=== PATIENT | female | born 1950 | race Caucasian/White ===

== ENCOUNTER → 2016-08-29 | Outpatient (CLI) | payer BC | END | disposition home or self-care (01) | LOC: C.LABPVFM 10:03 | PROVIDERS: ATTEND Nurse Practitioner Family | DX: E03.9 Hypothyroidism, unspecified (principal) ==

== ENCOUNTER → 2017-07-30 | Outpatient (CLI) | payer BC | END | disposition home or self-care (01) | LOC: C.LABPVFM 15:18 | PROVIDERS: ATTEND Nurse Practitioner Family | DX: E03.9 Hypothyroidism, unspecified (principal) ==

== ENCOUNTER 2021-03-07 15:14 | Inpatient (IN) ==
[2021-03-07] MEDS ORDERED: dexAMETHasone**PF** 10 MG/ML VIAL IV ONE (17:40)
[2021-03-07] MEDS ORDERED: SODIUM CHLORIDE 0.9% 1000ML 1,000 ML IV ONE (17:40)
--- NOTE | 2021-03-07 17:44 | Emergency Department Note ---
Impression & Plan Pneumonia due to COVID-19 virus, Hypoxia ED Provider Note NAME: MICHAEL KING AGE: 70 SEX: F : 1950 ARRIVES VIA: Walk-In INFORMANT: Patient ED PROVIDER(S): Shaji Washington DO CHIEF COMPLAINT: cough shortness of breath HPI: Patient is a 70-year-old female who presents the ER for cough, congestion and shortness of breath associated with myalgias and weakness. Her symptoms all started exactly a week ago. She has associated nausea with this. No belly pain or chest pain. No diarrhea. No dysuria, urgency, or frequency. is sick with the same symptoms. She normally does not require any oxygen. She notes it is worse when she is up moving around she becomes very weak and short of breath. ROS: See above HPI for pertinent positives & negatives. A total of 10 systems reviewed and were otherwise negative. PAST MEDICAL HISTORY:See Below PAST SURGICAL HISTORY:See Below FAMILY HISTORY:See Below SOCIAL HISTORY:See Below HOME MEDICATIONS:See Below ALLERGIES:See Below VITALS:See Below PHYSICAL EXAMINATION: GENERAL: Sitting up in bed, alert, slightly ill-appearing on nasal cannula, talking in full sentences, intermittent cough EYE EXAM: normal conjunctiva. PERRL and EOM's grossly intact. OROPHARYNX: no exudate, no erythema, lips, buccal mucosa, and tongue normal and mucous membranes are moist NECK: supple, no nuchal rigidity, no adenopathy, non-tender LUNGS: Clear to auscultation. Normal chest wall mechanics HEART: no murmurs, S1 normal and S2 normal ABDOMEN: abdomen soft, non-tender, normo-active bowel sounds, no masses, no rebound or guarding. UPPER EXTREMITIES: upper extremities are grossly normal. LOWER EXTREMITIES: Calves are equal bilateral NEURO EXAM: Normal sensorium, cranial nerves II-XII grossly intact, normal speech, no gross weakness of arms, no gross weakness of legs. MEDICAL DECISION MAKING: Patient is a 70-year-old female who presents the ER for the above-stated complaint. IV was established. Blood work was obtained. Labs show mild leukopenia at 4.3 thousand. No significant anemia BMP with a mild hyponatremia at 131. LFTs he is in troponin. Pain is. UA was clean. Covid positive. Patient was hypoxic. Remained on nasal cannula throughout stay in ER. Given fluids and steroids. Chest x-ray with multifocal infiltrates. Patient updated at bedside. Triage Nursing notes reviewed. Limited review of prior medical records performed Vital Signs: reviewed and remarkable for HTN, tachy, hypoxic Differential diagnosis: Differential diagnoses includes but is not limited to pneumonia, bronchitis, COPD/Asthma exacerbation, pneumothorax, pulmonary embolism, congestive heart failure, acute coronary syndrome ER treatment provided: See below Diagnostics interpreted by me: ECG: Sinus rhythm rate of 98 Left axis No PVCs QTC 500 Septal Q waves Cardiac Monitoring: An order was placed for continuous cardiac monitoring. The monitor shows a rate of 92 with sinus rhythm. Laboratory studies: As stated above and show below. Imaging studies: See below Consultation(s): Discussed the hospitalist for admission Procedures: none Critical Care: I have personally spent 45 minutes of critical care time in the direct management of this patient. This includes bedside care, interpretation of alexander gnostic studies, and testing, discussion with consultants, patient, and family members, and other required patient management activities. This 45 minutes is in excess of all separately billable procedures. Past Med/Surg History Medical History (Updated 03/07/21 @ 23:24 by Shaji Washington DO) HLD (hyperlipidemia) Hypothyroidism Surgical History History of hysterectomy Social History (Updated 03/07/21 @ 19:41 by Alice Zepeda PA-C) Smoking Status: Never smoker Hx Alcohol Use: Yes Alcohol type: beer and hard liquor Alcohol Intake Frequency: Monthly or Less Hx Substance Use: No Preferred Language: Kyrgyz Communication Ability: Effective Open Hearth Helper Required: No Beliefs That Will Affect Care: None marital status: Current Living Situation: Spouse Feels Safe at Home: Yes Safety Concerns: Feels Safe At This Time Assistive Devices: Glasses Allergies Allergies Allergy/AdvReac Type Severity Reaction Status Date / Time No Known Allergies Allergy Verified 03/07/21 18:49 Home Meds Home Medications Medication Instructions Recorded Confirmed levothyroxine 100 mcg tablet 100 mcg PO DAILY 03/07/21 03/07/21 Results & Data (ED) Vital Signs Vital Signs - 24 hr 03/07/21 15:41 03/07/21 15:46 Temperature 37 C Temperature Source Temporal Artery Scan Pulse Rate 108 H Respiratory Rate 22 Respiratory Effort / Characteristics Short of Breath Blood Pressure 164/89 H Blood Pressure Mean 114 Blood Pressure Position Sitting Pulse Oximetry 87 L 87 L Oxygen Delivery Method Room Air Room Air Sepsis Recent Fever Within 48 Hours No Sepsis New/Unexplained Change in Mental Status N/A Sepsis Action Taken by Nursing No Action Required Oxygen Flow Rate - Titration 4 Laboratory Data Result diagrams: 03/07/21 17:55 03/07/21 17:55 Lab Results 03/07/21 03/07/21 03/07/21 Range/Units 17:55 17:55 17:55 WBC 4.30 L (4.8-10.8) K/uL RBC 4.23 (4.2-5.4) M/uL Hgb 13.1 (12.0-16.0) g/dL Hct 39.2 (37-47) % MCV 92.7 (80-100) fL MCH 31.0 (25-34) pg MCHC 33.4 (32-36) g/dL RDW Std Deviation 46.4 H (36.4-46.3) fL RDW Coeff of Wood 13.8 (11.5-14.5) % Plt Count 154 (130-400) K/uL MPV 9.4 (7.4-10.4) fL Immature Gran % (Auto) 0.5 % Neut % (Auto) 68.6 % Lymph % (Auto) 20.7 % Heard % (Auto) 9.8 % Eos % (Auto) 0.2 % Baso % (Auto) 0.2 % Neut # (Auto) 2.95 (1.4-6.5) K/uL Lymph # (Auto) 0.89 L (1.2-3.4) K/uL Heard # (Auto) 0.42 (0.11-0.59) K/uL Eos # (Auto) 0.01 (0-0.5) K/uL Baso # (Auto) 0.01 (0-0.2) K/uL Immature Gran # (Auto) 0.02 (0.00-0.02) K/uL ESR (0-30) mm/hr APTT 37.0 H (21.0-31.0) Seconds PTT Ratio 1.4 Sodium 131 L (136-145) mmol/L Potassium 3.8 (3.5-5.1) mmol/L Chloride 96 L (98-107) mmol/L Carbon Dioxide 28 (21-32) mmol/L Anion Gap 7.0 (3-11) BUN 16 (7-18) mg/dl Creatinine 1.06 (0.6-1.2) mg/dl Est Cr Clr Drug Dosing 51.8 ml/min Est GFR ( Amer) 61.6 ml/min Est GFR (Non-Af Amer) 53.2 ml/min BUN/Creatinine Ratio 15.2 (10-20) Glucose 158 H (70-99) mg/dl Osmolality (280-300) mOsm/kg Calcium 8.5 (8.5-10.1) mg/dl Total Bilirubin 0.6 (0.2-1) mg/dl AST 69 H (15-37) U/L ALT 23 (12-78) U/L Alkaline Phosphatase 146 H (45-117) U/L Troponin I < 0.015 (0-0.045) ng/ml C-Reactive Protein 11.30 H (0-0.29) mg/dl Total Protein 7.5 (6.4-8.2) gm/dl Albumin 3.2 L (3.4-5.0) gm/dl Globulin 4.3 H (2.5-4.0) gm/dl Albumin/Globulin Ratio 0.7 L (0.9-2) Lipase 171 (73-393) U/L Procalcitonin (0-0.5) ng/ml 03/07/21 03/07/21 03/07/21 Range/Units 17:55 17:55 17:55 WBC (4.8-10.8) K/uL RBC (4.2-5.4) M/uL Hgb (12.0-16.0) g/dL Hct (37-47) % MCV (80-100) fL MCH (25-34) pg MCHC (32-36) g/dL RDW Std Deviation (36.4-46.3) fL RDW Coeff of Wood (11.5-14.5) % Plt Count (130-400) K/uL MPV (7.4-10.4) fL Immature Gran % (Auto) % Neut % (Auto) % Lymph % (Auto) % Heard % (Auto) % Eos % (Auto) % Baso % (Auto) % Neut # (Auto) (1.4-6.5) K/uL Lymph # (Auto) (1.2-3.4) K/uL Heard # (Auto) (0.11-0.59) K/uL Eos # (Auto) (0-0.5) K/uL Baso # (Auto) (0-0.2) K/uL Immature Gran # (Auto) (0.00-0.02) K/uL ESR 63 H (0-30) mm/hr APTT (21.0-31.0) Seconds PTT Ratio Sodium (136-145) mmol/L Potassium (3.5-5.1) mmol/L Chloride (98-107) mmol/L Carbon Dioxide (21-32) mmol/L Anion Gap (3-11) BUN (7-18) mg/dl Creatinine (0.6-1.2) mg/dl Est Cr Clr Drug Dosing ml/min Est GFR ( Amer) ml/min Est GFR (Non-Af Amer) ml/min BUN/Creatinine Ratio (10-20) Glucose (70-99) mg/dl Osmolality (280-300) mOsm/kg Calcium (8.5-10.1) mg/dl Total Bilirubin (0.2-1) mg/dl AST (15-37) U/L ALT (12-78) U/L Alkaline Phosphatase (45-117) U/L Troponin I (0-0.045) ng/ml C-Reactive Protein Cancelled (0-0.29) mg/dl Total Protein (6.4-8.2) gm/dl Albumin (3.4-5.0) gm/dl Globulin (2.5-4.0) gm/dl Albumin/Globulin Ratio (0.9-2) Lipase (73-393) U/L Procalcitonin 0.10 (0-0.5) ng/ml 03/07/21 Range/Units 17:55 WBC (4.8-10.8) K/uL RBC (4.2-5.4) M/uL Hgb (12.0-16.0) g/dL Hct (37-47) % MCV (80-100) fL MCH (25-34) pg MCHC (32-36) g/dL RDW Std Deviation (36.4-46.3) fL RDW Coeff of Wood (11.5-14.5) % Plt Count (130-400) K/uL MPV (7.4-10.4) fL Immature Gran % (Auto) % Neut % (Auto) % Lymph % (Auto) % Heard % (Auto) % Eos % (Auto) % Baso % (Auto) % Neut # (Auto) (1.4-6.5) K/uL Lymph # (Auto) (1.2-3.4) K/uL Heard # (Auto) (0.11-0.59) K/uL Eos # (Auto) (0-0.5) K/uL Baso # (Auto) (0-0.2) K/uL Immature Gran # (Auto) (0.00-0.02) K/uL ESR (0-30) mm/hr APTT (21.0-31.0) Seconds PTT Ratio Sodium (136-145) mmol/L Potassium (3.5-5.1) mmol/L Chloride (98-107) mmol/L Carbon Dioxide (21-32) mmol/L Anion Gap (3-11) BUN (7-18) mg/dl Creatinine (0.6-1.2) mg/dl Est Cr Clr Drug Dosing ml/min Est GFR ( Amer) ml/min Est GFR (Non-Af Amer) ml/min BUN/Creatinine Ratio (10-20) Glucose (70-99) mg/dl Osmolality 278 L (280-300) mOsm/kg Calcium (8.5-10.1) mg/dl Total Bilirubin (0.2-1) mg/dl AST (15-37) U/L ALT (12-78) U/L Alkaline Phosphatase (45-117) U/L Troponin I (0-0.045) ng/ml C-Reactive Protein (0-0.29) mg/dl Total Protein (6.4-8.2) gm/dl Albumin (3.4-5.0) gm/dl Globulin (2.5-4.0) gm/dl Albumin/Globulin Ratio (0.9-2) Lipase (73-393) U/L Procalcitonin (0-0.5) ng/ml Administered Medications Albuterol (Albuterol Hfa 8 Gm Inhaler) 2 puffs INH QID BROWN Stop: 04/06/21 21:55 Last Admin: 03/07/21 22:57 Dose: 2 puffs Documented by: [id number] Discontinued Medications Dexamethasone Sodium Phosphate (DexamethasonePf 10 Mg/Ml Vial) 8 mg IV NOW ONE Stop: 03/07/21 17:41 Last Admin: 03/07/21 19:23 Dose: 8 mg Documented by: [id number] Sodium Chloride (Nss 1000ml) 1,000 mls @ 999 mls/hr IV .Q1H1M ONE Stop: 03/07/21 18:40 Last Infusion: 03/07/21 20:49 Dose: 0 mls/hr Documented by: [id number] Admin: 03/07/21 19:24 Dose: 999 mls/hr Documented by: [id number] Remdesivir 200 mg/ Sodium (Chloride) 250 mls @ 125 mls/hr IV ONE STA; Protocol Stop: 03/07/21 22:36 Last Admin: 03/07/21 21:16 Dose: 125 mls/hr Documented by: [id number] Imaging Data Radiologist's Impression: Chest X-Ray 03/07/21 17:40 SINGLE VIEW CHEST CLINICAL HISTORY: Atypical chest pain. FINDINGS: An AP, portable, upright chest radiograph is obtained. No prior studies are available for comparison at the time of dictation. The examination is degraded by portable technique and apical lordotic positioning. The cardiomediastinal silhouette is unremarkable. Multifocal airspace consolidation is seen throughout both lungs, most confluent in the right upper lobe. No large pleural effusion or pneumothorax is seen. The skeletal structures are osteopenic. The bony thorax is grossly intact. IMPRESSION: Multifocal airspace consolidation is typical for pneumonia. Clinical correlation will be required and radiographic follow-up to resolution is recommended. ACT 112: Negative or not required by law. Electronically signed by: Broderick Castro M.D. 03/07/2021 7:20 PM Discharge Plan Visit Data Chief Complaint: Illness Stated Complaint: CONGESTION,TIRED,COUGH,FEVER,NAUSEA,HEADACHE ED Provider: Shaji Washington Discharge Problem: Pneumonia due to COVID-19 virus, Hypoxia Patient Disposition: Admitted As Inpatient Discharge Instructions Interventions: ED Discharge Assessment Last Done: 03/07/21 21:34
[2021-03-07 18:14] LABS: Basophils # (auto) 0.01 K/uL (0-0.2); Basophils % (auto) 0.2 %; Eosinophils # (auto) 0.01 K/uL (0-0.5); Eosinophils % (auto) 0.2 %; Hematocrit (blood only) 39.2 % (37-47); Hemoglobin 13.1 g/dL (12.0-16.0); Immature Granulocytes # (auto) 0.02 K/uL (0.00-0.02); Immature Granulocytes % (auto) 0.5 %; Lymphocytes # (auto) 0.89 K/uL (1.2-3.4); Lymphocytes % (auto) 20.7 %; Mean Corpuscular Hgb Conc 33.4 g/dL (32-36); Mean Corpuscular Volume 92.7 fL (80-100); Mean Platelet Volume 9.4 fL (7.4-10.4); Monocytes # (auto) 0.42 K/uL (0.11-0.59); Monocytes % (auto) 9.8 %; Neutrophils # (auto) 2.95 K/uL (1.4-6.5); Neutrophils % (auto) 68.6 %; Platelet Count 154 K/uL (130-400); RDW Coefficient of Variation 13.8 % (11.5-14.5); RDW Standard Deviation 46.4 fL (36.4-46.3); Red Blood Count 4.23 M/uL (4.2-5.4)
[2021-03-07 18:29] LABS: Partial Thromboplastin Ratio 1.4
[2021-03-07 18:46] LABS: Alanine Aminotransferase 23 U/L (12-78); Albumin Globulin Ratio 0.7 (0.9-2); Albumin Level 3.2 gm/dl (3.4-5.0); Alkaline Phosphatase 146 U/L (45-117); BUN Creatinine Ratio 15.2 (10-20); Bilirubin,Total 0.6 mg/dl (0.2-1); Blood Urea Nitrogen 16 mg/dl (7-18); Calcium 8.5 mg/dl (8.5-10.1); Carbon Dioxide 28 mmol/L (21-32); Chloride 96 mmol/L (98-107); Creatinine Clr Calc Pharmacy 51.8 ml/min; Est GFR (African American) 61.6 ml/min; Est GFR (Non-African American) 53.2 ml/min; Globulin 4.3 gm/dl (2.5-4.0); Glucose 158 mg/dl (70-99); Lipase 171 U/L (73-393); Sodium 131 mmol/L (136-145); Total Protein 7.5 gm/dl (6.4-8.2); Troponin I < 0.015 ng/ml (0-0.045)
[2021-03-07 18:52] LABS: Potassium 3.8 mmol/L (3.5-5.1)
[2021-03-07 19:04] LABS: Aspartate Aminotransferase 69 U/L (15-37)
--- NOTE | 2021-03-07 19:21 | XRay Report ---
SINGLE VIEW CHEST CLINICAL HISTORY: Atypical chest pain. FINDINGS: An AP, portable, upright chest radiograph is obtained. No prior studies are available for c omparison at the time of dictation. The examination is degraded by portable technique and apical lord otic positioning. The cardiomediastinal silhouette is unremarkable. Multifocal airspace consolidation is seen throughout both lungs, most confluent in the right upper lobe. No large pleural effusion or pneumothorax is seen. The skeletal structures are osteopenic. The bony thorax is grossly intact. IMPRESSION: Multifocal airspace consolidation is typical for pneumonia. Clinical correlation will be required and radiographic follow-up to resolution is recommended. ACT 112: Negative or not required by law. Electronically signed by: Broderick Castro M.D. 03/07/2021 7:20 PM
--- NOTE | 2021-03-07 19:37 | History & Physical Report ---
Date of Service March 07, 2021 Assessment & Plan (1) Hypoxia: (2) Pneumonia due to COVID-19 virus: (3) Hyponatremia: (4) Hypothyroidism: (5) HLD (hyperlipidemia): Plan: This is a 70 year old F who has a significant PMH of hypothyroidism, HLD who is presenting with weakness and cough x 1 week. CXR: Multifocal PNA ESR: 63 CRP 11.30 Procalcitonin: 0.10 SARS-COV2: positive Hypoxia PNA due to Covid-19 admit to tele supplemental oxygen, titrate as needed IV dexamethasone 6mg daily IV Remdesivir Lovenox SQ BID for dvt ppx encourage incentive spirometry Albuterol HFA QID Muccinex 1200mg BID encourage self ambulation and position change q2hr, pt states she cannot prone, encouraged to if able Hyponatremia Hypochloremia serum osm, urine na and urine osm pending likely hypotonic hyponatremia, mildly dehydrated IVF x 1 L ordered in ED repeat in a.m. Elevated blood glucose, random 158 obtain a1c in a.m. denies hx of t2dm Hypothyroidism continue synthyroid DVT ppx: Lovenox sq BID Dispo: PCU PCP: Gamal FULL CODE Pt was seen and examined in collaboration with Dr. Hassan, please see addendum History of Present Illness Chief Complaint: Weakness and cough x 1 week. Primary Care Provider: Elizabeth Yeung, DO This is a 70 year old F who has a significant PMH of hypothyroidism, HLD who is presenting with weakness and cough x 1 week. Patient complains of generalized weakness, fatigue, myalgias, feeling feverish, wet productive cough and known COVID-19 exposure with . She denies any shortness of breath, chest pain, hemoptysis, lightheadedness, dizziness, nausea, vomiting, abdominal pain, change in bowel or urinary habits. She does have generalized decreased appetite. She denies any loss of taste or smell. She denies any change in weight. She does have chronic lower extremity swelling but feels this is a baseline. She is otherwise healthy only takes levothyroxine for medication. She is a non-smoker and socially drinks alcohol. In ED she was hypoxic requiring 3 L of O2 to maintain normal saturation. Her CBC revealed mild leukopenia at 4.3k,, ESR 63, CRP 11 point, sodium 131, right 96, BUN 16, creatinine 106, glucose 158. Chest x-ray revealed multifocal pneumonia. She received IV Decadron in ED. She is not vaccinated against covid-19. Allergies Allergy/AdvReac Type Severity Reaction Status Date / Time No Known Allergies Allergy Verified 03/07/21 18:49 Home Medications Medication Instructions Recorded Confirmed Type levothyroxine 100 mcg tablet 100 mcg PO DAILY 03/07/21 03/07/21 History Past Med/Surg History Medical History (Updated 03/07/21 @ 23:24 by Shaji Washington DO) HLD (hyperlipidemia) Hypothyroidism Surgical History History of hysterectomy Social History (Updated 03/07/21 @ 19:41 by Alice Zepeda PA-C) Smoking Status: Never smoker Hx Alcohol Use: Yes Alcohol type: beer and hard liquor Alcohol Intake Frequency: Monthly or Less Hx Substance Use: No Preferred Language: Azeri Communication Ability: Effective Senior Environmental Practice Leader Required: No Beliefs That Will Affect Care: None marital status: Current Living Situation: Spouse Feels Safe at Home: Yes Safety Concerns: Feels Safe At This Time Assistive Devices: Glasses Review of Systems Review of Systems: All systems reviewed & are unremarkable except as noted in HPI & below Physical Exam Physical Exam: Constitutional: WD/WN, obese, F, vitals as above, NAD, sitting up in bed, pleasant, conversing easily Head: Normocephalic, Atraumatic Eyes: PERRL, conjunctivae normal, anicteric sclerae ENMT: external ear and nose normal, oropharynx normal Neck: trachea midline, no thyromegaly normal visual inspection Respiratory: on O2 via 3L of NC, normal respiratory effort, lungs clear to auscultation, no wheeze, rales, rhonchi. Normal insp/exp effort, no accessory muscle use Cardiovascular: RRR, no murmur, b/l nonpitting edema Vessels: no JVD or carotid bruit Chest: normal inspection of chest Abdomen: normal bowel sounds, soft, nontender, no hepatosplenomegaly Musculoskeletal: no cyanosis or clubbing, extremities motor strength 5/5 Skin: no rashes, warm and dry normal turgor Neurologic: PERRL, EOMI, accommodation nl, no face palsy, no dysarthria CN's II-XI intact bilaterally and moves all extremities Psychiatric: A+Ox3, euthymic affect Lymphatic: no cervical or axillary lymphadenopathy : deferred Results & Data Results & Data ([facility]) Vital Signs (Past 12 Hours) Vital Signs Temp Pulse Resp BP Pulse Ox 03/07/21 15:46 87 L 03/07/21 15:41 37 C 108 H 22 164/89 H 87 L Diagnostic Findings Chest X-Ray 03/07/21 17:40 SINGLE VIEW CHEST CLINICAL HISTORY: Atypical chest pain. FINDINGS: An AP, portable, upright chest radiograph is obtained. No prior studies are available for comparison at the time of dictation. The examination is degraded by portable technique and apical lordotic positioning. The cardiomediastinal silhouette is unremarkable. Multifocal airspace consolidation is seen throughout both lungs, most confluent in the right upper lobe. No large pleural effusion or pneumothorax is seen. The skeletal structures are osteopenic. The bony thorax is grossly intact. IMPRESSION: Multifocal airspace consolidation is typical for pneumonia. Clinical correlation will be required and radiographic follow-up to resolution is recommended. ACT 112: Negative or not required by law. Electronically signed by: Broderick Castro M.D. 03/07/2021 7:20 PM Medications Administered Medication List Discontinued Medications Dexamethasone Sodium Phosphate (DexamethasonePf 10 Mg/Ml Vial) 8 mg IV NOW ONE Stop: 03/07/21 17:41 Last Admin: 03/07/21 19:23 Dose: 8 mg Documented by: [id number] Sodium Chloride (Nss 1000ml) 1,000 mls @ 999 mls/hr IV .Q1H1M ONE Stop: 03/07/21 18:40 Last Admin: 03/07/21 19:24 Dose: 999 mls/hr Documented by: [id number] ECG Rate (beats per minute): 98 Rhythm: normal sinus COVID-19 Results Results COVID-19 Adm Lab Results: RBC 4.23 M/uL (4.2-5.4) 03/07/21 WBC 4.30 K/uL (4.8-10.8) L 03/07/21 Hgb 13.1 g/dL (12.0-16.0) 03/07/21 Hct 39.2 % (37-47) 03/07/21 Plt Count 154 K/uL (130-400) 03/07/21 Neutrophils (%) (Auto) 68.6 % 03/07/21 Lymphocytes (%) (Auto) 20.7 % 03/07/21 Monocytes # (Auto) 0.42 K/uL (0.11-0.59) 03/07/21 Eosinophils # (Auto) 0.01 K/uL (0-0.5) 03/07/21 Immature Granulocyte % (Auto) 0.5 % 03/07/21 Neutrophils # (Auto) 2.95 K/uL (1.4-6.5) 03/07/21 Lymphocytes # (Auto) 0.89 K/uL (1.2-3.4) L 03/07/21 Monocytes # (Auto) 0.42 K/uL (0.11-0.59) 03/07/21 Eosinophils # (Auto) 0.01 K/uL (0-0.5) 03/07/21 Basophils # (Auto) 0.01 K/uL (0-0.2) 03/07/21 Immature Granulocyte # (Auto) 0.02 K/uL (0.00-0.02) 03/07/21 Na 131 mmol/L (136-145) L 03/07/21 K 3.8 mmol/L (3.5-5.1) 03/07/21 Cl 96 mmol/L (98-107) L 03/07/21 CO2 28 mmol/L (21-32) 03/07/21 Anion Gap 7.0 (3-11) 03/07/21 BUN 16 mg/dl (7-18) 03/07/21 Creatinine 1.06 mg/dl (0.6-1.2) 03/07/21 BUN/Creatinine Ratio 15.2 (10-20) 03/07/21 Glucose Level 158 mg/dl (70-99) H 03/07/21 Ca 8.5 mg/dl (8.5-10.1) 03/07/21 Total Bilirubin 0.6 mg/dl (0.2-1) 03/07/21 AST/SGOT 69 U/L (15-37) H 03/07/21 ALT/SGPT 23 U/L (12-78) 03/07/21 Alkaline Phosphatase 146 U/L (45-117) H 03/07/21 Total Protein 7.5 gm/dl (6.4-8.2) 03/07/21 Albumin 3.2 gm/dl (3.4-5.0) L 03/07/21 Globulin 4.3 gm/dl (2.5-4.0) H 03/07/21 Albumin/Globulin Ratio 0.7 (0.9-2) L 03/07/21 Troponin I < 0.015 ng/ml (0-0.045) 03/07/21 CRP 11.30 mg/dl (0-0.29) H 03/07/21 Procalcitonin 0.10 ng/ml (0-0.5) 03/07/21 PTT 37.0 Seconds (21.0-31.0) H 03/07/21 COVID-19 PCR POSITIVE (Negative) A* 03/07/21 Chest X-Ray 03/07/21 Code Status & VTE Plan Code Status FULL CODE VTE Prophylaxis Plan VTE Prophylaxis will be ordered: Yes Supervising Physician Co-Signing Physician Notes Care coordinated with Jana Zepeda PA-C. Agree with above note. Patient seen and examined. Please refer to her notes for full details. Vital signs reviewed. Physical exam: General exam: Alert and oriented. Not in acute distress. CVS: S1 and S2 heard, regular rate and rhythm, no murmurs. RS: Clear to auscultation, no wheezing or crackles. ABD: Soft, bowel sounds present, nontender, no distention. SCAFFOLDING HELPER: Nonfocal. EXT: No edema, no erythema. Labs: Reviewed. Assessment and plan: 70F prsenst with cough and weakness sob going for abut a week. requiring oxygen. Has covid pneumonia Covid pneumonia hypoxia iv decadron, remdesevir will follow labs close monitor. Hyperglycemia follow sugars while on steroids follw hba1c levels Other diagnosis and plan of care as per ILYA Groves MD.
[2021-03-07 19:46] LABS: Appearance Urine Clear (Clear); Bilirubin Urine Negative (Negative); Blood Urine Negative (Negative); Color Urine Yellow; Glucose Urine UA Negative (Negative); Ketones Urine Negative (Negative); Leukocyte Esterase Urine Negative (Negative); Nitrite Urine Negative (Negative); Protein Urine Negative (Negative); Specific Gravity Urine 1.008 (1.000-1.030); Urobilinogen Urine Negative (Negative)
[2021-03-07] MEDS ORDERED: REMDESIVIR 200 MG in SODIUM CHLORIDE 0.9% 210 ML IV STA (20:37)
[2021-03-07] MEDS ORDERED: MAGNESIUM HYDROXIDE SUSP 30 ML UDC PO PRN (21:56)
[2021-03-07] MEDS ORDERED: ONDANSETRON INJ 2 MG/ML 2 ML VIAL IV PRN (21:56)
[2021-03-07] MEDS ORDERED: POLYETHYLENE (MIRALAX) 17 GM PACK PO PRN (21:56)
[2021-03-07] MEDS ORDERED: ALUMINUM/MAGNESIUM SUSP 30 ML UDC PO PRN (21:56)
[2021-03-07] MEDS: ALBUTEROL HFA 8 GM INHALER INH SCH (22:57)
[2021-03-07] MEDS: guaiFENesin 600 MG TABCR PO SCH (23:19)
[2021-03-07] MEDS: ENOXAPARIN INJ 40 MG/0.4 ML SYR SQ SCH (23:20)
[2021-03-07] MEDS: SODIUM CHLORIDE 0.9% 10ML FLUSH IV SCH (23:24)
[2021-03-08] MEDS: ALBUTEROL HFA 8 GM INHALER INH SCH ×4 (07:51→19:54)
[2021-03-08] MEDS: guaiFENesin 600 MG TABCR PO SCH ×2 (08:41→21:40)
[2021-03-08] MEDS: dexAMETHasone 6 MG in SYRINGE 0 ML IV SCH (08:41)
[2021-03-08] MEDS: LEVOTHYROXINE SODIUM 100 MCG TABLET PO SCH (08:42)
[2021-03-08] MEDS: ENOXAPARIN INJ 40 MG/0.4 ML SYR SQ SCH ×2 (08:42→21:41)
[2021-03-08 09:36] LABS: Basophils # (auto) 0.01 K/uL (0-0.2); Basophils % (auto) 0.2 %; Hematocrit (blood only) 44.2 % (37-47); Hemoglobin 15.2 g/dL (12.0-16.0); Immature Granulocytes # (auto) 0.03 K/uL (0.00-0.02); Immature Granulocytes % (auto) 0.5 %; Lymphocytes # (auto) 0.88 K/uL (1.2-3.4); Lymphocytes % (auto) 15.3 %; Mean Corpuscular Hemoglobin 31.4 pg (25-34); Mean Corpuscular Hgb Conc 34.4 g/dL (32-36); Mean Corpuscular Volume 91.3 fL (80-100); Mean Platelet Volume 10.1 fL (7.4-10.4); Monocytes # (auto) 0.47 K/uL (0.11-0.59); Monocytes % (auto) 8.2 %; Neutrophils # (auto) 4.35 K/uL (1.4-6.5); Neutrophils % (auto) 75.8 %; Platelet Count 160 K/uL (130-400); RDW Coefficient of Variation 13.8 % (11.5-14.5); RDW Standard Deviation 45.7 fL (36.4-46.3); Red Blood Count 4.84 M/uL (4.2-5.4); White Blood Count 5.74 K/uL (4.8-10.8)
--- NOTE | 2021-03-08 09:57 | Electrocardiogram Report ---
Test Reason : Blood Pressure : / mmHG Vent. Rate : 098 BPM Atrial Rate : 098 BPM P-R Int : 178 ms QRS Dur : 074 ms QT Int : 392 ms P-R-T Axes : 030 -10 057 degrees QTc Int : 500 ms Poor data quality, interpretation may be adversely affected Normal sinus rhythm Left atrial enlargement Anteroseptal infarct , age undetermined Abnormal ECG No previous ECGs available Confirmed by Shemran Davila ([id number]) on 03/08/2021 9:56:51 AM Referred By: REFERRED SELF Confirmed By:Sherman Davila
[2021-03-08 10:08] LABS: Albumin Globulin Ratio 0.7 (0.9-2); Albumin Level 3.3 gm/dl (3.4-5.0); BUN Creatinine Ratio 15.6 (10-20); Bilirubin,Total 0.6 mg/dl (0.2-1); Calcium 8.5 mg/dl (8.5-10.1); Creatinine Clr Calc Pharmacy 65.4 ml/min; Est GFR (African American) 82.8 ml/min; Est GFR (Non-African American) 71.4 ml/min; Globulin 4.9 gm/dl (2.5-4.0); Magnesium 2.3 mg/dl (1.8-2.4); Potassium 3.8 mmol/L (3.5-5.1); Total Protein 8.2 gm/dl (6.4-8.2)
[2021-03-08 11:09] LABS: Estimated Average Glucose 140 mg/dl; Hemoglobin A1C 6.5 % (4.5-5.6)
[2021-03-08] MEDS ORDERED: FUROSEMIDE 40 MG in SYRINGE 0 ML IV ONE (13:30)
[2021-03-08] MEDS ORDERED: FUROSEMIDE 40 MG/4 ML VIAL IV ONE (13:30)
--- NOTE | 2021-03-08 14:53 | Hospitalist Progress Note ---
Date of Service March 08, 2021 Assessment & Plan (1) Hypoxia: Plan: Secondary to PNA due to Covid-19 (2) Pneumonia due to COVID-19 virus: Plan: CXR: Multifocal PNA ESR: 63,CRP 11.30 Procalcitonin: 0.10 SARS-COV2: positive Supplemental oxygen, titrate as needed IV dexamethasone 6mg daily and IV Remdesivir Encourage incentive spirometry and flutter valves Albuterol HFA QID Muccinex 1200mg BID Encourage prone position Hyperglycemia Hemoglobin A1c 6.5 Likely secondary to use of steroid We will put her on sliding scale insulin coverage Hypertension Blood pressure has been running high Was not any blood pressure medications before We will start amlodipine (3) Hyponatremia: Plan: Hyponatremia Hypochloremia serum osm, urine na and urine osm pending likely hypotonic hyponatremia, mildly dehydrated IVF x 1 L ordered in ED Sodium level has improved to 138 (4) Hypothyroidism: Plan: Continue supplement (5) HLD (hyperlipidemia): Plan: DVT ppx: Lovenox sq BID Dispo: PCU PCP: Gamal FULL CODE Admission and Anticipated Discharge Date Admission Date: March 07, 2021 Subjective 03/08/2021 The patient was seen and examined in telemetry unit and in the Covid room She has been feeling a little better but is still requiring about 12 L of oxygen to maintain saturation Still has cough Review of Systems Review of Systems: All systems reviewed and are unremarkable except as noted below Physical Exam Physical Exam: Sitting at the edge of the bed with minimal shortness of breath Constitutional: well developed, well nourished, + ill appearing and + obese Eyes: PERRL, conjunctivae normal, anicteric sclerae ENMT: external ear and nose normal, oropharynx normal Neck: trachea midline, no thyromegaly Respiratory: + respiratory distress (Mild to moderate shortness of breath at rest) and + cough Auscultation: + diminished lung sounds and + crackles (At the bases) Cardiovascular: Rate/Rhythm: regular rate and regular rhythm; not tachycardic Heart Sounds: normal S1 and normal S2; no murmur Extremities: + edema (Trace edema bilaterally) Gastrointestinal (Abdomen): Inspection/Auscultation: normal bowel sounds; abdomen not distended Percussion/Palpation: abdomen soft; abdomen nontender Musculoskeletal: No acute arthritis in any joint Neurologic: Alert, awake and oriented x3 Psychiatric: A+Ox3, euthymic affect Lymphatic: no cervical or axillary lymphadenopathy Results & Data Results & Data ([facility]) Vital Signs (Past 12 Hours) Vital Signs Temp Pulse Pulse Resp BP BP Pulse Ox 03/08/21 13:25 03/08/21 13:15 03/08/21 11:30 96 H 18 90 03/08/21 11:15 36.7 C 101 H 19 179/104 H 88 L 03/08/21 09:00 148/89 H 03/08/21 08:10 36.5 C 90 20 149/102 H 90 03/08/21 07:52 80 18 91 03/08/21 07:11 81 03/08/21 03:36 91 H 19 149/95 H 92 Pulse Ox 03/08/21 13:25 90 03/08/21 13:15 82 L 03/08/21 11:30 03/08/21 11:15 03/08/21 09:00 90 03/08/21 08:10 03/08/21 07:52 03/08/21 07:11 03/08/21 03:36 Laboratory Results Short CBC 03/07/21 03/08/21 Range/Units 17:55 08:49 WBC 4.30 L 5.74 (4.8-10.8) K/uL Hgb 13.1 15.2 (12.0-16.0) g/dL Hct 39.2 44.2 (37-47) % Plt Count 154 160 (130-400) K/uL BMP 03/07/21 03/08/21 17:55 08:49 Sodium 131 L 138 D Potassium 3.8 3.8 Chloride 96 L 105 Carbon Dioxide 28 29 BUN 16 13 Creatinine 1.06 0.83 Glucose 158 H 156 H Calcium 8.5 8.5 Cardiac Enzymes 03/07/21 Range/Units 17:55 Troponin I < 0.015 (0-0.045) ng/ml Liver Function 03/07/21 03/08/21 Range/Units 17:55 08:49 Total Bilirubin 0.6 0.6 (0.2-1) mg/dl AST 69 H 71 H (15-37) U/L ALT 23 22 (12-78) U/L Alkaline Phosphatase 146 H 164 H (45-117) U/L Albumin 3.2 L 3.3 L (3.4-5.0) gm/dl Urine 03/07/21 Range/Units 19:20 Urine Color Yellow Urine Appearance Clear (Clear) Urine pH 6.0 (4.5-7.5) Ur Specific [place] 1.008 (1.000-1.030) Urine Protein Negative (Negative) Urine Glucose (UA) Negative (Negative) Medications Administered Current Inpatient Medications Acetaminophen (Acetaminophen 325 Mg Tab) 650 mg PO Q4H PRN PRN Reason: Pain or Fever Stop: 04/06/21 21:55 Al Hydrox/Mg Hydrox/Simethicone (Aluminum/Magnesium Susp 30 Ml Udc) 15 ml PO Q4H PRN PRN Reason: Dyspepsia Stop: 04/06/21 21:55 Albuterol (Albuterol Hfa 8 Gm Inhaler) 2 puffs INH QID [facility] Stop: 04/06/21 21:55 Last Admin: 03/08/21 11:28 Dose: 2 puffs Documented by: Enoxaparin Sodium (Enoxaparin Inj 40 Mg/0.4 Ml Syr) 40 mg SQ Q12H [facility] Stop: 04/06/21 21:59 Last Admin: 03/08/21 08:42 Dose: 40 mg Documented by: Guaifenesin (Guaifenesin 600 Mg Tabcr) 1,200 mg PO Q12 [facility] Stop: 04/06/21 21:55 Last Admin: 03/08/21 08:41 Dose: 1,200 mg Documented by: Dexamethasone 6 mg/ Syringe 1.5 mls @ 1 mls/min IV DAILY [facility] Stop: 03/18/21 08:59 Last Admin: 03/08/21 08:41 Dose: 1 mls/min Documented by: Remdesivir 100 mg/ Sodium (Chloride) 250 mls @ 250 mls/hr IV Q24H [facility]; Protocol Stop: 03/11/21 20:59 Levothyroxine Sodium (Levothyroxine Sodium 100 Mcg Tablet) [facility] Stop: 04/07/21 08:59 Last Admin: 03/08/21 08:42 Dose: 100 mcg Documented by: Magnesium Hydroxide (Magnesium Hydroxide Susp 30 Ml Udc) 30 ml PO Q12H PRN PRN Reason: Constipation Stop: 04/06/21 21:55 Ondansetron HCl (Ondansetron Inj 2 Mg/Ml 2 Ml Vial) 4 mg IV Q6H PRN PRN Reason: Nausea Stop: 04/06/21 21:55 Polyethylene Glycol (Polyethylene (Miralax) 17 Gm Pack) 17 gm PO DAILY PRN PRN Reason: Constipation Stop: 04/06/21 21:55 Sodium Chloride (Sodium Chloride 0.9% 10ml Flush) 30 ml IV Q24H [facility] Stop: 03/11/21 21:01 Last Admin: 03/07/21 23:24 Dose: 30 ml Documented by:
[2021-03-08] MEDS: ACETAMINOPHEN 325 MG TAB PO PRN (17:16)
[2021-03-08] MEDS: amLODIPine BESYLATE 5 MG TAB PO SCH (17:17)
[2021-03-08] MEDS: REMDESIVIR 100 MG in SODIUM CHLORIDE 0.9% 230 ML IV SCH (20:15)
[2021-03-08] MEDS ORDERED: REMDESIVIR 100 MG in SODIUM CHLORIDE 0.9% 230 ML IV SCH (20:45)
[2021-03-08] MEDS: SODIUM CHLORIDE 0.9% 10ML FLUSH IV SCH (21:39)
[2021-03-09] MEDS: LEVOTHYROXINE SODIUM 100 MCG TABLET PO SCH (05:58)
[2021-03-09 07:00] LABS: Albumin Globulin Ratio 0.6 (0.9-2); Albumin Level 2.8 gm/dl (3.4-5.0); BUN Creatinine Ratio 22.7 (10-20); Bilirubin,Total 0.5 mg/dl (0.2-1); Calcium 8.4 mg/dl (8.5-10.1); Creatinine Clr Calc Pharmacy 63.5 ml/min; Est GFR (African American) 79.3 ml/min; Est GFR (Non-African American) 68.4 ml/min; Globulin 4.5 gm/dl (2.5-4.0); Magnesium 2.2 mg/dl (1.8-2.4); Total Protein 7.3 gm/dl (6.4-8.2)
[2021-03-09 07:01] LABS: C Reactive Protein 7.73 mg/dl (0-0.29); Phosphorus 2.9 mg/dl (2.5-4.9)
[2021-03-09] MEDS: ALBUTEROL HFA 8 GM INHALER INH SCH ×4 (07:26→19:42)
[2021-03-09] MEDS ORDERED: FUROSEMIDE 40 MG/4 ML VIAL IV ONE (08:02)
[2021-03-09] MEDS ORDERED: FUROSEMIDE 40 MG in SYRINGE 0 ML IV ONE (08:02)
[2021-03-09] MEDS: amLODIPine BESYLATE 5 MG TAB PO SCH (10:06)
[2021-03-09] MEDS: guaiFENesin 600 MG TABCR PO SCH ×2 (10:06→21:45)
[2021-03-09] MEDS: ENOXAPARIN INJ 40 MG/0.4 ML SYR SQ SCH ×2 (10:06→21:45)
[2021-03-09] MEDS: dexAMETHasone 6 MG in SYRINGE 0 ML IV SCH (10:06)
--- NOTE | 2021-03-09 14:11 | Hospitalist Progress Note ---
Date of Service March 09, 2021 Assessment & Plan (1) Hypoxia: Plan: Secondary to PNA due to Covid-19 (2) Pneumonia due to COVID-19 virus: Plan: CXR: Multifocal PNA secondary to COVID-19 virus infection She is not being vaccinated ESR: 63,CRP 11.30,Procalcitonin: 0.10 on admission SARS-COV2: positive Supplemental oxygen, titrate as needed IV dexamethasone 6mg daily and IV Remdesivir Encourage incentive spirometry and flutter valves Albuterol HFA QID Muccinex 1200mg BID Encourage prone position CRP has been improving and it is 7.73 on 03/09/2021 with normal procalcitonin Clinically not any better and has been requiring 4 L of oxygen with FiO2 90% to maintain saturation Received another dose of intravenous Lasix today We will ask pulmonary medicine to evaluate as she may require intubation Hyperglycemia Hemoglobin A1c 6.5 Likely secondary to use of steroid We will put her on sliding scale insulin coverage Hypertension Blood pressure has been running high Was not any blood pressure medications before We will start amlodipine Blood pressure is responding with the medication (3) Hyponatremia: Plan: Hyponatremia Hypochloremia serum osm, urine na and urine osm pending likely hypotonic hyponatremia, mildly dehydrated IVF x 1 L ordered in ED Sodium level has improved to 138 (4) Hypothyroidism: Plan: Continue supplement (5) HLD (hyperlipidemia): Plan: DVT ppx: Lovenox sq BID Dispo: PCU PCP: Gamal FULL CODE Admission and Anticipated Discharge Date Admission Date: March 07, 2021 Subjective 03/08/2021 The patient was seen and examined in telemetry unit and in the Covid room She has been feeling a little better but is still requiring about 12 L of oxygen to maintain saturation Still has cough 03/09/2021 The patient was seen and examined in telemetry unit and in the Covid room She has been complaining of more shortness of breath Has been requiring 40 L of oxygen with 90% FiO2 to maintain saturation Complaints of weakness, fatigue and cough Review of Systems Review of Systems: All systems reviewed and are unremarkable except as noted below Respiratory: Moderate shortness of breath at rest with cough Neurologic: Extremely weak and lethargic Physical Exam Physical Exam: Sitting at the edge of the bed with minimal shortness of breath Constitutional: well developed, well nourished, + ill appearing and + obese Eyes: PERRL, conjunctivae normal, anicteric sclerae ENMT: external ear and nose normal, oropharynx normal Neck: trachea midline, no thyromegaly Respiratory: + respiratory distress (Mild to moderate shortness of breath at rest) and + cough Auscultation: + diminished lung sounds and + crackles (At the bases) Cardiovascular: Rate/Rhythm: regular rate and regular rhythm; not tachycardic Heart Sounds: normal S1 and normal S2; no murmur Extremities: + edema (Trace edema bilaterally) Gastrointestinal (Abdomen): Inspection/Auscultation: normal bowel sounds; abdomen not distended Percussion/Palpation: abdomen soft; abdomen nontender Musculoskeletal: No acute arthritis in any joint Neurologic: Alert and awake and oriented x3. Very lethargic but has been moving all limbs equally Psychiatric: A+Ox3, euthymic affect Lymphatic: no cervical or axillary lymphadenopathy Results & Data Results & Data ([facility]) Vital Signs (Past 12 Hours) Vital Signs Temp Pulse Pulse Pulse Resp BP Pulse Ox 03/09/21 13:20 80 26 H 91 03/09/21 12:13 91 H 24 90 03/09/21 11:42 36.6 C 88 20 147/80 H 89 L 03/09/21 11:05 94 H 24 90 03/09/21 11:03 94 H 24 91 03/09/21 10:00 89 22 95 03/09/21 09:00 91 03/09/21 08:15 88 24 91 03/09/21 07:51 81 03/09/21 07:31 36.9 C 87 26 H 168/72 H 88 L 03/09/21 07:28 88 22 89 L 03/09/21 03:39 36.7 C 67 22 141/75 H 91 Pulse Ox 03/09/21 13:20 03/09/21 12:13 03/09/21 11:42 03/09/21 11:05 03/09/21 11:03 03/09/21 10:00 03/09/21 09:00 91 03/09/21 08:15 03/09/21 07:51 03/09/21 07:31 03/09/21 07:28 03/09/21 03:39 Laboratory Results [facility] 03/09/21 05:52 Sodium 139 Potassium 4.0 Chloride 105 Carbon Dioxide 28 BUN 19 H Creatinine 0.86 Glucose 157 H Calcium 8.4 L Liver Function 03/09/21 Range/Units 05:52 Total Bilirubin 0.5 (0.2-1) mg/dl AST 71 H (15-37) U/L ALT 26 (12-78) U/L Alkaline Phosphatase 152 H (45-117) U/L Albumin 2.8 L (3.4-5.0) gm/dl Medications Administered Current Inpatient Medications Acetaminophen (Acetaminophen 325 Mg Tab) 650 mg PO Q4H PRN PRN Reason: Pain or Fever Stop: 04/06/21 21:55 Last Admin: 03/08/21 17:16 Dose: 650 mg Documented by: Al Hydrox/Mg Hydrox/Simethicone (Aluminum/Magnesium Susp 30 Ml Udc) 15 ml PO Q4H PRN PRN Reason: Dyspepsia Stop: 04/06/21 21:55 Albuterol (Albuterol Hfa 8 Gm Inhaler) 2 puffs INH QID [facility] Stop: 04/06/21 21:55 Last Admin: 03/09/21 11:03 Dose: 2 puffs Documented by: Amlodipine Besylate (Amlodipine Besylate 5 Mg Tab) 5 mg PO QAM [facility] Stop: 04/07/21 14:59 Last Admin: 03/09/21 10:06 Dose: Not Given Documented by: Enoxaparin Sodium (Enoxaparin Inj 40 Mg/0.4 Ml Syr) 40 mg SQ Q12H [facility] Stop: 04/06/21 21:59 Last Admin: 03/09/21 10:06 Dose: 40 mg Documented by: Guaifenesin (Guaifenesin 600 Mg Tabcr) 1,200 mg PO Q12 [facility] Stop: 04/06/21 21:55 Last Admin: 03/09/21 10:06 Dose: 1,200 mg Documented by: Dexamethasone 6 mg/ Syringe 1.5 mls @ 1 mls/min IV DAILY [facility] Stop: 03/18/21 08:59 Last Admin: 03/09/21 10:06 Dose: 1 mls/min Documented by: Remdesivir 100 mg/ Sodium (Chloride) 250 mls @ 250 mls/hr IV Q24H [facility]; Protocol Stop: 03/11/21 20:59 Last Infusion: 03/08/21 21:39 Dose: Infused Documented by: Tocilizumab 800 mg/ Sodium (Chloride) 100 mls @ 100 mls/hr IV NOW ONE Stop: 03/09/21 15:14 Levothyroxine Sodium (Levothyroxine Sodium 100 Mcg Tablet) 100 mcg PO DAILYBB [facility] Stop: 04/07/21 08:59 Last Admin: 03/09/21 05:58 Dose: 100 mcg Documented by: Magnesium Hydroxide (Magnesium Hydroxide Susp 30 Ml Udc) 30 ml PO Q12H PRN PRN Reason: Constipation Stop: 04/06/21 21:55 Ondansetron HCl (Ondansetron Inj 2 Mg/Ml 2 Ml Vial) 4 mg IV Q6H PRN PRN Reason: Nausea Stop: 04/06/21 21:55 Polyethylene Glycol (Polyethylene (Miralax) 17 Gm Pack) 17 gm PO DAILY PRN PRN Reason: Constipation Stop: 04/06/21 21:55 Sodium Chloride (Sodium Chloride 0.9% 10ml Flush) 30 ml IV Q24H [facility] Stop: 03/11/21 21:01 Last Admin: 03/08/21 21:39 Dose: 30 ml Documented by:
[2021-03-09] MEDS ORDERED: TOCILIZUMAB 800 MG in 0.9 % SODIUM CHLORIDE 60 ML IV ONE (14:15)
--- NOTE | 2021-03-09 18:14 | Pulmonary Consultation ---
Date of Consultation March 09, 2021 Assessment & Plan (1) Pneumonia due to COVID-19 virus: (2) Acute respiratory failure with hypoxia: (3) Morbid obesity: Chest x-ray 03/07/2021 personally reviewed: Portable film, patchy opacities appreciated bilaterally, bilateral costophrenic and cardiophrenic angles are clean --Acute hypoxic respiratory failure Secondary to multilobar COVID-19 pneumonia COVID-19 PCR positive 03/07/2021 CRP 11.3 --> 7.73 Procalcitonin 0.07 Continue with O2 supplementation to keep oxygen saturation between 90-92%. Awake proning will be helpful Continue with incentive spirometry Continue with flutter valve. Recommend patient to be kept negative balance --Morbid obesity with probable LAKIA CPAP nightly and as needed shortness of breath Plan: Awake proning Incentive spirometry We will give the patient Tocilizumab as she fits the criteria Please note the above document was generated using voice recognition software. It may contain grammatical, syntax or spelling errors.Any formal questions or concerns about the content, text or information contained within the body of this dictation should be directly addressed to the provider for clarification. History of Present Illness Attending Physician: Aminah Shah MD History of Present Illness 70-year-old female with past medical history of hypothyroidism, dyslipidemia presented to hospital with complaints of weakness and cough She was found to be Covid positive Patient has been requiring increasing need for oxygen. Pulmonary consulted for the same At the time of examination patient was on 60 L, 80% saturating 91% Patient states she is feeling little bit better compared to before Denies any chest pain. She does have cough but is not able to bring much of phlegm up. Denies any headache, no nausea or vomiting. Fair appetite. No dysuria. Has been urinating well. Social history: Non-smoker, social alcohol No personal or family history of asthma Allergies Allergy/AdvReac Type Severity Reaction Status Date / Time No Known Allergies Allergy Verified 03/07/21 18:49 Home Medications Medication Instructions Recorded Confirmed Type levothyroxine 100 mcg tablet 100 mcg PO DAILY 03/07/21 03/07/21 History Patient History Medical History (Updated 03/09/21 @ 18:09 by Michele Danielson MD) HLD (hyperlipidemia) Hypothyroidism Surgical History History of hysterectomy Social History (Updated 03/07/21 @ 19:41 by Alice Zepeda PA-C) Smoking Status: Never smoker Hx Alcohol Use: Yes Alcohol type: beer and hard liquor Alcohol Intake Frequency: Monthly or Less Hx Substance Use: No Preferred Language: [place] Communication Ability: Effective Wood Hacker Required: No Beliefs That Will Affect Care: None marital status: Current Living Situation: Spouse Feels Safe at Home: Yes Safety Concerns: Feels Safe At This Time Assistive Devices: Glasses and Oxygen - Continuous Review of Systems Review of Systems: All systems reviewed & are unremarkable except as noted in HPI & below Physical Exam Physical Exam: Constitutional: No acute distress HEENT: EOMI, PERRLA, strabismus left eye Respiratory system: Decreased antibiotic, no wheeze, no rhonchi, positive crackles bilaterally CVS: S1-S2 positive, no murmurs or gallops Abdomen: Soft, nontender, nondistended, positive bowel sounds x4, obese Extremities: +2 pulses bilaterally radialis/ dorsalis pedis, no cyanosis, +1 pitting edema Neuro: Awake alert oriented x3 Psych: Normal mood and affect G/U: No Coker Results & Data Results & Data ([facility]) Vital Signs (Past 12 Hours) Vital Signs Temp Pulse Pulse Pulse Resp BP Pulse Ox 03/09/21 16:26 36.8 C 95 H 22 169/103 H 87 L 03/09/21 15:36 79 03/09/21 15:12 87 22 94 03/09/21 13:20 80 26 H 91 03/09/21 12:13 91 H 24 90 03/09/21 11:42 36.6 C 88 20 147/80 H 89 L 03/09/21 11:05 94 H 24 90 03/09/21 11:03 94 H 24 91 03/09/21 10:00 89 22 95 03/09/21 09:00 91 03/09/21 08:15 88 24 91 03/09/21 07:51 81 03/09/21 07:31 36.9 C 87 26 H 168/72 H 88 L 03/09/21 07:28 88 22 89 L Pulse Ox 03/09/21 16:26 03/09/21 15:36 03/09/21 15:12 03/09/21 13:20 03/09/21 12:13 03/09/21 11:42 03/09/21 11:05 03/09/21 11:03 03/09/21 10:00 03/09/21 09:00 91 03/09/21 08:15 03/09/21 07:51 03/09/21 07:31 03/09/21 07:28 03/08/21 08:49 03/09/21 05:52 PG Care Time/CCT Total # of Minutes Spent Total Time Spent with Patient: Total time spent is greater than 50% in coordination of care (as documented) at patient's floor/unit and/or counseling patient: Coding Level of Care Code 57311 Initial Inpt Care Lvl 3 Diagnoses Pneumonia due to COVID-19 virus U07.1; J12.82 Acute respiratory failure with hypoxia J96.01 Morbid obesity E66.01
[2021-03-09] MEDS: REMDESIVIR 100 MG in SODIUM CHLORIDE 0.9% 230 ML IV SCH (20:00)
[2021-03-09] MEDS: SODIUM CHLORIDE 0.9% 10ML FLUSH IV SCH (21:45)
[2021-03-10] MEDS: LEVOTHYROXINE SODIUM 100 MCG TABLET PO SCH (05:51)
[2021-03-10 06:28] LABS: Basophils # (auto) 0.03 K/uL (0-0.2); Basophils % (auto) 0.3 %; Hematocrit (blood only) 40.8 % (37-47); Hemoglobin 13.4 g/dL (12.0-16.0); Immature Granulocytes # (auto) 0.05 K/uL (0.00-0.02); Immature Granulocytes % (auto) 0.6 %; Lymphocytes # (auto) 1.29 K/uL (1.2-3.4); Lymphocytes % (auto) 14.6 %; Mean Corpuscular Hemoglobin 30.9 pg (25-34); Mean Corpuscular Hgb Conc 32.8 g/dL (32-36); Mean Corpuscular Volume 94.2 fL (80-100); Mean Platelet Volume 9.8 fL (7.4-10.4); Monocytes # (auto) 0.76 K/uL (0.11-0.59); Monocytes % (auto) 8.6 %; Neutrophils # (auto) 6.73 K/uL (1.4-6.5); Neutrophils % (auto) 75.9 %; Platelet Count 220 K/uL (130-400); RDW Coefficient of Variation 13.9 % (11.5-14.5); RDW Standard Deviation 48.2 fL (36.4-46.3); Red Blood Count 4.33 M/uL (4.2-5.4); White Blood Count 8.86 K/uL (4.8-10.8)
[2021-03-10 06:54] LABS: Albumin Level 2.7 gm/dl (3.4-5.0); BUN Creatinine Ratio 25.9 (10-20); Calcium 8.2 mg/dl (8.5-10.1); Creatinine Clr Calc Pharmacy 67.8 ml/min; Est GFR (African American) 86.6 ml/min; Est GFR (Non-African American) 74.7 ml/min; Potassium 3.9 mmol/L (3.5-5.1)
[2021-03-10 06:57] LABS: Albumin Globulin Ratio 0.6 (0.9-2); Bilirubin,Total 0.5 mg/dl (0.2-1); C Reactive Protein 4.46 mg/dl (0-0.29); Globulin 4.2 gm/dl (2.5-4.0); Phosphorus 3.2 mg/dl (2.5-4.9); Total Protein 6.9 gm/dl (6.4-8.2)
[2021-03-10] MEDS: ALBUTEROL HFA 8 GM INHALER INH SCH ×4 (07:35→19:28)
[2021-03-10] MEDS: amLODIPine BESYLATE 5 MG TAB PO SCH (08:27)
[2021-03-10] MEDS: guaiFENesin 600 MG TABCR PO SCH ×2 (08:27→20:39)
[2021-03-10] MEDS: dexAMETHasone 6 MG in SYRINGE 0 ML IV SCH (08:27)
[2021-03-10] MEDS: ENOXAPARIN INJ 40 MG/0.4 ML SYR SQ SCH ×2 (08:27→21:07)
[2021-03-10] MEDS ORDERED: FUROSEMIDE 40 MG in SYRINGE 0 ML IV ONE (12:26)
[2021-03-10] MEDS ORDERED: FUROSEMIDE 40 MG/4 ML VIAL IV SCH (12:45)
--- NOTE | 2021-03-10 13:08 | Pulmonology Progress Note ---
Date of Service March 10, 2021 Assessment & Plan (1) Pneumonia due to COVID-19 virus: (2) Acute respiratory failure with hypoxia: (3) Morbid obesity: Plan: Chest x-ray 03/07/2021 personally reviewed: Portable film, patchy opacities appreciated bilaterally, bilateral costophrenic and cardiophrenic angles are clean --Acute hypoxic respiratory failure Secondary to multilobar COVID-19 pneumonia COVID-19 PCR positive 03/07/2021 CRP 11.3 --> 7.73 Procalcitonin 0.07 S/p Tocilizumab 03/09/2021 Continue with O2 supplementation to keep oxygen saturation between 90-92%. Awake proning will be helpful Continue with incentive spirometry Continue with flutter valve. Recommend patient to be kept negative balance --Morbid obesity with probable LAKIA CPAP nightly and as needed shortness of breath Plan: In/out: -1.4 L, urine output 2325 Patient unable to prone unfortunately. Try to sleep on the side Aggressive incentive spirometry And flutter valve Continue titrating down O2 to keep saturation 88 as above We will try CPAP overnight if the patient is able to tolerate it. Please note the above document was generated using voice recognition software. It may contain grammatical, syntax or spelling errors.Any formal questions or concerns about the content, text or information contained within the body of this dictation should be directly addressed to the provider for clarification. Admission and Anticipated Discharge Date Admission Date: March 07, 2021 Subjective Patient seen and examined at bedside. No acute distress, no adverse events overnight. Patient stated she is feeling better compared to yesterday. She was on 50 L, 80% at time of examination saturating 92% I went down to 75%. Patient was not in any respiratory stress Fair appetite. Urinating well. Denies any nausea or vomiting. Still complains of cough which is mostly dry. Review of Systems Review of Systems: All systems reviewed & are unremarkable except as noted in Subjective Physical Exam Physical Exam: Constitutional: No acute distress HEENT: EOMI, PERRLA, strabismus left eye Respiratory system: Decreased antibiotic, no wheeze, no rhonchi, positive crackles bilaterally CVS: S1-S2 positive, no murmurs or gallops Abdomen: Soft, nontender, nondistended, positive bowel sounds x4, obese Extremities: +2 pulses bilaterally radialis/ dorsalis pedis, no cyanosis, +1 pitting edema Neuro: Awake alert oriented x3 Psych: Normal mood and affect G/U: No Coker Skin: no rashes, warm and dry Lymphatic: no cervical or axillary lymphadenopathy Results & Data Results & Data ([facility]) Vital Signs (Past 12 Hours) Vital Signs Temp Pulse Pulse Pulse Resp BP Pulse Ox 03/10/21 11:28 36.5 C 86 20 175/119 H 91 03/10/21 11:00 92 03/10/21 10:00 79 24 90 03/10/21 09:00 03/10/21 08:00 20 92 03/10/21 07:35 80 20 93 03/10/21 07:31 80 03/10/21 07:18 36.4 C L 81 20 196/101 H 95 03/10/21 04:10 36.6 C 76 18 149/86 H 89 L 03/10/21 03:25 76 14 93 Pulse Ox 03/10/21 11:28 03/10/21 11:00 03/10/21 10:00 03/10/21 09:00 92 03/10/21 08:00 03/10/21 07:35 03/10/21 07:31 03/10/21 07:18 03/10/21 04:10 03/10/21 03:25 03/10/21 05:40 03/10/21 05:40 PG Care Time/CCT Total # of Minutes Spent Total Time Spent with Patient: Total time spent is greater than 50% in c oordination of care (as documented) at patient's floor/unit and/or counseling patient: Coding Level of Care Code 26949 Subseq Hosp Care Lvl 3 Diagnoses Pneumonia due to COVID-19 virus U07.1; J12.82 Acute respiratory failure with hypoxia J96.01 Morbid obesity E66.01
--- NOTE | 2021-03-10 13:29 | Hospitalist Progress Note ---
Date of Service March 10, 2021 Assessment & Plan (1) Hypoxia: Plan: Secondary to PNA due to Covid-19 (2) Pneumonia due to COVID-19 virus: Plan: CXR: Multifocal PNA secondary to COVID-19 virus infection She is not being vaccinated ESR: 63,CRP 11.30,Procalcitonin: 0.10 on admission SARS-COV2: positive Supplemental oxygen, titrate as needed IV dexamethasone 6mg daily and IV Remdesivir Encourage incentive spirometry and flutter valves Albuterol HFA QID Muccinex 1200mg BID Encourage prone position CRP has been improving and it is 7.73 on 03/09/2021 with normal procalcitonin Clinically not any better and has been requiring 4 L of oxygen with FiO2 90% to maintain saturation Received another dose of intravenous Lasix today Appreciate pulmonary input and recommendation-the patient received Tocilizumab yesterday 03/09/2021 She has been feeling much better today and requiring a little less oxygen of 35 L/min to maintain saturation We will give another dose of Lasix intravenously today 03/10/2021 Hyperglycemia Hemoglobin A1c 6.5 Likely secondary to use of steroid We will put her on sliding scale insulin coverage Hypertension Blood pressure has been running high Was not any blood pressure medications before We will start amlodipine Blood pressure remains high as of today (3) Hyponatremia: Plan: Hyponatremia Hypochloremia serum osm, urine na and urine osm pending likely hypotonic hyponatremia, mildly dehydrated IVF x 1 L ordered in ED Sodium level has improved to 138 (4) Hypothyroidism: Plan: Continue supplement (5) HLD (hyperlipidemia): Plan: DVT ppx: Lovenox sq BID Dispo: PCU PCP: Gamal FULL CODE Admission and Anticipated Discharge Date Admission Date: March 07, 2021 Subjective 03/08/2021 The patient was seen and examined in telemetry unit and in the Covid room She has been feeling a little better but is still requiring about 12 L of oxygen to maintain saturation Still has cough 03/09/2021 The patient was seen and examined in telemetry unit and in the Covid room She has been complaining of more shortness of breath Has been requiring 40 L of oxygen with 90% FiO2 to maintain saturation Complaints of weakness, fatigue and cough 03/10/2021 The patient was seen and examined in telemetry unit and in the Covid room She has been feeling much better today Has been requiring a little less flow rate at 35 L/min to maintain saturation Denies any chest pain or palpitation, no abdominal pain, nausea and/or vomiting or weakness Review of Systems Review of Systems: All systems reviewed and are unremarkable except as noted below Respiratory: Moderate shortness of breath at rest with cough Neurologic: Extremely weak and lethargic Physical Exam Physical Exam: Sitting at the edge of the bed with minimal shortness of breath Constitutional: well developed, well nourished, + ill appearing and + obese Eyes: PERRL, conjunctivae normal, anicteric sclerae ENMT: external ear and nose normal, oropharynx normal Neck: trachea midline, no thyromegaly Respiratory: + respiratory distress (Mild to moderate shortness of breath at rest) and + cough Auscultation: + diminished lung sounds and + crackles (At the bases) Cardiovascular: Rate/Rhythm: regular rate and regular rhythm; not tachycardic Heart Sounds: normal S1 and normal S2; no murmur Extremities: + edema (Trace edema bilaterally) Gastrointestinal (Abdomen): Inspection/Auscultation: normal bowel sounds; abdomen not distended Percussion/Palpation: abdomen soft; abdomen nontender Musculoskeletal: No acute arthritis involving any joint Neurologic: Alert, awake and oriented x3. Generally weak but no focal neuro deficit Psychiatric: A+Ox3, euthymic affect Lymphatic: no cervical or axillary lymphadenopathy Results & Data Results & Data ([facility]) Vital Signs (Past 12 Hours) Vital Signs Temp Pulse Pulse Pulse Resp BP Pulse Ox 03/10/21 11:28 36.5 C 86 20 175/119 H 91 03/10/21 11:00 92 03/10/21 10:00 79 24 90 03/10/21 09:00 03/10/21 08:00 20 92 03/10/21 07:35 80 20 93 03/10/21 07:31 80 03/10/21 07:18 36.4 C L 81 20 196/101 H 95 03/10/21 04:10 36.6 C 76 18 149/86 H 89 L 03/10/21 03:25 76 14 93 Pulse Ox 03/10/21 11:28 03/10/21 11:00 03/10/21 10:00 03/10/21 09:00 92 03/10/21 08:00 03/10/21 07:35 03/10/21 07:31 03/10/21 07:18 03/10/21 04:10 03/10/21 03:25 Laboratory Results Short CBC 03/10/21 Range/Units 05:40 WBC 8.86 (4.8-10.8) K/uL Hgb 13.4 (12.0-16.0) g/dL Hct 40.8 (37-47) % Plt Count 220 (130-400) K/uL BMP 03/10/21 05:40 Sodium 140 Potassium 3.9 Chloride 105 Carbon Dioxide 30 BUN 21 H Creatinine 0.80 Glucose 132 H Calcium 8.2 L Liver Function 03/10/21 Range/Units 05:40 Total Bilirubin 0.5 (0.2-1) mg/dl AST 65 H (15-37) U/L ALT 24 (12-78) U/L Alkaline Phosphatase 139 H (45-117) U/L Albumin 2.7 L (3.4-5.0) gm/dl Medications Administered Current Inpatient Medications Acetaminophen (Acetaminophen 325 Mg Tab) 650 mg PO Q4H PRN PRN Reason: Pain or Fever Stop: 04/06/21 21:55 Last Admin: 03/08/21 17:16 Dose: 650 mg Documented by: Al Hydrox/Mg Hydrox/Simethicone (Aluminum/Magnesium Susp 30 Ml Udc) 15 ml PO Q4H PRN PRN Reason: Dyspepsia Stop: 04/06/21 21:55 Albuterol (Albuterol Hfa 8 Gm Inhaler) 2 puffs INH QID [facility] Stop: 04/06/21 21:55 Last Admin: 03/10/21 07:35 Dose: 2 puffs Documented by: Amlodipine Besylate (Amlodipine Besylate 5 Mg Tab) 5 mg PO QAM [facility] Stop: 04/07/21 14:59 Last Admin: 03/10/21 08:27 Dose: 5 mg Documented by: Enoxaparin Sodium (Enoxaparin Inj 40 Mg/0.4 Ml Syr) 40 mg SQ Q12H [facility] Stop: 04/06/21 21:59 Last Admin: 03/10/21 08:27 Dose: 40 mg Documented by: Furosemide (Furosemide 40 Mg/4 Ml Vial) 40 mg IV 1245 [facility] Stop: 03/10/21 15:00 Guaifenesin (Guaifenesin 600 Mg Tabcr) 1,200 mg PO Q12 [facility] Stop: 04/06/21 21:55 Last Admin: 03/10/21 08:27 Dose: 1,200 mg Documented by: Dexamethasone 6 mg/ Syringe 1.5 mls @ 1 mls/min IV DAILY [facility] Stop: 03/18/21 08:59 Last Admin: 03/10/21 08:27 Dose: 1 mls/min Documented by: Remdesivir 100 mg/ Sodium (Chloride) 250 mls @ 250 mls/hr IV Q24H [facility]; Protocol Stop: 03/11/21 20:59 Last Infusion: 03/09/21 21:46 Dose: Infused Documented by: Levothyroxine Sodium (Levothyroxine Sodium 100 Mcg Tablet) 100 mcg PO DAILYBB [facility] Stop: 04/07/21 08:59 Last Admin: 03/10/21 05:51 Dose: 100 mcg Documented by: Magnesium Hydroxide (Magnesium Hydroxide Susp 30 Ml Udc) 30 ml PO Q12H PRN PRN Reason: Constipation Stop: 04/06/21 21:55 Ondansetron HCl (Ondansetron Inj 2 Mg/Ml 2 Ml Vial) 4 mg IV Q6H PRN PRN Reason: Nausea Stop: 04/06/21 21:55 Polyethylene Glycol (Polyethylene (Miralax) 17 Gm Pack) 17 gm PO DAILY PRN PRN Reason: Constipation Stop: 04/06/21 21:55 Sodium Chloride (Sodium Chloride 0.9% 10ml Flush) 30 ml IV Q24H [facility] Stop: 03/11/21 21:01 Last Admin: 03/09/21 21:45 Dose: 30 ml Documented by:
[2021-03-10] MEDS: SODIUM CHLORIDE 0.9% 10ML FLUSH IV SCH (20:38)
[2021-03-10] MEDS: REMDESIVIR 100 MG in SODIUM CHLORIDE 0.9% 230 ML IV SCH (20:38)
[2021-03-11] MEDS: LEVOTHYROXINE SODIUM 100 MCG TABLET PO SCH (05:39)
[2021-03-11 07:37] LABS: Albumin Level 2.8 gm/dl (3.4-5.0); BUN Creatinine Ratio 28.9 (10-20); Calcium 8.5 mg/dl (8.5-10.1); Creatinine Clr Calc Pharmacy 66.3 ml/min; Est GFR (Non-African American) 72.5 ml/min; Magnesium 2.6 mg/dl (1.8-2.4); Potassium 3.8 mmol/L (3.5-5.1)
[2021-03-11] MEDS: ALBUTEROL HFA 8 GM INHALER INH SCH ×4 (07:39→18:45)
[2021-03-11 07:44] LABS: Albumin Globulin Ratio 0.6 (0.9-2); Bilirubin,Total 0.5 mg/dl (0.2-1); C Reactive Protein 2.69 mg/dl (0-0.29); Globulin 4.5 gm/dl (2.5-4.0); Phosphorus 3.5 mg/dl (2.5-4.9); Total Protein 7.3 gm/dl (6.4-8.2)
[2021-03-11] MEDS: guaiFENesin 600 MG TABCR PO SCH ×2 (08:16→20:53)
[2021-03-11] MEDS: amLODIPine BESYLATE 5 MG TAB PO SCH (08:16)
[2021-03-11] MEDS: dexAMETHasone 6 MG in SYRINGE 0 ML IV SCH (08:16)
[2021-03-11] MEDS: ENOXAPARIN INJ 40 MG/0.4 ML SYR SQ SCH ×2 (09:56→20:53)
[2021-03-11] MEDS: OXYMETAZOLINE 0.05% 30 ML BTL PRN (10:53)
[2021-03-11] MEDS ORDERED: FUROSEMIDE 40 MG in SYRINGE 0 ML IV ONE (12:06)
[2021-03-11] MEDS ORDERED: FUROSEMIDE 40 MG/4 ML VIAL IV ONE (12:30)
--- NOTE | 2021-03-11 13:24 | Pulmonology Progress Note ---
Date of Service March 11, 2021 Assessment & Plan (1) Pneumonia due to COVID-19 virus: (2) Acute respiratory failure with hypoxia: (3) Morbid obesity: Plan: Attending: Dr. Danielson --Acute hypoxic respiratory failure Secondary to multilobar COVID-19 pneumonia Patient is unvaccinated COVID-19 PCR positive 03/07/2021 CRP 11.3 --> 7.73 and now 2.69 as of 03/11/2021 Procalcitonin 0.07 S/p Tocilizumab 03/09/2021 Continue with O2 supplementation to keep oxygen saturation between 90-92%. Awake proning would be helpful but patient states that she has too much back pain to lay on her side or her belly Continue with incentive spirometry Continue with flutter valve. Out of bed to chair as tolerated. Ambulate in room as tolerated Recommend patient to be kept negative balance --Morbid obesity with probable L[place] CPAP nightly and as needed shortness of breath Plan: Cumulative in/out: -3.591 liters Patient unable to prone unfortunately. Encouraged to continue to try to at least sleep on her side and rotate from right to left side Aggressive incentive spirometry Continue flutter valve Continue titrating down O2 to keep saturation 88 as above Continue CPAP overnight as tolerated Admission and Anticipated Discharge Date Admission Date: March 07, 2021 Subjective Attending: Dr. Danielson 03/08/2021 The patient was seen and examined in telemetry unit and in the Covid room She has been feeling a little better but is still requiring about 12 L of oxygen to maintain saturation Still has cough 03/09/2021 The patient was seen and examined in telemetry unit and in the Covid room She has been complaining of more shortness of breath Has been requiring 40 L of oxygen with 90% FiO2 to maintain saturation Complaints of weakness, fatigue and cough 03/10/2021 The patient was seen and examined in telemetry unit and in the Covid room She has been feeling much better today Has been requiring a little less flow rate at 35 L/min to maintain saturation Denies any chest pain or palpitation, no abdominal pain, nausea and/or vomiting or weakness 03/11/2021 The patient was seen and examined in the telemetry unit and in recovery room #208 Patient states that she feels like her breathing is better and that she feels like she might of turned the corner She still feels very weak and appears ill She is currently on FiO2 of 60% at 35 L/min flow with high flow oxygen She is tolerating the high flow well Patient states that she is unable to sleep in a prone position secondary to back pain No fever, chills, sweats, rigors. No nausea or vomiting. No new acute complaints Review of Systems Review of Systems: All systems reviewed & are unremarkable except as noted in Subjective Physical Exam Physical Exam: GENERAL : No acute distress EYES: No icterus, gaze conjugate NOSE: No evidence of epistaxis MOUTH: No lesions or candidiasis NECK: Supple LUNGS: Bibasilar rales. No appreciation of bronchospasm or rhonchi. Deep inspiration induces cough. No paradoxical chest wall movement HEART: Regular, rate controlled at 92 ABDOMEN: Soft, NT, ND, BS Present EXTREMITIES: Bilateral +1 LE edema, pedal pulses intact and equal bilaterally NEURO: A&OX3 Results & Data Results & Data ([facility]) Vital Signs (Past 12 Hours) Vital Signs Temp Pulse Pulse Resp BP BP Pulse Ox 03/11/21 11:27 88 14 94 03/11/21 10:57 36.8 C 94 H 14 167/104 H 92 03/11/21 09:00 03/11/21 08:07 36.5 C 85 25 H 158/83 H 91 03/11/21 07:39 81 18 93 03/11/21 04:18 36.7 C 77 14 167/97 H 94 03/11/21 03:06 79 17 95 Pulse Ox 03/11/21 11:27 03/11/21 10:57 03/11/21 09:00 90 03/11/21 08:07 03/11/21 07:39 03/11/21 04:18 03/11/21 03:06 Laboratory Results 03/10/21 05:40 03/11/21 06:10 Diagnostic Findings No further diagnostic imaging since 03/07/2021 as patient is improving PG Care Time/CCT Total # of Minutes Spent Total Time Spent with Patient: Total time spent is greater than 50% in coordination of care (as documented) at patient's floor/unit and/or counseling patient: 20 minutes Coding Level of Care Code 11485 Subseq Hosp Care Lvl 2 Diagnoses Pneumonia due to COVID-19 virus U07.1; J12.82 Acute respiratory failure with hypoxia J96.01 Morbid obesity E66.01 Time Spent (min) 20
[2021-03-11] MEDS: REMDESIVIR 100 MG in SODIUM CHLORIDE 0.9% 230 ML IV SCH (19:28)
[2021-03-11] MEDS: SODIUM CHLORIDE 0.9% 10ML FLUSH IV SCH (20:54)
[2021-03-11] MEDS: ACETAMINOPHEN 325 MG TAB PO PRN (23:40)
[2021-03-12] MEDS: LEVOTHYROXINE SODIUM 100 MCG TABLET PO SCH (06:16)
[2021-03-12] MEDS: ALBUTEROL HFA 8 GM INHALER INH SCH (07:05)
[2021-03-12 07:43] LABS: Creatinine Clr Calc Pharmacy 63.5 ml/min; Est GFR (African American) 81.6 ml/min; Est GFR (Non-African American) 70.4 ml/min
[2021-03-12] MEDS: amLODIPine BESYLATE 5 MG TAB PO SCH (09:46)
[2021-03-12] MEDS: dexAMETHasone 6 MG in SYRINGE 0 ML IV SCH (09:46)
[2021-03-12] MEDS: guaiFENesin 600 MG TABCR PO SCH ×2 (09:46→20:09)
[2021-03-12] MEDS ORDERED: ALBUTEROL HFA 8 GM INHALER INH PRN (10:43)
[2021-03-12] MEDS: ENOXAPARIN INJ 40 MG/0.4 ML SYR SQ SCH ×2 (10:51→20:09)
--- NOTE | 2021-03-12 14:02 | Hospitalist Progress Note ---
Date of Service March 12, 2021 Assessment & Plan (1) Hypoxia: Plan: Secondary to PNA due to Covid-19 (2) Pneumonia due to COVID-19 virus: Plan: CXR: Multifocal PNA secondary to COVID-19 virus infection She is not being vaccinated ESR: 63,CRP 11.30,Procalcitonin: 0.10 on admission SARS-COV2: positive Supplemental oxygen, titrate as needed IV dexamethasone 6mg daily and IV Remdesivir Encourage incentive spirometry and flutter valves Albuterol HFA QID Muccinex 1200mg BID Encourage prone position-she cannot tolerate prone position but has been trying to lie on her sides CRP has been improving and it is 7.73 on 03/09/2021 with normal procalcitonin Clinically not any better and has been requiring 4 L of oxygen with FiO2 90% to maintain saturation Received another dose of intravenous Lasix today Appreciate pulmonary input and recommendation-the patient received Tocilizumab yesterday 03/09/2021 She has been feeling much better today and requiring a little less oxygen of 35 L/min to maintain saturation We will give another dose of Lasix intravenously today 03/10/2021 Remained negative balance of 4346 mL so far No significant improvement noted-we will continue current management Hyperglycemia Hemoglobin A1c 6.5 Likely secondary to use of steroid We will put her on sliding scale insulin coverage Hypertension Blood pressure has been running high Was not any blood pressure medications before We will start amlodipine Blood pressure remains high but stable (3) Hyponatremia: Plan: Hyponatremia Hypochloremia serum osm, urine na and urine osm pending likely hypotonic hyponatremia, mildly dehydrated IVF x 1 L ordered in ED Sodium level has improved to 139 (4) Hypothyroidism: Plan: Continue supplement (5) HLD (hyperlipidemia): Plan: DVT ppx: Lovenox sq BID Dispo: PCU PCP: Gamal FULL CODE Admission and Anticipated Discharge Date Admission Date: March 07, 2021 Subjective Attending: Dr. Danielson 03/08/2021 The patient was seen and examined in telemetry unit and in the Covid room She has been feeling a little better but is still requiring about 12 L of oxygen to maintain saturation Still has cough 03/09/2021 The patient was seen and examined in telemetry unit and in the Covid room She has been complaining of more shortness of breath Has been requiring 40 L of oxygen with 90% FiO2 to maintain saturation Complaints of weakness, fatigue and cough 03/10/2021 The patient was seen and examined in telemetry unit and in the Covid room She has been feeling much better today Has been requiring a little less flow rate at 35 L/min to maintain saturation Denies any chest pain or palpitation, no abdominal pain, nausea and/or vomiting or weakness 03/11/2021 The patient was seen and examined in the telemetry unit and in recovery room #208 Patient states that she feels like her breathing is better and that she feels like she might of turned the corner She still feels very weak and appears ill She is currently on FiO2 of 60% at 35 L/min flow with high flow oxygen She is tolerating the high flow well Patient states that she is unable to sleep in a prone position secondary to back pain No fever, chills, sweats, rigors. No nausea or vomiting. No new acute complaints 03/12/2021 The patient was seen and examined in telemetry unit and in the Covid room recovery Her condition remains stable and may be a little worse today Still requiring high flow oxygen to maintain saturation She cannot lie prone but trying to lie on sides to improve her saturation Denies any chest pain or palpitation, no fever and no chills, no abdominal pain nausea and or vomiting Review of Systems Review of Systems: All systems reviewed and are unremarkable except as noted below Respiratory: Moderate shortness of breath at rest Physical Exam Physical Exam: Sitting on a chair with moderate shortness of breath Constitutional: well developed, well nourished, + ill appearing and + obese Eyes: PERRL, conjunctivae normal, anicteric sclerae ENMT: external ear and nose normal, oropharynx normal Neck: trachea midline, no thyromegaly Respiratory: + respiratory distress (Mild to moderate shortness of breath at rest) and + cough Auscultation: + diminished lung sounds and + crackles (At the bases) Cardiovascular: Rate/Rhythm: regular rate and regular rhythm; not tachycardic Heart Sounds: normal S1 and normal S2; no murmur Extremities: + edema (Trace edema bilaterally) Gastrointestinal (Abdomen): Inspection/Auscultation: normal bowel sounds; abdomen not distended Percussion/Palpation: abdomen soft; abdomen nontender Skin: no rashes, warm and dry Neurologic: Alert, awake and oriented x3. No focal sensory and motor deficit appreciated Psychiatric: A+Ox3, euthymic affect Lymphatic: no cervical or axillary lymphadenopathy Results & Data Results & Data ([facility] [place]) Vital Signs (Past 12 Hours) Vital Signs Temp Pulse Pulse Resp BP BP Pulse Ox 03/12/21 11:56 36.6 C 88 16 142/96 H 91 03/12/21 11:00 90 03/12/21 08:00 86 03/12/21 07:35 36.3 C L 83 14 156/85 H 93 03/12/21 07:05 81 16 96 03/12/21 04:10 36.6 C 82 18 151/88 H 95 03/12/21 03:17 73 18 95 Laboratory Results [facility] 03/12/21 06:14 Creatinine 0.84 Liver Function 03/12/21 Range/Units 06:14 AST 74 H (15-37) U/L ALT 32 (12-78) U/L Medications Administered Current Inpatient Medications Acetaminophen (Acetaminophen 325 Mg Tab) 650 mg PO Q4H PRN PRN Reason: Pain or Fever Stop: 04/06/21 21:55 Last Admin: 03/11/21 23:40 Dose: 650 mg Documented by: Al Hydrox/Mg Hydrox/Simethicone (Aluminum/Magnesium Susp 30 Ml Udc) 15 ml PO Q4H PRN PRN Reason: Dyspepsia Stop: 04/06/21 21:55 Albuterol (Albuterol Hfa 8 Gm Inhaler) 2 puffs INH QID PRN PRN Reason: Wheezing Stop: 04/06/21 21:55 Amlodipine Besylate (Amlodipine Besylate 5 Mg Tab) 5 mg PO QAM [facility] Stop: 04/07/21 14:59 Last Admin: 03/12/21 09:46 Dose: 5 mg Documented by: Enoxaparin Sodium (Enoxaparin Inj 40 Mg/0.4 Ml Syr) 40 mg SQ Q12H [facility] Stop: 04/06/21 21:59 Last Admin: 03/12/21 10:51 Dose: 40 mg Documented by: Guaifenesin (Guaifenesin 600 Mg Tabcr) 1,200 mg PO Q12 [facility] Stop: 04/06/21 21:55 Last Admin: 03/12/21 09:46 Dose: 1,200 mg Documented by: Dexamethasone 6 mg/ Syringe 1.5 mls @ 1 mls/min IV DAILY [facility] Stop: 03/18/21 08:59 Last Admin: 03/12/21 09:46 Dose: 1 mls/min Documented by: Levothyroxine Sodium (Levothyroxine Sodium 100 Mcg Tablet) 100 mcg PO DAILYBB [facility] Stop: 04/07/21 08:59 Last Admin: 03/12/21 06:16 Dose: 100 mcg Documented by: Magnesium Hydroxide (Magnesium Hydroxide Susp 30 Ml Udc) 30 ml PO Q12H PRN PRN Reason: Constipation Stop: 04/06/21 21:55 Ondansetron HCl (Ondansetron Inj 2 Mg/Ml 2 Ml Vial) 4 mg IV Q6H PRN PRN Reason: Nausea Stop: 04/06/21 21:55 Oxymetazoline HCl (Oxymetazoline 0.05% 30 Ml Btl) 1 sprays NA Q12H PRN PRN Reason: Congestion Stop: 04/10/21 09:57 Last Admin: 03/11/21 10:53 Dose: 1 sprays Documented by: Polyethylene Glycol (Polyethylene (Miralax) 17 Gm Pack) 17 gm PO DAILY PRN PRN Reason: Constipation Stop: 04/06/21 21:55
[2021-03-12] MEDS: ACETAMINOPHEN 325 MG TAB PO PRN (20:09)
[2021-03-13] MEDS: LEVOTHYROXINE SODIUM 100 MCG TABLET PO SCH (04:56)
[2021-03-13] MEDS: ACETAMINOPHEN 325 MG TAB PO PRN ×2 (04:56→22:08)
[2021-03-13 06:45] LABS: Basophils # (auto) 0.04 K/uL (0-0.2); Basophils % (auto) 0.4 %; Eosinophils # (auto) 0.01 K/uL (0-0.5); Eosinophils % (auto) 0.1 %; Hematocrit (blood only) 42.7 % (37-47); Hemoglobin 14.8 g/dL (12.0-16.0); Immature Granulocytes # (auto) 0.14 K/uL (0.00-0.02); Immature Granulocytes % (auto) 1.3 %; Lymphocytes # (auto) 1.57 K/uL (1.2-3.4); Lymphocytes % (auto) 14.4 %; Mean Corpuscular Hemoglobin 31.2 pg (25-34); Mean Corpuscular Hgb Conc 34.7 g/dL (32-36); Mean Corpuscular Volume 90.1 fL (80-100); Mean Platelet Volume 9.2 fL (7.4-10.4); Monocytes # (auto) 0.84 K/uL (0.11-0.59); Monocytes % (auto) 7.7 %; Neutrophils # (auto) 8.34 K/uL (1.4-6.5); Neutrophils % (auto) 76.1 %; Platelet Count 263 K/uL (130-400); RDW Coefficient of Variation 13.2 % (11.5-14.5); RDW Standard Deviation 43.8 fL (36.4-46.3); Red Blood Count 4.74 M/uL (4.2-5.4); White Blood Count 10.94 K/uL (4.8-10.8)
[2021-03-13 07:12] LABS: BUN Creatinine Ratio 28.8 (10-20); Calcium 8.3 mg/dl (8.5-10.1); Est GFR (African American) 86.6 ml/min; Est GFR (Non-African American) 74.7 ml/min; Potassium 3.6 mmol/L (3.5-5.1)
[2021-03-13] MEDS: guaiFENesin 600 MG TABCR PO SCH ×2 (08:05→20:28)
[2021-03-13] MEDS: amLODIPine BESYLATE 5 MG TAB PO SCH (08:06)
[2021-03-13] MEDS: dexAMETHasone 6 MG in SYRINGE 0 ML IV SCH (08:06)
[2021-03-13] MEDS: ENOXAPARIN INJ 40 MG/0.4 ML SYR SQ SCH ×2 (11:00→20:28)
--- NOTE | 2021-03-13 15:55 | Hospitalist Progress Note ---
Date of Service March 13, 2021 Assessment & Plan (1) Acute respiratory failure with hypoxia: (2) Pneumonia due to COVID-19 virus: Plan: 70-year-old female with PMH of hypothyroidism, HLD, morbid obesity presented to our ED 03/07 with weakness and cough x1 week [employer]. 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 She is non-smoker and socially drinks alcohol. In the ED she was hypoxic requiring 3 L of oxygen to maintain normal saturation. Chest x-ray revealed multifocal pneumonia. She was started on IV Decadron in the ED. She is not vaccinated against COVID-19. She is being managed for the following: #. Acute hypoxic respiratory failure #. Pneumonia due to COVID-19 virus Not vaccinated against Covid. Known Covid exposure with her , at presentation in the ED required 3 L of oxygen Admitting ESR 63; admitting Covid test 03/07 positive. Admitted CXR: Multifocal pneumonia secondary to COVID-19 virus infection. WBC mildly elevated at 10.9 4K, likely secondary to steroid. Pro-Sanjeev -2 times this admission. CRP: 03/07 11.3 downtrending to 2.69 on 03/11. Encourage incentive spirometry and flutter valve C/W albuterol, Mucinex, prone position as able [she cannot tolerate prone position but has been trying to lie on her sides ] Supplemental oxygen, titrate as needed, requiring very high oxygen. Clinically not any better. C/W dexamethasone 03/07; status post remdesivir Lasix as needed to keep her on sawdust drier side. I's and O's -5.4 L Pulmonology on board: Status post Toci 03/09 #. Hyperglycemia 03/08 A1c 6.5 Daily blood glucose level WNL Patient on steroid, continue to monitor. On SSI when needed. #. Hyper tension Blood pressure slightly elevated but stable. Renal blood pressure medications at home. Continue with amlodipine. #. Hyponatremia Improved. #. Hypothyroidism Continue home levothyroxine. #. DVT prophylaxis: Lovenox SC twice daily Disposition: Continue PCU care. PT/OT. CM to assist with DC planning. Full code Admission and Anticipated Discharge Date Admission Date: March 07, 2021 Subjective Patient was sitting up in chair, eating lunch. She states that her eating and bowel movements are okay. She is requiring high flow nasal cannula oxygen. Denies headache/dizziness/chest pain/palpitation/other review of symptoms. Patient feels about the same as yesterday. Physical Exam Physical Exam: GENERAL: Alert and oriented x3. NAD, on 50 L HFNC at 90%. HEENT: No pallor, no icterus. Pupils equal, round and reactive to light. Oral mucosa moist. NECK: No JVD, no neck masses. HEART: S1 and S2 heard. Regular rate and rhythm. No murmur, no gallop. RESPIRATORY SYSTEM: Normal AP diameter. No accessory muscle use. Decreased breath sounds bilaterally mid to lower lobes. Could not appreciate crackles. ABDOMEN: Soft, bowel sounds present, nontender, no distention. CENTRAL NERVOUS SYSTEM: Alert and oriented x3. No facial droop. Speech is clear. Obeys simple commands. Moves extremities. EXTREMITIES: No edema, no erythema seen. Results & Data Results & Data ([facility]) Vital Signs (Past 12 Hours) Vital Signs Temp Pulse Pulse Resp BP BP Pulse Ox 03/13/21 15:28 106 H 03/13/21 11:34 103 H 18 93 03/13/21 11:24 36.7 C 86 18 141/90 H 94 03/13/21 10:55 80 03/13/21 08:19 106 H 18 85 L 03/13/21 07:17 36.7 C 92 H 22 141/99 H 90
--- NOTE | 2021-03-13 21:26 | Pulmonology Progress Note ---
Date of Service March 13, 2021 Assessment & Plan (1) Pneumonia due to COVID-19 virus: (2) Acute respiratory failure with hypoxia: (3) Morbid obesity: Plan: Attending: Dr. Danielson --Acute hypoxic respiratory failure Secondary to multilobar COVID-19 pneumonia Patient is unvaccinated COVID-19 PCR positive 03/07/2021 CRP 11.3 --> 7.73 and now 2.69 as of 03/11/2021 Procalcitonin 0.07 S/p Tocilizumab 03/09/2021 Continue with O2 supplementation to keep oxygen saturation between 90-92%. Awake proning would be helpful but patient states that she has too much back pain to lay on her side or her belly Continue with incentive spirometry Continue with flutter valve. Out of bed to chair as tolerated. Ambulate in room as tolerated Recommend patient to be kept negative balance --Morbid obesity with probable LAKIA CPAP nightly and as needed shortness of breath Plan: Day 6 of dexamethasone Completed 5-day course of remdesivir Received tocilizumab on 03/09/2021 No convalescent plasma Cumulative in/out: -5.598 liters Continue furosemide Follow creatinine Patient unable to prone unfortunately. Encouraged to continue to try to at least sleep on her side and rotate from right to left side Aggressive incentive spirometry Continue flutter valve Continue titrating down O2 to keep saturation 88 as above Continue to attempt CPAP overnight -patient currently refusing due to claustrophobia Patient will benefit from higher volumes and less FiO2 but is complaining of high flow nasal cannula being too loud. Discussed need for higher volume and patient says that she will not tolerated Continue to monitor on Covid unit with telemetry Admission and Anticipated Discharge Date Admission Date: March 07, 2021 Supervising Physician Co-Signing Physician Notes I saw and evaluated the patient with Broderick Tanner, and agree with findings and plan as documented in the note. Patient oxygen needs has been going up gradually. She is negative balance Continue with diuresis Patient is unable to prone. Importance of chronic extent of the patient in depth Continue with dexamethasone. Recommend CPAP at night Subjective Attending: Dr. Danielson Patient seen and examined in bedside chair. Patient states that she continues to have shortness of breath. She is not tolerating the high flow oxygen only due to noise from high flow. In order to oxygenate, respiratory therapy has increased FiO2 and decreased volume. Patient denies any chest pain. She has no headache today. She has no significant c ough. She denies hemoptysis. Patient has no new complaints. Review of Systems Review of Systems: All systems reviewed & are unremarkable except as noted in Subjective Physical Exam Physical Exam: GENERAL : No acute distress EYES: No icterus, gaze conjugate NOSE: No evidence of epistaxis. High flow cannula in place MOUTH: No lesions or candidiasis. Mucosa moist NECK: Supple LUNGS: Decreased breath sounds with bibasilar crackles. No bronchospasm or rhonchi appreciated. Limited inspiratory effort HEART: Regular, rate controlled ABDOMEN: Soft, NT, ND, BS Present EXTREMITIES: No LE edema, pedal pulses intact NEURO: A&OX3 Results & Data Results & Data ([facility]) Vital Signs (Past 12 Hours) Vital Signs Temp Pulse Pulse Resp BP Pulse Ox 03/13/21 20:28 95 H 24 91 03/13/21 19:22 36.5 C 90 17 161/97 H 94 03/13/21 16:15 92 H 20 92 03/13/21 15:47 36.8 C 91 H 16 158/103 H 92 03/13/21 15:28 106 H 03/13/21 11:34 103 H 18 93 03/13/21 11:24 36.7 C 86 18 141/90 H 94 03/13/21 10:55 80 Laboratory Results 03/13/21 06:17 03/13/21 06:17 Diagnostic Findings No further diagnostic imaging PG Care Time/CCT Total # of Minutes Spent Total Time Spent with Patient: Total time spent is greater than 50% in coordination of care (as documented) at patient's floor/unit and/or counseling patient: 30 minutes Coding Level of Care Code 09943 Subseq Hosp Care Lvl 3 Diagnoses Pneumonia due to COVID-19 virus U07.1; J12.82 Acute respiratory failure with hypoxia J96.01 Morbid obesity E66.01 Time Spent (min) 30
[2021-03-14 06:36] LABS: Hematocrit (blood only) 43.2 % (37-47); Hemoglobin 14.9 g/dL (12.0-16.0); Mean Corpuscular Hemoglobin 31.1 pg (25-34); Mean Corpuscular Hgb Conc 34.5 g/dL (32-36); Mean Corpuscular Volume 90.2 fL (80-100); Mean Platelet Volume 9.5 fL (7.4-10.4); Platelet Count 270 K/uL (130-400); RDW Coefficient of Variation 13.2 % (11.5-14.5); RDW Standard Deviation 43.4 fL (36.4-46.3); Red Blood Count 4.79 M/uL (4.2-5.4); White Blood Count 14.01 K/uL (4.8-10.8)
[2021-03-14] MEDS: LEVOTHYROXINE SODIUM 100 MCG TABLET PO SCH (06:37)
[2021-03-14 07:06] LABS: BUN Creatinine Ratio 27.8 (10-20); Calcium 8.5 mg/dl (8.5-10.1); Creatinine Clr Calc Pharmacy 75.4 ml/min; Est GFR (African American) 87.9 ml/min; Est GFR (Non-African American) 75.8 ml/min; Potassium 3.8 mmol/L (3.5-5.1)
[2021-03-14] MEDS: guaiFENesin 600 MG TABCR PO SCH ×2 (08:05→21:02)
[2021-03-14] MEDS: dexAMETHasone 6 MG in SYRINGE 0 ML IV SCH (08:06)
[2021-03-14] MEDS: amLODIPine BESYLATE 5 MG TAB PO SCH ×2 (08:06→18:34)
[2021-03-14] MEDS: hydroCHLOROthiazide 25 MG TAB PO SCH (10:51)
[2021-03-14] MEDS: ENOXAPARIN INJ 40 MG/0.4 ML SYR SQ SCH ×2 (10:54→21:02)
--- NOTE | 2021-03-14 13:11 | Hospitalist Progress Note ---
Date of Service March 14, 2021 Assessment & Plan (1) Acute respiratory failure with hypoxia: (2) Pneumonia due to COVID-19 virus: Plan: 70-year-old female with PMH of hypothyroidism, HLD, morbid obesity presented to our ED 03/07 with weakness and cough x1 week [employer]. 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 She is non-smoker and socially drinks alcohol. In the ED she was hypoxic requiring 3 L of oxygen to maintain normal saturation. Chest x-ray revealed multifocal pneumonia. She was started on IV Decadron in the ED. She is not vaccinated against COVID-19. She is being managed for the following: #. Acute hypoxic respiratory failure #. Pneumonia due to COVID-19 virus Not vaccinated against Covid. Known Covid exposure with her , at presentation in the ED required 3 L of oxygen Admitting ESR 63; admitting Covid test 03/07 positive. Admitted CXR: Multifocal pneumonia secondary to COVID-19 virus infection. WBC mildly elevated, likely secondary to steroid. Pro-Sanjeev -2 times this admission. CRP: 03/07 11.3 downtrending to 2.69 on 03/11. Encourage incentive spirometry and flutter valve C/W albuterol, Mucinex, prone position as able [she cannot tolerate prone position but has been trying to lie on her sides ] Supplemental oxygen, titrate as needed, requiring very high oxygen. C/W dexamethasone 03/07; status post remdesivir Lasix as needed to keep her on steam drier tender side. I's and O's - 6.1 L Pulmonology on board: Status post Toci 03/09 #. Hyperglycemia 03/08 A1c 6.5 Daily blood glucose level WNL Patient on steroid, continue to monitor. On SSI when needed. #. Hyper tension Blood pressure slightly elevated but stable. Likely secondary to steroid and acute distress. No blood pressure medications at home. Continue with amlodipine and HCTZ. Taper down BP meds when able. #. Hyponatremia Improved. #. Hypothyroidism Continue home levothyroxine. #. DVT prophylaxis: Lovenox SC twice daily Disposition: Continue PCU care. PT/OT. CM to assist with DC planning. Full code Admission and Anticipated Discharge Date Admission Date: March 07, 2021 Subjective Patient was seen up in chair, on high flow nasal cannula oxygen [50 L at 93%] saturating well, NAD, no new issues overnight. Patient reports feeling same/minimally better. Patient denies any headache/dizziness/chest pain/belly pain/increased shortness of breath/other review of symptoms. Patient is eating and moving bowels okay. Patient is sleeping okay. Physical Exam Physical Exam: GENERAL: Alert and oriented x3. NAD, on 50 L HFNC at 93%. HEENT: No pallor, no icterus. Pupils equal, round and reactive to light. Oral mucosa moist. NECK: No JVD, no neck masses. HEART: S1 and S2 heard. Regular rate and rhythm. No murmur, no gallop. RESPIRATORY SYSTEM: Normal AP diameter. No accessory muscle use. Decreased breath sounds bilaterally mid to lower lobesminimal improvement. Some bibasilar crackles appreciated. ABDOMEN: Soft, bowel sounds present, nontender, no distention. CENTRAL NERVOUS SYSTEM: Alert and oriented x3. No facial droop. Speech is clear. Obeys simple commands. Moves extremities. EXTREMITIES: No edema, no erythema seen. Results & Data Results & Data ([facility]) Vital Signs (Past 12 Hours) Vital Signs Temp Pulse Pulse Resp BP BP Pulse Ox 03/14/21 12:14 36.8 C 89 22 144/83 H 92 03/14/21 11:18 91 H 18 96 03/14/21 08:00 77 03/14/21 07:25 87 22 90 03/14/21 07:20 36.7 C 84 18 168/102 H 90 03/14/21 03:58 71 16 93 03/14/21 03:31 36.6 C 65 18 162/80 H 92
--- NOTE | 2021-03-14 14:34 | Pulmonology Progress Note ---
Date of Service March 14, 2021 Assessment & Plan (1) Pneumonia due to COVID-19 virus: (2) Acute respiratory failure with hypoxia: (3) Morbid obesity: Plan: Attending: Dr. Danielson --Acute hypoxic respiratory failure Secondary to multilobar COVID-19 pneumonia Patient is unvaccinated COVID-19 PCR positive 03/07/2021 CRP 11.3 --> 7.73 and now 2.69 as of 03/11/2021 Procalcitonin 0.07 S/p Tocilizumab 03/09/2021 Continue with O2 supplementation to keep oxygen saturation between 90-92%. Awake proning would be helpful but patient states that she has too much back pain to lay on her side or her belly Continue with incentive spirometry Continue with flutter valve. Out of bed to chair as tolerated. Ambulate in room as tolerated Recommend patient to be kept negative balance --Morbid obesity with probable LAKIA CPAP nightly and as needed shortness of breath Plan: In/out -550 mL I went down on the FiO2 to 70% patient was still saturating around 90%. I discussed the case with RN to go down on FiO2 to keep the saturation greater than 88 I did speak with the patient to give another trial of CPAP at low pressure to see if she is able to tolerate all overnight Patient is getting alpha agonist nasal spray to help with the nasal congestion. First patient antihistamine along with nasal spray could also be added to help with it Advised the patient not to do any picking of the nose and if she starts breathing we will have an issue Please note the above document was generated using voice recognition software. It may contain grammatical, syntax or spelling errors.Any formal questions or concerns about the content, text or information contained within the body of this dictation should be directly addressed to the provider for clarification. Admission and Anticipated Discharge Date Admission Date: March 07, 2021 Subjective Patient seen and examined at bedside. No acute distress Patient was on 90% FiO2, 50 L-saturating 93-94% She states she is feeling the same. Denies any worsening in breathing Has been using incentive spirometry Denies any nausea vomiting Urinating well Fair appetite Patient again says that she is not able to sleep on the belly because of the low back pain. She was not able to tolerate CPAP as well Review of Systems Review of Systems: All systems reviewed & are unremarkable except as noted in Subjective Physical Exam Physical Exam: Constitutional: No acute distress HEENT: EOMI, PERRLA, strabismus left eye Respiratory system: Decreased antibiotic, no wheeze, no rhonchi, positive crackles bilaterally CVS: S1-S2 positive, no murmurs or gallops Abdomen: Soft, nontender, nondistended, positive bowel sounds x4, obese Extremities: +2 pulses bilaterally radialis/ dorsalis pedis, no cyanosis, +1 pitting edema Neuro: Awake alert oriented x3 Psych: Normal mood and affect G/U: Positive Coker Skin: no rashes, warm and dry Lymphatic: no cervical or axillary lymphadenopathy Results & Data Results & Data ([facility]) Vital Signs (Past 12 Hours) Vital Signs Temp Pulse Pulse Resp BP BP Pulse Ox 03/14/21 14:02 91 03/14/21 12:14 36.8 C 89 22 144/83 H 92 03/14/21 11:18 91 H 18 96 03/14/21 08:00 77 03/14/21 07:25 87 22 90 03/14/21 07:20 36.7 C 84 18 168/102 H 90 03/14/21 03:58 71 16 93 03/14/21 03:31 36.6 C 65 18 162/80 H 92 03/14/21 06:13 03/14/21 06:13 PG Care Time/CCT Total # of Minutes Spent Total Time Spent with Patient: Total time spent is greater than 50% in coordination of care (as documented) at patient's floor/unit and/or counseling patient: Coding Level of Care Code 10063 Subseq Hosp Care Lvl 2 Diagnoses Pneumonia due to COVID-19 virus U07.1; J12.82 Acute respiratory failure with hypoxia J96.01 Morbid obesity E66.01
[2021-03-14] MEDS: ACETAMINOPHEN 325 MG TAB PO PRN (22:10)
[2021-03-15] MEDS: LEVOTHYROXINE SODIUM 100 MCG TABLET PO SCH (06:37)
[2021-03-15 07:27] LABS: Hematocrit (blood only) 45.9 % (37-47); Mean Corpuscular Hemoglobin 31.3 pg (25-34); Mean Corpuscular Hgb Conc 34.9 g/dL (32-36); Mean Corpuscular Volume 89.8 fL (80-100); Mean Platelet Volume 9.8 fL (7.4-10.4); Platelet Count 326 K/uL (130-400); RDW Coefficient of Variation 13.1 % (11.5-14.5); RDW Standard Deviation 43.2 fL (36.4-46.3); Red Blood Count 5.11 M/uL (4.2-5.4); White Blood Count 17.89 K/uL (4.8-10.8)
[2021-03-15 07:54] LABS: BUN Creatinine Ratio 30.4 (10-20); Calcium 8.7 mg/dl (8.5-10.1); Creatinine Clr Calc Pharmacy 68.7 ml/min; Est GFR (African American) 90.7 ml/min; Est GFR (Non-African American) 78.2 ml/min; Magnesium 2.3 mg/dl (1.8-2.4); Potassium 3.8 mmol/L (3.5-5.1)
[2021-03-15] MEDS: dexAMETHasone 6 MG in SYRINGE 0 ML IV SCH (08:12)
[2021-03-15] MEDS: hydroCHLOROthiazide 25 MG TAB PO SCH (08:12)
[2021-03-15] MEDS: guaiFENesin 600 MG TABCR PO SCH ×2 (08:15→21:42)
[2021-03-15] MEDS ORDERED: LEVOTHYROXINE SODIUM 100 MCG TABLET PO STA (09:35)
--- NOTE | 2021-03-15 09:52 | Pulmonology Progress Note ---
Date of Service March 15, 2021 Assessment & Plan (1) Pneumonia due to COVID-19 virus: (2) Acute respiratory failure with hypoxia: (3) Morbid obesity: Plan: --Acute hypoxic respiratory failure Secondary to multilobar COVID-19 pneumonia Patient is unvaccinated COVID-19 PCR positive 03/07/2021 CRP 11.3 --> 7.73 and now 2.69 as of 03/11/2021 Procalcitonin 0.07 S/p Tocilizumab 03/09/2021 Continue with O2 supplementation to keep oxygen saturation between 90-92%. Awake proning would be helpful but patient states that she has too much back pain to lay on her side or her belly Continue with incentive spirometry Continue with flutter valve. Out of bed to chair as tolerated. Ambulate in room as tolerated Recommend patient to be kept negative balance --Morbid obesity with probable LAKIA CPAP nightly and as needed shortness of breath Plan: In/out -1351, patient is -7.5 L since coming to the hospital Chest x-ray from today does show worsening of the infiltrates bilaterally. Patient has been diuresing well Would continue with same Patient is still needing high oxygen requirement but she is not in any respiratory distress Please note the above document was generated using voice recognition software. It may contain grammatical, syntax or spelling errors.Any formal questions or concerns about the content, text or information contained within the body of this dictation should be directly addressed to the provider for clarification. Admission and Anticipated Discharge Date Admission Date: March 07, 2021 Subjective Patient seen and examined at bedside. No acute distress. Patient was on high flow 60 L, 80% saturating 91-92% Patient personally says that she feels better She has been using incentive spirometry going up to 1500 mL. Denies any chest pain Has been bringing up some clear phlegm. Denies any hemoptysis. Does still complain of nasal congestion. She easily desaturates on minimal exertion Review of Systems Review of Systems: All systems reviewed & are unremarkable except as noted in Subjective Physical Exam Physical Exam: Constitutional: No acute distress HEENT: EOMI, PERRLA, strabismus left eye Respiratory system: Decreased antibiotic, no wheeze, no rhonchi, positive crackles bilaterally CVS: S1-S2 positive, no murmurs or gallops Abdomen: Soft, nontender, nondistended, positive bowel sounds x4, obese Extremities: +2 pulses bilaterally radialis/ dorsalis pedis, no cyanosis, +1 pitting edema Neuro: Awake alert oriented x3 Psych: Normal mood and affect G/U: Positive Coker Skin: no rashes, warm and dry Lymphatic: no cervical or axillary lymphadenopathy Results & Data Results & Data ([facility]) Vital Signs (Past 12 Hours) Vital Signs Temp Pulse Pulse Pulse Resp BP Pulse Ox 03/15/21 09:39 105 H 18 89 L 03/15/21 07:54 108 H 19 89 L 03/15/21 07:21 36.8 C 107 H 20 135/92 93 03/15/21 04:51 36.5 C 90 18 150/79 H 95 03/15/21 04:32 92 H 22 95 03/15/21 00:18 36.3 C L 87 16 149/88 H 96 03/14/21 23:34 92 H 23 93 03/15/21 07:04 03/15/21 07:04 PG Care Time/CCT Total # of Minutes Spent Total Time Spent with Patient: Total time spent is greater than 50% in coordination of care (as documented) at patient's floor/unit and/or counseling patient: Coding Level of Care Code 38817 Subseq Hosp Care Lvl 2 Diagnoses Pneumonia due to COVID-19 virus U07.1; J12.82 Acute respiratory failure with hypoxia J96.01 Morbid obesity E66.01
[2021-03-15] MEDS: ENOXAPARIN INJ 40 MG/0.4 ML SYR SQ SCH ×2 (10:45→21:40)
--- NOTE | 2021-03-15 13:14 | XRay Report ---
XR chest 1V portable CLINICAL HISTORY: f/u COMPARISON STUDY: Chest radiograph March 07, 2021. FINDINGS: Lung volumes are normal. There is no pneumothorax or pleural effusion. Cardiac size is norm al. Mediastinal contours are unremarkable. Moderate diffuse opacities within the lungs are noted. Den sity of the airspace opacities shown on prior exam of March 07, 2021 has decreased however extent of airspace opacity has increased. IMPRESSION: Moderate bilateral airspace opacities consistent with an infectious process. Interval c hange in appearance of the lungs, as described above. ACT 112: Negative or not required by law. Electronically signed by: Jc Medel M.D. 03/15/2021 1:13 PM
--- NOTE | 2021-03-15 14:46 | Hospitalist Progress Note ---
Date of Service March 15, 2021 Assessment & Plan (1) Acute respiratory failure with hypoxia: (2) Pneumonia due to COVID-19 virus: Plan: 70-year-old female with PMH of hypothyroidism, HLD, morbid obesity presented to our ED 03/07 with weakness and cough x1 week [employer]. 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 She is non-smoker and socially drinks alcohol. In the ED she was hypoxic requiring 3 L of oxygen to maintain normal saturation. Chest x-ray revealed multifocal pneumonia. She was started on IV Decadron in the ED. She is not vaccinated against COVID-19. She is being managed for the following: #. Acute hypoxic respiratory failure #. Pneumonia due to COVID-19 virus Not vaccinated against Covid. Known Covid exposure with her , at presentation in the ED required 3 L of oxygen Admitting ESR 63; admitting Covid test 03/07 positive. Admitted CXR: Multifocal pneumonia secondary to COVID-19 virus infection. WBC mildly elevated, likely secondary to steroid. Pro-Sanjeev -2 times this admission. CRP: 03/07 11.3 downtrending to 2.69 on 03/11. Encourage incentive spirometry and flutter valve C/W albuterol, Mucinex, prone position as able [she cannot tolerate prone position but has been trying to lie on her sides ] Supplemental oxygen, titrate as needed, requiring very high oxygen. C/W dexamethasone 03/07; status post remdesivir Lasix as needed to keep her on raw stock drier tender side. I's and O's - 7.4 L Pulmonology on board: Status post Toci 03/09 #. Hyperglycemia 03/08 A1c 6.5 Daily blood glucose level WNL Patient on steroid, continue to monitor. On SSI when needed. #. Hyper tension Blood pressure slightly elevated but stable. Likely secondary to steroid and acute distress. No blood pressure medications at home. Continue with amlodipine and HCTZ. Taper down BP meds when able. #. Hyponatremia Improved. #. Hypothyroidism Continue home levothyroxine. #. DVT prophylaxis: Lovenox SC twice daily Disposition: Continue PCU care. PT/OT. CM to assist with DC planning. Full code Admission and Anticipated Discharge Date Admission Date: March 07, 2021 Subjective Patient sitting up in chair, on high flow nasal cannula oxygen 60 L, NAD, denies any acute events overnight. Patient reports feeling somewhat better. Denies headache/dizziness/increased shortness of breath/other review of symptoms. Patient eating and moving bowels okay. Per RN, patient tolerated CPAP well overnight. No issues overnight. They have to go up on oxygen and weaned down FiO2. Physical Exam Physical Exam: GENERAL: Alert and oriented x3. NAD, on 60 L HFNC. HEENT: No pallor, no icterus. Pupils equal, round and reactive to light. Oral mucosa moist. NECK: No JVD, no neck masses. HEART: S1 and S2 heard. Regular rate and rhythm. No murmur, no gallop. RESPIRATORY SYSTEM: Normal AP diameter. No accessory muscle use. Decreased breath sounds bilaterally mid to lower lobesminimal improvement. Diffuse and bibasilar crackles appreciated. ABDOMEN: Soft, bowel sounds present, nontender, no distention. CENTRAL NERVOUS SYSTEM: No facial droop. Speech is clear. Obeys simple commands. Moves extremities. EXTREMITIES: No edema, no erythema seen. Results & Data Results & Data ([facility]) Vital Signs (Past 12 Hours) Vital Signs Temp Pulse Pulse Pulse Resp BP Pulse Ox 03/15/21 12:21 36.5 C 98 H 16 138/90 92 03/15/21 11:27 96 H 18 91 03/15/21 10:10 98 H 03/15/21 09:39 105 H 18 89 L 03/15/21 07:54 108 H 19 89 L 03/15/21 07:21 36.8 C 107 H 20 135/92 93 03/15/21 04:51 36.5 C 90 18 150/79 H 95 03/15/21 04:32 92 H 22 95
[2021-03-15] MEDS: amLODIPine BESYLATE 5 MG TAB PO SCH (17:57)
[2021-03-15] MEDS: ACETAMINOPHEN 325 MG TAB PO PRN (21:41)
[2021-03-16] MEDS: LEVOTHYROXINE SODIUM 100 MCG TABLET PO SCH (05:55)
[2021-03-16 08:02] LABS: Hematocrit (blood only) 45.9 % (37-47); Hemoglobin 15.4 g/dL (12.0-16.0); Mean Corpuscular Hemoglobin 30.9 pg (25-34); Mean Corpuscular Hgb Conc 33.6 g/dL (32-36); Mean Corpuscular Volume 92.2 fL (80-100); Mean Platelet Volume 10.3 fL (7.4-10.4); Platelet Count 338 K/uL (130-400); RDW Coefficient of Variation 13.3 % (11.5-14.5); RDW Standard Deviation 44.8 fL (36.4-46.3); Red Blood Count 4.98 M/uL (4.2-5.4); White Blood Count 17.33 K/uL (4.8-10.8)
[2021-03-16 08:41] LABS: BUN Creatinine Ratio 36.6 (10-20); Calcium 8.6 mg/dl (8.5-10.1); Creatinine Clr Calc Pharmacy 65.5 ml/min; Est GFR (African American) 86.6 ml/min; Est GFR (Non-African American) 74.7 ml/min; Potassium 3.9 mmol/L (3.5-5.1)
[2021-03-16] MEDS: ENOXAPARIN INJ 40 MG/0.4 ML SYR SQ SCH ×2 (08:48→21:04)
[2021-03-16] MEDS: hydroCHLOROthiazide 25 MG TAB PO SCH (08:48)
[2021-03-16] MEDS: guaiFENesin 600 MG TABCR PO SCH ×2 (08:48→21:05)
[2021-03-16] MEDS: dexAMETHasone 6 MG in SYRINGE 0 ML IV SCH (08:49)
[2021-03-16] MEDS ORDERED: FUROSEMIDE 20 MG in SYRINGE 0 ML IV ONE (11:30)
--- NOTE | 2021-03-16 11:48 | Pulmonology Progress Note ---
Date of Service March 16, 2021 Assessment & Plan (1) Pneumonia due to COVID-19 virus: (2) Acute respiratory failure with hypoxia: (3) Morbid obesity: Plan: --Acute hypoxic respiratory failure Secondary to multilobar COVID-19 pneumonia Patient is unvaccinated COVID-19 PCR positive 03/07/2021 CRP 11.3 --> 7.73 and now 2.69 as of 03/11/2021 Procalcitonin 0.07 S/p Tocilizumab 03/09/2021 Continue with O2 supplementation to keep oxygen saturation between 90-92%. Awake proning would be helpful but patient states that she has too much back pain to lay on her side or her belly Continue with incentive spirometry Continue with flutter valve. Out of bed to chair as tolerated. Ambulate in room as tolerated Recommend patient to be kept negative balance --Morbid obesity with probable LAKIA CPAP nightly and as needed shortness of breath Plan: In/out -1351, patient is -8.8 L since coming to the hospital Lasix 20mg has been ordered for today. c/w current management. Please note the above document was generated using voice recognition software. It may contain grammatical, syntax or spelling errors.Any formal questions or concerns about the content, text or information contained within the body of this dictation should be directly addressed to the provider for clarification. Admission and Anticipated Discharge Date Admission Date: March 07, 2021 Subjective Patient seen and examined at bedside. No acute distress Patient was on 60 L, 90% FiO2 saturating 94% talking on the phone I went down to 70% FiO2 and patient was still maintaining saturation 89-90% before I left the room She says she is doing okay when it comes to her breathing There is no improvement or worsening On the incentive spirometry she is able to go to up to 2 L. Bringing up clear phlegm. Denies any chest pain Appetite is fair. Review of Systems Review of Systems: All systems reviewed & are unremarkable except as noted in Subjective Physical Exam Physical Exam: Constitutional: No acute distress HEENT: EOMI, PERRLA, strabismus left eye Respiratory system: Decreased antibiotic, no wheeze, no rhonchi, positive crackles bilaterally CVS: S1-S2 positive, no murmurs or gallops Abdomen: Soft, nontender, nondistended, positive bowel sounds x4, obese Extremities: +2 pulses bilaterally radialis/ dorsalis pedis, no cyanosis, +1 pitting edema Neuro: Awake alert oriented x3 Psych: Normal mood and affect G/U: Positive Coker Skin: no rashes, warm and dry Lymphatic: no cervical or axillary lymphadenopathy Results & Data Results & Data ([facility]) Vital Signs (Past 12 Hours) Vital Signs Temp Pulse Pulse Pulse Resp BP BP 03/16/21 11:37 101 H 20 03/16/21 09:39 104 H 03/16/21 09:13 03/16/21 07:58 100 H 22 03/16/21 07:35 36.6 C 93 H 19 134/93 03/16/21 02:46 36.6 C 84 15 141/99 H 03/16/21 02:17 80 18 Pulse Ox 03/16/21 11:37 85 L 03/16/21 09:39 03/16/21 09:13 92 03/16/21 07:58 92 03/16/21 07:35 94 03/16/21 02:46 93 03/16/21 02:17 91 03/16/21 07:08 03/16/21 07:08 PG Care Time/CCT Total # of Minutes Spent Total Time Spent with Patient: Total time spent is greater than 50% in coordination of care (as documented) at patient's floor/unit and/or counseling patient: [place] [address] Subseq Hosp Care Lvl 2 Patient Type Established Diagnoses Pneumonia due to COVID-19 virus U07.1; J12.82 Acute respiratory failure with hypoxia J96.01 Morbid obesity E66.01
--- NOTE | 2021-03-16 12:02 | Hospitalist Progress Note ---
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 She is non-smoker and socially drinks alcohol. In the ED she was hypoxic requiring 3 L of oxygen to maintain normal saturation. Chest x-ray revealed multifocal pneumonia. She was started on IV Decadron in the ED. She is not vaccinated against COVID-19. She is being managed for the following: #. Acute hypoxic respiratory failure #. Pneumonia due to COVID-19 virus Not vaccinated against Covid. Known Covid exposure with her , at presentation in the ED required 3 L of oxygen Admitting ESR 63; admitting Covid test 03/07 positive. Admitted CXR: Multifocal pneumonia secondary to COVID-19 virus infection. WBC mildly elevated, likely secondary to steroid. Pro-Sanjeev -2 times this admission. CRP: 03/07 11.3 downtrending to 2.69 on 03/11. Encourage incentive spirometry and flutter valve C/W albuterol, Mucinex, prone position as able [she cannot tolerate prone position but has been trying to lie on her sides ] Supplemental oxygen, titrate as needed, requiring very high oxygen. C/W dexamethasone 03/07; status post remdesivir Lasix as needed to keep her on cloth drier side. I's and O's -8.8 L Pulmonology on board: Status post Toci 03/09 #. Mild hyponatremia Sodium level at presentation 131, had been normal after that. Sodium level again started to drop, 131 today. Likely secondary to acute stress and use of Lasix on and off plus HCTZ. We will continue to monitor Use sodium chloride tablets sparingly because of difficult to control blood pr essure. #. Hyperglycemia 03/08 A1c 6.5 Daily blood glucose level WNL Patient on steroid, continue to monitor. On SSI when needed. #. Hyper tension Blood pressure slightly elevated but stable. Likely secondary to steroid and acute distress. No blood pressure medications at home. Continue with amlodipine and HCTZ. Taper down BP meds when able. #. Hyponatremia Improved. #. Hypothyroidism Continue home levothyroxine. #. DVT prophylaxis: Lovenox SC twice daily Disposition: Continue PCU care. PT/OT. CM to assist with DC planning. Full code Admission and Anticipated Discharge Date Admission Date: March 07, 2021 Subjective Patient sitting up in chair, NAD, on 60 L at 93% saturating above 90%. Denies any acute events overnight. Per RN she tolerated CPAP well. She is eating okay and moving bowels okay. She seems frustrated because of no improvement in her status since last few days. I talked with her and her over the phone, explained the nature of the disease and plan of care. They seemed understanding and agreeable. Patient will consult again over the course of the disease, what to expect and its care. Patient denies other review of symptoms. Per RN see drops in SaO2 with minimal exertion. Physical Exam Physical Exam: GENERAL: Alert and oriented x3. NAD, on 60 L HFNC with FiO2 of 93%. HEENT: No pallor, no icterus. Pupils equal, round and reactive to light. Oral mucosa moist. NECK: No JVD, no neck masses. HEART: S1 and S2 heard. Regular rate and rhythm. No murmur, no gallop. RESPIRATORY SYSTEM: Normal AP diameter. No accessory muscle use. Diffuse and bibasilar crackles appreciated. ABDOMEN: Soft, bowel sounds present, nontender, no distention. CENTRAL NERVOUS SYSTEM: No facial droop. Speech is clear. Obeys simple commands. Moves extremities. EXTREMITIES: No edema, no erythema seen. Results & Data Results & Data ([facility]) Vital Signs (Past 12 Hours) Vital Signs Temp Pulse Pulse Pulse Resp BP BP 03/16/21 11:37 101 H 20 03/16/21 09:39 104 H 03/16/21 09:13 03/16/21 07:58 100 H 22 03/16/21 07:35 36.6 C 93 H 19 134/93 03/16/21 02:46 36.6 C 84 15 141/99 H 03/16/21 02:17 80 18 Pulse Ox 03/16/21 11:37 85 L 03/16/21 09:39 03/16/21 09:13 92 03/16/21 07:58 92 03/16/21 07:35 94 03/16/21 02:46 93 03/16/21 02:17 91
[2021-03-16] MEDS: SODIUM CHLORIDE 1 GM TABLET PO SCH (12:54)
[2021-03-16] MEDS: amLODIPine BESYLATE 5 MG TAB PO SCH (18:12)
[2021-03-16] MEDS: ACETAMINOPHEN 325 MG TAB PO PRN (21:03)
[2021-03-17] MEDS: LEVOTHYROXINE SODIUM 100 MCG TABLET PO SCH (06:26)
[2021-03-17 07:05] LABS: Hematocrit (blood only) 43.3 % (37-47); Mean Corpuscular Hemoglobin 31.2 pg (25-34); Mean Corpuscular Hgb Conc 34.6 g/dL (32-36); Mean Platelet Volume 10.3 fL (7.4-10.4); Platelet Count 262 K/uL (130-400); RDW Coefficient of Variation 13.3 % (11.5-14.5); RDW Standard Deviation 43.8 fL (36.4-46.3); Red Blood Count 4.81 M/uL (4.2-5.4); White Blood Count 17.02 K/uL (4.8-10.8)
[2021-03-17 07:34] LABS: BUN Creatinine Ratio 38.2 (10-20); Calcium 8.6 mg/dl (8.5-10.1); Creatinine Clr Calc Pharmacy 59.4 ml/min; Est GFR (African American) 76.1 ml/min; Est GFR (Non-African American) 65.7 ml/min; Potassium 3.7 mmol/L (3.5-5.1)
[2021-03-17] MEDS: dexAMETHasone 6 MG in SYRINGE 0 ML IV SCH (09:05)
[2021-03-17] MEDS: SODIUM CHLORIDE 1 GM TABLET PO SCH (09:05)
[2021-03-17] MEDS: guaiFENesin 600 MG TABCR PO SCH ×2 (09:06→21:13)
[2021-03-17] MEDS: ENOXAPARIN INJ 40 MG/0.4 ML SYR SQ SCH ×2 (09:06→21:13)
[2021-03-17] MEDS: hydroCHLOROthiazide 25 MG TAB PO SCH (09:06)
[2021-03-17] MEDS ORDERED: FUROSEMIDE 20 MG in SYRINGE 0 ML IV ONE (09:33)
[2021-03-17] MEDS ORDERED: POTASSIUM CHLORIDE CRTAB 20 MEQ TABCR PO STA (09:34)
--- NOTE | 2021-03-17 09:36 | Pulmonology Progress Note ---
Date of Service March 17, 2021 Assessment & Plan (1) Pneumonia due to COVID-19 virus: (2) Acute respiratory failure with hypoxia: (3) Morbid obesity: Plan: --Acute hypoxic respiratory failure Secondary to multilobar COVID-19 pneumonia Patient is unvaccinated COVID-19 PCR positive 03/07/2021 CRP 11.3 --> 7.73 and now 2.69 as of 03/11/2021 Procalcitonin 0.07 S/p Tocilizumab 03/09/2021 Continue with O2 supplementation to keep oxygen saturation between 90-92%. Awake proning would be helpful but patient states that she has too much back pain to lay on her side or her belly Continue with incentive spirometry Continue with flutter valve. Out of bed to chair as tolerated. Ambulate in room as tolerated Recommend patient to be kept negative balance --Morbid obesity with probable [place] CPAP nightly and as needed shortness of breath Plan: In/out -1275 patient is -10 L since coming to the hospital We will give another 20 mg of Lasix today. 20 mEq of p.o. potassium to be given Continue with current care. Patient's oxygen requirement has been stable since last couple of days. Pulmonary will sign off. Please call directly with any questions Please note the above document was generated using voice recognition software. It may contain grammatical, syntax or spelling errors.Any formal questions or concerns about the content, text or information contained within the body of this dictation should be directly addressed to the provider for clarification. Admission and Anticipated Discharge Date Admission Date: March 07, 2021 Subjective Patient seen and examined at bedside. No acute distress, no adverse events overnight. Patient was saturating 89-90% on 70% FiO2, 60 L high flow Not in any acute distress Talking in full sentences She states that she is feeling the same. Denies any chest pain Brings up phlegm when she uses the flutter valve. Is clear No hemoptysis Fair appetite Denies any chest pain Review of Systems Review of Systems: All systems reviewed & are unremarkable except as noted in Subjective Physical Exam Physical Exam: Constitutional: No acute distress HEENT: EOMI, PERRLA, strabismus left eye Respiratory system: Decreased antibiotic, no wheeze, no rhonchi, positive crackles bilaterally CVS: S1-S2 positive, no murmurs or gallops Abdomen: Soft, nontender, nondistended, positive bowel sounds x4, obese Extremities: +2 pulses bilaterally radialis/ dorsalis pedis, no cyanosis, +1 pitting edema Neuro: Awake alert oriented x3 Psych: Normal mood and affect G/U: Positive Coker Skin: no rashes, warm and dry Lymphatic: no cervical or axillary lymphadenopathy Results & Data Results & Data ([facility]) Vital Signs (Past 12 Hours) Vital Signs Temp Pulse Pulse Resp BP BP Pulse Ox 03/17/21 09:25 104 H 03/17/21 07:51 36.7 C 104 H 22 136/80 90 03/17/21 07:44 107 H 22 88 L 03/17/21 02:45 37.0 C 79 16 111/68 90 03/17/21 02:16 78 20 90 03/16/21 23:55 104 H 03/16/21 23:50 36.6 C 87 21 123/74 95 03/16/21 23:40 89 17 123/74 96 03/16/21 23:03 95 H 19 95 03/17/21 06:17 03/17/21 06:17 PG Care Time/CCT Total # of Minutes Spent Total Time Spent with Patient: Total time spent is greater than 50% in coordination of care (as documented) at patient's floor/unit and/or counseling patient: Coding Level of Care Code 40243 Subseq Hosp Care Lvl 3 Diagnoses Pneumonia due to COVID-19 virus U07.1; J12.82 Acute respiratory failure with hypoxia J96.01 Morbid obesity E66.01
[2021-03-17] MEDS ORDERED: FUROSEMIDE 40 MG/4 ML VIAL IV SCH (10:00)
--- NOTE | 2021-03-17 11:46 | Hospitalist Progress Note ---
Date of Service March 17, 2021 Assessment & Plan (1) Acute respiratory failure with hypoxia: (2) Pneumonia due to COVID-19 virus: Plan: 70-year-old female with PMH of hypothyroidism, HLD, morbid obesity presented to our ED 03/07 with weakness and cough x1 week [employer]. 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 She is non-smoker and socially drinks alcohol. In the ED she was hypoxic requiring 3 L of oxygen to maintain normal saturation. Chest x-ray revealed multifocal pneumonia. She was started on IV Decadron in the ED. She is not vaccinated against COVID-19. She is being managed for the following: #. Acute hypoxic respiratory failure #. Pneumonia due to COVID-19 virus Not vaccinated against Covid. Known Covid exposure with her , at presentation in the ED required 3 L of oxygen Admitting ESR 63; admitting Covid test 03/07 positive. Admitted CXR: Multifocal pneumonia secondary to COVID-19 virus infection. WBC mildly elevated, likely secondary to steroid. Pro-Sanjeev -2 times this admission. CRP: 03/07 11.3 downtrending to 2.69 on 03/11. Encourage incentive spirometry and flutter valve C/W albuterol, Mucinex, prone position as able [she cannot tolerate prone position but has been trying to lie on her sides ] Supplemental oxygen, titrate as needed, requiring very high oxygen. C/W dexamethasone 03/07; status post remdesivir Lasix as needed to keep her on matrix drier tender side. I's and O's -10 L Pulmonology on board: Status post Toci 03/09 Patient getting another dose of Lasix today with KCl supplement. #. Mild hyponatremia Sodium level at presentation 131, had been normal after that. Sodium level again started to drop, improving today. Likely secondary to acute stress and use of Lasix on and off plus HCTZ. We will continue to monitor Use sodium chloride tablets sparingly because of difficult to control blood pressure. #. Hyperglycemia 03/08 A1c 6.5 Daily blood glucose level WNL Patient on steroid, continue to monitor. On SSI when needed. #. Hyper tension Blood pressure slightly elevated but stable. Likely secondary to steroid and acute distress. No blood pressure medications at home. Continue with amlodipine and HCTZ. Taper down BP meds when able. #. Hyponatremia Improved. #. Hypothyroidism Continue home levothyroxine. #. DVT prophylaxis: Lovenox SC twice daily Disposition: Continue PCU care. PT/OT. CM to assist with DC planning. Full code Admission and Anticipated Discharge Date Admission Date: March 07, 2021 Subjective Patient sitting up in chair, on 50 L oxygen FiO2 72%, no acute events overnight, NAD. Per RN, patient is eating and moving bowels okay and is doing stable/fine but desaturates with minimal exertion. Patient denies any fever/chills/chest pain/increased shortness of breath/other ROS. Physical Exam Physical Exam: GENERAL: Alert and oriented x3. NAD, on 50 L HFNC with FiO2 of 72%. HEENT: No pallor, no icterus. Pupils equal, round and reactive to light. Oral mucosa moist. NECK: No JVD, no neck masses. HEART: S1 and S2 heard. Regular rate and rhythm. No murmur, no gallop. RESPIRATORY SYSTEM: Normal AP diameter. No accessory muscle use. Diffuse and bibasilar crackles appreciated. ABDOMEN: Soft, bowel sounds present, nontender, no distention. CENTRAL NERVOUS SYSTEM: No facial droop. Speech is clear. Obeys simple commands. Moves extremities. EXTREMITIES: No edema, no erythema seen. Results & Data Results & Data ([facility]) Vital Signs (Past 12 Hours) Vital Signs Temp Pulse Pulse Resp BP BP Pulse Ox 03/17/21 11:03 99 H 16 90 03/17/21 09:25 104 H 03/17/21 07:51 36.7 C 104 H 22 136/80 90 03/17/21 07:44 107 H 22 88 L 03/17/21 02:45 37.0 C 79 16 111/68 90 03/17/21 02:16 78 20 90 03/16/21 23:55 104 H 03/16/21 23:50 36.6 C 87 21 123/74 95
[2021-03-17] MEDS: amLODIPine BESYLATE 5 MG TAB PO SCH (17:35)
[2021-03-17] MEDS: ACETAMINOPHEN 325 MG TAB PO PRN (21:12)
[2021-03-18] MEDS: LEVOTHYROXINE SODIUM 100 MCG TABLET PO SCH (06:19)
[2021-03-18 07:46] LABS: Hematocrit (blood only) 42.6 % (37-47); Hemoglobin 14.2 g/dL (12.0-16.0); Mean Corpuscular Hemoglobin 30.7 pg (25-34); Mean Corpuscular Hgb Conc 33.3 g/dL (32-36); Mean Platelet Volume 10.3 fL (7.4-10.4); Platelet Count 259 K/uL (130-400); RDW Coefficient of Variation 13.3 % (11.5-14.5); RDW Standard Deviation 44.8 fL (36.4-46.3); Red Blood Count 4.63 M/uL (4.2-5.4); White Blood Count 15.77 K/uL (4.8-10.8)
[2021-03-18 08:13] LABS: BUN Creatinine Ratio 39.8 (10-20); Calcium 8.8 mg/dl (8.5-10.1); Creatinine Clr Calc Pharmacy 60.4 ml/min; Est GFR (African American) 78.2 ml/min; Est GFR (Non-African American) 67.5 ml/min; Magnesium 2.7 mg/dl (1.8-2.4); Potassium 3.5 mmol/L (3.5-5.1)
[2021-03-18] MEDS: hydroCHLOROthiazide 25 MG TAB PO SCH (08:44)
[2021-03-18] MEDS: guaiFENesin 600 MG TABCR PO SCH ×2 (08:44→20:56)
[2021-03-18] MEDS: ENOXAPARIN INJ 40 MG/0.4 ML SYR SQ SCH ×2 (08:49→20:57)
--- NOTE | 2021-03-18 13:23 | Hospitalist Progress Note ---
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 She is non-smoker and socially drinks alcohol. In the ED she was hypoxic requiring 3 L of oxygen to maintain normal saturation. Chest x-ray revealed multifocal pneumonia. She was started on IV Decadron in the ED. She is not vaccinated against COVID-19. She is being managed for the following: #. Acute hypoxic respiratory failure #. Pneumonia due to COVID-19 virus Not vaccinated against Covid. Known Covid exposure with her , at presentation in the ED required 3 L of oxygen Admitting ESR 63; admitting Covid test 03/07 positive. Admitted CXR: Multifocal pneumonia secondary to COVID-19 virus infection. WBC mildly elevated, likely secondary to steroid. Pro-Sanjeev -2 times this admission. CRP: 03/07 11.3 downtrending to 2.69 on 03/11. Encourage incentive spirometry and flutter valve C/W albuterol, Mucinex, prone position as able [she cannot tolerate prone position but has been trying to lie on her sides ] Supplemental oxygen, titrate as needed, requiring very high oxygen. C/W dexamethasone 03/07; status post remdesivir Lasix as needed to keep her on germ drier side. I's and O's -11.3 L Pulmonology on board: Status post Toci 03/09 Will continue with dexamethasone for now. #. Mild hyponatremia Sodium level at presentation 131, had been normal after that. Sodium level again started to drop, currently low 130s Likely secondary to acute stress and use of Lasix on and off plus HCTZ. We will continue to monitor Use sodium chloride tablets sparingly because of difficult to control blood pressure. #. Hyperglycemia 03/08 A1c 6.5 Daily blood glucose level WNL Patient on steroid, continue to monitor. On SSI when needed. #. Hyper tension Blood pressure slightly elevated but stable. Likely secondary to steroid and acute distress. No blood pressure medications at home. Continue with amlodipine and HCTZ. Taper down BP meds when able. #. Hyponatremia Improved. #. Hypothyroidism Continue home levothyroxine. #. DVT prophylaxis: Lovenox SC twice daily Disposition: Continue PCU care. PT/OT. CM to assist with DC planning. Full code Admission and Anticipated Discharge Date Admission Date: March 07, 2021 Subjective Patient sitting up in chair, on 60 L oxygen FiO2 90%, no acute events overnight, NAD. Per RN, patient is eating and moving bowels okay and is doing stable/fine but desaturates with minimal exertion but patient does not feel any discomfort or SOB. Patient denies any fever/chills/chest pain/increased shortness of breath/other ROS. Patient is needing more oxygen today. Physical Exam Physical Exam: GENERAL: Alert and oriented x3. NAD, on 60 L HFNC with FiO2 of 90%. HEENT: No pallor, no icterus. Pupils equal, round and reactive to light. Oral mucosa moist. NECK: No JVD, no neck masses. HEART: S1 and S2 heard. Regular rate and rhythm. No murmur, no gallop. RESPIRATORY SYSTEM: Normal AP diameter. No accessory muscle use. Diffuse and bibasilar crackles appreciated. ABDOMEN: Soft, bowel sounds present, nontender, no distention. CENTRAL NERVOUS SYSTEM: No facial droop. Speech is clear. Obeys simple commands. Moves extremities. EXTREMITIES: No edema, no erythema seen. Results & Data Results & Data ([facility]) Vital Signs (Past 12 Hours) Vital Signs Temp Pulse Pulse Pulse Resp BP Pulse Ox 03/18/21 11:44 36.4 C L 99 H 14 128/83 93 03/18/21 11:19 103 H 19 93 03/18/21 08:20 92 H 18 87 L 03/18/21 07:46 36.5 C 83 11 L 145/89 H 92 03/18/21 04:31 36.4 C L 83 13 132/70 94 03/18/21 03:15 84 22 94
[2021-03-18] MEDS: SODIUM CHLORIDE 1 GM TABLET PO SCH ×2 (15:48→15:52)
[2021-03-18] MEDS: amLODIPine BESYLATE 5 MG TAB PO SCH (19:10)
[2021-03-18] MEDS: ACETAMINOPHEN 325 MG TAB PO PRN (20:55)
[2021-03-19] MEDS: LEVOTHYROXINE SODIUM 100 MCG TABLET PO SCH (06:24)
[2021-03-19 08:18] LABS: BUN Creatinine Ratio 33.7 (10-20); Calcium 8.5 mg/dl (8.5-10.1); Creatinine Clr Calc Pharmacy 67.3 ml/min; Est GFR (African American) 87.9 ml/min; Est GFR (Non-African American) 75.8 ml/min; Potassium 3.3 mmol/L (3.5-5.1)
[2021-03-19] MEDS: dexAMETHasone 1 MG TAB PO SCH (08:55)
[2021-03-19] MEDS: SODIUM CHLORIDE 1 GM TABLET PO SCH ×2 (08:55→21:01)
[2021-03-19] MEDS: hydroCHLOROthiazide 25 MG TAB PO SCH (08:55)
[2021-03-19] MEDS: guaiFENesin 600 MG TABCR PO SCH ×2 (08:56→21:02)
[2021-03-19] MEDS: ENOXAPARIN INJ 40 MG/0.4 ML SYR SQ SCH ×2 (08:56→21:01)
[2021-03-19] MEDS ORDERED: FUROSEMIDE 20 MG in SYRINGE 0 ML IV ONE ×2 (12:07→13:08)
[2021-03-19] MEDS ORDERED: POTASSIUM CHLORIDE CRTAB 20 MEQ TABCR PO STA (12:08)
[2021-03-19] MEDS ORDERED: FUROSEMIDE 40 MG/4 ML VIAL IV SCH (12:15)
--- NOTE | 2021-03-19 13:13 | Hospitalist Progress Note ---
Date of Service March 19, 2021 Assessment & Plan (1) Acute respiratory failure with hypoxia: (2) Pneumonia due to COVID-19 virus: Plan: 70-year-old female with PMH of hypothyroidism, HLD, morbid obesity presented to our ED 03/07 with weakness and cough x1 week [employer]. 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 She is non-smoker and socially drinks alcohol. In the ED she was hypoxic requiring 3 L of oxygen to maintain normal saturation. Chest x-ray revealed multifocal pneumonia. She was started on IV Decadron in the ED. She is not vaccinated against COVID-19. She is being managed for the following: #. Acute hypoxic respiratory failure #. Pneumonia due to COVID-19 virus Not vaccinated against Covid. Known Covid exposure with her , at presentation in the ED required 3 L of oxygen Admitting ESR 63; admitting Covid test 03/07 positive. Admitted CXR: Multifocal pneumonia secondary to COVID-19 virus infection. WBC mildly elevated, likely secondary to steroid. Pro-Sanjeev -2 times this admission. CRP: 03/07 11.3 downtrending to 2.69 on 03/11. Encourage incentive spirometry and flutter valve C/W albuterol, Mucinex, prone position as able [she cannot tolerate prone position but has been trying to lie on her sides ] Supplemental oxygen, titrate as needed, requiring very high oxygen. 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 I's and O's -11.5 L Pulmonology on board: Status post Toci 03/09 Will continue with dexamethasone for now. #. Mild hyponatremia Sodium level at presentation 131, had been normal after that. Sodium level again started to drop, currently low 130s Likely secondary to acute stress and use of Lasix on and off plus HCTZ. We will continue to monitor Use sodium chloride tablets sparingly because of difficult to control blood pressure. #. Hyperglycemia 03/08 A1c 6.5 Daily blood glucose level WNL Patient on steroid, continue to monitor. On SSI when needed. #. Hyper tension Blood pressure slightly elevated but stable. Likely secondary to steroid and acute distress. No blood pressure medications at home. Continue with amlodipine and HCTZ. Taper down BP meds when able. #. Hyponatremia Improved. #. Hypothyroidism Continue home levothyroxine. #. DVT prophylaxis: Lovenox SC twice daily Disposition: Continue PCU care. PT/OT. CM to assist with DC planning. Full code Admission and Anticipated Discharge Date Admission Date: March 07, 2021 Subjective Patient sitting up in chair, on 60 L oxygen FiO2 83%, wasn't able to sleep overnight (she occasionally couldn't fall asleep prior to COVID as well and didn't take anything for it), will give her melatonin, NAD. Per RN, patient is eating and moving bowels okay and is doing stable/fine but desaturates with minimal exertion but patient does not feel any discomfort or SOB. Patient denies any fever/chills/chest pain/increased shortness of breath/other ROS. Pt has been static on very high oxygen requirement. Physical Exam Physical Exam: GENERAL: Alert and oriented x3. NAD, on 60 L HFNC with FiO2 of 83%. HEENT: No pallor, no icterus. Pupils equal, round and reactive to light. Oral mucosa moist. NECK: No JVD, no neck masses. HEART: S1 and S2 heard. Regular rate and rhythm. No murmur, no gallop. RESPIRATORY SYSTEM: Normal AP diameter. No accessory muscle use. Diffuse and bibasilar crackles appreciated.Diminished lung sound. ABDOMEN: Soft, bowel sounds present, nontender, no distention. CENTRAL NERVOUS SYSTEM: No facial droop. Speech is clear. Obeys simple commands. Moves extremities. EXTREMITIES: No edema, no erythema seen. Results & Data Results & Data ([facility]) Vital Signs (Past 12 Hours) Vital Signs Temp Pulse Pulse Resp BP Pulse Ox 03/19/21 11:07 36.4 C L 102 H 21 142/77 H 95 03/19/21 08:00 98 H 03/19/21 07:36 100 H 22 90 03/19/21 07:26 36.7 C 03/19/21 07:25 100 H 18 135/78 95 03/19/21 04:07 36.3 C L 96 H 18 123/89 96 03/19/21 03:31 83 18 92
[2021-03-19] MEDS: amLODIPine BESYLATE 5 MG TAB PO SCH (17:54)
[2021-03-19] MEDS: MELATONIN 3 MG TAB PO SCH (19:50)
[2021-03-19] MEDS: ACETAMINOPHEN 325 MG TAB PO PRN (21:00)
[2021-03-20] MEDS: LEVOTHYROXINE SODIUM 100 MCG TABLET PO SCH (06:41)
[2021-03-20 07:59] LABS: Hematocrit (blood only) 38.8 % (37-47); Hemoglobin 13.3 g/dL (12.0-16.0); Mean Corpuscular Hemoglobin 30.9 pg (25-34); Mean Corpuscular Hgb Conc 34.3 g/dL (32-36); Mean Platelet Volume 10.5 fL (7.4-10.4); Platelet Count 218 K/uL (130-400); RDW Coefficient of Variation 13.3 % (11.5-14.5); RDW Standard Deviation 43.8 fL (36.4-46.3); Red Blood Count 4.31 M/uL (4.2-5.4); White Blood Count 14.97 K/uL (4.8-10.8)
[2021-03-20 08:32] LABS: BUN Creatinine Ratio 35.4 (10-20); Calcium 8.5 mg/dl (8.5-10.1); Creatinine Clr Calc Pharmacy 72.1 ml/min; Est GFR (African American) 95.1 ml/min; Est GFR (Non-African American) 82.1 ml/min; Potassium 3.8 mmol/L (3.5-5.1)
[2021-03-20] MEDS: hydroCHLOROthiazide 25 MG TAB PO SCH (09:08)
[2021-03-20] MEDS: SODIUM CHLORIDE 1 GM TABLET PO SCH (09:08)
[2021-03-20] MEDS: ENOXAPARIN INJ 40 MG/0.4 ML SYR SQ SCH ×2 (09:08→21:50)
[2021-03-20] MEDS: guaiFENesin 600 MG TABCR PO SCH ×2 (09:08→21:51)
[2021-03-20] MEDS: dexAMETHasone 1 MG TAB PO SCH (09:08)
[2021-03-20] MEDS: OXYMETAZOLINE 0.05% 30 ML BTL PRN (13:40)
--- NOTE | 2021-03-20 14:24 | Hospitalist Progress Note ---
Date of Service March 20, 2021 Assessment & Plan (1) Acute respiratory failure with hypoxia: (2) Pneumonia due to COVID-19 virus: Plan: 70-year-old female with PMH of hypothyroidism, HLD, morbid obesity presented to our ED 03/07 with weakness and cough x1 week [employer]. 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 She is non-smoker and socially drinks alcohol. In the ED she was hypoxic requiring 3 L of oxygen to maintain normal saturation. Chest x-ray revealed multifocal pneumonia. She was started on IV Decadron in the ED. She is not vaccinated against COVID-19. She is being managed for the following: #. Acute hypoxic respiratory failure #. Pneumonia due to COVID-19 virus Not vaccinated against Covid. Known Covid exposure with her , at presentation in the ED required 3 L of oxygen Admitting ESR 63; admitting Covid test 03/07 positive. Admitted CXR: Multifocal pneumonia secondary to COVID-19 virus infection. WBC mildly elevated, likely secondary to steroid. Pro-Sanjeev -2 times this admission. CRP: 03/07 11.3 downtrending to 2.69 on 03/11. Encourage incentive spirometry and flutter valve C/W albuterol, Mucinex, prone position as able [she cannot tolerate prone position but has been trying to lie on her sides ] Supplemental oxygen, titrate as needed, requiring very high oxygen. C/W dexamethasone 03/07; status post remdesivir Lasix as needed to keep her on germ drier side. I's and O's -11.5 L Pulmonology on board: Status post Tocilizumab 03/09 Will continue with dexamethasone for now. Clinically a little better today and is still requiring 10 L of oxygen to maintain saturation #. Mild hyponatremia Sodium level at presentation 131, had been normal after that. Sodium level again started to drop, currently low 130s Likely secondary to acute stress and use of Lasix on and off plus HCTZ. We will continue to monitor Use sodium chloride tablets sparingly because of difficult to control blood pressure. Sodium level has been around 134 #. Hyperglycemia 03/08 A1c 6.5 Daily blood glucose level WNL Patient on steroid, continue to monitor. On SSI when needed. #. Hypertension Blood pressure slightly elevated but stable. Likely secondary to steroid and acute distress. No blood pressure medications at home. Continue with amlodipine and HCTZ. Taper down BP meds when able. #. Hypothyroidism Continue home levothyroxine. #. DVT prophylaxis: Lovenox SC twice daily Disposition: Continue PCU care. PT/OT. CM to assist with DC planning. Full code Admission and Anticipated Discharge Date Admission Date: March 07, 2021 Subjective Attending: Dr. Danielson 03/08/2021 The patient was seen and examined in telemetry unit and in the Covid room She has been feeling a little better but is still requiring about 12 L of oxygen to maintain saturation Still has cough 03/09/2021 The patient was seen and examined in telemetry unit and in the Covid room She has been complaining of more shortness of breath Has been requiring 40 L of oxygen with 90% FiO2 to maintain saturation Complaints of weakness, fatigue and cough 03/10/2021 The patient was seen and examined in telemetry unit and in the Covid room She has been feeling much better today Has been requiring a little less flow rate at 35 L/min to maintain saturation Denies any chest pain or palpitation, no abdominal pain, nausea and/or vomiting or weakness 03/11/2021 The patient was seen and examined in the telemetry unit and in recovery room #208 Patient states that she feels like her breathing is better and that she feels like she might of turned the corner She still feels very weak and appears ill She is currently on FiO2 of 60% at 35 L/min flow with high flow oxygen She is tolerating the high flow well Patient states that she is unable to sleep in a prone position secondary to back pain No fever, chills, sweats, rigors. No nausea or vomiting. No new acute complaints 03/12/2021 The patient was seen and examined in telemetry unit and in the Covid room recovery Her condition remains stable and may be a little worse today Still requiring high flow oxygen to maintain saturation She cannot lie prone but trying to lie on sides to improve her saturation Denies any chest pain or palpitation, no fever and no chills, no abdominal pain nausea and or vomiting 03/20/2021 The patient was seen and examined in telemetry unit She has been feeling better compared with yesterday Still has shortness of breath with exertion but no respiratory distress at rest though requiring 10 L of oxygen to maintain saturation Review of Systems Review of Systems: All systems reviewed and are unremarkable except as noted below Respiratory: Moderate shortness of breath at rest Physical Exam Physical Exam: Sitting on a chair with moderate shortness of breath Constitutional: well developed, well nourished, + ill appearing and + obese Eyes: PERRL, conjunctivae normal, anicteric sclerae ENMT: external ear and nose normal, oropharynx normal Neck: trachea midline, no thyromegaly Respiratory: + respiratory distress (Mild to moderate shortness of breath at rest) and + cough Auscultation: + diminished lung sounds and + crackles (At the bases) Cardiovascular: Rate/Rhythm: regular rate and regular rhythm; not tachycardic Heart Sounds: normal S1 and normal S2; no murmur Extremities: + edema (Trace edema bilaterally) Gastrointestinal (Abdomen): Inspection/Auscultation: normal bowel sounds; abdomen not distended Percussion/Palpation: abdomen soft; abdomen nontender Skin: no rashes, warm and dry Psychiatric: A+Ox3, euthymic affect Lymphatic: no cervical or axillary lymphadenopathy Results & Data Results & Data ([facility]) Vital Signs (Past 12 Hours) Vital Signs Temp Pulse Pulse Resp BP Pulse Ox 03/20/21 11:38 36.6 C 94 H 19 121/77 95 03/20/21 08:13 18 03/20/21 07:19 36.4 C L 80 19 121/76 95 03/20/21 05:54 36.4 C L 85 16 122/69 91 03/20/21 03:25 74 16 93 Laboratory Results Short CBC 03/20/21 Range/Units 07:37 WBC 14.97 H (4.8-10.8) K/uL Hgb 13.3 (12.0-16.0) g/dL Hct 38.8 (37-47) % Plt Count 218 (130-400) K/uL BMP 03/20/21 07:37 Sodium 134 L Potassium 3.8 D Chloride 97 L Carbon Dioxide 30 BUN 26 H Creatinine 0.74 Glucose 114 H Calcium 8.5 Medications Administered Current Inpatient Medications Acetaminophen (Acetaminophen 325 Mg Tab) 650 mg PO Q4H PRN PRN Reason: Pain or Fever Stop: 04/06/21 21:55 Last Admin: 03/19/21 21:00 Dose: 650 mg Documented by: Al Hydrox/Mg Hydrox/Simethicone (Aluminum/Magnesium Susp 30 Ml Udc) 15 ml PO Q4H PRN PRN Reason: Dyspepsia Stop: 04/06/21 21:55 Albuterol (Albuterol Hfa 8 Gm Inhaler) 2 puffs INH QID PRN PRN Reason: Wheezing Stop: 04/06/21 21:55 Amlodipine Besylate (Amlodipine Besylate 5 Mg Tab) 5 mg PO 1800 [facility] Stop: 04/13/21 17:59 Last Admin: 03/19/21 17:54 Dose: 5 mg Documented by: Dexamethasone (Dexamethasone 1 Mg Tab) 6 mg PO QAM [facility] Stop: 04/18/21 08:59 Last Admin: 03/20/21 09:08 Dose: 6 mg Documented by: Enoxaparin Sodium (Enoxaparin Inj 40 Mg/0.4 Ml Syr) 40 mg SQ Q12H [facility] Stop: 04/06/21 21:59 Last Admin: 03/20/21 09:08 Dose: 40 mg Documented by: Guaifenesin (Guaifenesin 600 Mg Tabcr) 1,200 mg PO Q12 [facility] Stop: 04/06/21 21:55 Last Admin: 03/20/21 09:08 Dose: 1,200 mg Documented by: Hydrochlorothiazide (Hydrochlorothiazide 25 Mg Tab) 12.5 mg PO QAM [facility] Stop: 04/13/21 08:59 Last Admin: 03/20/21 09:08 Dose: 12.5 mg Documented by: Levothyroxine Sodium (Levothyroxine Sodium 100 Mcg Tablet) 100 mcg PO DAILYBB [facility] Stop: 04/07/21 08:59 Last Admin: 03/20/21 06:41 Dose: 100 mcg Documented by: Magnesium Hydroxide (Magnesium Hydroxide Susp 30 Ml Udc) 30 ml PO Q12H PRN PRN Reason: Constipation Stop: 04/06/21 21:55 Melatonin (Melatonin 3 Mg Tab) 3 mg PO DAILY@1900 [facility] Stop: 04/18/21 18:59 Last Admin: 03/19/21 19:50 Dose: 3 mg Documented by: Ondansetron HCl (Ondansetron Inj 2 Mg/Ml 2 Ml Vial) 4 mg IV Q6H PRN PRN Reason: Nausea Stop: 04/06/21 21:55 Oxymetazoline HCl (Oxymetazoline 0.05% 30 Ml Btl) 1 sprays NA Q12H PRN PRN Reason: Congestion Stop: 04/10/21 09:57 Last Admin: 03/11/21 10:53 Dose: 1 sprays Documented by: Polyethylene Glycol (Polyethylene (Miralax) 17 Gm Pack) 17 gm PO DAILY PRN PRN Reason: Constipation Stop: 04/06/21 21:55
[2021-03-20] MEDS: amLODIPine BESYLATE 5 MG TAB PO SCH (17:50)
[2021-03-20] MEDS: MELATONIN 3 MG TAB PO SCH (19:43)
[2021-03-20] MEDS: ACETAMINOPHEN 325 MG TAB PO PRN (21:50)
[2021-03-21] MEDS: LEVOTHYROXINE SODIUM 100 MCG TABLET PO SCH (06:21)
[2021-03-21] MEDS: dexAMETHasone 1 MG TAB PO SCH (09:05)
[2021-03-21] MEDS: hydroCHLOROthiazide 25 MG TAB PO SCH (09:06)
[2021-03-21] MEDS: guaiFENesin 600 MG TABCR PO SCH ×2 (09:06→20:41)
[2021-03-21] MEDS: ENOXAPARIN INJ 40 MG/0.4 ML SYR SQ SCH ×2 (09:06→22:06)
[2021-03-21] MEDS ORDERED: FUROSEMIDE 40 MG/4 ML VIAL IV ONE (14:15)
--- NOTE | 2021-03-21 15:29 | Hospitalist Progress Note ---
Date of Service March 21, 2021 Assessment & Plan (1) Acute respiratory failure with hypoxia: (2) Pneumonia due to COVID-19 virus: Plan: 70-year-old female with PMH of hypothyroidism, HLD, morbid obesity presented to our ED 03/07 with weakness and cough x1 week [employer]. 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 She is non-smoker and socially drinks alcohol. In the ED she was hypoxic requiring 3 L of oxygen to maintain normal saturation. Chest x-ray revealed multifocal pneumonia. She was started on IV Decadron in the ED. She is not vaccinated against COVID-19. She is being managed for the following: #. Acute hypoxic respiratory failure #. Pneumonia due to COVID-19 virus Not vaccinated against Covid. Known Covid exposure with her , at presentation in the ED required 3 L of oxygen Admitting ESR 63; admitting Covid test 03/07 positive. Admitted CXR: Multifocal pneumonia secondary to COVID-19 virus infection. WBC mildly elevated, likely secondary to steroid. Pro-Sanjeev -2 times this admission. CRP: 03/07 11.3 downtrending to 2.69 on 03/11. Encourage incentive spirometry and flutter valve C/W albuterol, Mucinex, prone position as able [she cannot tolerate prone position but has been trying to lie on her sides ] Supplemental oxygen, titrate as needed, requiring very high oxygen. C/W dexamethasone 03/07; status post remdesivir Lasix as needed to keep her on drier and grinder tender side. I's and O's -11.5 L Pulmonology on board: Status post Tocilizumab 03/09 Will continue with dexamethasone for now. Clinically a little better today and is still requiring 10 L of oxygen to maintain saturation Very gradual improvement-we will discontinue dexamethasone and give more Lasix Increase ambulation #. Mild hyponatremia Sodium level at presentation 131, had been normal after that. Sodium level again started to drop, currently low 130s Likely secondary to acute stress and use of Lasix on and off plus HCTZ. We will continue to monitor Use sodium chloride tablets sparingly because of difficult to control blood pressure. Sodium level has been around 134 #. Hyperglycemia 03/08 A1c 6.5 Daily blood glucose level WNL Patient on steroid, continue to monitor. On SSI when needed. #. Hypertension Blood pressure slightly elevated but stable. Likely secondary to steroid and acute distress. No blood pressure medications at home. Continue with amlodipine and HCTZ. Taper down BP meds when able. #. Hypothyroidism Continue home levothyroxine. #. DVT prophylaxis: Lovenox SC twice daily Disposition: Continue PCU care. PT/OT. CM to assist with DC planning. Full code Admission and Anticipated Discharge Date Admission Date: March 07, 2021 Subjective 03/08/2021 The patient was seen and examined in telemetry unit and in the Covid room She has been feeling a little better but is still requiring about 12 L of oxygen to maintain saturation Still has cough 03/09/2021 The patient was seen and examined in telemetry unit and in the Covid room She has been complaining of more shortness of breath Has been requiring 40 L of oxygen with 90% FiO2 to maintain saturation Complaints of weakness, fatigue and cough 03/10/2021 The patient was seen and examined in telemetry unit and in the Covid room She has been feeling much better today Has been requiring a little less flow rate at 35 L/min to maintain saturation Denies any chest pain or palpitation, no abdominal pain, nausea and/or vomiting or weakness 03/11/2021 The patient was seen and examined in the telemetry unit and in recovery room #208 Patient states that she feels like her breathing is better and that she feels like she might of turned the corner She still feels very weak and appears ill She is currently on FiO2 of 60% at 35 L/min flow with high flow oxygen She is tolerating the high flow well Patient states that she is unable to sleep in a prone position secondary to back pain No fever, chills, sweats, rigors. No nausea or vomiting. No new acute complaints 03/12/2021 The patient was seen and examined in telemetry unit and in the Covid room recovery Her condition remains stable and may be a little worse today Still requiring high flow oxygen to maintain saturation She cannot lie prone but trying to lie on sides to improve her saturation Denies any chest pain or palpitation, no fever and no chills, no abdominal pain nausea and or vomiting 03/20/2021 The patient was seen and examined in telemetry unit She has been feeling better compared with yesterday Still has shortness of breath with exertion but no respiratory distress at rest though requiring 10 L of oxygen to maintain saturation 03/21/2021 The patient was seen and examined in telemetry unit She has been feeling a little bit better Still getting short of breath with tachycardia and desaturation with minimal exertion Review of Systems Review of Systems: All systems reviewed and are unremarkable except as noted below Respiratory: Moderate shortness of breath at rest Physical Exam Physical Exam: Sitting on a chair with minimal shortness of breath Constitutional: well developed, well nourished, + ill appearing and + obese Eyes: PERRL, conjunctivae normal, anicteric sclerae ENMT: external ear and nose normal, oropharynx normal Neck: trachea midline, no thyromegaly Respiratory: + respiratory distress (Mild to moderate shortness of breath at rest) and + cough Auscultation: + diminished lung sounds and + crackles (At the bases) Cardiovascular: Rate/Rhythm: regular rate and regular rhythm; not tachycardic Heart Sounds: normal S1 and normal S2; no murmur Extremities: + edema (Trace edema bilaterally) Gastrointestinal (Abdomen): Inspection/Auscultation: normal bowel sounds; abdomen not distended Percussion/Palpation: abdomen soft; abdomen nontender Skin: no rashes, warm and dry Neurologic: Alert, awake and oriented x3. No focal sensory and motor deficit appreciated Psychiatric: A+Ox3, euthymic affect Lymphatic: no cervical or axillary lymphadenopathy Results & Data Results & Data ([facility]) Vital Signs (Past 12 Hours) Vital Signs Temp Pulse Pulse Pulse Resp BP BP 03/21/21 11:41 36.7 C 100 H 18 133/78 03/21/21 08:30 112 H 03/21/21 07:53 36.7 C 77 15 132/80 03/21/21 04:15 36.4 C L 81 18 123/63 Pulse Ox 03/21/21 11:41 94 03/21/21 08:30 03/21/21 07:53 96 03/21/21 04:15 94 Diagnostic Findings Current Inpatient Medications Acetaminophen (Acetaminophen 325 Mg Tab) 650 mg PO Q4H PRN PRN Reason: Pain or Fever Stop: 04/06/21 21:55 Last Admin: 03/20/21 21:50 Dose: 650 mg Documented by: Al Hydrox/Mg Hydrox/Simethicone (Aluminum/Magnesium Susp 30 Ml Udc) 15 ml PO Q4H PRN PRN Reason: Dyspepsia Stop: 10/16/21 21:55 Albuterol (Albuterol Hfa 8 Gm Inhaler) 2 puffs INH QID PRN PRN Reason: Wheezing Stop: 04/06/21 21:55 Amlodipine Besylate (Amlodipine Besylate 5 Mg Tab) 5 mg PO 1800 [facility] Stop: 04/13/21 17:59 Last Admin: 03/20/21 17:50 Dose: 5 mg Documented by: Enoxaparin Sodium (Enoxaparin Inj 40 Mg/0.4 Ml Syr) 40 mg SQ Q12H [facility] Stop: 04/06/21 21:59 Last Admin: 03/21/21 09:06 Dose: 40 mg Documented by: Guaifenesin (Guaifenesin 600 Mg Tabcr) 1,200 mg PO Q12 [facility] Stop: 04/06/21 21:55 Last Admin: 03/21/21 09:06 Dose: 1,200 mg Documented by: Hydrochlorothiazide (Hydrochlorothiazide 25 Mg Tab) 12.5 mg PO QAM [facility] Stop: 04/13/21 08:59 Last Admin: 03/21/21 09:06 Dose: 12.5 mg Documented by: Furosemide 40 mg/ Syringe 4 mls @ 4 mls/min IV 1530 [facility] Stop: 03/21/21 16:00 Levothyroxine Sodium (Levothyroxine Sodium 100 Mcg Tablet) 100 mcg PO DAILYBB [facility] Stop: 04/07/21 08:59 Last Admin: 03/21/21 06:21 Dose: 100 mcg Documented by: Magnesium Hydroxide (Magnesium Hydroxide Susp 30 Ml Udc) 30 ml PO Q12H PRN PRN Reason: Constipation Stop: 04/06/21 21:55 Melatonin (Melatonin 3 Mg Tab) 3 mg PO DAILY@1900 [facility] Stop: 04/18/21 18:59 Last Admin: 03/20/21 19:43 Dose: 3 mg Documented by: Ondansetron HCl (Ondansetron Inj 2 Mg/Ml 2 Ml Vial) 4 mg IV Q6H PRN PRN Reason: Nausea Stop: 04/06/21 21:55 Oxymetazoline HCl (Oxymetazoline 0.05% 30 Ml Btl) 1 sprays NA Q12H PRN PRN Reason: Congestion Stop: 04/10/21 09:57 Last Admin: 03/20/21 13:40 Dose: 1 sprays Documented by: Polyethylene Glycol (Polyethylene (Miralax) 17 Gm Pack) 17 gm PO DAILY PRN PRN Reason: Constipation Stop: 04/06/21 21:55
[2021-03-21] MEDS ORDERED: FUROSEMIDE 40 MG in SYRINGE 0 ML IV SCH (15:30)
[2021-03-21] MEDS: amLODIPine BESYLATE 5 MG TAB PO SCH (17:06)
[2021-03-21] MEDS: MELATONIN 3 MG TAB PO SCH (20:41)
[2021-03-21] MEDS: ACETAMINOPHEN 325 MG TAB PO PRN (22:05)
[2021-03-22] MEDS: LEVOTHYROXINE SODIUM 100 MCG TABLET PO SCH (06:45)
[2021-03-22 07:19] LABS: BUN Creatinine Ratio 36.4 (10-20); Calcium 8.9 mg/dl (8.5-10.1); Creatinine Clr Calc Pharmacy 60.4 ml/min; Est GFR (African American) 79.3 ml/min; Est GFR (Non-African American) 68.4 ml/min; Magnesium 2.2 mg/dl (1.8-2.4); Phosphorus 3.7 mg/dl (2.5-4.9); Potassium 3.6 mmol/L (3.5-5.1)
[2021-03-22] MEDS: guaiFENesin 600 MG TABCR PO SCH ×2 (08:09→21:43)
[2021-03-22] MEDS: hydroCHLOROthiazide 25 MG TAB PO SCH (08:10)
[2021-03-22] MEDS: ENOXAPARIN INJ 40 MG/0.4 ML SYR SQ SCH ×2 (08:10→21:43)
--- NOTE | 2021-03-22 12:53 | XRay Report ---
XR chest 1V portable HISTORY: Shortness of breath. covid pneumonia COMPARISON: Chest 03/15/2021. FINDINGS: No pneumothorax. No pleural effusions. The heart is normal in size. Moderate multifocal pat veronica airspace opacities have slightly progressed. Consider the patient's known history of a viral pneu monia. IMPRESSION: Slight progression of the moderate multifocal patchy airspace opacities consistent with a viral pneum onia. ACT 112: Negative or not required by law. Electronically signed by: Paul Kirkland M.D. 03/22/2021 12:51 PM
[2021-03-22] MEDS ORDERED: FUROSEMIDE 40 MG in SYRINGE 0 ML IV ONE (16:20)
--- NOTE | 2021-03-22 16:20 | Hospitalist Progress Note ---
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 She is non-smoker and socially drinks alcohol. In the ED she was hypoxic requiring 3 L of oxygen to maintain normal saturation. Chest x-ray revealed multifocal pneumonia. She was started on IV Decadron in the ED. She is not vaccinated against COVID-19. She is being managed for the following: #. Acute hypoxic respiratory failure #. Pneumonia due to COVID-19 virus Not vaccinated against Covid. Known Covid exposure with her , at presentation in the ED required 3 L of oxygen Admitting ESR 63; admitting Covid test 03/07 positive. Admitted CXR: Multifocal pneumonia secondary to COVID-19 virus infection. WBC mildly elevated, likely secondary to steroid. Pro-Sanjeev -2 times this adm ission. CRP: 03/07 11.3 downtrending to 2.69 on 03/11. Encourage incentive spirometry and flutter valve C/W albuterol, Mucinex, prone position as able [she cannot tolerate prone position but has been trying to lie on her sides ] Supplemental oxygen, titrate as needed, requiring very high oxygen. C/W dexamethasone 03/07; status post remdesivir Lasix as needed to keep her on atmospheric drier tender side. I's and O's -11.5 L Pulmonology on board: Status post Tocilizumab 03/09 Will continue with dexamethasone for now. Clinically a little better today and is still requiring 10 L of oxygen to maintain saturation Very gradual improvement-we will discontinue dexamethasone and give more Lasix Clinically a little bit better but the repeat x-ray did not show any change compared with prior Continue current management #. Mild hyponatremia Sodium level at presentation 131, had been normal after that. Sodium level again started to drop, currently low 130s Likely secondary to acute stress and use of Lasix on and off plus HCTZ. We will continue to monitor Use sodium chloride tablets sparingly because of difficult to control blood pressure. Sodium level has been around 134 #. Hyperglycemia 03/08 A1c 6.5 Daily blood glucose level WNL Patient on steroid, continue to monitor. On SSI when needed. #. Hypertension Blood pressure slightly elevated but stable. Likely secondary to steroid and acute distress. No blood pressure medications at home. Continue with amlodipine and HCTZ. Taper down BP meds when able. #. Hypothyroidism Continue home levothyroxine. #. DVT prophylaxis: Lovenox SC twice daily Disposition: Continue PCU care. PT/OT. CM to assist with DC planning. Full code Admission and Anticipated Discharge Date Admission Date: March 07, 2021 Subjective 03/08/2021 The patient was seen and examined in telemetry unit and in the Covid room She has been feeling a little better but is still requiring about 12 L of oxygen to maintain saturation Still has cough 03/09/2021 The patient was seen and examined in telemetry unit and in the Covid room She has been complaining of more shortness of breath Has been requiring 40 L of oxygen with 90% FiO2 to maintain saturation Complaints of weakness, fatigue and cough 03/10/2021 The patient was seen and examined in telemetry unit and in the Covid room She has been feeling much better today Has been requiring a little less flow rate at 35 L/min to maintain saturation Denies any chest pain or palpitation, no abdominal pain, nausea and/or vomiting or weakness 03/11/2021 The patient was seen and examined in the telemetry unit and in recovery room #208 Patient states that she feels like her breathing is better and that she feels like she might of turned the corner She still feels very weak and appears ill She is currently on FiO2 of 60% at 35 L/min flow with high flow oxygen She is tolerating the high flow well Patient states that she is unable to sleep in a prone position secondary to back pain No fever, chills, sweats, rigors. No nausea or vomiting. No new acute complaints 03/12/2021 The patient was seen and examined in telemetry unit and in the Covid room recovery Her condition remains stable and may be a little worse today Still requiring high flow oxygen to maintain saturation She cannot lie prone but trying to lie on sides to improve her saturation Denies any chest pain or palpitation, no fever and no chills, no abdominal pain nausea and or vomiting 03/20/2021 The patient was seen and examined in telemetry unit She has been feeling better compared with yesterday Still has shortness of breath with exertion but no respiratory distress at rest though requiring 10 L of oxygen to maintain saturation 03/21/2021 The patient was seen and examined in telemetry unit She has been feeling a little bit better Still getting short of breath with tachycardia and desaturation with minimal exertion 03/22/2021 The patient was seen and examined in telemetry unit She feels better and requiring about 10 L of oxygen to maintain saturation Still getting very short of breath with desaturation with ambulation Review of Systems Review of Systems: All systems reviewed and are unremarkable except as noted below Respiratory: Moderate shortness of breath at rest Physical Exam Physical Exam: Sitting on a chair with minimal shortness of breath Constitutional: well developed, well nourished, + ill appearing and + obese Eyes: PERRL, conjunctivae normal, anicteric sclerae ENMT: external ear and nose normal, oropharynx normal Neck: trachea midline, no thyromegaly Respiratory: + respiratory distress (Mild to moderate shortness of breath at rest) and + cough Auscultation: + diminished lung sounds and + crackles (At the bases) Cardiovascular: Rate/Rhythm: regular rate and regular rhythm; not tachycardic Heart Sounds: normal S1 and normal S2; no murmur Extremities: + edema (Trace edema bilaterally) Gastrointestinal (Abdomen): Inspection/Auscultation: normal bowel sounds; abdomen not distended Percussion/Palpation: abdomen soft; abdomen nontender Skin: no rashes, warm and dry Psychiatric: A+Ox3, euthymic affect Lymphatic: no cervical or axillary lymphadenopathy Results & Data Results & Data ([facility]) Vital Signs (Past 12 Hours) Vital Signs Temp Pulse Pulse Resp BP BP Pulse Ox 03/22/21 15:49 36.4 C L 99 H 18 136/78 90 03/22/21 11:41 36.4 C L 91 H 20 133/85 88 L 03/22/21 08:00 86 03/22/21 07:53 36.6 C 90 18 141/82 H 89 L Laboratory Results [facility] 03/22/21 06:25 Sodium 133 L Potassium 3.6 Chloride 96 L Carbon Dioxide 32 BUN 31 H Creatinine 0.86 Glucose 112 H Calcium 8.9 Medications Administered Current Inpatient Medications Acetaminophen (Acetaminophen 325 Mg Tab) 650 mg PO Q4H PRN PRN Reason: Pain or Fever Stop: 04/06/21 21:55 Last Admin: 03/21/21 22:05 Dose: 650 mg Documented by: Al Hydrox/Mg Hydrox/Simethicone (Aluminum/Magnesium Susp 30 Ml Udc) 15 ml PO Q4H PRN PRN Reason: Dyspepsia Stop: 04/06/21 21:55 Albuterol (Albuterol Hfa 8 Gm Inhaler) 2 puffs INH QID PRN PRN Reason: Wheezing Stop: 04/06/21 21:55 Amlodipine Besylate (Amlodipine Besylate 5 Mg Tab) 5 mg PO 1800 [facility] Stop: 04/13/21 17:59 Last Admin: 03/21/21 17:06 Dose: 5 mg Documented by: Enoxaparin Sodium (Enoxaparin Inj 40 Mg/0.4 Ml Syr) 40 mg SQ Q12H [facility] Stop: 04/06/21 21:59 Last Admin: 03/22/21 08:10 Dose: 40 mg Documented by: Guaifenesin (Guaifenesin 600 Mg Tabcr) 1,200 mg PO Q12 [facility] Stop: 04/06/21 21:55 Last Admin: 03/22/21 08:09 Dose: 1,200 mg Documented by: Hydrochlorothiazide (Hydrochlorothiazide 25 Mg Tab) 12.5 mg PO QAM [facility] Stop: 04/13/21 08:59 Last Admin: 03/22/21 08:10 Dose: 12.5 mg Documented by: Levothyroxine Sodium (Levothyroxine Sodium 100 Mcg Tablet) 100 mcg PO DAILYBB [facility] Stop: 04/07/21 08:59 Last Admin: 03/22/21 06:45 Dose: 100 mcg Documented by: Magnesium Hydroxide (Magnesium Hydroxide Susp 30 Ml Udc) 30 ml PO Q12H PRN PRN Reason: Constipation Stop: 04/06/21 21:55 Melatonin (Melatonin 3 Mg Tab) 3 mg PO DAILY@1900 [facility] Stop: 04/18/21 18:59 Last Admin: 03/21/21 20:41 Dose: 3 mg Documented by: Ondansetron HCl (Ondansetron Inj 2 Mg/Ml 2 Ml Vial) 4 mg IV Q6H PRN PRN Reason: Nausea Stop: 04/06/21 21:55 Oxymetazoline HCl (Oxymetazoline 0.05% 30 Ml Btl) 1 sprays NA Q12H PRN PRN Reason: Congestion Stop: 04/10/21 09:57 Last Admin: 03/20/21 13:40 Dose: 1 sprays Documented by: Polyethylene Glycol (Polyethylene (Miralax) 17 Gm Pack) 17 gm PO DAILY PRN PRN Reason: Constipation Stop: 04/06/21 21:55
[2021-03-22] MEDS ORDERED: FUROSEMIDE 40 MG/4 ML VIAL IV ONE (16:30)
[2021-03-22] MEDS: amLODIPine BESYLATE 5 MG TAB PO SCH (17:39)
[2021-03-22] MEDS: MELATONIN 3 MG TAB PO SCH (21:43)
[2021-03-23] MEDS: LEVOTHYROXINE SODIUM 100 MCG TABLET PO SCH (06:27)
[2021-03-23 07:18] LABS: BUN Creatinine Ratio 34.7 (10-20); Calcium 9.1 mg/dl (8.5-10.1); Creatinine Clr Calc Pharmacy 64.3 ml/min; Est GFR (Non-African American) 72.5 ml/min; Potassium 3.4 mmol/L (3.5-5.1)
[2021-03-23] MEDS: guaiFENesin 600 MG TABCR PO SCH ×2 (08:00→20:47)
[2021-03-23] MEDS: hydroCHLOROthiazide 25 MG TAB PO SCH (08:00)
[2021-03-23] MEDS: ENOXAPARIN INJ 40 MG/0.4 ML SYR SQ SCH ×2 (08:00→20:48)
[2021-03-23] MEDS ORDERED: POTASSIUM CHLORIDE CRTAB 20 MEQ TABCR PO STA (08:40)
--- NOTE | 2021-03-23 14:52 | Hospitalist Progress Note ---
Date of Service March 23, 2021 Assessment & Plan (1) Acute respiratory failure with hypoxia: Plan: Current Inpatient Medications Acetaminophen (Acetaminophen 325 Mg Tab) 650 mg PO Q4H PRN PRN Reason: Pain or Fever Stop: 04/06/21 21:55 Last Admin: 03/21/21 22:05 Dose: 650 mg Documented by: Al Hydrox/Mg Hydrox/Simethicone (Aluminum/Magnesium Susp 30 Ml Udc) 15 ml PO Q4H PRN PRN Reason: Dyspepsia Stop: 04/06/21 21:55 Albuterol (Albuterol Hfa 8 Gm Inhaler) 2 puffs INH QID PRN PRN Reason: Wheezing Stop: 04/06/21 21:55 Amlodipine Besylate (Amlodipine Besylate 5 Mg Tab) 5 mg PO 1800 [facility] Stop: 04/13/21 17:59 Last Admin: 03/22/21 17:39 Dose: 5 mg Documented by: Enoxaparin Sodium (Enoxaparin Inj 40 Mg/0.4 Ml Syr) 40 mg SQ Q12H [facility] Stop: 04/06/21 21:59 Last Admin: 03/23/21 08:00 Dose: 40 mg Documented by: Guaifenesin (Guaifenesin 600 Mg Tabcr) 1,200 mg PO Q12 [facility] Stop: 04/06/21 21:55 Last Admin: 03/23/21 08:00 Dose: 1,200 mg Documented by: Hydrochlorothiazide (Hydrochlorothiazide 25 Mg Tab) 12.5 mg PO QAM [facility] Stop: 04/13/21 08:59 Last Admin: 03/23/21 08:00 Dose: 12.5 mg Documented by: Levothyroxine Sodium (Levothyroxine Sodium 100 Mcg Tablet) 100 mcg PO DAILYBB [facility] Stop: 04/07/21 08:59 Last Admin: 03/23/21 06:27 Dose: 100 mcg Documented by: Magnesium Hydroxide (Magnesium Hydroxide Susp 30 Ml Udc) 30 ml PO Q12H PRN PRN Reason: Constipation Stop: 04/06/21 21:55 Melatonin (Melatonin 3 Mg Tab) 3 mg PO DAILY@1900 [facility] Stop: 04/18/21 18:59 Last Admin: 03/22/21 21:43 Dose: 3 mg Documented by: Ondansetron HCl (Ondansetron Inj 2 Mg/Ml 2 Ml Vial) 4 mg IV Q6H PRN PRN Reason: Nausea Stop: 04/06/21 21:55 Oxymetazoline HCl (Oxymetazoline 0.05% 30 Ml Btl) 1 sprays NA Q12H PRN PRN Reason: Congestion Stop: 04/10/21 09:57 Last Admin: 03/20/21 13:40 Dose: 1 sprays Documented by: Polyethylene Glycol (Polyethylene (Miralax) 17 Gm Pack) 17 gm PO DAILY PRN PRN Reason: Constipation Stop: 04/06/21 21:55 (2) Pneumonia due to COVID-19 virus: Plan: 70-year-old female with PMH of hypothyroidism, HLD, morbid obesity presented to our ED 03/07 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 She is non-smoker and socially drinks alcohol. In the ED she was hypoxic requiring 3 L of oxygen to maintain normal saturation. Chest x-ray revealed multifocal pneumonia. She was started on IV Decadron in the ED. She is not vaccinated against COVID-19. She is being managed for the following: #. Acute hypoxic respiratory failure #. Pneumonia due to COVID-19 virus Not vaccinated against Covid. Known Covid exposure with her , at presentation in the ED required 3 L of oxygen Admitting ESR 63; admitting Covid test 03/07 positive. Admitted CXR: Multifocal pneumonia secondary to COVID-19 virus infection. WBC mildly elevated, likely secondary to steroid. Pro-Sanjeev -2 times this admission. CRP: 03/07 11.3 downtrending to 2.69 on 03/11. Encourage incentive spirometry and flutter valve C/W albuterol, Mucinex, prone position as able [she cannot tolerate prone position but has been trying to lie on her sides ] Supplemental oxygen, titrate as needed, requiring very high oxygen. 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 I's and O's -11.5 L Pulmonology on board: Status post Tocilizumab 03/09 Will continue with dexamethasone for now. Clinically a little better today and is still requiring 10 L of oxygen to maintain saturation Very gradual improvement-we will discontinue dexamethasone and give more Lasix Clinically a little bit better but the repeat x-ray did not show any change compared with prior Remains stable without any further improvement-continue current management #. Mild hyponatremia Sodium level at presentation 131, had been normal after that. Sodium level again started to drop, currently low 130s Likely secondary to acute stress and use of Lasix on and off plus HCTZ. We will continue to monitor Use sodium chloride tablets sparingly because of difficult to control blood pressure. Sodium level has been around 134-133 #. Hyperglycemia 03/08 A1c 6.5 Daily blood glucose level WNL Patient on steroid, continue to monitor. On SSI when needed. #. Hypertension Blood pressure slightly elevated but stable. Likely secondary to steroid and acute distress. No blood pressure medications at home. Continue with amlodipine and HCTZ. Taper down BP meds when able. #. Hypothyroidism Continue home levothyroxine. #. DVT prophylaxis: Lovenox SC twice daily Disposition: Continue PCU care. PT/OT. CM to assist with DC planning. Full code Admission and Anticipated Discharge Date Admission Date: March 07, 2021 Subjective 03/08/2021 The patient was seen and examined in telemetry unit and in the Covid room She has been feeling a little better but is still requiring about 12 L of oxygen to maintain saturation Still has cough 03/09/2021 The patient was seen and examined in telemetry unit and in the Covid room She has been complaining of more shortness of breath Has been requiring 40 L of oxygen with 90% FiO2 to maintain saturation Complaints of weakness, fatigue and cough 03/10/2021 The patient was seen and examined in telemetry unit and in the Covid room She has been feeling much better today Has been requiring a little less flow rate at 35 L/min to maintain saturation Denies any chest pain or palpitation, no abdominal pain, nausea and/or vomiting or weakness 03/11/2021 The patient was seen and examined in the telemetry unit and in recovery room #208 Patient states that she feels like her breathing is better and that she feels like she might of turned the corner She still feels very weak and appears ill She is currently on FiO2 of 60% at 35 L/min flow with high flow oxygen She is tolerating the high flow well Patient states that she is unable to sleep in a prone position secondary to back pain No fever, chills, sweats, rigors. No nausea or vomiting. No new acute complaints 03/12/2021 The patient was seen and examined in telemetry unit and in the Covid room recovery Her condition remains stable and may be a little worse today Still requiring high flow oxygen to maintain saturation She cannot lie prone but trying to lie on sides to improve her saturation Denies any chest pain or palpitation, no fever and no chills, no abdominal pain nausea and or vomiting 03/20/2021 The patient was seen and examined in telemetry unit She has been feeling better compared with yesterday Still has shortness of breath with exertion but no respiratory distress at rest though requiring 10 L of oxygen to maintain saturation 03/21/2021 The patient was seen and examined in telemetry unit She has been feeling a little bit better Still getting short of breath with tachycardia and desaturation with minimal exertion 03/22/2021 The patient was seen and examined in telemetry unit She feels better and requiring about 10 L of oxygen to maintain saturation Still getting very short of breath with desaturation with ambulation 03/23/2021 The patient was seen and examined in telemetry unit and in Covid room She has had a rough night yesterday and required up to 15 L of oxygen to maintain saturation Feeling much better this morning and is still requiring 10 L of oxygen to maintain saturation Generalized weakness but denies any other symptoms Review of Systems Review of Systems: All systems reviewed and are unremarkable except as noted below Respiratory: Moderate shortness of breath at rest Physical Exam Physical Exam: Sitting on a chair with minimal shortness of breath Constitutional: well developed, well nourished, + ill appearing and + obese Eyes: PERRL, conjunctivae normal, anicteric sclerae ENMT: external ear and nose normal, oropharynx normal Neck: trachea midline, no thyromegaly Respiratory: + respiratory distress (Mild to moderate shortness of breath at rest) and + cough Auscultation: + diminished lung sounds and + crackles (At the bases) Cardiovascular: Rate/Rhythm: regular rate and regular rhythm; not tachycardic Heart Sounds: normal S1 and normal S2; no murmur Extremities: + edema (Trace edema bilaterally) Gastrointestinal (Abdomen): Inspection/Auscultation: normal bowel sounds; abdomen not distended Percussion/Palpation: abdomen soft; abdomen nontender Skin: no rashes, warm and dry Psychiatric: A+Ox3, euthymic affect Lymphatic: no cervical or axillary lymphadenopathy Results & Data Results & Data ([facility]) Vital Signs (Past 12 Hours) Vital Signs Temp Pulse Pulse Resp BP Pulse Ox 03/23/21 11:30 36.6 C 105 H 20 141/82 H 97 03/23/21 11:00 98 03/23/21 07:52 36.4 C L 106 H 23 145/75 H 93 03/23/21 03:50 102 H 20 93 03/23/21 03:47 36.8 C 102 H 16 133/100 93 Laboratory Results [facility] 03/23/21 06:28 Sodium 133 L Potassium 3.4 L Chloride 94 L Carbon Dioxide 30 BUN 29 H Creatinine 0.82 Glucose 115 H Calcium 9.1
[2021-03-23] MEDS: amLODIPine BESYLATE 5 MG TAB PO SCH (18:02)
[2021-03-23] MEDS: MELATONIN 3 MG TAB PO SCH (20:48)
[2021-03-23] MEDS: ACETAMINOPHEN 325 MG TAB PO PRN (20:48)
[2021-03-24] MEDS: LEVOTHYROXINE SODIUM 100 MCG TABLET PO SCH (06:50)
[2021-03-24] MEDS: ENOXAPARIN INJ 40 MG/0.4 ML SYR SQ SCH ×2 (08:19→21:06)
[2021-03-24] MEDS: hydroCHLOROthiazide 25 MG TAB PO SCH (08:20)
[2021-03-24] MEDS: guaiFENesin 600 MG TABCR PO SCH ×2 (08:21→21:06)
[2021-03-24 12:53] LABS: BUN Creatinine Ratio 24.2 (10-20); Calcium 8.7 mg/dl (8.5-10.1); Creatinine Clr Calc Pharmacy 58.9 ml/min; Est GFR (African American) 76.1 ml/min; Est GFR (Non-African American) 65.7 ml/min; Magnesium 2.1 mg/dl (1.8-2.4); Potassium 3.6 mmol/L (3.5-5.1)
[2021-03-24] MEDS ORDERED: PROMETHAZINE HCL 12.5 MG in SODIUM CHLORIDE 0.9% 50 ML IV PRN (13:39)
[2021-03-24] MEDS ORDERED: POTASSIUM CHLORIDE CRTAB 20 MEQ TABCR PO STA (13:40)
--- NOTE | 2021-03-24 14:22 | Cardiology Consultation ---
Date of Consultation March 24, 2021 Assessment & Plan (1) Torsades de pointes: (2) Hypokalemia: (3) Prolonged QT interval: (4) Hypothyroidism: (5) Pneumonia due to COVID-19 virus: Torsade de pointes recorded in the setting of hypokalemia, diuretic use, hypoxia, COVID-19 pneumonia, and prolonged QT on admission. Repeat ECG performed at bedside demonstrated normal QTC at a heart rate of 108 bpm. Recommend replace potassium to maintain level greater than 4.0. Maintain serum magnesium greater than 2.0. Continue telemetry monitoring throughout hospitalization. Discontinue hydrochlorothiazide in favor of low-dose losartan, 25 mg daily. Repeat basic metabolic panel and serum magnesium level daily. Follow standard protocols if patient were to become unstable, including urgent defibrillation with administration of IV magnesium. Repeat TSH as thyroid dysfunction is a rare cause of prolonged QT. ECG in a.m. 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 History of Present Illness Reason for Consultation: Torsades Requesting Physician: Dr. Shha Attending Physician: Aminah Shah MD History of Present Illness 70-year-old female admitted 03/07/2021 secondary to COVID-19 pneumonia. She is unvaccinated. Currently treated with high flow nasal cannula oxygen, 7 L/min. Last evening at approximately 3:15 AM, a brief episode of torsade de pointes was recorded during sleep. Dysrhythmia triggered by R-on-T phenomenon. Patient spontaneously converted to sinus rhythm. No recurrence today. ECG on admission demonstrates sinus rhythm at a heart rate of 98 bpm with a QTc of 500 ms. Patient seen and examined at the bedside. Comfortable at rest, however, notes significant dyspnea with minimal exertion. Reports cough and orthopnea. Minimal sputum production. Denies chest discomfort or heaviness. No palpita tions, lightheadedness, or dizziness. Telemetry reveals sinus rhythm and sinus tachycardia with heart rate ranging from 85-110 bpm. Denies personal history of coronary disease, congestive heart failure, or rheumatic fever as a child. Denies family history of sudden cardiac in first-degree relatives. No history of premature coronary disease. Allergies Allergy/AdvReac Type Severity Reaction Status Date / Time No Known Allergies Allergy Verified 03/07/21 18:49 Home Medications Medication Instructions Recorded Confirmed Type levothyroxine 100 mcg tablet 100 mcg PO DAILY 03/07/21 03/07/21 History Patient History Medical History HLD (hyperlipidemia) Hypothyroidism Surgical History History of hysterectomy Social History Smoking Status: Never smoker Hx Alcohol Use: Yes Alcohol type: beer and hard liquor Alcohol Intake Frequency: Monthly or Less Hx Substance Use: No Preferred Language: French Communication Ability: Effective Planning Intern Required: No Beliefs That Will Affect Care: None marital status: Current Living Situation: Spouse Feels Safe at Home: Yes Safety Concerns: Feels Safe At This Time Assistive Devices: Oxygen - Continuous Review of Systems Review of Systems: All systems reviewed & are unremarkable except as noted in Subjective Physical Exam Constitutional: well developed, well nourished and + ill appearing Respiratory: no respiratory distress and no retractions Auscultation: no crackles, no rales, no rhonchi and no wheezes Cardiovascular: Rate/Rhythm: regular rate, regular rhythm and + tachycardic Heart Sounds: normal S1 and normal S2; no murmur Vessels: radial pulses present; no JVD and no carotid bruit Gastrointestinal (Abdomen): Inspection/Auscultation: abdomen normal to inspection and normal bowel sounds; abdomen not distended Percussion/Palpation: abdomen soft; abdomen nontender, no guarding and abdomen not rigid Neurologic: CN's II-XI intact bilaterally and moves all extremities; no focal motor deficits Motor/Sensory: + tremor Psychiatric: A+Ox3, euthymic affect Results & Data ([facility]) Vital Signs (Past 12 Hours) Vital Signs Temp Pulse Pulse Resp BP Pulse Ox 03/24/21 11:07 36.8 C 111 H 18 139/80 91 03/24/21 08:00 86 03/24/21 07:40 36.6 C 92 H 18 133/82 97 03/24/21 03:34 36.0 C L 91 H 18 144/65 H 92 03/24/21 02:38 80 17 99
--- NOTE | 2021-03-24 15:10 | Hospitalist Progress Note ---
Date of Service March 24, 2021 Assessment & Plan (1) Acute respiratory failure with hypoxia: (2) Pneumonia due to COVID-19 virus: Plan: 70-year-old female with PMH of hypothyroidism, HLD, morbid obesity presented to our ED 03/07 with weakness and cough x1 week [employer]. 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 She is non-smoker and socially drinks alcohol. In the ED she was hypoxic requiring 3 L of oxygen to maintain normal saturation. Chest x-ray revealed multifocal pneumonia. She was started on IV Decadron in the ED. She is not vaccinated against COVID-19. She is being managed for the following: #. Acute hypoxic respiratory failure #. Pneumonia due to COVID-19 virus Not vaccinated against Covid. Known Covid exposure with her , at presentation in the ED required 3 L of oxygen Admitting ESR 63; admitting Covid test 03/07 positive. Admitted CXR: Multifocal pneumonia secondary to COVID-19 virus infection. WBC mildly elevated, likely secondary to steroid. Pro-Sanjeev -2 times this adm ission. CRP: 03/07 11.3 downtrending to 2.69 on 03/11. Encourage incentive spirometry and flutter valve C/W albuterol, Mucinex, prone position as able [she cannot tolerate prone position but has been trying to lie on her sides ] Supplemental oxygen, titrate as needed, requiring very high oxygen. C/W dexamethasone 03/07; status post remdesivir Lasix as needed to keep her on drier feeder side. I's and O's -11.5 L Pulmonology on board: Status post Tocilizumab 03/09 Will continue with dexamethasone for now. Clinically a little better today and is still requiring 10 L of oxygen to maintain saturation Very gradual improvement-we will discontinue dexamethasone and give more Lasix Has been feeling a little better since this morning though she had a rough night Requiring about 7 L of oxygen to maintain saturation Noted to have torsade last night Has had QT prolongation in prior EKG Repeat EKG did not show any prolonged QT interval Appreciate cardiology input and recommendation Will keep magnesium and potassium level up-to-date #. Mild hyponatremia Sodium level at presentation 131, had been normal after that. Sodium level again started to drop, currently low 130s Likely secondary to acute stress and use of Lasix on and off plus HCTZ. We will continue to monitor Use sodium chloride tablets sparingly because of difficult to control blood pressure. Sodium level has been normalized to 135 on 03/24/2021 #. Hyperglycemia 03/08 A1c 6.5 Daily blood glucose level WNL Patient on steroid, continue to monitor. On SSI when needed. #. Hypertension Blood pressure slightly elevated but stable. Likely secondary to steroid and acute distress. No blood pressure medications at home. Continue with amlodipine and losartan. #. Hypothyroidism Continue home levothyroxine. #. DVT prophylaxis: Lovenox SC twice daily Disposition: Continue PCU care. PT/OT. CM to assist with DC planning. Full code Admission and Anticipated Discharge Date Admission Date: March 07, 2021 Subjective 03/08/2021 The patient was seen and examined in telemetry unit and in the Covid room She has been feeling a little better but is still requiring about 12 L of oxygen to maintain saturation Still has cough 03/09/2021 The patient was seen and examined in telemetry unit and in the Covid room She has been complaining of more shortness of breath Has been requiring 40 L of oxygen with 90% FiO2 to maintain saturation Complaints of weakness, fatigue and cough 03/10/2021 The patient was seen and examined in telemetry unit and in the Covid room She has been feeling much better today Has been requiring a little less flow rate at 35 L/min to maintain saturation Denies any chest pain or palpitation, no abdominal pain, nausea and/or vomiting or weakness 03/11/2021 The patient was seen and examined in the telemetry unit and in recovery room #208 Patient states that she feels like her breathing is better and that she feels like she might of turned the corner She still feels very weak and appears ill She is currently on FiO2 of 60% at 35 L/min flow with high flow oxygen She is tolerating the high flow well Patient states that she is unable to sleep in a prone position secondary to back pain No fever, chills, sweats, rigors. No nausea or vomiting. No new acute complaints 03/12/2021 The patient was seen and examined in telemetry unit and in the Covid room recovery Her condition remains stable and may be a little worse today Still requiring high flow oxygen to maintain saturation She cannot lie prone but trying to lie on sides to improve her saturation Denies any chest pain or palpitation, no fever and no chills, no abdominal pain nausea and or vomiting 03/20/2021 The patient was seen and examined in telemetry unit She has been feeling better compared with yesterday Still has shortness of breath with exertion but no respiratory distress at rest though requiring 10 L of oxygen to maintain saturation 03/21/2021 The patient was seen and examined in telemetry unit She has been feeling a little bit better Still getting short of breath with tachycardia and desaturation with minimal exertion 03/22/2021 The patient was seen and examined in telemetry unit She feels better and requiring about 10 L of oxygen to maintain saturation Still getting very short of breath with desaturation with ambulation 03/23/2021 The patient was seen and examined in telemetry unit and in Covid room She has had a rough night yesterday and required up to 15 L of oxygen to maintain saturation Feeling much better this morning and is still requiring 10 L of oxygen to maintain saturation Generalized weakness but denies any other symptoms 03/24/2021 The patient was seen and examined in telemetry unit She has had short runs of torsade last night She also required high flow oxygen last night Has been feeling a lot better since this morning Review of Systems Review of Systems: All systems reviewed and are unremarkable except as noted below Respiratory: Moderate shortness of breath at rest Physical Exam Physical Exam: Sitting on a chair with minimal shortness of breath Constitutional: well developed, well nourished, + ill appearing and + obese Eyes: PERRL, conjunctivae normal, anicteric sclerae ENMT: external ear and nose normal, oropharynx normal Neck: trachea midline, no thyromegaly Respiratory: + respiratory distress (Mild to moderate shortness of breath at rest) and + cough Auscultation: + diminished lung sounds and + crackles (At the bases) Cardiovascular: Rate/Rhythm: regular rate and regular rhythm; not tachycardic Heart Sounds: normal S1 and normal S2; no murmur Extremities: + edema (Trace edema bilaterally) Gastrointestinal (Abdomen): Inspection/Auscultation: normal bowel sounds; abdomen not distended Percussion/Palpation: abdomen soft; abdomen nontender Skin: no rashes, warm and dry Psychiatric: A+Ox3, euthymic affect Lymphatic: no cervical or axillary lymphadenopathy Results & Data Results & Data ([facility]) Vital Signs (Past 12 Hours) Vital Signs Temp Pulse Pulse Resp BP Pulse Ox 03/24/21 11:07 36.8 C 111 H 18 139/80 91 03/24/21 08:00 86 03/24/21 07:40 36.6 C 92 H 18 133/82 97 03/24/21 03:34 36.0 C L 91 H 18 144/65 H 92 Laboratory Results BMP 03/24/21 12:09 Sodium 135 L Potassium 3.6 Chloride 96 L Carbon Dioxide 32 BUN 21 H Creatinine 0.89 Glucose 165 H Calcium 8.7 Medications Administered Current Inpatient Medications Acetaminophen (Acetaminophen 325 Mg Tab) 650 mg PO Q4H PRN PRN Reason: Pain or Fever Stop: 04/06/21 21:55 Last Admin: 03/23/21 20:48 Dose: 650 mg Documented by: Al Hydrox/Mg Hydrox/Simethicone (Aluminum/Magnesium Susp 30 Ml Udc) 15 ml PO Q4H PRN PRN Reason: Dyspepsia Stop: 04/06/21 21:55 Albuterol (Albuterol Hfa 8 Gm Inhaler) 2 puffs INH QID PRN PRN Reason: Wheezing Stop: 04/06/21 21:55 Amlodipine Besylate (Amlodipine Besylate 5 Mg Tab) 5 mg PO 1800 [facility] Stop: 04/13/21 17:59 Last Admin: 03/23/21 18:02 Dose: 5 mg Documented by: Enoxaparin Sodium (Enoxaparin Inj 40 Mg/0.4 Ml Syr) 40 mg SQ Q12H BROWN Stop: 04/06/21 21:59 Last Admin: 03/24/21 08:19 Dose: 40 mg Documented by: Guaifenesin (Guaifenesin 600 Mg Tabcr) 1,200 mg PO Q12 BROWN Stop: 04/06/21 21:55 Last Admin: 03/24/21 08:21 Dose: 1,200 mg Documented by: Promethazine HCl 12.5 mg/ (Sodium Chloride) 50.5 mls @ 202 mls/hr IV Q6H PRN PRN Reason: Nausea And Vomiting Stop: 04/23/21 13:38 Levothyroxine Sodium (Levothyroxine Sodium 100 Mcg Tablet) 100 mcg PO DAILYBB [facility] Stop: 04/07/21 08:59 Last Admin: 03/24/21 06:50 Dose: 100 mcg Documented by: Losartan Potassium (Losartan Potassium 25 Mg Tab) 25 mg PO QAM [facility] Stop: 04/24/21 08:59 Magnesium Hydroxide (Magnesium Hydroxide Susp 30 Ml Udc) 30 ml PO Q12H PRN PRN Reason: Constipation Stop: 04/06/21 21:55 Melatonin (Melatonin 3 Mg Tab) 3 mg PO DAILY@1900 [facility] Stop: 04/18/21 18:59 Last Admin: 03/23/21 20:48 Dose: 3 mg Documented by: Oxymetazoline HCl (Oxymetazoline 0.05% 30 Ml Btl) 1 sprays NA Q12H PRN PRN Reason: Congestion Stop: 04/10/21 09:57 Last Admin: 03/20/21 13:40 Dose: 1 sprays Documented by: Polyethylene Glycol (Polyethylene (Miralax) 17 Gm Pack) 17 gm PO DAILY PRN PRN Reason: Constipation Stop: 04/06/21 21:55
[2021-03-24 15:12] LABS: Thyroid Stimulating Hormone 4.62 uIu/ml (0.300-4.500)
[2021-03-24 15:25] LABS: T4 Free Thyroxine 1.36 ng/dl (0.8-1.6)
[2021-03-24] MEDS: amLODIPine BESYLATE 5 MG TAB PO SCH (17:21)
--- NOTE | 2021-03-24 20:07 | Electrocardiogram Report ---
Test Reason : Blood Pressure : / mmHG Vent. Rate : 108 BPM Atrial Rate : 108 BPM P-R Int : 180 ms QRS Dur : 078 ms QT Int : 340 ms P-R-T Axes : 031 -13 091 degrees QTc Int : 455 ms Sinus tachycardia Possible Left atrial enlargement Left ventricular hypertrophy Possible Inferior infarct , age undetermined Abnormal ECG When compared with ECG of 07-MAR-2021 19:26, Borderline criteria for Inferior infarct are now Present Nonspecific T wave abnormality, worse in Lateral leads Confirmed by Sheldon Mccann ([id number]) on 03/24/2021 8:06:52 PM Referred By: REFERRED SELF Confirmed By:Sheldon Mccann
[2021-03-24] MEDS: MELATONIN 3 MG TAB PO SCH (21:06)
[2021-03-24] MEDS: ACETAMINOPHEN 325 MG TAB PO PRN (21:22)
[2021-03-25] MEDS: LEVOTHYROXINE SODIUM 100 MCG TABLET PO SCH (06:16)
[2021-03-25 07:18] LABS: BUN Creatinine Ratio 25.7 (10-20); Calcium 8.9 mg/dl (8.5-10.1); Creatinine Clr Calc Pharmacy 69.4 ml/min; Est GFR (African American) 92.1 ml/min; Est GFR (Non-African American) 79.5 ml/min; Magnesium 1.9 mg/dl (1.8-2.4); Phosphorus 3.7 mg/dl (2.5-4.9); Potassium 3.6 mmol/L (3.5-5.1)
[2021-03-25] MEDS: guaiFENesin 600 MG TABCR PO SCH ×2 (08:34→21:04)
[2021-03-25] MEDS: LOSARTAN POTASSIUM 25 MG TAB PO SCH (08:34)
[2021-03-25] MEDS: ENOXAPARIN INJ 40 MG/0.4 ML SYR SQ SCH ×2 (08:35→21:04)
[2021-03-25] MEDS ORDERED: POTASSIUM CHLORIDE 20 MEQ/15 ML UDC PO STA (09:02)
[2021-03-25] MEDS ORDERED: POTASSIUM CHLORIDE CRTAB 20 MEQ TABCR PO STA (09:17)
[2021-03-25] MEDS: MAGNESIUM OXIDE 400 MG TAB PO SCH ×2 (10:04→21:04)
--- NOTE | 2021-03-25 10:51 | Cardiology Progress Note ---
Date of Service March 25, 2021 Assessment & Plan (1) Torsades de pointes: (2) Hypokalemia: (3) Prolonged QT interval: (4) Hypothyroidism: (5) Pneumonia due to COVID-19 virus: Plan: Torsade de pointes recorded in the setting of hypokalemia, diuretic use, hypoxia, COVID-19 pneumonia, and prolonged QT on admission. Repeat ECG performed 03/24 at bedside demonstrated normal QTc at a heart rate of 108 bpm. Replace potassium to maintain level greater than 4.0. Maintain serum magnesium greater than 2.0. Continue telemetry monitoring throughout hospitalization. Repeat basic metabolic panel and serum magnesium level daily. Follow standard protocols if patient were to become unstable, including urgent defibrillation with administration of IV magnesium. 40 mEq oral potassium chloride today. 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 Admission and Anticipated Discharge Date Admission Date: March 07, 2021 Subjective Patient seen and examined at the bedside. Dyspnea unchanged. Comfortable at rest. Telemetry reveals sinus tachycardia. No recurrent torsade de pointes. Serum potassium 3.6 this morning. Hydrochlorothiazide discontinued in favor of losartan. Review of Systems Review of Systems: All systems reviewed & are unremarkable except as noted in Subjective Physical Exam Constitutional: well developed, well nourished and + ill appearing Respiratory: no respiratory distress and no retractions Auscultation: no crackles, no rales, no rhonchi and no wheezes Cardiovascular: Rate/Rhythm: regular rate, regular rhythm and + tachycardic Heart Sounds: normal S1 and normal S2; no murmur Vessels: radial pulses present; no JVD and no carotid bruit Gastrointestinal (Abdomen): Inspection/Auscultation: abdomen normal to inspection and normal bowel sounds; abdomen not distended Percussion/Palpation: abdomen soft; abdomen nontender, no guarding and abdomen not rigid Neurologic: CN's II-XI intact bilaterally and moves all extremities; no focal motor deficits Motor/Sensory: + tremor Psychiatric: A+Ox3, euthymic affect Results & Data ([facility]) Vital Signs (Past 12 Hours) Vital Signs Temp Pulse Pulse Resp BP Pulse Ox 03/25/21 07:39 36.7 C 95 H 18 135/80 98 03/25/21 04:06 36.2 C L 96 H 24 141/86 H 94 03/25/21 03:25 87 17 92 03/25/21 00:36 96 H 03/24/21 23:22 36.2 C L 91 H 14 126/79 95
--- NOTE | 2021-03-25 14:39 | Electrocardiogram Report ---
Test Reason : Blood Pressure : / mmHG Vent. Rate : 095 BPM Atrial Rate : 095 BPM P-R Int : 160 ms QRS Dur : 074 ms QT Int : 372 ms P-R-T Axes : 026 -18 048 degrees QTc Int : 467 ms Normal sinus rhythm Minimal voltage criteria for LVH, may be normal variant Inferior infarct (cited on or before 24-MAR-2021) Poor R wave progression, consider anterior [place] vs. lead placement vs. LVH Nonspecific ST abnormality Abnormal ECG When compared with ECG of 24-MAR-2021 14:01, No significant change was found Confirmed by Delvis Miller ([id number]) on 03/25/2021 2:39:03 PM Referred By: REFERRED SELF Confirmed By:Timothy Miller
[2021-03-25] MEDS: amLODIPine BESYLATE 5 MG TAB PO SCH (17:51)
--- NOTE | 2021-03-25 18:29 | Hospitalist Progress Note ---
Date of Service March 25, 2021 Assessment & Plan (1) Acute respiratory failure with hypoxia: (2) Pneumonia due to COVID-19 virus: Plan: 70-year-old female with PMH of hypothyroidism, HLD, morbid obesity presented to our ED 03/07 with weakness and cough x1 week [employer]. 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 She is non-smoker and socially drinks alcohol. In the ED she was hypoxic requiring 3 L of oxygen to maintain normal saturation. Chest x-ray revealed multifocal pneumonia. She was started on IV Decadron in the ED. She is not vaccinated against COVID-19. She is being managed for the following: #. Acute hypoxic respiratory failure #. Pneumonia due to COVID-19 virus Not vaccinated against Covid. Known Covid exposure with her , at presentation in the ED required 3 L of oxygen Admitting ESR 63; admitting Covid test 03/07 positive. Admitted CXR: Multifocal pneumonia secondary to COVID-19 virus infection. WBC mildly elevated, likely secondary to steroid. Pro-Sanjeev -2 times this adm ission. CRP: 03/07 11.3 downtrending to 2.69 on 03/11. Encourage incentive spirometry and flutter valve C/W albuterol, Mucinex, prone position as able [she cannot tolerate prone position but has been trying to lie on her sides ] Supplemental oxygen, titrate as needed, requiring very high oxygen. C/W dexamethasone 03/07; status post remdesivir Lasix as needed to keep her on skein drier side. I's and O's -11.5 L Pulmonology on board: Status post Tocilizumab 03/09 Will continue with dexamethasone for now. Clinically a little better today and is still requiring 10 L of oxygen to maintain saturation Very gradual improvement-we will discontinue dexamethasone and give more Lasix Has been feeling a little better since this morning though she had a rough night Requiring about 7 L of oxygen to maintain saturation Not much improvement-we will continue current management Noted to have torsade last night Has had QT prolongation in prior EKG Repeat EKG did not show any prolonged QT interval Appreciate cardiology input and recommendation Will keep magnesium and potassium level up-to-date Received more potassium today No more episodes of arrhythmias #. Mild hyponatremia Sodium level at presentation 131, had been normal after that. Sodium level again started to drop, currently low 130s Likely secondary to acute stress and use of Lasix on and off plus HCTZ. We will continue to monitor Use sodium chloride tablets sparingly because of difficult to control blood pressure. Sodium level has been normalized to 135 on 03/24/2021 #. Hyperglycemia 03/08 A1c 6.5 Daily blood glucose level WNL Patient on steroid, continue to monitor. On SSI when needed. #. Hypertension Blood pressure slightly elevated but stable. Likely secondary to steroid and acute distress. No blood pressure medications at home. Continue with amlodipine and losartan. #. Hypothyroidism Continue home levothyroxine. #. DVT prophylaxis: Lovenox SC twice daily Disposition: Continue PCU care. PT/OT. CM to assist with DC planning. Full code Admission and Anticipated Discharge Date Admission Date: March 07, 2021 Subjective 03/08/2021 The patient was seen and examined in telemetry unit and in the Covid room She has been feeling a little better but is still requiring about 12 L of oxygen to maintain saturation Still has cough 03/09/2021 The patient was seen and examined in telemetry unit and in the Covid room She has been complaining of more shortness of breath Has been requiring 40 L of oxygen with 90% FiO2 to maintain saturation Complaints of weakness, fatigue and cough 03/10/2021 The patient was seen and examined in telemetry unit and in the Covid room She has been feeling much better today Has been requiring a little less flow rate at 35 L/min to maintain saturation Denies any chest pain or palpitation, no abdominal pain, nausea and/or vomiting or weakness 03/11/2021 The patient was seen and examined in the telemetry unit and in recovery room #208 Patient states that she feels like her breathing is better and that she feels like she might of turned the corner She still feels very weak and appears ill She is currently on FiO2 of 60% at 35 L/min flow with high flow oxygen She is tolerating the high flow well Patient states that she is unable to sleep in a prone position secondary to back pain No fever, chills, sweats, rigors. No nausea or vomiting. No new acute complaints 03/12/2021 The patient was seen and examined in telemetry unit and in the Covid room recovery Her condition remains stable and may be a little worse today Still requiring high flow oxygen to maintain saturation She cannot lie prone but trying to lie on sides to improve her saturation Denies any chest pain or palpitation, no fever and no chills, no abdominal pain nausea and or vomiting 03/20/2021 The patient was seen and examined in telemetry unit She has been feeling better compared with yesterday Still has shortness of breath with exertion but no respiratory distress at rest though requiring 10 L of oxygen to maintain saturation 03/21/2021 The patient was seen and examined in telemetry unit She has been feeling a little bit better Still getting short of breath with tachycardia and desaturation with minimal exe rtion 03/22/2021 The patient was seen and examined in telemetry unit She feels better and requiring about 10 L of oxygen to maintain saturation Still getting very short of breath with desaturation with ambulation 03/23/2021 The patient was seen and examined in telemetry unit and in Covid room She has had a rough night yesterday and required up to 15 L of oxygen to maintain saturation Feeling much better this morning and is still requiring 10 L of oxygen to maintain saturation Generalized weakness but denies any other symptoms 03/24/2021 The patient was seen and examined in telemetry unit She has had short runs of torsade last night She also required high flow oxygen last night Has been feeling a lot better since this morning 03/25/2021 The patient was seen and examined in telemetry unit She has been feeling better but still requiring 10 L oxygen to maintain saturation Getting shortness of breath with desaturation with minimal exertion Review of Systems Review of Systems: All systems reviewed and are unremarkable except as noted below Respiratory: Moderate shortness of breath at rest Physical Exam Physical Exam: Sitting on a chair with minimal shortness of breath Constitutional: well developed, well nourished, + ill appearing and + obese Eyes: PERRL, conjunctivae normal, anicteric sclerae ENMT: external ear and nose normal, oropharynx normal Neck: trachea midline, no thyromegaly Respiratory: + respiratory distress (Mild to moderate shortness of breath at rest) and + cough Auscultation: + diminished lung sounds and + crackles (At the bases) Cardiovascular: Rate/Rhythm: regular rate and regular rhythm; not tachycardic Heart Sounds: normal S1 and normal S2; no murmur Extremities: + edema (Trace edema bilaterally) Gastrointestinal (Abdomen): Inspection/Auscultation: normal bowel sounds; abdomen not distended Percussion/Palpation: abdomen soft; abdomen nontender Skin: no rashes, warm and dry Psychiatric: A+Ox3, euthymic affect Lymphatic: no cervical or axillary lymphadenopathy Results & Data Results & Data ([facility]) Vital Signs (Past 12 Hours) Vital Signs Temp Pulse Resp BP Pulse Ox 03/25/21 16:11 36.9 C 98 H 21 133/83 94 03/25/21 11:24 36.9 C 90 16 128/70 94 03/25/21 07:39 36.7 C 95 H 18 135/80 98 Laboratory Results [facility] 03/25/21 06:17 Sodium 136 Potassium 3.6 Chloride 96 L Carbon Dioxide 31 BUN 20 H Creatinine 0.76 Glucose 117 H Calcium 8.9 Medications Administered Current Inpatient Medications Acetaminophen (Acetaminophen 325 Mg Tab) 650 mg PO Q4H PRN PRN Reason: Pain or Fever Stop: 04/06/21 21:55 Last Admin: 03/24/21 21:22 Dose: 650 mg Documented by: Al Hydrox/Mg Hydrox/Simethicone (Aluminum/Magnesium Susp 30 Ml Udc) 15 ml PO Q4H PRN PRN Reason: Dyspepsia Stop: 04/06/21 21:55 Albuterol (Albuterol Hfa 8 Gm Inhaler) 2 puffs INH QID PRN PRN Reason: Wheezing Stop: 04/06/21 21:55 Amlodipine Besylate (Amlodipine Besylate 5 Mg Tab) 5 mg PO 1800 [facility] Stop: 04/13/21 17:59 Last Admin: 03/25/21 17:51 Dose: 5 mg Documented by: Enoxaparin Sodium (Enoxaparin Inj 40 Mg/0.4 Ml Syr) 40 mg SQ Q12H BROWN Stop: 04/06/21 21:59 Last Admin: 03/25/21 08:35 Dose: 40 mg Documented by: Guaifenesin (Guaifenesin 600 Mg Tabcr) 1,200 mg PO Q12 BROWN Stop: 04/06/21 21:55 Last Admin: 03/25/21 08:34 Dose: 1,200 mg Documented by: Promethazine HCl 12.5 mg/ (Sodium Chloride) 50.5 mls @ 202 mls/hr IV Q6H PRN PRN Reason: Nausea And Vomiting Stop: 04/23/21 13:38 Levothyroxine Sodium (Levothyroxine Sodium 100 Mcg Tablet) 100 mcg PO DAILYBB [facility] Stop: 04/07/21 08:59 Last Admin: 03/25/21 06:16 Dose: 100 mcg Documented by: Losartan Potassium (Losartan Potassium 25 Mg Tab) 25 mg PO QAM [facility] Stop: 04/24/21 08:59 Last Admin: 03/25/21 08:34 Dose: 25 mg Documented by: Magnesium Hydroxide (Magnesium Hydroxide Susp 30 Ml Udc) 30 ml PO Q12H PRN PRN Reason: Constipation Stop: 04/06/21 21:55 Magnesium Oxide (Magnesium Oxide 400 Mg Tab) 400 mg PO BID [facility] Stop: 04/24/21 09:29 Last Admin: 03/25/21 10:04 Dose: 400 mg Documented by: Melatonin (Melatonin 3 Mg Tab) 3 mg PO DAILY@1900 [facility] Stop: 04/18/21 18:59 Last Admin: 03/24/21 21:06 Dose: 3 mg Documented by: Oxymetazoline HCl (Oxymetazoline 0.05% 30 Ml Btl) 1 sprays NA Q12H PRN PRN Reason: Congestion Stop: 04/10/21 09:57 Last Admin: 03/20/21 13:40 Dose: 1 sprays Documented by: Polyethylene Glycol (Polyethylene (Miralax) 17 Gm Pack) 17 gm PO DAILY PRN PRN Reason: Constipation Stop: 04/06/21 21:55
[2021-03-25] MEDS: MELATONIN 3 MG TAB PO SCH (19:37)
[2021-03-25] MEDS: ACETAMINOPHEN 325 MG TAB PO PRN (19:37)
[2021-03-25] MEDS: OXYMETAZOLINE 0.05% 30 ML BTL PRN (21:00)
[2021-03-26] MEDS: LEVOTHYROXINE SODIUM 100 MCG TABLET PO SCH (06:13)
[2021-03-26 07:31] LABS: Basophils # (auto) 0.05 K/uL (0-0.2); Basophils % (auto) 0.7 %; Eosinophils # (auto) 0.34 K/uL (0-0.5); Eosinophils % (auto) 4.7 %; Hematocrit (blood only) 35.9 % (37-47); Hemoglobin 11.9 g/dL (12.0-16.0); Immature Granulocytes # (auto) 0.07 K/uL (0.00-0.02); Lymphocytes # (auto) 2.03 K/uL (1.2-3.4); Lymphocytes % (auto) 27.9 %; Mean Corpuscular Hemoglobin 30.6 pg (25-34); Mean Corpuscular Hgb Conc 33.1 g/dL (32-36); Mean Corpuscular Volume 92.3 fL (80-100); Mean Platelet Volume 10.5 fL (7.4-10.4); Monocytes # (auto) 0.72 K/uL (0.11-0.59); Monocytes % (auto) 9.9 %; Neutrophils # (auto) 4.07 K/uL (1.4-6.5); Neutrophils % (auto) 55.8 %; Platelet Count 183 K/uL (130-400); RDW Coefficient of Variation 14.1 % (11.5-14.5); Red Blood Count 3.89 M/uL (4.2-5.4); White Blood Count 7.28 K/uL (4.8-10.8)
[2021-03-26 08:09] LABS: BUN Creatinine Ratio 26.4 (10-20); Calcium 8.5 mg/dl (8.5-10.1); Creatinine Clr Calc Pharmacy 73.2 ml/min; Est GFR (African American) 98.3 ml/min; Est GFR (Non-African American) 84.9 ml/min; Magnesium 2.1 mg/dl (1.8-2.4); Potassium 4.1 mmol/L (3.5-5.1)
[2021-03-26] MEDS: ENOXAPARIN INJ 40 MG/0.4 ML SYR SQ SCH ×2 (08:38→20:50)
[2021-03-26] MEDS: LOSARTAN POTASSIUM 25 MG TAB PO SCH (08:39)
[2021-03-26] MEDS: guaiFENesin 600 MG TABCR PO SCH ×2 (08:39→20:50)
[2021-03-26] MEDS: MAGNESIUM OXIDE 400 MG TAB PO SCH ×2 (08:44→21:04)
--- NOTE | 2021-03-26 08:58 | Electrocardiogram Report ---
Test Reason : Blood Pressure : / mmHG Vent. Rate : 088 BPM Atrial Rate : 088 BPM P-R Int : 168 ms QRS Dur : 074 ms QT Int : 404 ms P-R-T Axes : 033 -14 038 degrees QTc Int : 488 ms Normal sinus rhythm When compared with ECG of 25-MAR-2021 11:14, Criteria for Anterior infarct are no longer Present Confirmed by Delvis Miller ([id number]) on 03/26/2021 8:58:22 AM Referred By: REFERRED SELF Confirmed By:Timothy Miller
[2021-03-26] MEDS ORDERED: POTASSIUM CHLORIDE CRTAB 20 MEQ TABCR PO STA (17:09)
[2021-03-26] MEDS ORDERED: FUROSEMIDE 40 MG in SYRINGE 0 ML IV ONE (17:09)
[2021-03-26] MEDS ORDERED: MAGNESIUM OXIDE 400 MG TAB PO ONE (17:10)
[2021-03-26] MEDS ORDERED: FUROSEMIDE 40 MG/4 ML VIAL IV ONE (17:15)
[2021-03-26] MEDS: amLODIPine BESYLATE 5 MG TAB PO SCH (17:46)
--- NOTE | 2021-03-26 19:54 | Hospitalist Progress Note ---
Date of Service March 26, 2021 Assessment & Plan (1) Acute respiratory failure with hypoxia: (2) Pneumonia due to COVID-19 virus: Plan: 70-year-old female with PMH of hypothyroidism, HLD, morbid obesity presented to our ED 03/07 with weakness and cough x1 week [employer] IN[employer]. 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 She is non-smoker and socially drinks alcohol. In the ED she was hypoxic requiring 3 L of oxygen to maintain normal saturation. Chest x-ray revealed multifocal pneumonia. She was started on IV Decadron in the ED. She is not vaccinated against COVID-19. She is being managed for the following: #. Acute hypoxic respiratory failure #. Pneumonia due to COVID-19 virus Not vaccinated against Covid. Known Covid exposure with her , at presentation in the ED required 3 L of oxygen Admitting ESR 63; admitting Covid test 03/07 positive. Admitted CXR: Multifocal pneumonia secondary to COVID-19 virus infection. WBC mildly elevated, likely secondary to steroid. Pro-Sanjeev -2 times this adm ission. CRP: 03/07 11.3 downtrending to 2.69 on 03/11. Encourage incentive spirometry and flutter valve C/W albuterol, Mucinex, prone position as able [she cannot tolerate prone position but has been trying to lie on her sides ] Supplemental oxygen, titrate as needed, requiring very high oxygen. 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 I's and O's -11.5 L Pulmonology on board: Status post Tocilizumab 03/09 Will continue with dexamethasone for now. Clinically a little better today and is still requiring 10 L of oxygen to maintain saturation Very gradual improvement-we will discontinue dexamethasone and give more Lasix Has been feeling a little better since this morning though she had a rough night Requiring about 7 L of oxygen to maintain saturation Not much improvement-we will continue current management Received another dose of Lasix today with supplemental magnesium and potassium Monitor PRP Noted to have torsade last night 03/24/2021 Has had QT prolongation in prior EKG Repeat EKG did not show any prolonged QT interval Appreciate cardiology input and recommendation Will keep magnesium and potassium level up-to-date Received more potassium today No more episodes of arrhythmias #. Mild hyponatremia Sodium level at presentation 131, had been normal after that. Sodium level again started to drop, currently low 130s Likely secondary to acute stress and use of Lasix on and off plus HCTZ. We will continue to monitor Use sodium chloride tablets sparingly because of difficult to control blood pressure. Sodium level has been normalized to 135 on 03/24/2021 #. Hyperglycemia 03/08 A1c 6.5 Daily blood glucose level WNL Patient on steroid, continue to monitor. On SSI when needed. #. Hypertension Blood pressure slightly elevated but stable. Likely secondary to steroid and acute distress. No blood pressure medications at home. Continue with amlodipine and losartan. #. Hypothyroidism Continue home levothyroxine. #. DVT prophylaxis: Lovenox SC twice daily Disposition: Continue PCU care. PT/OT. CM to assist with DC planning. Full code Admission and Anticipated Discharge Date Admission Date: March 07, 2021 Subjective 03/08/2021 The patient was seen and examined in telemetry unit and in the Covid room She has been feeling a little better but is still requiring about 12 L of oxygen to maintain saturation Still has cough 03/09/2021 The patient was seen and examined in telemetry unit and in the Covid room She has been complaining of more shortness of breath Has been requiring 40 L of oxygen with 90% FiO2 to maintain saturation Complaints of weakness, fatigue and cough 03/10/2021 The patient was seen and examined in telemetry unit and in the Covid room She has been feeling much better today Has been requiring a little less flow rate at 35 L/min to maintain saturation Denies any chest pain or palpitation, no abdominal pain, nausea and/or vomiting or weakness 03/11/2021 The patient was seen and examined in the telemetry unit and in recovery room #[id number] Patient states that she feels like her breathing is better and that she feels like she might of turned the corner She still feels very weak and appears ill She is currently on FiO2 of 60% at 35 L/min flow with high flow oxygen She is tolerating the high flow well Patient states that she is unable to sleep in a prone position secondary to back pain No fever, chills, sweats, rigors. No nausea or vomiting. No new acute complaints 03/12/2021 The patient was seen and examined in telemetry unit and in the Covid room recovery Her condition remains stable and may be a little worse today Still requiring high flow oxygen to maintain saturation She cannot lie prone but trying to lie on sides to improve her saturation Denies any chest pain or palpitation, no fever and no chills, no abdominal pain nausea and or vomiting 03/20/2021 The patient was seen and examined in telemetry unit She has been feeling better compared with yesterday Still has shortness of breath with exertion but no respiratory distress at rest though requiring 10 L of oxygen to maintain saturation 03/21/2021 The patient was seen and examined in telemetry unit She has been feeling a little bit better Still getting short of breath with tachycardia and desaturation with minimal exertion 03/22/2021 The patient was seen and examined in telemetry unit She feels better and requiring about 10 L of oxygen to maintain saturation Still getting very short of breath with desaturation with ambulation 03/23/2021 The patient was seen and examined in telemetry unit and in Covid room She has had a rough night yesterday and required up to 15 L of oxygen to maintain saturation Feeling much better this morning and is still requiring 10 L of oxygen to maintain saturation Generalized weakness but denies any other symptoms 03/24/2021 The patient was seen and examined in telemetry unit She has had short runs of torsade last night She also required high flow oxygen last night Has been feeling a lot better since this morning 03/25/2021 The patient was seen and examined in telemetry unit She has been feeling better but still requiring 10 L oxygen to maintain saturation Getting shortness of breath with desaturation with minimal exertion 03/26/2021 The patient was seen and examined in telemetry unit She has been feeling better but still requiring high flow oxygen and has been getting hypoxic and tachycardic with minimal ambulation Still has cough Review of Systems Review of Systems: All systems reviewed and are unremarkable except as noted below Respiratory: Moderate shortness of breath at rest Physical Exam Physical Exam: Sitting on a chair with minimal shortness of breath Constitutional: well developed, well nourished, + ill appearing and + obese Eyes: PERRL, conjunctivae normal, anicteric sclerae ENMT: external ear and nose normal, oropharynx normal Neck: trachea midline, no thyromegaly Respiratory: + respiratory distress (Mild to moderate shortness of breath at rest) and + cough Auscultation: + diminished lung sounds and + crackles (At the bases) Cardiovascular: Rate/Rhythm: regular rate and regular rhythm; not tachycardic Heart Sounds: normal S1 and normal S2; no murmur Extremities: + edema (Trace edema bilaterally) Gastrointestinal (Abdomen): Inspection/Auscultation: normal bowel sounds; abdomen not distended Percussion/Palpation: abdomen soft; abdomen nontender Skin: no rashes, warm and dry Psychiatric: A+Ox3, euthymic affect Lymphatic: no cervical or axillary lymphadenopathy Results & Data Results & Data ([facility]) Vital Signs (Past 12 Hours) Vital Signs Temp Pulse Pulse Resp BP BP Pulse Ox 03/26/21 19:11 36.6 C 118 H 20 129/87 90 03/26/21 16:55 99 H 03/26/21 16:16 37 C 102 H 18 108/81 90 03/26/21 11:31 36.6 C 105 H 18 114/82 94 03/26/21 07:57 84 Laboratory Results Short CBC 03/26/21 Range/Units 06:35 WBC 7.28 (4.8-10.8) K/uL Hgb 11.9 L (12.0-16.0) g/dL Hct 35.9 L (37-47) % Plt Count 183 (130-400) K/uL BMP 03/26/21 06:35 Sodium 136 Potassium 4.1 Chloride 98 Carbon Dioxide 30 BUN 19 H Creatinine 0.72 Glucose 111 H Calcium 8.5 Medications Administered Current Inpatient Medications Acetaminophen (Acetaminophen 325 Mg Tab) 650 mg PO Q4H PRN PRN Reason: Pain or Fever Stop: 04/06/21 21:55 Last Admin: 03/25/21 19:37 Dose: 650 mg Documented by: Al Hydrox/Mg Hydrox/Simethicone (Aluminum/Magnesium Susp 30 Ml Udc) 15 ml PO Q4H PRN PRN Reason: Dyspepsia Stop: 04/06/21 21:55 Albuterol (Albuterol Hfa 8 Gm Inhaler) 2 puffs INH QID PRN PRN Reason: Wheezing Stop: 04/06/21 21:55 Amlodipine Besylate (Amlodipine Besylate 5 Mg Tab) 5 mg PO 1800 BROWN Stop: 04/13/21 17:59 Last Admin: 03/26/21 17:46 Dose: 5 mg Documented by: Enoxaparin Sodium (Enoxaparin Inj 40 Mg/0.4 Ml Syr) 40 mg SQ Q12H [facility] Stop: 04/06/21 21:59 Last Admin: 03/26/21 08:38 Dose: 40 mg Documented by: Guaifenesin (Guaifenesin 600 Mg Tabcr) 1,200 mg PO Q12 BROWN Stop: 04/06/21 21:55 Last Admin: 03/26/21 08:39 Dose: 1,200 mg Documented by: Promethazine HCl 12.5 mg/ (Sodium Chloride) 50.5 mls @ 202 mls/hr IV Q6H PRN PRN Reason: Nausea And Vomiting Stop: 04/23/21 13:38 Levothyroxine Sodium (Levothyroxine Sodium 100 Mcg Tablet) 100 mcg PO DAILYBB [facility] Stop: 04/07/21 08:59 Last Admin: 03/26/21 06:13 Dose: 100 mcg Documented by: Losartan Potassium (Losartan Potassium 25 Mg Tab) 25 mg PO QAM [facility] Stop: 04/24/21 08:59 Last Admin: 03/26/21 08:39 Dose: 25 mg Documented by: Magnesium Hydroxide (Magnesium Hydroxide Susp 30 Ml Udc) 30 ml PO Q12H PRN PRN Reason: Constipation Stop: 04/06/21 21:55 Magnesium Oxide (Magnesium Oxide 400 Mg Tab) 400 mg PO BID [facility] Stop: 04/24/21 09:29 Last Admin: 03/26/21 08:44 Dose: 400 mg Documented by: Melatonin (Melatonin 3 Mg Tab) 3 mg PO DAILY@1900 [facility] Stop: 04/18/21 18:59 Last Admin: 03/25/21 19:37 Dose: 3 mg Documented by: Oxymetazoline HCl (Oxymetazoline 0.05% 30 Ml Btl) 1 sprays NA Q12H PRN PRN Reason: Congestion Stop: 04/10/21 09:57 Last Admin: 03/25/21 21:00 Dose: 1 sprays Documented by: Polyethylene Glycol (Polyethylene (Miralax) 17 Gm Pack) 17 gm PO DAILY PRN PRN Reason: Constipation Stop: 04/06/21 21:55
[2021-03-26] MEDS: MELATONIN 3 MG TAB PO SCH (20:50)
[2021-03-26] MEDS: ACETAMINOPHEN 325 MG TAB PO PRN (20:50)
[2021-03-26] MEDS ORDERED: MAGNESIUM SULFATE / D5W 1 GM/100 ML BAG IV ONE (23:40)
[2021-03-26] MEDS ORDERED: SODIUM CHLORIDE 0.65% NA SOLN 45 ML (OCEAN) PRN (23:55)
[2021-03-27 00:37] LABS: Calcium 8.9 mg/dl (8.5-10.1); Creatinine Clr Calc Pharmacy 53.7 ml/min; Est GFR (African American) 67.7 ml/min; Est GFR (Non-African American) 58.4 ml/min; Magnesium 2.1 mg/dl (1.8-2.4); Potassium 4.3 mmol/L (3.5-5.1)
[2021-03-27] MEDS ORDERED: SODIUM CHLORIDE 0.9% 500 ML IV ONE (00:55)
--- NOTE | 2021-03-27 00:57 | Communication Note ---
Date of Service: March 27, 2021 Notified by RN of NSVT, 12 beat run. Patient asymptomatic during episode. Serum K 4.4 Serum magnesium 2.4 AP NSVT Low-dose beta-ashutosh to suppress ectopy. Will relay to AM provider.
[2021-03-27] MEDS: METOPROLOL TARTRATE 25 MG TAB PO SCH ×3 (01:41→21:06)
[2021-03-27] MEDS ORDERED: ALBUMIN 25% 12.5 GM/50 ML VIAL IV ONE (01:55)
[2021-03-27] MEDS: LEVOTHYROXINE SODIUM 100 MCG TABLET PO SCH (05:30)
[2021-03-27 07:06] LABS: BUN Creatinine Ratio 28.1 (10-20); Calcium 8.8 mg/dl (8.5-10.1); Creatinine Clr Calc Pharmacy 73.2 ml/min; Est GFR (African American) 98.3 ml/min; Est GFR (Non-African American) 84.9 ml/min; Magnesium 2.4 mg/dl (1.8-2.4); Potassium 4.4 mmol/L (3.5-5.1)
[2021-03-27] MEDS: LOSARTAN POTASSIUM 25 MG TAB PO SCH (08:20)
[2021-03-27] MEDS: guaiFENesin 600 MG TABCR PO SCH ×2 (08:20→21:05)
[2021-03-27] MEDS: MAGNESIUM OXIDE 400 MG TAB PO SCH ×2 (08:25→21:05)
[2021-03-27] MEDS: ENOXAPARIN INJ 40 MG/0.4 ML SYR SQ SCH ×2 (09:39→21:09)
--- NOTE | 2021-03-27 13:55 | Cardiology Progress Note ---
Date of Service March 27, 2021 Assessment & Plan (1) Torsades de pointes: (2) Prolonged QT interval: (3) Pneumonia due to COVID-19 virus: (4) NSVT (nonsustained ventricular tachycardia): Plan: Torsade de pointes recorded in the setting of hypokalemia, diuretic use, hypoxia, COVID-19 pneumonia, and prolonged QT on admission. Asymptomatic episode of nonsustained ventricular tachycardia noted overnight. Serum potassium magnesium levels within normal limits. A.m. ECG without ischemic changes. Continue low-dose metoprolol tartrate 12.5 mg twice daily. Maintain serum potassium level greater than 4.0, and serum magnesium level greater than 2.0. Avoid medications with potential to prolong the QT interval. Follow standard protocols if patient were to become unstable, including urgent defibrillation with administration of IV magnesium. Recommend limited 2D transthoracic echocardiogram due to persistent hypoxia and recurrent ventricular tachycardia. Admission and Anticipated Discharge Date Admission Date: March 07, 2021 Subjective Patient seen and examined at the bedside. Hypoxia unchanged.11 beat jacques of nonsustained ventricular tachycardia recorded overnight. No recurrent torsades. Patient denies chest pain or palpitations. No orthopnea, PND, or edema. Review of Systems Review of Systems: All systems reviewed & are unremarkable except as noted in Subjective Physical Exam Constitutional: well developed, well nourished and + ill appearing Respiratory: no respiratory distress and no retractions Auscultation: no crackles, no rales, no rhonchi and no wheezes Cardiovascular: Rate/Rhythm: regular rate, regular rhythm and + tachycardic Heart Sounds: normal S1 and normal S2; no murmur Vessels: radial pulses present; no JVD and no carotid bruit Gastrointestinal (Abdomen): Inspection/Auscultation: abdomen normal to inspection and normal bowel sounds; abdomen not distended Percussion/Palpation: abdomen soft; abdomen nontender, no guarding and abdomen not rigid Neurologic: CN's II-XI intact bilaterally and moves all extremities; no focal motor deficits Motor/Sensory: + tremor Psychiatric: A+Ox3, euthymic affect Results & Data ([facility]) Vital Signs (Past 12 Hours) Vital Signs Temp Pulse Pulse Pulse Resp BP BP 03/27/21 11:39 36.9 C 96 H 20 113/66 03/27/21 07:34 83 03/27/21 07:31 36.5 C 101 H 24 146/68 H 03/27/21 04:04 85 19 03/27/21 03:09 36.5 C 85 20 116/67 Pulse Ox 03/27/21 11:39 93 03/27/21 07:34 03/27/21 07:31 87 L 03/27/21 04:04 97 03/27/21 03:09 96
--- NOTE | 2021-03-27 14:25 | Hospitalist Progress Note ---
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 She is non-smoker and socially drinks alcohol. In the ED she was hypoxic requiring 3 L of oxygen to maintain normal saturation. Chest x-ray revealed multifocal pneumonia. She was started on IV Decadron in the ED. She is not vaccinated against COVID-19. She is being managed for the following: #. Acute hypoxic respiratory failure #. Pneumonia due to COVID-19 virus Not vaccinated against Covid. Known Covid exposure with her , at presentation in the ED required 3 L of oxygen Admitting ESR 63; admitting Covid test 03/07 positive. Admitted CXR: Multifocal pneumonia secondary to COVID-19 virus infection. WBC mildly elevated, likely secondary to steroid. Pro-Sanjeev -2 times this admiss ion. CRP: 03/07 11.3 downtrending to 2.69 on 03/11. C/W albuterol, Mucinex, prone position as able [she cannot tolerate prone position but has been trying to lie on her sides ] Completed course of remdesivir on 03/11. Decadron has been stopped. Appreciate pulmonary medicine input. S/p Tocilizumab on 03/09. Currently remains on 8 L of nasal cannula. Reports she is feeling better. We will order 1 dose of IV Lasix 40 mg now. Monitor ins and outs along with daily weights. Torsade on night of 03/24/2021 Has had QT prolongation in prior EKG Repeat EKG did not show any prolonged QT interval Appreciate cardiology input and recommendation Will keep magnesium and potassium level up-to-date We will continue with metoprolol. #. Mild hyponatremia - resolved Sodium level at presentation 131, had been normal after that. #. Hyperglycemia 03/08 A1c 6.5 Daily blood glucose level WNL Patient on steroid, continue to monitor. On SSI when needed. #. Hypertension Stable Continue with amlodipine and losartan. #. Hypothyroidism Continue home levothyroxine. #. DVT prophylaxis: Lovenox SC twice daily Disposition: Continue PCU care. PT/OT. CM to assist with DC planning. Full code Admission and Anticipated Discharge Date Admission Date: March 07, 2021 Subjective Patient is resting comfortably on the recliner currently on 8 L of nasal cannula. Denies any significance of breath or cough any chest pain, abdominal pain, diarrhea or dysuria appetite is improving. Rest of the review of system is negative. Review of Systems Review of Systems: All systems reviewed & are unremarkable except as noted in HPI & below Physical Exam Physical Exam: General: A&Ox3 HENT: NCAT, MMM, EOMI Eyes: PERRLA Neck: Supple, normal range of motion CVS: normal rate and rhythm Resp: b/l coarse breath sounds Abdomen: Soft, ND/NT, +BS Extremities: No c/c/e Neuro: face symmetric, no focal deficit Skin: warm and dry, no rashes/lesions/errythema MSK: no joint swelling/erythema Results & Data Results & Data ([facility]) Vital Signs (Past 12 Hours) Vital Signs Temp Pulse Pulse Pulse Resp BP BP 03/27/21 11:39 36.9 C 96 H 20 113/66 03/27/21 07:34 83 03/27/21 07:31 36.5 C 101 H 24 146/68 H 03/27/21 04:04 85 19 03/27/21 03:09 36.5 C 85 20 116/67 Pulse Ox 03/27/21 11:39 93 03/27/21 07:34 03/27/21 07:31 87 L 03/27/21 04:04 97 03/27/21 03:09 96
[2021-03-27] MEDS ORDERED: FUROSEMIDE 40 MG/4 ML VIAL IV ONE (15:00)
[2021-03-27] MEDS ORDERED: FUROSEMIDE 40 MG in SYRINGE 0 ML IV ONE (15:00)
--- NOTE | 2021-03-27 17:48 | Electrocardiogram Report ---
Test Reason : Blood Pressure : / mmHG Vent. Rate : 092 BPM Atrial Rate : 092 BPM P-R Int : 200 ms QRS Dur : 074 ms QT Int : 386 ms P-R-T Axes : 032 -11 051 degrees QTc Int : 477 ms Normal sinus rhythm Normal ECG When compared with ECG of 26-MAR-2021 06:08, No significant change was found Confirmed by Delvis Miller ([id number]) on 03/27/2021 5:48:18 PM Referred By: REFERRED SELF Confirmed By:Timothy Miller
[2021-03-27] MEDS: amLODIPine BESYLATE 5 MG TAB PO SCH (17:55)
[2021-03-27] MEDS: MELATONIN 3 MG TAB PO SCH (19:42)
[2021-03-27] MEDS: ACETAMINOPHEN 325 MG TAB PO PRN (21:05)
[2021-03-28] MEDS: LEVOTHYROXINE SODIUM 100 MCG TABLET PO SCH (05:30)
[2021-03-28] MEDS: ENOXAPARIN INJ 40 MG/0.4 ML SYR SQ SCH ×2 (07:56→21:17)
[2021-03-28] MEDS: METOPROLOL TARTRATE 25 MG TAB PO SCH ×2 (07:57→20:01)
[2021-03-28] MEDS: guaiFENesin 600 MG TABCR PO SCH ×2 (07:57→20:00)
[2021-03-28] MEDS: LOSARTAN POTASSIUM 25 MG TAB PO SCH (07:58)
[2021-03-28] MEDS: MAGNESIUM OXIDE 400 MG TAB PO SCH ×2 (08:00→20:07)
[2021-03-28 11:34] LABS: Basophils # (auto) 0.04 K/uL (0-0.2); Basophils % (auto) 0.4 %; Eosinophils # (auto) 0.53 K/uL (0-0.5); Eosinophils % (auto) 5.5 %; Hemoglobin 12.1 g/dL (12.0-16.0); Immature Granulocytes # (auto) 0.04 K/uL (0.00-0.02); Immature Granulocytes % (auto) 0.4 %; Lymphocytes # (auto) 1.99 K/uL (1.2-3.4); Lymphocytes % (auto) 20.6 %; Mean Corpuscular Hemoglobin 30.9 pg (25-34); Mean Corpuscular Volume 91.8 fL (80-100); Mean Platelet Volume 10.3 fL (7.4-10.4); Monocytes # (auto) 0.78 K/uL (0.11-0.59); Monocytes % (auto) 8.1 %; Neutrophils # (auto) 6.29 K/uL (1.4-6.5); Platelet Count 192 K/uL (130-400); RDW Coefficient of Variation 14.6 % (11.5-14.5); Red Blood Count 3.92 M/uL (4.2-5.4); White Blood Count 9.67 K/uL (4.8-10.8)
[2021-03-28 11:37] LABS: Mean Corpuscular Hgb Conc 33.6 g/dL (32-36)
[2021-03-28 11:56] LABS: Alanine Aminotransferase 49 U/L (12-78); Aspartate Aminotransferase 47 U/L (15-37); BUN Creatinine Ratio 28.4 (10-20); Blood Urea Nitrogen 21 mg/dl (7-18); C Reactive Protein < 0.29 mg/dl (0-0.29); Calcium 8.8 mg/dl (8.5-10.1); Carbon Dioxide 32 mmol/L (21-32); Chloride 98 mmol/L (98-107); Creatinine Clr Calc Pharmacy 70.3 ml/min; Est GFR (African American) 93.6 ml/min; Est GFR (Non-African American) 80.8 ml/min; Glucose 176 mg/dl (70-99); Sodium 133 mmol/L (136-145)
--- NOTE | 2021-03-28 11:58 | Hospitalist Progress Note ---
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 She is non-smoker and socially drinks alcohol. In the ED she was hypoxic requiring 3 L of oxygen to maintain normal saturation. Chest x-ray revealed multifocal pneumonia. She was started on IV Decadron in the ED. She is not vaccinated against COVID-19. She is being managed for the following: #. Acute hypoxic respiratory failure #. Pneumonia due to COVID-19 virus Not vaccinated against Covid. Known Covid exposure with her , at presentation in the ED required 3 L of oxygen Admitting ESR 63; admitting Covid test 03/07 positive. Admitted CXR: Multifocal pneumonia secondary to COVID-19 virus infection. WBC mildly elevated, likely secondary to steroid. Pro-Sanjeev -2 times this admiss ion. CRP: 03/07 11.3 downtrending to 2.69 on 03/11. C/W albuterol, Mucinex, prone position as able [she cannot tolerate prone position but has been trying to lie on her sides ] Completed course of remdesivir on 03/11. Decadron has been stopped. Appreciate pulmonary medicine input. S/p Tocilizumab on 03/09. Currently transitioned back to high flow nasal cannula at 15 L. Was given Lasix on 03/27 with adequate urine output. Will obtain CBC/BMP/D-dimer/CRP and ferritin levels today. We will consider obtaining CTA chest. Torsade on night of 03/24/2021 Has had QT prolongation in prior EKG Repeat EKG did not show any prolonged QT interval Appreciate cardiology input and recommendation Will keep magnesium and potassium level up-to-date. BMP today pending. Will continue with metoprolol. #. Mild hyponatremia - resolved Sodium level at presentation 131, had been normal after that. #. Hyperglycemia 03/08 A1c 6.5 Daily blood glucose level WNL Patient on steroid, continue to monitor. On SSI when needed. #. Hypertension Stable Continue with amlodipine and losartan. #. Hypothyroidism Continue home levothyroxine. #. DVT prophylaxis: Lovenox SC twice daily Disposition: Continue PCU care. PT/OT. CM to assist with DC planning. Full code Admission and Anticipated Discharge Date Admission Date: March 07, 2021 Subjective Patient feels a bit frustrated. Back on high flow nasal cannula at 15 L. Denies feeling short of breath. Does have nonproductive cough. Rest of the review of system is negative. Review of Systems Review of Systems: All systems reviewed & are unremarkable except as noted in HPI & below Physical Exam Physical Exam: General: A&Ox3 HENT: NCAT, MMM, EOMI Eyes: PERRLA Neck: Supple, normal range of motion CVS: normal rate and rhythm Resp: b/l coarse breath sounds Abdomen: Soft, ND/NT, +BS Extremities: No c/c/e Neuro: face symmetric, no focal deficit Skin: warm and dry, no rashes/lesions/errythema MSK: no joint swelling/erythema Results & Data Results & Data ([facility]) Vital Signs (Past 12 Hours) Vital Signs Temp Pulse Pulse Resp BP BP Pulse Ox 03/28/21 11:52 36.6 C 99 H 20 124/69 96 03/28/21 08:00 90 03/28/21 07:43 36.6 C 91 H 20 116/90 93 03/28/21 05:34 91 03/28/21 03:44 37.4 C 83 16 103/59 L 98 03/28/21 02:28 90 17 92
[2021-03-28 12:11] LABS: Albumin Globulin Ratio 0.8 (0.9-2); Alkaline Phosphatase 127 U/L (45-117); Bilirubin,Total 0.5 mg/dl (0.2-1); Ferritin 873.4 ng/ml (8-388); Globulin 3.8 gm/dl (2.5-4.0); Total Protein 6.8 gm/dl (6.4-8.2)
[2021-03-28 12:13] LABS: D Dimer 1090 ug/L FEU (0-500)
[2021-03-28] MEDS ORDERED: OPTIRAY 320 125ml IV ONE (14:56)
--- NOTE | 2021-03-28 15:11 | CT Scan Report ---
CT angio chest PE protocol CT DOSE: 504.24 mGycm HISTORY: 70 years-old Female with PE?. Acute shortness of breath. COVID Positive with pneumonia TECHNIQUE: Multiple CTA images of the chest were obtained after the intravenous administration of 120 ml Optiray. Coronal and sagittal MIPS were obtained from the axial data set and were submitted for review. All measurements were obtained according to NASCET criteria. A dose lowering technique was u tilized adhering to the principles of ALARA. COMPARISON: Chest radiograph 03/22/2021 FINDINGS: CTA: The heart is mildly enlarged. There is no pericardial effusion. Mild coronary artery calcifications. No thoracic lytic aneurysm or dissection. There is patency of the imaged great vessels. The pulmonary artery is opacified to the level of the segmental branches and demonstrates no filling defects. CT CHEST: Unremarkable thyroid. Prominent and mildly enlarged mediastinal and hilar lymph nodes include right h ilar adenopathy measuring up to 1.3 cm. Trace pleural effusions. No pneumothorax. Progressively worse edwin extensive confluent bilateral mixed alveolar and groundglass opacities are noted within a multilo bar distribution. The central airways are patent. No acute process of the imaged upper abdomen. Unrem arkable soft tissues. No acute fracture. IMPRESSION: 1. No pulmonary emboli. 2. Progressively worsened extensive bilateral mixed groundglass and consolidative opacities compatibl e with viral pneumonia. 3. Mild reactive mediastinal and hilar adenopathy. 4. Trace pleural effusions. ACT 112: Negative or not required by law. The above report was generated using voice recognition software. It may contain grammatical, syntax o r spelling errors. Electronically signed by: Ian Lo M.D. 03/28/2021 3:10 PM
[2021-03-28] MEDS: amLODIPine BESYLATE 5 MG TAB PO SCH (17:46)
[2021-03-28] MEDS: MELATONIN 3 MG TAB PO SCH (20:00)
[2021-03-28] MEDS: ACETAMINOPHEN 325 MG TAB PO PRN (20:07)
[2021-03-29] MEDS: LEVOTHYROXINE SODIUM 100 MCG TABLET PO SCH (07:23)
[2021-03-29] MEDS: guaiFENesin 600 MG TABCR PO SCH ×2 (08:31→20:09)
[2021-03-29] MEDS: LOSARTAN POTASSIUM 25 MG TAB PO SCH (08:31)
[2021-03-29] MEDS: METOPROLOL TARTRATE 25 MG TAB PO SCH ×2 (08:31→20:12)
[2021-03-29] MEDS: MAGNESIUM OXIDE 400 MG TAB PO SCH ×2 (08:32→20:17)
[2021-03-29] MEDS: ENOXAPARIN INJ 40 MG/0.4 ML SYR SQ SCH ×2 (08:32→20:11)
--- NOTE | 2021-03-29 14:06 | Hospitalist Progress Note ---
Date of Service March 29, 2021 Assessment & Plan (1) Acute respiratory failure with hypoxia: (2) Pneumonia due to COVID-19 virus: Plan: 70-year-old female with PMH of hypothyroidism, HLD, morbid obesity presented to our ED 03/07 with weakness and cough x1 week [employer]. 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 She is non-smoker and socially drinks alcohol. In the ED she was hypoxic requiring 3 L of oxygen to maintain normal saturation. Chest x-ray revealed multifocal pneumonia. She was started on IV Decadron in the ED. She is not vaccinated against COVID-19. She is being managed for the following: #. Acute hypoxic respiratory failure #. Pneumonia due to COVID-19 virus Not vaccinated against Covid. Known Covid exposure with her , at presentation in the ED required 3 L of oxygen Admitting ESR 63; admitting Covid test 03/07 positive. Admitted CXR: Multifocal pneumonia secondary to COVID-19 virus infection. WBC mildly elevated, likely secondary to steroid. Pro-Sanjeev -2 times this admiss ion. CRP: 03/07 11.3 downtrending to 2.69 on 03/11. C/W albuterol, Mucinex, prone position as able [she cannot tolerate prone position but has been trying to lie on her sides ] Completed course of remdesivir on 03/11. Decadron has been stopped. Appreciate pulmonary medicine input. S/p Tocilizumab on 03/09. Clinically improved but still requiring high flow oxygen Repeat CTA did not show any pulmonary embolism but did show progressive pneumonia bilaterally The patient can safely come out of isolation from COVID-19 infection Discussed with infection control She will be transferred to medical floor when bed is available Torsade on night of 03/24/2021 Has had QT prolongation in prior EKG Repeat EKG did not show any prolonged QT interval Appreciate cardiology input and recommendation Will keep magnesium and potassium level up-to-date. BMP today pending. Will continue with metoprolol.-No more cardiac episode #. Mild hyponatremia - resolved Sodium level at presentation 131, had been normal after that. #. Hyperglycemia 03/08 A1c 6.5 Daily blood glucose level WNL Patient on steroid, continue to monitor. On SSI when needed. #. Hypertension Stable Continue with amlodipine and losartan. #. Hypothyroidism Continue home levothyroxine. #. DVT prophylaxis: Lovenox SC twice daily Disposition: Continue PCU care. PT/OT. CM to assist with DC planning. Full code Admission and Anticipated Discharge Date Admission Date: March 07, 2021 Subjective 03/08/2021 The patient was seen and examined in telemetry unit and in the Covid room She has been feeling a little better but is still requiring about 12 L of oxygen to maintain saturation Still has cough 03/09/2021 The patient was seen and examined in telemetry unit and in the Covid room She has been complaining of more shortness of breath Has been requiring 40 L of oxygen with 90% FiO2 to maintain saturation Complaints of weakness, fatigue and cough 03/10/2021 The patient was seen and examined in telemetry unit and in the Covid room She has been feeling much better today Has been requiring a little less flow rate at 35 L/min to maintain saturation Denies any chest pain or palpitation, no abdominal pain, nausea and/or vomiting or weakness 03/11/2021 The patient was seen and examined in the telemetry unit and in recovery room #[id number] Patient states that she feels like her breathing is better and that she feels like she might of turned the corner She still feels very weak and appears ill She is currently on FiO2 of 60% at 35 L/min flow with high flow oxygen She is tolerating the high flow well Patient states that she is unable to sleep in a prone position secondary to back pain No fever, chills, sweats, rigors. No nausea or vomiting. No new acute complaints 03/12/2021 The patient was seen and examined in telemetry unit and in the Covid room recovery Her condition remains stable and may be a little worse today Still requiring high flow oxygen to maintain saturation She cannot lie prone but trying to lie on sides to improve her saturation Denies any chest pain or palpitation, no fever and no chills, no abdominal pain nausea and or vomiting 03/20/2021 The patient was seen and examined in telemetry unit She has been feeling better compared with yesterday Still has shortness of breath with exertion but no respiratory distress at rest though requiring 10 L of oxygen to maintain saturation 03/21/2021 The patient was seen and examined in telemetry unit She has been feeling a little bit better Still getting short of breath with tachycardia and desaturation with minimal exertion 03/22/2021 The patient was seen and examined in telemetry unit She feels better and requiring about 10 L of oxygen to maintain saturation Still getting very short of breath with desaturation with ambulation 03/23/2021 The patient was seen and examined in telemetry unit and in Covid room She has had a rough night yesterday and required up to 15 L of oxygen to maintain saturation Feeling much better this morning and is still requiring 10 L of oxygen to maintain saturation Generalized weakness but denies any other symptoms 03/24/2021 The patient was seen and examined in telemetry unit She has had short runs of torsade last night She also required high flow oxygen last night Has been feeling a lot better since this morning 03/25/2021 The patient was seen and examined in telemetry unit She has been feeling better but still requiring 10 L oxygen to maintain saturation Getting shortness of breath with desaturation with minimal exertion 03/29/2021 The patient was seen in the telemetry unit and in the Covid room She has been feeling much better but is still requiring high flow oxygen to maintain saturation Denies any more cough and/or shortness of breath at rest Review of Systems Review of Systems: All systems reviewed and are unremarkable except as noted below Respiratory: Moderate shortness of breath at rest Physical Exam Physical Exam: Sitting on a chair with minimal shortness of breath Constitutional: well developed, well nourished, + ill appearing and + obese Eyes: PERRL, conjunctivae normal, anicteric sclerae ENMT: external ear and nose normal, oropharynx normal Neck: trachea midline, no thyromegaly Respiratory: + respiratory distress (Mild to moderate shortness of breath at rest) and + cough Auscultation: + diminished lung sounds and + crackles (At the bases) Cardiovascular: Rate/Rhythm: regular rate and regular rhythm; not tachycardic Heart Sounds: normal S1 and normal S2; no murmur Extremities: + edema (Trace edema bilaterally) Gastrointestinal (Abdomen): Inspection/Auscultation: normal bowel sounds; a bdomen not distended Percussion/Palpation: abdomen soft; abdomen nontender Skin: no rashes, warm and dry Psychiatric: A+Ox3, euthymic affect Lymphatic: no cervical or axillary lymphadenopathy Results & Data Results & Data ([facility]) Vital Signs (Past 12 Hours) Vital Signs Temp Pulse Pulse Resp BP Pulse Ox 03/29/21 11:50 36.8 C 97 H 22 140/81 91 03/29/21 08:19 36.5 C 96 H 20 139/88 94 03/29/21 07:43 89 03/29/21 03:52 36.5 C 86 17 130/67 95 03/29/21 03:29 89 18 91 Diagnostic Findings Current Inpatient Medications Acetaminophen (Acetaminophen 325 Mg Tab) 650 mg PO Q4H PRN PRN Reason: Pain or Fever Stop: 04/06/21 21:55 Last Admin: 03/28/21 20:07 Dose: 650 mg Documented by: Al Hydrox/Mg Hydrox/Simethicone (Aluminum/Magnesium Susp 30 Ml Udc) 15 ml PO Q4H PRN PRN Reason: Dyspepsia Stop: 04/06/21 21:55 Albuterol (Albuterol Hfa 8 Gm Inhaler) 2 puffs INH QID PRN PRN Reason: Wheezing Stop: 04/06/21 21:55 Amlodipine Besylate (Amlodipine Besylate 5 Mg Tab) 5 mg PO 1800 [facility] Stop: 04/13/21 17:59 Last Admin: 03/28/21 17:46 Dose: 5 mg Documented by: Enoxaparin Sodium (Enoxaparin Inj 40 Mg/0.4 Ml Syr) 40 mg SQ Q12H [facility] Stop: 04/06/21 21:59 Last Admin: 03/29/21 08:32 Dose: 40 mg Documented by: Guaifenesin (Guaifenesin 600 Mg Tabcr) 1,200 mg PO Q12 [facility] Stop: 04/06/21 21:55 Last Admin: 03/29/21 08:31 Dose: 1,200 mg Documented by: Promethazine HCl 12.5 mg/ (Sodium Chloride) 50.5 mls @ 202 mls/hr IV Q6H PRN PRN Reason: Nausea And Vomiting Stop: 04/23/21 13:38 Levothyroxine Sodium (Levothyroxine Sodium 100 Mcg Tablet) 100 mcg PO DAILYBB [facility] Stop: 04/07/21 08:59 Last Admin: 03/29/21 07:23 Dose: 100 mcg Documented by: Losartan Potassium (Losartan Potassium 25 Mg Tab) 25 mg PO QAM [facility] Stop: 04/24/21 08:59 Last Admin: 03/29/21 08:31 Dose: 25 mg Documented by: Magnesium Hydroxide (Magnesium Hydroxide Susp 30 Ml Udc) 30 ml PO Q12H PRN PRN Reason: Constipation Stop: 04/06/21 21:55 Magnesium Oxide (Magnesium Oxide 400 Mg Tab) 400 mg PO BID [facility] Stop: 04/24/21 09:29 Last Admin: 03/29/21 08:32 Dose: 400 mg Documented by: Melatonin (Melatonin 3 Mg Tab) 3 mg PO DAILY@1900 [facility] Stop: 04/18/21 18:59 Last Admin: 03/28/21 20:00 Dose: 3 mg Documented by: Metoprolol Tartrate (Metoprolol Tartrate 25 Mg Tab) 12.5 mg PO BID [facility] Stop: 04/26/21 00:59 Last Admin: 03/29/21 08:31 Dose: 12.5 mg Documented by: Polyethylene Glycol (Polyethylene (Miralax) 17 Gm Pack) 17 gm PO DAILY PRN PRN Reason: Constipation Stop: 04/06/21 21:55 Sodium Chloride (Sodium Chloride 0.65% Na Soln 45 Ml ([place])) 2 sprays NA TID PRN PRN Reason: Nasal Congestion Stop: 04/25/21 23:54
[2021-03-29] MEDS: amLODIPine BESYLATE 5 MG TAB PO SCH (17:36)
[2021-03-29] MEDS: MELATONIN 3 MG TAB PO SCH (20:08)
[2021-03-29] MEDS: ACETAMINOPHEN 325 MG TAB PO PRN (20:17)
[2021-03-30] MEDS: LEVOTHYROXINE SODIUM 100 MCG TABLET PO SCH (06:16)
[2021-03-30 07:09] LABS: BUN Creatinine Ratio 19.8 (10-20); Blood Urea Nitrogen 15 mg/dl (7-18); C Reactive Protein < 0.29 mg/dl (0-0.29); Carbon Dioxide 32 mmol/L (21-32); Chloride 103 mmol/L (98-107); Creatinine Clr Calc Pharmacy 69.7 ml/min; Est GFR (African American) 92.1 ml/min; Est GFR (Non-African American) 79.5 ml/min; Glucose 138 mg/dl (70-99); Magnesium 2.5 mg/dl (1.8-2.4); Phosphorus 4.8 mg/dl (2.5-4.9); Potassium 4.2 mmol/L (3.5-5.1); Sodium 138 mmol/L (136-145)
[2021-03-30] MEDS: guaiFENesin 600 MG TABCR PO SCH ×2 (08:16→20:36)
[2021-03-30] MEDS: LOSARTAN POTASSIUM 25 MG TAB PO SCH (08:17)
[2021-03-30] MEDS: METOPROLOL TARTRATE 25 MG TAB PO SCH ×2 (08:17→20:35)
[2021-03-30] MEDS: MAGNESIUM OXIDE 400 MG TAB PO SCH ×2 (08:57→21:22)
[2021-03-30] MEDS: ENOXAPARIN INJ 40 MG/0.4 ML SYR SQ SCH ×2 (08:59→20:37)
--- NOTE | 2021-03-30 15:08 | Hospitalist Progress Note ---
Date of Service March 30, 2021 Assessment & Plan (1) Acute respiratory failure with hypoxia: (2) Pneumonia due to COVID-19 virus: Plan: 70-year-old female with PMH of hypothyroidism, HLD, morbid obesity presented to our ED 03/07 with weakness and cough x1 week [employer]. 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 She is non-smoker and socially drinks alcohol. In the ED she was hypoxic requiring 3 L of oxygen to maintain normal saturation. Chest x-ray revealed multifocal pneumonia. She was started on IV Decadron in the ED. She is not vaccinated against COVID-19. She is being managed for the following: #. Acute hypoxic respiratory failure #. Pneumonia due to COVID-19 virus Not vaccinated against Covid. Known Covid exposure with her , at presentation in the ED required 3 L of oxygen Admitting ESR 63; admitting Covid test 03/07 positive. Admitted CXR: Multifocal pneumonia secondary to COVID-19 virus infection. WBC mildly elevated, likely secondary to steroid. Pro-Sanjeev -2 times this admiss ion. CRP: 03/07 11.3 downtrending to 2.69 on 03/11. C/W albuterol, Mucinex, prone position as able [she cannot tolerate prone position but has been trying to lie on her sides ] Completed course of remdesivir on 03/11. Decadron has been stopped. Appreciate pulmonary medicine input. S/p Tocilizumab on 03/09. Clinically improved but still requiring high flow oxygen Repeat CTA did not show any pulmonary embolism but did show progressive pneumonia bilaterally The patient can safely come out of isolation from COVID-19 infection Discussed with infection control She will be transferred to medical floor when bed is available Clinically stable and feels better at rest Torsade on night of 03/24/2021 Has had QT prolongation in prior EKG Repeat EKG did not show any prolonged QT interval Appreciate cardiology input and recommendation Will keep magnesium and potassium level up-to-date. BMP today pending. Electrolytes remains unremarkable #. Mild hyponatremia - resolved Sodium level at presentation 131, had been normal after that. #. Hyperglycemia 03/08 A1c 6.5 Daily blood glucose level WNL Patient on steroid, continue to monitor. On SSI when needed. #. Hypertension Stable Continue with amlodipine and losartan. #. Hypothyroidism Continue home levothyroxine. #. DVT prophylaxis: Lovenox SC twice daily Disposition: Continue PCU care. PT/OT. CM to assist with DC planning. Patient can be taken off isolation but there is no bed available and has been requiring high flow oxygen to go to any medical floor Full code Admission and Anticipated Discharge Date Admission Date: March 07, 2021 Subjective 03/08/2021 The patient was seen and examined in telemetry unit and in the Covid room She has been feeling a little better but is still requiring about 12 L of oxygen to maintain saturation Still has cough 03/09/2021 The patient was seen and examined in telemetry unit and in the Covid room She has been complaining of more shortness of breath Has been requiring 40 L of oxygen with 90% FiO2 to maintain saturation Complaints of weakness, fatigue and cough 03/10/2021 The patient was seen and examined in telemetry unit and in the Covid room She has been feeling much better today Has been requiring a little less flow rate at 35 L/min to maintain saturation Denies any chest pain or palpitation, no abdominal pain, nausea and/or vomiting or weakness 03/11/2021 The patient was seen and examined in the telemetry unit and in recovery room #[id number] Patient states that she feels like her breathing is better and that she feels like she might of turned the corner She still feels very weak and appears ill She is currently on FiO2 of 60% at 35 L/min flow with high flow oxygen She is tolerating the high flow well Patient states that she is unable to sleep in a prone position secondary to back pain No fever, chills, sweats, rigors. No nausea or vomiting. No new acute complaints 03/12/2021 The patient was seen and examined in telemetry unit and in the Covid room recovery Her condition remains stable and may be a little worse today Still requiring high flow oxygen to maintain saturation She cannot lie prone but trying to lie on sides to improve her saturation Denies any chest pain or palpitation, no fever and no chills, no abdominal pain nausea and or vomiting 03/20/2021 The patient was seen and examined in telemetry unit She has been feeling better compared with yesterday Still has shortness of breath with exertion but no respiratory distress at rest though requiring 10 L of oxygen to maintain saturation 03/21/2021 The patient was seen and examined in telemetry unit She has been feeling a little bit better Still getting short of breath with tachycardia and desaturation with minimal exertion 03/22/2021 The patient was seen and examined in telemetry unit She feels better and requiring about 10 L of oxygen to maintain saturation Still getting very short of breath with desaturation with ambulation 03/23/2021 The patient was seen and examined in telemetry unit and in Covid room She has had a rough night yesterday and required up to 15 L of oxygen to maintain saturation Feeling much better this morning and is still requiring 10 L of oxygen to maintain saturation Generalized weakness but denies any other symptoms 03/24/2021 The patient was seen and examined in telemetry unit She has had short runs of torsade last night She also required high flow oxygen last night Has been feeling a lot better since this morning 03/25/2021 The patient was seen and examined in telemetry unit She has been feeling better but still requiring 10 L oxygen to maintain saturati on Getting shortness of breath with desaturation with minimal exertion 03/29/2021 The patient was seen in the telemetry unit and in the Covid room She has been feeling much better but is still requiring high flow oxygen to maintain saturation Denies any more cough and/or shortness of breath at rest 03/30/2021 The patient was seen and examined in telemetry unit and in the Covid room Her conditions has been deteriorating and has been requiring 15 L of oxygen to maintain saturation She is clinically much better though Review of Systems Review of Systems: All systems reviewed and are unremarkable except as noted below Physical Exam Physical Exam: Sitting on a chair with minimal shortness of breath Constitutional: well developed, well nourished, + ill appearing and + obese Eyes: PERRL, conjunctivae normal, anicteric sclerae ENMT: external ear and nose normal, oropharynx normal Neck: trachea midline, no thyromegaly Respiratory: + respiratory distress (Mild to moderate shortness of breath at rest) and + cough Auscultation: + diminished lung sounds and + crackles (At the bases) Cardiovascular: Rate/Rhythm: regular rate and regular rhythm; not tachycardic Heart Sounds: normal S1 and normal S2; no murmur Extremities: + edema (Trace edema bilaterally) Gastrointestinal (Abdomen): Inspection/Auscultation: normal bowel sounds; abdomen not distended Percussion/Palpation: abdomen soft; abdomen nontender Skin: no rashes, warm and dry Psychiatric: A+Ox3, euthymic affect Lymphatic: no cervical or axillary lymphadenopathy Results & Data Results & Data ([facility]) Vital Signs (Past 12 Hours) Vital Signs Temp Pulse Pulse Pulse Resp BP BP 03/30/21 11:19 36.6 C 102 H 17 124/75 03/30/21 07:53 95 H 03/30/21 06:18 36.6 C 98 H 20 140/68 Pulse Ox 03/30/21 11:19 93 03/30/21 07:53 03/30/21 06:18 92 Laboratory Results BMP 03/30/21 06:15 Sodium 138 Potassium 4.2 Chloride 103 Carbon Dioxide 32 BUN 15 Creatinine 0.76 Glucose 138 H Calcium 9.0 Medications Administered Current Inpatient Medications Acetaminophen (Acetaminophen 325 Mg Tab) 650 mg PO Q4H PRN PRN Reason: Pain or Fever Stop: 04/06/21 21:55 Last Admin: 03/29/21 20:17 Dose: 650 mg Documented by: Al Hydrox/Mg Hydrox/Simethicone (Aluminum/Magnesium Susp 30 Ml Udc) 15 ml PO Q4H PRN PRN Reason: Dyspepsia Stop: 04/06/21 21:55 Albuterol (Albuterol Hfa 8 Gm Inhaler) 2 puffs INH QID PRN PRN Reason: Wheezing Stop: 04/06/21 21:55 Amlodipine Besylate (Amlodipine Besylate 5 Mg Tab) 5 mg PO 1800 [facility] Stop: 04/13/21 17:59 Last Admin: 03/29/21 17:36 Dose: 5 mg Documented by: Enoxaparin Sodium (Enoxaparin Inj 40 Mg/0.4 Ml Syr) 40 mg SQ Q12H [facility] Stop: 04/06/21 21:59 Last Admin: 03/30/21 08:59 Dose: 40 mg Documented by: Guaifenesin (Guaifenesin 600 Mg Tabcr) 1,200 mg PO Q12 [facility] Stop: 04/06/21 21:55 Last Admin: 03/30/21 08:16 Dose: 1,200 mg Documented by: Promethazine HCl 12.5 mg/ (Sodium Chloride) 50.5 mls @ 202 mls/hr IV Q6H PRN PRN Reason: Nausea And Vomiting Stop: 04/23/21 13:38 Levothyroxine Sodium (Levothyroxine Sodium 100 Mcg Tablet) 100 mcg PO DAILYBB REPLACED BY [facility] Stop: 04/07/21 08:59 Last Admin: 03/30/21 06:16 Dose: 100 mcg Documented by: Losartan Potassium (Losartan Potassium 25 Mg Tab) 25 mg PO QAM REPLACED BY [facility] Stop: 04/24/21 08:59 Last Admin: 03/30/21 08:17 Dose: 25 mg Documented by: Magnesium Hydroxide (Magnesium Hydroxide Susp 30 Ml Udc) 30 ml PO Q12H PRN PRN Reason: Constipation Stop: 04/06/21 21:55 Magnesium Oxide (Magnesium Oxide 400 Mg Tab) 400 mg PO BID [facility]PLACED BY [facility] Stop: 04/24/21 09:29 Last Admin: 03/30/21 08:57 Dose: 400 mg Documented by: Melatonin (Melatonin 3 Mg Tab) 3 mg PO DAILY@1900 [facility]PLACED [facility] Stop: 04/18/21 18:59 Last Admin: 03/29/21 20:08 Dose: 3 mg Documented by: Metoprolol Tartrate (Metoprolol Tartrate 25 Mg Tab) 12.5 mg PO BID REPLACED BY [facility] Stop: 04/26/21 00:59 Last Admin: 03/30/21 08:17 Dose: 12.5 mg Documented by: Polyethylene Glycol (Polyethylene (Miralax) 17 Gm Pack) 17 gm PO DAILY PRN PRN Reason: Constipation Stop: 04/06/21 21:55 Sodium Chloride (Sodium Chloride 0.65% Na Soln 45 Ml ([place])) 2 sprays NA TID PRN PRN Reason: Nasal Congestion Stop: 04/25/21 23:54
[2021-03-30] MEDS: amLODIPine BESYLATE 5 MG TAB PO SCH (18:12)
[2021-03-30] MEDS: MELATONIN 3 MG TAB PO SCH (19:25)
[2021-03-30] MEDS: ACETAMINOPHEN 325 MG TAB PO PRN (20:35)
[2021-03-31] MEDS: LEVOTHYROXINE SODIUM 100 MCG TABLET PO SCH (06:23)
[2021-03-31] MEDS: guaiFENesin 600 MG TABCR PO SCH ×2 (08:52→21:10)
[2021-03-31] MEDS: METOPROLOL TARTRATE 25 MG TAB PO SCH ×2 (08:53→21:10)
[2021-03-31] MEDS: LOSARTAN POTASSIUM 25 MG TAB PO SCH (08:53)
[2021-03-31] MEDS: MAGNESIUM OXIDE 400 MG TAB PO SCH ×2 (08:58→21:16)
[2021-03-31] MEDS: ENOXAPARIN INJ 40 MG/0.4 ML SYR SQ SCH ×2 (08:59→21:09)
--- NOTE | 2021-03-31 14:27 | Hospitalist Progress Note ---
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 She is non-smoker and socially drinks alcohol. In the ED she was hypoxic requiring 3 L of oxygen to maintain normal saturation. Chest x-ray revealed multifocal pneumonia. She was started on IV Decadron in the ED. She is not vaccinated against COVID-19. She is being managed for the following: #. Acute hypoxic respiratory failure #. Pneumonia due to COVID-19 virus Not vaccinated against Covid. Known Covid exposure with her , at presentation in the ED required 3 L of oxygen Admitting ESR 63; admitting Covid test 03/07 positive. Admitted CXR: Multifocal pneumonia secondary to COVID-19 virus infection. WBC mildly elevated, likely secondary to steroid. Pro-Sanjeev -2 times this admis karen. CRP: 03/07 11.3 downtrending to 2.69 on 03/11. C/W albuterol, Mucinex, prone position as able [she cannot tolerate prone position but has been trying to lie on her sides ] Completed course of remdesivir on 03/11. Decadron has been stopped. Appreciate pulmonary medicine input. S/p Tocilizumab on 03/09. Clinically improved but still requiring high flow oxygen Repeat CTA did not show any pulmonary embolism but did show progressive pneumonia bilaterally The patient can safely come out of isolation from COVID-19 infection Clinically stable and may be better but still requiring high flow oxygen to maintain saturation Will give Lasix today and monitor PRP Torsade on night of 03/24/2021 Has had QT prolongation in prior EKG Repeat EKG did not show any prolonged QT interval Appreciate cardiology input and recommendation Will keep magnesium and potassium level up-to-date. BMP today pending. Electrolytes remains unremarkable #. Mild hyponatremia - resolved Sodium level at presentation 131, had been normal after that. Check PRP tomorrow following Lasix #. Hyperglycemia 03/08 A1c 6.5 Daily blood glucose level WNL Patient on steroid, continue to monitor. On SSI when needed. #. Hypertension Stable Continue with amlodipine and losartan. #. Hypothyroidism Continue home levothyroxine. #. DVT prophylaxis: Lovenox SC twice daily Disposition: Continue PCU care. PT/OT. CM to assist with DC planning. Patient can be taken off isolation but there is no bed available and has been requiring high flow oxygen to go to any medical floor Full code Admission and Anticipated Discharge Date Admission Date: March 07, 2021 Subjective 03/08/2021 The patient was seen and examined in telemetry unit and in the Covid room She has been feeling a little better but is still requiring about 12 L of oxygen to maintain saturation Still has cough 03/09/2021 The patient was seen and examined in telemetry unit and in the Covid room She has been complaining of more shortness of breath Has been requiring 40 L of oxygen with 90% FiO2 to maintain saturation Complaints of weakness, fatigue and cough 03/10/2021 The patient was seen and examined in telemetry unit and in the Covid room She has been feeling much better today Has been requiring a little less flow rate at 35 L/min to maintain saturation Denies any chest pain or palpitation, no abdominal pain, nausea and/or vomiting or weakness 03/11/2021 The patient was seen and examined in the telemetry unit and in recovery room #[id number] Patient states that she feels like her breathing is better and that she feels like she might of turned the corner She still feels very weak and appears ill She is currently on FiO2 of 60% at 35 L/min flow with high flow oxygen She is tolerating the high flow well Patient states that she is unable to sleep in a prone position secondary to back pain No fever, chills, sweats, rigors. No nausea or vomiting. No new acute compla ints 03/12/2021 The patient was seen and examined in telemetry unit and in the Covid room recovery Her condition remains stable and may be a little worse today Still requiring high flow oxygen to maintain saturation She cannot lie prone but trying to lie on sides to improve her saturation Denies any chest pain or palpitation, no fever and no chills, no abdominal pain nausea and or vomiting 03/20/2021 The patient was seen and examined in telemetry unit She has been feeling better compared with yesterday Still has shortness of breath with exertion but no respiratory distress at rest though requiring 10 L of oxygen to maintain saturation 03/21/2021 The patient was seen and examined in telemetry unit She has been feeling a little bit better Still getting short of breath with tachycardia and desaturation with minimal exertion 03/22/2021 The patient was seen and examined in telemetry unit She feels better and requiring about 10 L of oxygen to maintain saturation Still getting very short of breath with desaturation with ambulation 03/23/2021 The patient was seen and examined in telemetry unit and in Covid room She has had a rough night yesterday and required up to 15 L of oxygen to [place] in saturation Feeling much better this morning and is still requiring 10 L of oxygen to maintain saturation Generalized weakness but denies any other symptoms 03/24/2021 The patient was seen and examined in telemetry unit She has had short runs of torsade last night She also required high flow oxygen last night Has been feeling a lot better since this morning 03/25/2021 The patient was seen and examined in telemetry unit She has been feeling better but still requiring 10 L oxygen to maintain saturation Getting shortness of breath with desaturation with minimal exertion 03/29/2021 The patient was seen in the telemetry unit and in the Covid room She has been feeling much better but is still requiring high flow oxygen to maintain saturation Denies any more cough and/or shortness of breath at rest 03/30/2021 The patient was seen and examined in telemetry unit and in the Covid room Her conditions has been deteriorating and has been requiring 15 L of oxygen to maintain saturation She is clinically much better though 03/31/2021 The patient was seen and examined in telemetry unit and in the Covid room She has been feeling the same, minimal symptoms at rest but gets shortness of breath with exertion Review of Systems Review of Systems: All systems reviewed and are unremarkable except as noted below Physical Exam Physical Exam: Sitting on a chair with minimal shortness of breath Constitutional: well developed, well nourished, + ill appearing and + obese Eyes: PERRL, conjunctivae normal, anicteric sclerae ENMT: external ear and nose normal, oropharynx normal Neck: trachea midline, no thyromegaly Respiratory: + respiratory distress (Mild to moderate shortness of breath at rest) and + cough Auscultation: + diminished lung sounds and + crackles (At the bases) Cardiovascular: Rate/Rhythm: regular rate and regular rhythm; not tachycardic Heart Sounds: normal S1 and normal S2; no murmur Extremities: + edema (Trace edema bilaterally) Gastrointestinal (Abdomen): Inspection/Auscultation: normal bowel sounds; abdomen not distended Percussion/Palpation: abdomen soft; abdomen nontender Skin: no rashes, warm and dry Psychiatric: A+Ox3, euthymic affect Lymphatic: no cervical or axillary lymphadenopathy Results & Data Results & Data ([facility]) Vital Signs (Past 12 Hours) Vital Signs Temp Pulse Pulse Pulse Resp BP Pulse Ox 03/31/21 11:39 36.9 C 96 H 18 119/76 93 03/31/21 08:00 87 03/31/21 07:30 36.9 C 93 H 30 H 128/83 98 Medications Administered Current Inpatient Medications Acetaminophen (Acetaminophen 325 Mg Tab) 650 mg PO Q4H PRN PRN Reason: Pain or Fever Stop: 04/06/21 21:55 Last Admin: 03/30/21 20:35 Dose: 650 mg Documented by: Al Hydrox/Mg Hydrox/Simethicone (Aluminum/Magnesium Susp 30 Ml Udc) 15 ml PO Q4H PRN PRN Reason: Dyspepsia Stop: 04/06/21 21:55 Albuterol (Albuterol Hfa 8 Gm Inhaler) 2 puffs INH QID PRN PRN Reason: Wheezing Stop: 04/06/21 21:55 Amlodipine Besylate (Amlodipine Besylate 5 Mg Tab) 5 mg PO 1800 [facility] Stop: 04/13/21 17:59 Last Admin: 03/30/21 18:12 Dose: 5 mg Documented by: Enoxaparin Sodium (Enoxaparin Inj 40 Mg/0.4 Ml Syr) 40 mg SQ Q12H BROWN Stop: 04/06/21 21:59 Last Admin: 03/31/21 08:59 Dose: 40 mg Documented by: Guaifenesin (Guaifenesin 600 Mg Tabcr) 1,200 mg PO Q12 BROWN Stop: 04/06/21 21:55 Last Admin: 03/31/21 08:52 Dose: 1,200 mg Documented by: Promethazine HCl 12.5 mg/ (Sodium Chloride) 50.5 mls @ 202 mls/hr IV Q6H PRN PRN Reason: Nausea And Vomiting Stop: 04/23/21 13:38 Furosemide 60 mg/ Syringe 6 mls @ 4 mls/min IV ONE ONE Stop: 03/31/21 14:31 Levothyroxine Sodium (Levothyroxine Sodium 100 Mcg Tablet) 100 mcg PO DAILYBB [facility] Stop: 04/07/21 08:59 Last Admin: 03/31/21 06:23 Dose: 100 mcg Documented by: Losartan Potassium (Losartan Potassium 25 Mg Tab) 25 mg PO QAM [facility] Stop: 04/24/21 08:59 Last Admin: 03/31/21 08:53 Dose: 25 mg Documented by: Magnesium Hydroxide (Magnesium Hydroxide Susp 30 Ml Udc) 30 ml PO Q12H PRN PRN Reason: Constipation Stop: 04/06/21 21:55 Magnesium Oxide (Magnesium Oxide 400 Mg Tab) 400 mg PO BID [facility] Stop: 04/24/21 09:29 Last Admin: 03/31/21 08:58 Dose: 400 mg Documented by: Melatonin (Melatonin 3 Mg Tab) 3 mg PO DAILY@1900 [facility] Stop: 04/18/21 18:59 Last Admin: 03/30/21 19:25 Dose: 3 mg Documented by: Metoprolol Tartrate (Metoprolol Tartrate 25 Mg Tab) 12.5 mg PO BID [facility] Stop: 04/26/21 00:59 Last Admin: 03/31/21 08:53 Dose: 12.5 mg Documented by: Polyethylene Glycol (Polyethylene (Miralax) 17 Gm Pack) 17 gm PO DAILY PRN PRN Reason: Constipation Stop: 04/06/21 21:55 Sodium Chloride (Sodium Chloride 0.65% Na Soln 45 Ml ([place] [place])) 2 sprays NA TID PRN PRN Reason: Nasal Congestion Stop: 04/25/21 23:54 Last Admin: 03/31/21 09:01 Dose: 2 sprays Documented by:
[2021-03-31] MEDS ORDERED: FUROSEMIDE 60 MG in SYRINGE 0 ML IV ONE (14:30)
[2021-03-31] MEDS ORDERED: FUROSEMIDE 40 MG/4 ML VIAL IV ONE (14:45)
[2021-03-31] MEDS: amLODIPine BESYLATE 5 MG TAB PO SCH (18:28)
[2021-03-31] MEDS: MELATONIN 3 MG TAB PO SCH (18:29)
[2021-03-31] MEDS: ACETAMINOPHEN 325 MG TAB PO PRN (21:24)
[2021-04-01] MEDS: LEVOTHYROXINE SODIUM 100 MCG TABLET PO SCH (05:50)
[2021-04-01 07:16] LABS: Basophils # (auto) 0.04 K/uL (0-0.2); Basophils % (auto) 0.4 %; Eosinophils # (auto) 0.75 K/uL (0-0.5); Eosinophils % (auto) 7.8 %; Hematocrit (blood only) 35.8 % (37-47); Hemoglobin 11.8 g/dL (12.0-16.0); Immature Granulocytes # (auto) 0.05 K/uL (0.00-0.02); Immature Granulocytes % (auto) 0.5 %; Lymphocytes # (auto) 2.12 K/uL (1.2-3.4); Lymphocytes % (auto) 22.1 %; Mean Corpuscular Hemoglobin 30.8 pg (25-34); Mean Corpuscular Volume 93.5 fL (80-100); Mean Platelet Volume 10.7 fL (7.4-10.4); Monocytes # (auto) 0.79 K/uL (0.11-0.59); Monocytes % (auto) 8.2 %; Neutrophils # (auto) 5.85 K/uL (1.4-6.5); Platelet Count 183 K/uL (130-400); RDW Coefficient of Variation 14.7 % (11.5-14.5); Red Blood Count 3.83 M/uL (4.2-5.4)
[2021-04-01 07:36] LABS: BUN Creatinine Ratio 20.1 (10-20); Calcium 8.8 mg/dl (8.5-10.1); Est GFR (African American) 90.7 ml/min; Est GFR (Non-African American) 78.2 ml/min; Magnesium 2.2 mg/dl (1.8-2.4); Potassium 3.6 mmol/L (3.5-5.1)
[2021-04-01] MEDS: guaiFENesin 600 MG TABCR PO SCH ×2 (08:46→20:51)
[2021-04-01] MEDS: METOPROLOL TARTRATE 25 MG TAB PO SCH ×2 (08:46→20:52)
[2021-04-01] MEDS: LOSARTAN POTASSIUM 25 MG TAB PO SCH (08:46)
[2021-04-01] MEDS: ENOXAPARIN INJ 40 MG/0.4 ML SYR SQ SCH ×2 (08:47→20:50)
[2021-04-01] MEDS: MAGNESIUM OXIDE 400 MG TAB PO SCH ×2 (08:52→20:55)
--- NOTE | 2021-04-01 14:50 | Hospitalist Progress Note ---
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 She is non-smoker and socially drinks alcohol. In the ED she was hypoxic requiring 3 L of oxygen to maintain normal saturation. Chest x-ray revealed multifocal pneumonia. She was started on IV Decadron in the ED. She is not vaccinated against COVID-19. She is being managed for the following: #. Acute hypoxic respiratory failure #. Pneumonia due to COVID-19 virus Not vaccinated against Covid. Known Covid exposure with her , at presentation in the ED required 3 L of oxygen Admitting ESR 63; admitting Covid test 03/07 positive. Admitted CXR: Multifocal pneumonia secondary to COVID-19 virus infection. WBC mildly elevated, likely secondary to steroid. Pro-Sanjeev -2 times this admis karen. CRP: 03/07 11.3 downtrending to 2.69 on 03/11. C/W albuterol, Mucinex, prone position as able [she cannot tolerate prone position but has been trying to lie on her sides ] Completed course of remdesivir on 03/11. Decadron has been stopped. Appreciate pulmonary medicine input. S/p Tocilizumab on 03/09. Repeat CTA did not show any pulmonary embolism but did show progressive pneumonia bilaterally The patient can safely come out of isolation from COVID-19 infection Overall doing okay. Carmen status quo. Remains on 8 L of nasal cannula. Continue to wean off the oxygen. Encourage ambulation/incentive spirometer. Torsade on night of 03/24/2021 Has had QT prolongation in prior EKG Repeat EKG did not show any prolonged QT interval Appreciate cardiology input and recommendation Will keep magnesium and potassium level up-to-date. #. Mild hyponatremia - resolved Sodium level at presentation 131, had been normal after that. Check PRP tomorrow following Lasix #. Hyperglycemia 03/08 A1c 6.5 Daily blood glucose level WNL Patient on steroid, continue to monitor. On SSI when needed. #. Hypertension Stable Continue with amlodipine and losartan. #. Hypothyroidism Continue home levothyroxine. #. DVT prophylaxis: Lovenox SC twice daily Disposition: Continue PCU care. PT/OT. CM to assist with DC planning. Patient can be taken off isolation but there is no bed available and has been requiring high flow oxygen to go to any medical floor Full code Admission and Anticipated Discharge Date Admission Date: March 07, 2021 Subjective Doing okay this morning. Remains on 8 L of nasal cannula. States that she feels improved. Review of system is negative. Review of Systems Review of Systems: All systems reviewed & are unremarkable except as noted in HPI & below Physical Exam Physical Exam: General: A&Ox3 HENT: NCAT, MMM, EOMI Eyes: PERRLA Neck: Supple, normal range of motion CVS: normal rate and rhythm Resp: b/l coarse breath sounds Abdomen: Soft, ND/NT, +BS Extremities: No c/c/e Neuro: face symmetric, no focal deficit Skin: warm and dry, no rashes/lesions/errythema MSK: no joint swelling/erythema Results & Data Results & Data ([facility]) Vital Signs (Past 12 Hours) Vital Signs Temp Pulse Pulse Pulse Resp BP BP 04/01/21 11:13 36.7 C 111 H 20 112/73 04/01/21 10:57 04/01/21 09:00 04/01/21 07:20 36.6 C 100 H 20 132/72 04/01/21 04:33 36.6 C 90 16 111/70 04/01/21 03:16 94 H 20 Pulse Ox 04/01/21 11:13 91 04/01/21 10:57 90 04/01/21 09:00 92 04/01/21 07:20 93 04/01/21 04:33 94 04/01/21 03:16 90
[2021-04-01] MEDS: amLODIPine BESYLATE 5 MG TAB PO SCH (19:29)
[2021-04-01] MEDS: MELATONIN 3 MG TAB PO SCH (19:29)
[2021-04-01] MEDS: ACETAMINOPHEN 325 MG TAB PO PRN (19:29)
[2021-04-02] MEDS: LEVOTHYROXINE SODIUM 100 MCG TABLET PO SCH (05:54)
[2021-04-02] MEDS: MAGNESIUM OXIDE 400 MG TAB PO SCH ×2 (08:40→21:00)
[2021-04-02] MEDS: guaiFENesin 600 MG TABCR PO SCH ×2 (08:40→20:54)
[2021-04-02] MEDS: METOPROLOL TARTRATE 25 MG TAB PO SCH ×2 (08:40→20:53)
[2021-04-02] MEDS: LOSARTAN POTASSIUM 25 MG TAB PO SCH (08:40)
[2021-04-02] MEDS: ENOXAPARIN INJ 40 MG/0.4 ML SYR SQ SCH ×2 (08:40→20:54)
--- NOTE | 2021-04-02 14:23 | Hospitalist Progress Note ---
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 She is non-smoker and socially drinks alcohol. In the ED she was hypoxic requiring 3 L of oxygen to maintain normal saturation. Chest x-ray revealed multifocal pneumonia. She was started on IV Decadron in the ED. She is not vaccinated against COVID-19. She is being managed for the following: #. Acute hypoxic respiratory failure #. Pneumonia due to COVID-19 virus Not vaccinated against Covid. Known Covid exposure with her , at presentation in the ED required 3 L of oxygen Admitting ESR 63; admitting Covid test 03/07 positive. Admitted CXR: Multifocal pneumonia secondary to COVID-19 virus infection. WBC mildly elevated, likely secondary to steroid. Pro-Sanjeev -2 times this admis karen. CRP: 03/07 11.3 downtrending to 2.69 on 03/11. C/W albuterol, Mucinex, prone position as able [she cannot tolerate prone position but has been trying to lie on her sides ] Completed course of remdesivir on 03/11. Decadron has been stopped. Appreciate pulmonary medicine input. S/p Tocilizumab on 03/09. Repeat CTA did not show any pulmonary embolism but did show progressive pneumonia bilaterally The patient can safely come out of isolation from COVID-19 infection Continue to wean off the oxygen. Encourage ambulation/incentive spirometer. Remains on 11 L of oxygen mask. Will order IV Lasix 40 mg today. Torsade on night of 03/24/2021 Has had QT prolongation in prior EKG Repeat EKG did not show any prolonged QT interval Appreciate cardiology input and recommendation Will keep magnesium and potassium level up-to-date. #. Mild hyponatremia - resolved Sodium level at presentation 131, had been normal after that. Check PRP tomorrow following Lasix #. Hyperglycemia 03/08 A1c 6.5 Daily blood glucose level WNL Patient on steroid, continue to monitor. On SSI when needed. #. Hypertension Stable Continue with amlodipine and losartan. #. Hypothyroidism Continue home levothyroxine. #. DVT prophylaxis: Lovenox SC twice daily Disposition: Continue PCU care. PT/OT. CM to assist with DC planning. Patient can be taken off isolation but there is no bed available and has been requiring high flow oxygen to go to any medical floor Full code Admission and Anticipated Discharge Date Admission Date: March 07, 2021 Subjective Doing okay. Resting comfortably. Remains on 11 L of nasal cannula. Denies any shortness of breath. Denies any cough. Rest of the review of system is negative. Review of Systems Review of Systems: All systems reviewed & are unremarkable except as noted in HPI & below Physical Exam Physical Exam: General: A&Ox3 HENT: NCAT, MMM, EOMI Eyes: PERRLA Neck: Supple, normal range of motion CVS: normal rate and rhythm Resp: b/l coarse breath sounds Abdomen: Soft, ND/NT, +BS Extremities: No c/c/e Neuro: face symmetric, no focal deficit Skin: warm and dry, no rashes/lesions/errythema MSK: no joint swelling/erythema Results & Data Results & Data ([facility]) Vital Signs (Past 12 Hours) Vital Signs Temp Pulse Pulse Resp BP BP Pulse Ox 04/02/21 12:41 97 04/02/21 11:37 36.5 C 99 H 18 124/71 94 04/02/21 08:17 36.6 C 96 H 18 132/80 95 04/02/21 08:00 98 H 04/02/21 03:34 36.8 C 101 H 19 136/81 94 04/02/21 03:25 90 22 95
[2021-04-02] MEDS ORDERED: FUROSEMIDE 40 MG in SYRINGE 0 ML IV ONE (14:27)
[2021-04-02] MEDS ORDERED: FUROSEMIDE 40 MG/4 ML VIAL IV ONE (14:30)
[2021-04-02] MEDS: amLODIPine BESYLATE 5 MG TAB PO SCH (18:07)
[2021-04-02] MEDS: ACETAMINOPHEN 325 MG TAB PO PRN (20:51)
[2021-04-02] MEDS: MELATONIN 3 MG TAB PO SCH (20:53)
[2021-04-03] MEDS: LEVOTHYROXINE SODIUM 100 MCG TABLET PO SCH (06:35)
[2021-04-03 07:36] LABS: BUN Creatinine Ratio 24.8 (10-20); Est GFR (African American) 103.7 ml/min; Est GFR (Non-African American) 89.5 ml/min; Potassium 3.7 mmol/L (3.5-5.1)
[2021-04-03] MEDS: MAGNESIUM OXIDE 400 MG TAB PO SCH ×2 (08:48→20:44)
[2021-04-03] MEDS: LOSARTAN POTASSIUM 25 MG TAB PO SCH (08:48)
[2021-04-03] MEDS: guaiFENesin 600 MG TABCR PO SCH ×2 (08:48→20:46)
[2021-04-03] MEDS: METOPROLOL TARTRATE 25 MG TAB PO SCH ×2 (08:48→20:45)
[2021-04-03] MEDS: ENOXAPARIN INJ 40 MG/0.4 ML SYR SQ SCH ×2 (08:49→20:51)
--- NOTE | 2021-04-03 10:17 | Electrocardiogram Report ---
Test Reason : Blood Pressure : / mmHG Vent. Rate : 091 BPM Atrial Rate : 091 BPM P-R Int : 178 ms QRS Dur : 076 ms QT Int : 394 ms P-R-T Axes : 045 004 049 degrees QTc Int : 484 ms Normal sinus rhythm When compared with ECG of 27-MAR-2021 05:24, No significant change was found Confirmed by Delvis Miller ([id number] on 03/29/2021 5:06:19 PM Referred By: REFERRED SELF Confirmed By:Timothy Miller
--- NOTE | 2021-04-03 16:44 | Hospitalist Progress Note ---
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 She is non-smoker and socially drinks alcohol. In the ED she was hypoxic requiring 3 L of oxygen to maintain normal saturation. Chest x-ray revealed multifocal pneumonia. She was started on IV Decadron in the ED. She is not vaccinated against COVID-19. She is being managed for the following: #. Acute hypoxic respiratory failure #. Pneumonia due to COVID-19 virus Not vaccinated against Covid. Known Covid exposure with her , at presentation in the ED required 3 L of oxygen Admitting ESR 63; admitting Covid test 03/07 positive. Admitted CXR: Multifocal pneumonia secondary to COVID-19 virus infection. WBC mildly elevated, likely secondary to steroid. Pro-Sanjeev -2 times this admis karen. CRP: 03/07 11.3 downtrending to 2.69 on 03/11. C/W albuterol, Mucinex, prone position as able [she cannot tolerate prone position but has been trying to lie on her sides ] Completed course of remdesivir on 03/11. Decadron has been stopped. Appreciate pulmonary medicine input. S/p Tocilizumab on 03/09. Repeat CTA did not show any pulmonary embolism but did show progressive pneumonia bilaterally The patient can safely come out of isolation from COVID-19 infection Continue to wean off the oxygen. Encourage ambulation/incentive spirometer. Remains on 11 L of oxygen mask. Will get chest x-ray tomorrow and continue Lasix if needed [place] on night of 03/24/2021 Has had QT prolongation in prior EKG Repeat EKG did not show any prolonged QT interval Appreciate cardiology input and recommendation Will keep magnesium and potassium level up-to-date. #. Mild hyponatremia - resolved Sodium level at presentation 131, had been normal after that. Check PRP tomorrow following Lasix #. Hyperglycemia 03/08 A1c 6.5 Daily blood glucose level WNL Patient on steroid, continue to monitor. On SSI when needed. #. Hypertension Stable Continue with amlodipine and losartan. #. Hypothyroidism Continue home levothyroxine. #. DVT prophylaxis: Lovenox SC twice daily Disposition: Continue PCU care. PT/OT. CM to assist with DC planning. Patient can be taken off isolation but there is no bed available and has been requiring high flow oxygen to go to any medical floor Will advise case repairer to refer for select care Full code Admission and Anticipated Discharge Date Admission Date: March 07, 2021 Subjective 03/08/2021 The patient was seen and examined in telemetry unit and in the Covid room She has been feeling a little better but is still requiring about 12 L of oxygen to maintain saturation Still has cough 03/09/2021 The patient was seen and examined in telemetry unit and in the Covid room She has been complaining of more shortness of breath Has been requiring 40 L of oxygen with 90% FiO2 to maintain saturation Complaints of weakness, fatigue and cough 03/10/2021 The patient was seen and examined in telemetry unit and in the Covid room She has been feeling much better today Has been requiring a little less flow rate at 35 L/min to maintain saturation Denies any chest pain or palpitation, no abdominal pain, nausea and/or vomiting or weakness 03/11/2021 The patient was seen and examined in the telemetry unit and in recovery room #208 Patient states that she feels like her breathing is better and that she feels like she might of turned the corner She still feels very weak and appears ill She is currently on FiO2 of 60% at 35 L/min flow with high flow oxygen She is tolerating the high flow well Patient states that she is unable to sleep in a prone position secondary to back pain No fever, chills, sweats, rigors. No nausea or vomiting. No new acute complaints 03/12/2021 The patient was seen and examined in telemetry unit and in the Covid room recovery Her condition remains stable and may be a little worse today Still requiring high flow oxygen to maintain saturation She cannot lie prone but trying to lie on sides to improve her saturation Denies any chest pain or palpitation, no fever and no chills, no abdominal pain nausea and or vomiting 03/20/2021 The patient was seen and examined in telemetry unit She has been feeling better compared with yesterday Still has shortness of breath with exertion but no respiratory distress at rest though requiring 10 L of oxygen to maintain saturation 03/21/2021 The patient was seen and examined in telemetry unit She has been feeling a little bit better Still getting short of breath with tachycardia and desaturation with minimal ex ertion 03/22/2021 The patient was seen and examined in telemetry unit She feels better and requiring about 10 L of oxygen to maintain saturation Still getting very short of breath with desaturation with ambulation 03/23/2021 The patient was seen and examined in telemetry unit and in Covid room She has had a rough night yesterday and required up to 15 L of oxygen to maintain saturation Feeling much better this morning and is still requiring 10 L of oxygen to maintain saturation Generalized weakness but denies any other symptoms 03/24/2021 The patient was seen and examined in telemetry unit She has had short runs of torsade last night She also required high flow oxygen last night Has been feeling a lot better since this morning 03/25/2021 The patient was seen and examined in telemetry unit She has been feeling better but still requiring 10 L oxygen to maintain saturation Getting shortness of breath with desaturation with minimal exertion 03/29/2021 The patient was seen in the telemetry unit and in the Covid room She has been feeling much better but is still requiring high flow oxygen to maintain saturation Denies any more cough and/or shortness of breath at rest 03/30/2021 The patient was seen and examined in telemetry unit and in the Covid room Her conditions has been deteriorating and has been requiring 15 L of oxygen to maintain saturation She is clinically much better though 03/31/2021 The patient was seen and examined in telemetry unit and in the Covid room She has been feeling the same, minimal symptoms at rest but gets shortness of breath with exertion 04/03/2021 The patient was seen and examined in telemetry unit and in the Covid room She has been requiring 11 to 13 L of oxygen to maintain saturation Has been feeling otherwise good at rest Review of Systems Review of Systems: All systems reviewed and are unremarkable except as noted below Physical Exam Physical Exam: Sitting on a chair with minimal shortness of breath Constitutional: well developed, well nourished, + ill appearing and + obese Eyes: PERRL, conjunctivae normal, anicteric sclerae ENMT: external ear and nose normal, oropharynx normal Neck: trachea midline, no thyromegaly Respiratory: + respiratory distress (Mild to moderate shortness of breath at rest) and + cough Auscultation: + diminished lung sounds and + crackles (At the bases) Cardiovascular: Rate/Rhythm: regular rate and regular rhythm; not tachycardic Heart Sounds: normal S1 and normal S2; no murmur Extremities: + edema (Trace edema bilaterally) Gastrointestinal (Abdomen): Inspection/Auscultation: normal bowel sounds; abdomen not distended Percussion/Palpation: abdomen soft; abdomen nontender Skin: no rashes, warm and dry Psychiatric: A+Ox3, euthymic affect Lymphatic: no cervical or axillary lymphadenopathy Results & Data Results & Data ([facility]) Vital Signs (Past 12 Hours) Vital Signs Temp Pulse Pulse Pulse Resp BP BP 04/03/21 16:36 108 H 04/03/21 15:29 36.5 C 86 20 105/71 04/03/21 12:02 36.9 C 104 H 22 105/71 04/03/21 09:24 84 04/03/21 07:59 36.6 C 98 H 23 132/77 04/03/21 06:56 95 H 20 Pulse Ox 04/03/21 16:36 04/03/21 15:29 90 04/03/21 12:02 90 04/03/21 09:24 04/03/21 07:59 91 04/03/21 06:56 95 Laboratory Results BMP 04/03/21 06:22 Sodium 136 Potassium 3.7 Chloride 102 Carbon Dioxide 30 BUN 16 Creatinine 0.66 Glucose 125 H Calcium 9.0 Medications Administered Current Inpatient Medications Acetaminophen (Acetaminophen 325 Mg Tab) 650 mg PO Q4H PRN PRN Reason: Pain or Fever Stop: 04/06/21 21:55 Last Admin: 04/02/21 20:51 Dose: 650 mg Documented by: Al Hydrox/Mg Hydrox/Simethicone (Aluminum/Magnesium Susp 30 Ml Udc) 15 ml PO Q4H PRN PRN Reason: Dyspepsia Stop: 04/06/21 21:55 Albuterol (Albuterol Hfa 8 Gm Inhaler) 2 puffs INH QID PRN PRN Reason: Wheezing Stop: 04/06/21 21:55 Amlodipine Besylate (Amlodipine Besylate 5 Mg Tab) 5 mg PO 1800 BROWN Stop: 04/13/21 17:59 Last Admin: 04/02/21 18:07 Dose: 5 mg Documented by: Enoxaparin Sodium (Enoxaparin Inj 40 Mg/0.4 Ml Syr) 40 mg SQ Q12H [facility] Stop: 04/06/21 21:59 Last Admin: 04/03/21 08:49 Dose: 40 mg Documented by: Guaifenesin (Guaifenesin 600 Mg Tabcr) 1,200 mg PO Q12 [facility] Stop: 04/06/21 21:55 Last Admin: 04/03/21 08:48 Dose: 1,200 mg Documented by: Promethazine HCl 12.5 mg/ (Sodium Chloride) 50.5 mls @ 202 mls/hr IV Q6H PRN PRN Reason: Nausea And Vomiting Stop: 04/23/21 13:38 Levothyroxine Sodium (Levothyroxine Sodium 100 Mcg Tablet) 100 mcg PO DAILYBB [facility] Stop: 04/07/21 08:59 Last Admin: 04/03/21 06:35 Dose: 100 mcg Documented by: Losartan Potassium (Losartan Potassium 25 Mg Tab) 25 mg PO QAM [facility] Stop: 04/24/21 08:59 Last Admin: 04/03/21 08:48 Dose: 25 mg Documented by: Magnesium Hydroxide (Magnesium Hydroxide Susp 30 Ml Udc) 30 ml PO Q12H PRN PRN Reason: Constipation Stop: 04/06/21 21:55 Magnesium Oxide (Magnesium Oxide 400 Mg Tab) 400 mg PO BID [facility] Stop: 04/24/21 09:29 Last Admin: 04/03/21 08:48 Dose: 400 mg Documented by: Melatonin (Melatonin 3 Mg Tab) 3 mg PO DAILY@1900 [facility] Stop: 04/18/21 18:59 Last Admin: 04/02/21 20:53 Dose: 3 mg Documented by: Metoprolol Tartrate (Metoprolol Tartrate 25 Mg Tab) 12.5 mg PO BID [facility] Stop: 04/26/21 00:59 Last Admin: 04/03/21 08:48 Dose: 12.5 mg Documented by: Polyethylene Glycol (Polyethylene (Miralax) 17 Gm Pack) 17 gm PO DAILY PRN PRN Reason: Constipation Stop: 04/06/21 21:55 Sodium Chloride (Sodium Chloride 0.65% Na Soln 45 Ml ([place])) 2 sprays NA TID PRN PRN Reason: Nasal Congestion Stop: 04/25/21 23:54 Last Admin: 03/31/21 09:01 Dose: 2 sprays Documented by:
[2021-04-03] MEDS: amLODIPine BESYLATE 5 MG TAB PO SCH (17:53)
--- NOTE | 2021-04-03 19:31 | XRay Report ---
SINGLE VIEW CHEST CLINICAL HISTORY: Covid pneumonia. FINDINGS: An AP, portable, upright chest radiograph is compared to study dated 03/22/2021 and correlat ed with chest CT dated 03/28/2021. The cardiomediastinal silhouette is unremarkable. Multifocal airspa ce consolidation is again seen throughout both lungs. This has worsened as compared to 03/22/2021. No large pleural effusion or pneumothorax is identified. The skeletal structures are osteopenic. The bon y thorax is grossly intact. IMPRESSION: Multifocal airspace consolidation is again seen throughout both lungs and consistent with the reported history of a viral pneumonia. This has worsened as compared to 03/22/2021. ACT 112: Negative or not required by law. Electronically signed by: Broderick Castro M.D. 04/03/2021 7:29 PM
[2021-04-03] MEDS: ACETAMINOPHEN 325 MG TAB PO PRN (20:44)
[2021-04-03] MEDS: MELATONIN 3 MG TAB PO SCH (20:45)
[2021-04-04] MEDS: LEVOTHYROXINE SODIUM 100 MCG TABLET PO SCH (05:43)
[2021-04-04] MEDS: METOPROLOL TARTRATE 25 MG TAB PO SCH ×2 (08:33→20:13)
[2021-04-04] MEDS: ENOXAPARIN INJ 40 MG/0.4 ML SYR SQ SCH ×2 (08:33→22:00)
[2021-04-04] MEDS: MAGNESIUM OXIDE 400 MG TAB PO SCH ×2 (08:33→20:12)
[2021-04-04] MEDS: LOSARTAN POTASSIUM 25 MG TAB PO SCH (08:33)
[2021-04-04] MEDS: guaiFENesin 600 MG TABCR PO SCH ×2 (08:33→20:11)
[2021-04-04] MEDS ORDERED: FUROSEMIDE 60 MG in SYRINGE 0 ML IV STA (08:35)
[2021-04-04] MEDS ORDERED: POTASSIUM CHLORIDE CRTAB 20 MEQ TABCR PO STA (08:35)
[2021-04-04] MEDS ORDERED: FUROSEMIDE 40 MG/4 ML VIAL IV STA (08:39)
--- NOTE | 2021-04-04 16:04 | Hospitalist Progress Note ---
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 She is non-smoker and socially drinks alcohol. In the ED she was hypoxic requiring 3 L of oxygen to maintain normal saturation. Chest x-ray revealed multifocal pneumonia. She was started on IV Decadron in the ED. She is not vaccinated against COVID-19. She is being managed for the following: #. Acute hypoxic respiratory failure #. Pneumonia due to COVID-19 virus Not vaccinated against Covid. Known Covid exposure with her , at presentation in the ED required 3 L of oxygen Admitting ESR 63; admitting Covid test 03/07 positive. Admitted CXR: Multifocal pneumonia secondary to COVID-19 virus infection. WBC mildly elevated, likely secondary to steroid. Pro-Sanjeev -2 times this admis karen. CRP: 03/07 11.3 downtrending to 2.69 on 03/11. C/W albuterol, Mucinex, prone position as able [she cannot tolerate prone position but has been trying to lie on her sides ] Completed course of remdesivir on 03/11. Decadron has been stopped. Appreciate pulmonary medicine input. S/p Tocilizumab on 03/09. Repeat CTA did not show any pulmonary embolism but did show progressive pneumonia bilaterally The patient can safely come out of isolation from COVID-19 infection Continue to wean off the oxygen. Encourage ambulation/incentive spirometer. Remains on 11 L of oxygen mask. Chest x-ray is looking worse and received a dose of Lasix of 60 mg with potassium supplement Condition has not been getting any better and should be referred to select facility at [place] on night of 03/24/2021 Has had QT prolongation in prior EKG Repeat EKG did not show any prolonged QT interval Appreciate cardiology input and recommendation Will keep magnesium and potassium level up-to-date. #. Mild hyponatremia - resolved Sodium level at presentation 131, had been normal after that. Check PRP tomorrow following Lasix Sodium level is 136 as of 04/03/2021 #. Hyperglycemia 03/08 A1c 6.5 Daily blood glucose level WNL Patient on steroid, continue to monitor. On SSI when needed. #. Hypertension Stable Continue with amlodipine and losartan. #. Hypothyroidism Continue home levothyroxine. #. DVT prophylaxis: Lovenox SC twice daily Disposition: Continue PCU care. PT/OT. CM to assist with DC planning. Patient can be taken off isolation but there is no bed available and has been requiring high flow oxygen to go to any medical floor Will advise window caser to refer for select care Full code Admission and Anticipated Discharge Date Admission Date: March 07, 2021 Subjective 03/08/2021 The patient was seen and examined in telemetry unit and in the Covid room She has been feeling a little better but is still requiring about 12 L of oxygen to maintain saturation Still has cough 03/09/2021 The patient was seen and examined in telemetry unit and in the Covid room She has been complaining of more shortness of breath Has been requiring 40 L of oxygen with 90% FiO2 to maintain saturation Complaints of weakness, fatigue and cough 03/10/2021 The patient was seen and examined in telemetry unit and in the Covid room She has been feeling much better today Has been requiring a little less flow rate at 35 L/min to maintain saturation Denies any chest pain or palpitation, no abdominal pain, nausea and/or vomiting or weakness 03/11/2021 The patient was seen and examined in the telemetry unit and in recovery room #[id number] Patient states that she feels like her breathing is better and that she feels like she might of turned the corner She still feels very weak and appears ill She is currently on FiO2 of 60% at 35 L/min flow with high flow oxygen She is tolerating the high flow well Patient states that she is unable to sleep in a prone position secondary to back pain No fever, chills, sweats, rigors. No nausea or vomiting. No new acute complaints 03/12/2021 The patient was seen and examined in telemetry unit and in the Covid room recovery Her condition remains stable and may be a little worse today Still requiring high flow oxygen to maintain saturation She cannot lie prone but trying to lie on sides to improve her saturation Denies any chest pain or palpitation, no fever and no chills, no abdominal pain nausea and or vomiting 03/20/2021 The patient was seen and examined in telemetry unit She has been feeling better compared with yesterday Still has shortness of breath with exertion but no respiratory distress at rest though requiring 10 L of oxygen to maintain saturation 03/21/2021 The patient was seen and examined in telemetry unit She has been feeling a little bit better Still getting short of breath with tachycardia and desaturation with minimal exertion 03/22/2021 The patient was seen and examined in telemetry unit She feels better and requiring about 10 L of oxygen to maintain saturation Still getting very short of breath with desaturation with ambulation 03/23/2021 The patient was seen and examined in telemetry unit and in Covid room She has had a rough night yesterday and required up to 15 L of oxygen to maintain saturation Feeling much better this morning and is still requiring 10 L of oxygen to maintain saturation Generalized weakness but denies any other symptoms 03/24/2021 The patient was seen and examined in telemetry unit She has had short runs of torsade last night She also required high flow oxygen last night Has been feeling a lot better since this morning 03/25/2021 The patient was seen and examined in telemetry unit She has been feeling better but still requiring 10 L oxygen to maintain saturation Getting shortness of breath with desaturation with minimal exertion 03/29/2021 The patient was seen in the telemetry unit and in the Covid room She has been feeling much better but is still requiring high flow oxygen to maintain saturation Denies any more cough and/or shortness of breath at rest 03/30/2021 The patient was seen and examined in telemetry unit and in the Covid room Her conditions has been deteriorating and has been requiring 15 L of oxygen to maintain saturation She is clinically much better though 03/31/2021 The patient was seen and examined in telemetry unit and in the Covid room She has been feeling the same, minimal symptoms at rest but gets shortness of breath with exertion 04/03/2021 The patient was seen and examined in telemetry unit and in the Covid room She has been requiring 11 to 13 L of oxygen to maintain saturation Has been feeling otherwise good at rest 04/04/2021 The patient was seen and examined in telemetry unit and in the Covid room Her condition has not improved rather it has been deteriorating She was referred to select facility Review of Systems Review of Systems: All systems reviewed and are unremarkable except as noted below Physical Exam Physical Exam: Sitting on a chair with minimal shortness of breath Constitutional: well developed, well nourished, + ill appearing and + obese Eyes: PERRL, conjunctivae normal, anicteric sclerae ENMT: external ear and nose normal, oropharynx normal Neck: trachea midline, no thyromegaly Respiratory: + respiratory distress (Mild to moderate shortness of breath at rest) and + cough Auscultation: + diminished lung sounds and + crackles (At the bases) Cardiovascular: Rate/Rhythm: regular rate and regular rhythm; not tachycardic Heart Sounds: normal S1 and normal S2; no murmur Extremities: + edema (Trace edema bilaterally) Gastrointestinal (Abdomen): Inspection/Auscultation: normal bowel sounds; abdomen not distended Percussion/Palpation: abdomen soft; abdomen nontender Skin: no rashes, warm and dry Psychiatric: A+Ox3, euthymic affect Lymphatic: no cervical or axillary lymphadenopathy Results & Data Results & Data ([facility]) Vital Signs (Past 12 Hours) Vital Signs Temp Pulse Pulse Resp BP BP Pulse Ox 04/04/21 15:44 36.8 C 109 H 18 135/81 90 04/04/21 15:26 109 H 18 92 04/04/21 12:38 109 H 22 97 04/04/21 12:27 36.4 C L 109 H 20 122/81 95 04/04/21 08:00 97 H 04/04/21 07:45 99 H 22 98 04/04/21 07:34 36.5 C 97 H 18 122/90 98 Medications Administered Current Inpatient Medications Acetaminophen (Acetaminophen 325 Mg Tab) 650 mg PO Q4H PRN PRN Reason: Pain or Fever Stop: 04/06/21 21:55 Last Admin: 04/03/21 20:44 Dose: 650 mg Documented by: Al Hydrox/Mg Hydrox/Simethicone (Aluminum/Magnesium Susp 30 Ml Udc) 15 ml PO Q4H PRN PRN Reason: Dyspepsia Stop: 04/06/21 21:55 Albuterol (Albuterol Hfa 8 Gm Inhaler) 2 puffs INH QID PRN PRN Reason: Wheezing Stop: 04/06/21 21:55 Amlodipine Besylate (Amlodipine Besylate 5 Mg Tab) 5 mg PO 1800 [facility] Stop: 04/13/21 17:59 Last Admin: 04/03/21 17:53 Dose: 5 mg Documented by: Enoxaparin Sodium (Enoxaparin Inj 40 Mg/0.4 Ml Syr) 40 mg SQ Q12H [facility] Stop: 04/06/21 21:59 Last Admin: 04/04/21 08:33 Dose: 40 mg Documented by: Guaifenesin (Guaifenesin 600 Mg Tabcr) 1,200 mg PO Q12 [facility] Stop: 04/06/21 21:55 Last Admin: 04/04/21 08:33 Dose: 1,200 mg Documented by: Promethazine HCl 12.5 mg/ (Sodium Chloride) 50.5 mls @ 202 mls/hr IV Q6H PRN PRN Reason: Nausea And Vomiting Stop: 04/23/21 13:38 Levothyroxine Sodium (Levothyroxine Sodium 100 Mcg Tablet) 100 mcg PO DAILYBB [facility] Stop: 04/07/21 08:59 Last Admin: 04/04/21 05:43 Dose: 100 mcg Documented by: Losartan Potassium (Losartan Potassium 25 Mg Tab) 25 mg PO QAM [facility] Stop: 04/24/21 08:59 Last Admin: 04/04/21 08:33 Dose: 25 mg Documented by: Magnesium Hydroxide (Magnesium Hydroxide Susp 30 Ml Udc) 30 ml PO Q12H PRN PRN Reason: Constipation Stop: 04/06/21 21:55 Magnesium Oxide (Magnesium Oxide 400 Mg Tab) 400 mg PO BID [facility] Stop: 04/24/21 09:29 Last Admin: 04/04/21 08:33 Dose: 400 mg Documented by: Melatonin (Melatonin 3 Mg Tab) 3 mg PO DAILY@1900 [facility] Stop: 04/18/21 18:59 Last Admin: 04/03/21 20:45 Dose: 3 mg Documented by: Metoprolol Tartrate (Metoprolol Tartrate 25 Mg Tab) 12.5 mg PO BID [facility] Stop: 04/26/21 00:59 Last Admin: 04/04/21 08:33 Dose: 12.5 mg Documented by: Polyethylene Glycol (Polyethylene (Miralax) 17 Gm Pack) 17 gm PO DAILY PRN PRN Reason: Constipation Stop: 04/06/21 21:55 Sodium Chloride (Sodium Chloride 0.65% Na Soln 45 Ml ([place])) 2 sprays NA TID PRN PRN Reason: Nasal Congestion Stop: 04/25/21 23:54 Last Admin: 03/31/21 09:01 Dose: 2 sprays Documented by:
[2021-04-04] MEDS: amLODIPine BESYLATE 5 MG TAB PO SCH (17:44)
[2021-04-04] MEDS: ACETAMINOPHEN 325 MG TAB PO PRN (20:12)
[2021-04-04] MEDS: MELATONIN 3 MG TAB PO SCH (20:15)
[2021-04-05 06:27] LABS: BUN Creatinine Ratio 21.7 (10-20); Calcium 9.1 mg/dl (8.5-10.1); Creatinine Clr Calc Pharmacy 66.7 ml/min; Est GFR (African American) 89.3 ml/min; Magnesium 2.4 mg/dl (1.8-2.4); Phosphorus 4.8 mg/dl (2.5-4.9); Potassium 3.9 mmol/L (3.5-5.1)
[2021-04-05] MEDS: LEVOTHYROXINE SODIUM 100 MCG TABLET PO SCH (06:29)
[2021-04-05] MEDS: MAGNESIUM OXIDE 400 MG TAB PO SCH ×2 (09:09→20:48)
[2021-04-05] MEDS: guaiFENesin 600 MG TABCR PO SCH ×2 (09:09→20:48)
[2021-04-05] MEDS: LOSARTAN POTASSIUM 25 MG TAB PO SCH (09:09)
[2021-04-05] MEDS: METOPROLOL TARTRATE 25 MG TAB PO SCH ×2 (09:09→20:46)
[2021-04-05] MEDS: ENOXAPARIN INJ 40 MG/0.4 ML SYR SQ SCH ×2 (10:37→20:48)
--- NOTE | 2021-04-05 15:14 | Hospitalist Progress Note ---
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 She is non-smoker and socially drinks alcohol. In the ED she was hypoxic requiring 3 L of oxygen to maintain normal saturation. Chest x-ray revealed multifocal pneumonia. She was started on IV Decadron in the ED. She is not vaccinated against COVID-19. She is being managed for the following: #. Acute hypoxic respiratory failure #. Pneumonia due to COVID-19 virus Not vaccinated against Covid. Known Covid exposure with her , at presentation in the ED required 3 L of oxygen Admitting ESR 63; admitting Covid test 03/07 positive. Admitted CXR: Multifocal pneumonia secondary to COVID-19 virus infection. WBC mildly elevated, likely secondary to steroid. Pro-Sanjeev -2 times this admis karen. CRP: 03/07 11.3 downtrending to 2.69 on 03/11. C/W albuterol, Mucinex, prone position as able [she cannot tolerate prone position but has been trying to lie on her sides ] Completed course of remdesivir on 03/11. Decadron has been stopped. Appreciate pulmonary medicine input. S/p Tocilizumab on 03/09. Repeat CTA did not show any pulmonary embolism but did show progressive pneumonia bilaterally The patient can safely come out of isolation from COVID-19 infection Continue to wean off the oxygen. Encourage ambulation/incentive spirometer. Remains on 11 L of oxygen mask. Chest x-ray is looking worse and received a dose of Lasix of 60 mg with potassium supplement Asymptomatic at rest, shortness of breath with desaturation and tachycardia with any exertion Referred to select facility at [place] for approval Torsade on night of 03/24/2021 Has had QT prolongation in prior EKG Repeat EKG did not show any prolonged QT interval Appreciate cardiology input and recommendation Will keep magnesium and potassium level up-to-date. #. Mild hyponatremia - resolved Sodium level at presentation 131, had been normal after that. Check PRP tomorrow following Lasix Sodium level is 136 as of 04/03/2021 #. Hyperglycemia 03/08 A1c 6.5 Daily blood glucose level WNL Patient on steroid, continue to monitor. On SSI when needed. #. Hypertension Stable Continue with amlodipine and losartan. #. Hypothyroidism Continue home levothyroxine. #. DVT prophylaxis: Lovenox SC twice daily Disposition: Continue PCU care. PT/OT. CM to assist with DC planning. Patient can be taken off isolation but there is no bed available and has been requiring high flow oxygen to go to any medical floor Will advise case assembler to refer for select care Full code Admission and Anticipated Discharge Date Admission Date: March 07, 2021 Subjective 03/08/2021 The patient was seen and examined in telemetry unit and in the Covid room She has been feeling a little better but is still requiring about 12 L of oxygen to maintain saturation Still has cough 03/09/2021 The patient was seen and examined in telemetry unit and in the Covid room She has been complaining of more shortness of breath Has been requiring 40 L of oxygen with 90% FiO2 to maintain saturation Complaints of weakness, fatigue and cough 03/10/2021 The patient was seen and examined in telemetry unit and in the Covid room She has been feeling much better today Has been requiring a little less flow rate at 35 L/min to maintain saturation Denies any chest pain or palpitation, no abdominal pain, nausea and/or vomiting or weakness 03/11/2021 The patient was seen and examined in the telemetry unit and in recovery room #[id number] Patient states that she feels like her breathing is better and that she feels like she might of turned the corner She still feels very weak and appears ill She is currently on FiO2 of 60% at 35 L/min flow with high flow oxygen She is tolerating the high flow well Patient states that she is unable to sleep in a prone position secondary to back pain No fever, chills, sweats, rigors. No nausea or vomiting. No new acute complaints 03/12/2021 The patient was seen and examined in telemetry unit and in the Covid room recovery Her condition remains stable and may be a little worse today Still requiring high flow oxygen to maintain saturation She cannot lie prone but trying to lie on sides to improve her saturation Denies any chest pain or palpitation, no fever and no chills, no abdominal pain nausea and or vomiting 03/20/2021 The patient was seen and examined in telemetry unit She has been feeling better compared with yesterday Still has shortness of breath with exertion but no respiratory distress at rest though requiring 10 L of oxygen to maintain saturation 03/21/2021 The patient was seen and examined in telemetry unit She has been feeling a little bit better Still getting short of breath with tachycardia and desaturation with minimal exertion 03/22/2021 The patient was seen and examined in telemetry unit She feels better and requiring about 10 L of oxygen to maintain saturation Still getting very short of breath with desaturation with ambulation 03/23/2021 The patient was seen and examined in telemetry unit and in Covid room She has had a rough night yesterday and required up to 15 L of oxygen to maintain saturation Feeling much better this morning and is still requiring 10 L of oxygen to maintain saturation Generalized weakness but denies any other symptoms 03/24/2021 The patient was seen and examined in telemetry unit She has had short runs of torsade last night She also required high flow oxygen last night Has been feeling a lot better since this morning 03/25/2021 The patient was seen and examined in telemetry unit She has been feeling better but still requiring 10 L oxygen to maintain saturation Getting shortness of breath with desaturation with minimal exertion 03/29/2021 The patient was seen in the telemetry unit and in the Covid room She has been feeling much better but is still requiring high flow oxygen to maintain saturation Denies any more cough and/or shortness of breath at rest 03/30/2021 The patient was seen and examined in telemetry unit and in the Covid room Her conditions has been deteriorating and has been requiring 15 L of oxygen to maintain saturation She is clinically much better though 03/31/2021 The patient was seen and examined in telemetry unit and in the Covid room She has been feeling the same, minimal symptoms at rest but gets shortness of breath with exertion 04/03/2021 The patient was seen and examined in telemetry unit and in the Covid room She has been requiring 11 to 13 L of oxygen to maintain saturation Has been feeling otherwise good at rest 04/04/2021 The patient was seen and examined in telemetry unit and in the Covid room Her condition has not improved rather it has been deteriorating She was referred to select facility 04/05/2021 The patient was seen and examined in telemetry unit and in the Covid room Her condition has not been improving Still requiring high flow oxygen to maintain saturation She denies any symptoms at rest Review of Systems Review of Systems: All systems reviewed and are unremarkable except as noted below Respiratory: Moderate shortness of breath at rest Physical Exam Physical Exam: Sitting on a chair with minimal shortness of breath Constitutional: well developed, well nourished, + ill appearing and + obese Eyes: PERRL, conjunctivae normal, anicteric sclerae ENMT: external ear and nose normal, oropharynx normal Neck: trachea midline, no thyromegaly Respiratory: + cough; no respiratory distress (Mild to moderate shortness of breath at rest) Auscultation: + diminished lung sounds; no crackles (At the bases) Cardiovascular: Rate/Rhythm: regular rate and regular rhythm; not tachycardic Heart Sounds: normal S1 and normal S2; no murmur Extremities: + edema (Trace edema bilaterally) Gastrointestinal (Abdomen): Inspection/Auscultation: normal bowel sounds; abdomen not distended Percussion/Palpation: abdomen soft; abdomen nontender Skin: no rashes, warm and dry Psychiatric: A+Ox3, euthymic affect Lymphatic: no cervical or axillary lymphadenopathy Results & Data Results & Data ([facility]) Vital Signs (Past 12 Hours) Vital Signs Temp Pulse Pulse Resp BP Pulse Ox 04/05/21 14:10 105 H 24 94 04/05/21 11:35 108 H 19 97 04/05/21 11:18 36.8 C 99 H 21 126/70 96 04/05/21 07:33 36.9 C 89 18 133/71 97 04/05/21 05:53 88 26 H 98 04/05/21 03:15 100 H 20 91 Laboratory Results [facility] 04/05/21 05:35 Sodium 134 L Potassium 3.9 Chloride 101 Carbon Dioxide 30 BUN 17 Creatinine 0.78 Glucose 136 H Calcium 9.1 Medications Administered Current Inpatient Medications Acetaminophen (Acetaminophen 325 Mg Tab) 650 mg PO Q4H PRN PRN Reason: Pain or Fever Stop: 04/06/21 21:55 Last Admin: 04/04/21 20:12 Dose: 650 mg Documented by: Al Hydrox/Mg Hydrox/Simethicone (Aluminum/Magnesium Susp 30 Ml Udc) 15 ml PO Q4H PRN PRN Reason: Dyspepsia Stop: 04/06/21 21:55 Albuterol (Albuterol Hfa 8 Gm Inhaler) 2 puffs INH QID PRN PRN Reason: Wheezing Stop: 04/06/21 21:55 Amlodipine Besylate (Amlodipine Besylate 5 Mg Tab) 5 mg PO 1800 [facility] Stop: 04/13/21 17:59 Last Admin: 04/04/21 17:44 Dose: 5 mg Documented by: Enoxaparin Sodium (Enoxaparin Inj 40 Mg/0.4 Ml Syr) 40 mg SQ Q12H [facility] Stop: 04/06/21 21:59 Last Admin: 04/05/21 10:37 Dose: 40 mg Documented by: Guaifenesin (Guaifenesin 600 Mg Tabcr) 1,200 mg PO Q12 [facility] Stop: 04/06/21 21:55 Last Admin: 04/05/21 09:09 Dose: 1,200 mg Documented by: Promethazine HCl 12.5 mg/ (Sodium Chloride) 50.5 mls @ 202 mls/hr IV Q6H PRN PRN Reason: Nausea And Vomiting Stop: 04/23/21 13:38 Levothyroxine Sodium (Levothyroxine Sodium 100 Mcg Tablet) 100 mcg PO DAILYBB [facility] Stop: 04/07/21 08:59 Last Admin: 04/05/21 06:29 Dose: 100 mcg Documented by: Losartan Potassium (Losartan Potassium 25 Mg Tab) 25 mg PO QAM [facility] Stop: 04/24/21 08:59 Last Admin: 04/05/21 09:09 Dose: 25 mg Documented by: Magnesium Hydroxide (Magnesium Hydroxide Susp 30 Ml Udc) 30 ml PO Q12H PRN PRN Reason: Constipation Stop: 04/06/21 21:55 Magnesium Oxide (Magnesium Oxide 400 Mg Tab) 400 mg PO BID [facility] Stop: 04/24/21 09:29 Last Admin: 04/05/21 09:09 Dose: 400 mg Documented by: Melatonin (Melatonin 3 Mg Tab) 3 mg PO DAILY@1900 [facility] Stop: 04/18/21 18:59 Last Admin: 04/04/21 20:15 Dose: 3 mg Documented by: Metoprolol Tartrate (Metoprolol Tartrate 25 Mg Tab) 12.5 mg PO BID [facility] Stop: 04/26/21 00:59 Last Admin: 04/05/21 09:09 Dose: 12.5 mg Documented by: Polyethylene Glycol (Polyethylene (Miralax) 17 Gm Pack) 17 gm PO DAILY PRN PRN Reason: Constipation Stop: 04/06/21 21:55 Sodium Chloride (Sodium Chloride 0.65% Na Soln 45 Ml ([place])) 2 sprays NA TID PRN PRN Reason: Nasal Congestion Stop: 04/25/21 23:54 Last Admin: 03/31/21 09:01 Dose: 2 sprays Documented by:
[2021-04-05] MEDS: amLODIPine BESYLATE 5 MG TAB PO SCH (17:21)
[2021-04-05] MEDS: MELATONIN 3 MG TAB PO SCH (20:48)
[2021-04-05] MEDS: ACETAMINOPHEN 325 MG TAB PO PRN (20:48)
[2021-04-06] MEDS: LEVOTHYROXINE SODIUM 100 MCG TABLET PO SCH (07:01)
[2021-04-06 08:00] LABS: BUN Creatinine Ratio 22.1 (10-20); Calcium 9.3 mg/dl (8.5-10.1); Creatinine Clr Calc Pharmacy 74.1 ml/min; Est GFR (African American) 98.3 ml/min; Est GFR (Non-African American) 84.9 ml/min
[2021-04-06] MEDS: LOSARTAN POTASSIUM 25 MG TAB PO SCH (08:12)
[2021-04-06] MEDS: METOPROLOL TARTRATE 25 MG TAB PO SCH ×2 (08:12→21:43)
[2021-04-06] MEDS: guaiFENesin 600 MG TABCR PO SCH ×2 (08:13→21:44)
[2021-04-06] MEDS: ENOXAPARIN INJ 40 MG/0.4 ML SYR SQ SCH (08:13)
[2021-04-06] MEDS: MAGNESIUM OXIDE 400 MG TAB PO SCH ×2 (09:48→21:43)
--- NOTE | 2021-04-06 14:14 | Hospitalist Progress Note ---
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 She is non-smoker and socially drinks alcohol. In the ED she was hypoxic requiring 3 L of oxygen to maintain normal saturation. Chest x-ray revealed multifocal pneumonia. She was started on IV Decadron in the ED. She is not vaccinated against COVID-19. She is being managed for the following: #. Acute hypoxic respiratory failure #. Pneumonia due to COVID-19 virus Not vaccinated against Covid. Known Covid exposure with her , at presentation in the ED required 3 L of oxygen Admitting ESR 63; admitting Covid test 03/07 positive. Admitted CXR: Multifocal pneumonia secondary to COVID-19 virus infection. WBC mildly elevated, likely secondary to steroid. Pro-Sanjeev -2 times this admis karen. CRP: 03/07 11.3 downtrending to 2.69 on 03/11. C/W albuterol, Mucinex, prone position as able [she cannot tolerate prone position but has been trying to lie on her sides ] Completed course of remdesivir on 03/11. Decadron has been stopped. Appreciate pulmonary medicine input. S/p Tocilizumab on 03/09. Repeat CTA did not show any pulmonary embolism but did show progressive pneumonia bilaterally The patient can safely come out of isolation from COVID-19 infection Continue to wean off the oxygen. Encourage ambulation/incentive spirometer. Remains on 11 L of oxygen mask. Chest x-ray is looking worse and received a dose of Lasix of 60 mg with potassium supplement Asymptomatic at rest, shortness of breath with desaturation and tachycardia with any exertion Referred to select facility at [place] for approval Condition remains stable and may be clinically slightly better Torsade on night of 03/24/2021 Has had QT prolongation in prior EKG Repeat EKG did not show any prolonged QT interval Appreciate cardiology input and recommendation Will keep magnesium and potassium level up-to-date. #. Mild hyponatremia - resolved Sodium level at presentation 131, had been normal after that. Check PRP tomorrow following Lasix Sodium level is 136 as of 04/03/2021 Sodium level remains stable at 137 on 04/06/2021 #. Hyperglycemia 03/08 A1c 6.5 Daily blood glucose level WNL Patient on steroid, continue to monitor. On SSI when needed. #. Hypertension Stable Continue with amlodipine and losartan. #. Hypothyroidism Continue home levothyroxine. #. DVT prophylaxis: Lovenox SC twice daily Disposition: Continue PCU care. PT/OT. CM to assist with DC planning. Patient can be taken off isolation but there is no bed available and has been requiring high flow oxygen to go to any medical floor Will advise transplant case manager to refer for select care Full code Admission and Anticipated Discharge Date Admission Date: March 07, 2021 Subjective 03/08/2021 The patient was seen and examined in telemetry unit and in the Covid room She has been feeling a little better but is still requiring about 12 L of oxygen to maintain saturation Still has cough 03/09/2021 The patient was seen and examined in telemetry unit and in the Covid room She has been complaining of more shortness of breath Has been requiring 40 L of oxygen with 90% FiO2 to maintain saturation Complaints of weakness, fatigue and cough 03/10/2021 The patient was seen and examined in telemetry unit and in the Covid room She has been feeling much better today Has been requiring a little less flow rate at 35 L/min to maintain saturation Denies any chest pain or palpitation, no abdominal pain, nausea and/or vomiting or weakness 03/11/2021 The patient was seen and examined in the telemetry unit and in recovery room #208 Patient states that she feels like her breathing is better and that she feels like she might of turned the corner She still feels very weak and appears ill She is currently on FiO2 of 60% at 35 L/min flow with high flow oxygen She is tolerating the high flow well Patient states that she is unable to sleep in a prone position secondary to back pain No fever, chills, sweats, rigors. No nausea or vomiting. No new acute complaints 03/12/2021 The patient was seen and examined in telemetry unit and in the Covid room jessy thakur Her condition remains stable and may be a little worse today Still requiring high flow oxygen to maintain saturation She cannot lie prone but trying to lie on sides to improve her saturation Denies any chest pain or palpitation, no fever and no chills, no abdominal pain nausea and or vomiting 03/20/2021 The patient was seen and examined in telemetry unit She has been feeling better compared with yesterday Still has shortness of breath with exertion but no respiratory distress at rest though requiring 10 L of oxygen to maintain saturation 03/21/2021 The patient was seen and examined in telemetry unit She has been feeling a little bit better Still getting short of breath with tachycardia and desaturation with minimal exertion 03/22/2021 The patient was seen and examined in telemetry unit She feels better and requiring about 10 L of oxygen to maintain saturation Still getting very short of breath with desaturation with ambulation 03/23/2021 The patient was seen and examined in telemetry unit and in Covid room She has had a rough night yesterday and required up to 15 L of oxygen to maintain saturation Feeling much better this morning and is still requiring 10 L of oxygen to maintain saturation Generalized weakness but denies any other symptoms 03/24/2021 The patient was seen and examined in telemetry unit She has had short runs of torsade last night She also required high flow oxygen last night Has been feeling a lot better since this morning 03/25/2021 The patient was seen and examined in telemetry unit She has been feeling better but still requiring 10 L oxygen to maintain saturation Getting shortness of breath with desaturation with minimal exertion 03/29/2021 The patient was seen in the telemetry unit and in the Covid room She has been feeling much better but is still requiring high flow oxygen to maintain saturation Denies any more cough and/or shortness of breath at rest 03/30/2021 The patient was seen and examined in telemetry unit and in the Covid room Her conditions has been deteriorating and has been requiring 15 L of oxygen to maintain saturation She is clinically much better though 03/31/2021 The patient was seen and examined in telemetry unit and in the Covid room She has been feeling the same, minimal symptoms at rest but gets shortness of breath with exertion 04/03/2021 The patient was seen and examined in telemetry unit and in the Covid room She has been requiring 11 to 13 L of oxygen to maintain saturation Has been feeling otherwise good at rest 04/04/2021 The patient was seen and examined in telemetry unit and in the Covid room Her condition has not improved rather it has been deteriorating She was referred to select facility 04/05/2021 The patient was seen and examined in telemetry unit and in the Covid room Her condition has not been improving Still requiring high flow oxygen to maintain saturation She denies any symptoms at rest 04/06/2021 The patient was seen and examined in telemetry unit and in Covid room Her condition has not been improving though there is some clinical improvement She gets very short of breath with tachycardia with minimal exertion Review of Systems Review of Systems: All systems reviewed and are unremarkable except as noted below Respiratory: Moderate shortness of breath at rest Physical Exam Physical Exam: Sitting on a chair with minimal shortness of breath Constitutional: well developed, well nourished, + ill appearing and + obese Eyes: PERRL, conjunctivae normal, anicteric sclerae ENMT: external ear and nose normal, oropharynx normal Neck: trachea midline, no thyromegaly Respiratory: + cough; no respiratory distress (Mild to moderate shortness of breath at rest) Auscultation: + diminished lung sounds; no crackles (At the bases) Cardiovascular: Rate/Rhythm: regular rate and regular rhythm; not tachycardic Heart Sounds: normal S1 and normal S2; no murmur Extremities: + edema (Trace edema bilaterally) Gastrointestinal (Abdomen): Inspection/Auscultation: normal bowel sounds; abdomen not distended Percussion/Palpation: abdomen soft; abdomen nontender Skin: no rashes, warm and dry Psychiatric: A+Ox3, euthymic affect Lymphatic: no cervical or axillary lymphadenopathy Results & Data Results & Data ([facility]) Vital Signs (Past 12 Hours) Vital Signs Temp Pulse Pulse Resp BP BP Pulse Ox 04/06/21 11:59 98 H 18 92 04/06/21 07:00 36.9 C 93 H 24 130/80 98 04/06/21 06:22 94 H 22 95 04/06/21 05:34 36.5 C 93 H 16 132/81 96 04/06/21 02:35 87 22 90 Laboratory Results [facility] 04/06/21 06:44 Sodium 137 Potassium 4.0 Chloride 102 Carbon Dioxide 29 BUN 16 Creatinine 0.72 Glucose 123 H Calcium 9.3 Medications Administered Current Inpatient Medications Acetaminophen (Acetaminophen 325 Mg Tab) 650 mg PO Q4H PRN PRN Reason: Pain or Fever Stop: 04/06/21 21:55 Last Admin: 04/05/21 20:48 Dose: 650 mg Documented by: Al Hydrox/Mg Hydrox/Simethicone (Aluminum/Magnesium Susp 30 Ml Udc) 15 ml PO Q4H PRN PRN Reason: Dyspepsia Stop: 04/06/21 21:55 Albuterol (Albuterol Hfa 8 Gm Inhaler) 2 puffs INH QID PRN PRN Reason: Wheezing Stop: 04/06/21 21:55 Amlodipine Besylate (Amlodipine Besylate 5 Mg Tab) 5 mg PO 1800 [facility] Stop: 04/13/21 17:59 Last Admin: 04/05/21 17:21 Dose: 5 mg Documented by: Enoxaparin Sodium (Enoxaparin Inj 40 Mg/0.4 Ml Syr) 40 mg SQ Q12H [facility] Stop: 04/06/21 21:59 Last Admin: 04/06/21 08:13 Dose: 40 mg Documented by: Guaifenesin (Guaifenesin 600 Mg Tabcr) 1,200 mg PO Q12 [facility] Stop: 04/06/21 21:55 Last Admin: 04/06/21 08:13 Dose: 1,200 mg Documented by: Promethazine HCl 12.5 mg/ (Sodium Chloride) 50.5 mls @ 202 mls/hr IV Q6H PRN PRN Reason: Nausea And Vomiting Stop: 04/23/21 13:38 Levothyroxine Sodium (Levothyroxine Sodium 100 Mcg Tablet) 100 mcg PO DAILYBB [facility] Stop: 04/07/21 08:59 Last Admin: 04/06/21 07:01 Dose: 100 mcg Documented by: Losartan Potassium (Losartan Potassium 25 Mg Tab) 25 mg PO QAM [facility] Stop: 04/24/21 08:59 Last Admin: 04/06/21 08:12 Dose: 25 mg Documented by: Magnesium Hydroxide (Magnesium Hydroxide Susp 30 Ml Udc) 30 ml PO Q12H PRN PRN Reason: Constipation Stop: 04/06/21 21:55 Magnesium Oxide (Magnesium Oxide 400 Mg Tab) 400 mg PO BID [facility] Stop: 04/24/21 09:29 Last Admin: 04/06/21 09:48 Dose: 400 mg Documented by: Melatonin (Melatonin 3 Mg Tab) 3 mg PO DAILY@1900 [facility] Stop: 04/18/21 18:59 Last Admin: 04/05/21 20:48 Dose: 3 mg Documented by: Metoprolol Tartrate (Metoprolol Tartrate 25 Mg Tab) 12.5 mg PO BID [facility] Stop: 04/26/21 00:59 Last Admin: 04/06/21 08:12 Dose: 12.5 mg Documented by: Polyethylene Glycol (Polyethylene (Miralax) 17 Gm Pack) 17 gm PO DAILY PRN PRN Reason: Constipation Stop: 04/06/21 21:55 Sodium Chloride (Sodium Chloride 0.65% Na Soln 45 Ml ([place])) 2 sprays NA TID PRN PRN Reason: Nasal Congestion Stop: 04/25/21 23:54 Last Admin: 03/31/21 09:01 Dose: 2 sprays Documented by:
[2021-04-06] MEDS: amLODIPine BESYLATE 5 MG TAB PO SCH (18:52)
[2021-04-06] MEDS: ACETAMINOPHEN 325 MG TAB PO PRN (21:44)
[2021-04-06] MEDS: MELATONIN 3 MG TAB PO SCH (21:44)
[2021-04-07] MEDS: LEVOTHYROXINE SODIUM 100 MCG TABLET PO SCH (05:59)
[2021-04-07 07:33] LABS: Basophils # (auto) 0.05 K/uL (0-0.2); Basophils % (auto) 0.6 %; Eosinophils # (auto) 0.66 K/uL (0-0.5); Eosinophils % (auto) 7.6 %; Hematocrit (blood only) 31.7 % (37-47); Hemoglobin 10.6 g/dL (12.0-16.0); Immature Granulocytes # (auto) 0.09 K/uL (0.00-0.02); Lymphocytes # (auto) 2.06 K/uL (1.2-3.4); Lymphocytes % (auto) 23.8 %; Mean Corpuscular Hemoglobin 31.6 pg (25-34); Mean Corpuscular Hgb Conc 33.4 g/dL (32-36); Mean Corpuscular Volume 94.6 fL (80-100); Mean Platelet Volume 10.2 fL (7.4-10.4); Monocytes # (auto) 1.01 K/uL (0.11-0.59); Monocytes % (auto) 11.7 %; Neutrophils # (auto) 4.79 K/uL (1.4-6.5); Neutrophils % (auto) 55.3 %; Platelet Count 255 K/uL (130-400); RDW Coefficient of Variation 15.1 % (11.5-14.5); RDW Standard Deviation 51.7 fL (36.4-46.3); Red Blood Count 3.35 M/uL (4.2-5.4); White Blood Count 8.66 K/uL (4.8-10.8)
[2021-04-07 07:54] LABS: BUN Creatinine Ratio 23.2 (10-20); Est GFR (Non-African American) 86.3 ml/min; Magnesium 2.3 mg/dl (1.8-2.4); Potassium 4.2 mmol/L (3.5-5.1)
[2021-04-07 07:58] LABS: Phosphorus 4.2 mg/dl (2.5-4.9)
[2021-04-07] MEDS: METOPROLOL TARTRATE 25 MG TAB PO SCH ×2 (08:49→20:34)
[2021-04-07] MEDS: MAGNESIUM OXIDE 400 MG TAB PO SCH ×2 (08:52→20:44)
[2021-04-07] MEDS: LOSARTAN POTASSIUM 25 MG TAB PO SCH (08:52)
[2021-04-07] MEDS ORDERED: FUROSEMIDE 40 MG in SYRINGE 0 ML IV ONE (13:40)
[2021-04-07] MEDS ORDERED: FUROSEMIDE 40 MG/4 ML VIAL IV ONE (13:45)
--- NOTE | 2021-04-07 15:10 | Hospitalist Progress Note ---
Date of Service April 07, 2021 Assessment & Plan (1) Acute respiratory failure with hypoxia: (2) Pneumonia due to COVID-19 virus: Plan: 70-year-old female with PMH of hypothyroidism, HLD, morbid obesity presented to our ED 03/07 with weakness and cough x1 week [employer]. 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 She is non-smoker and socially drinks alcohol. In the ED she was hypoxic requiring 3 L of oxygen to maintain normal saturation. Chest x-ray revealed multifocal pneumonia. She was started on IV Decadron in the ED. She is not vaccinated against COVID-19. She is being managed for the following: #. Acute hypoxic respiratory failure #. Pneumonia due to COVID-19 virus Not vaccinated against Covid. Known Covid exposure with her , at presentation in the ED required 3 L of oxygen Admitting ESR 63; admitting Covid test 03/07 positive. Admitted CXR: Multifocal pneumonia secondary to COVID-19 virus infection. WBC mildly elevated, likely secondary to steroid. Pro-Sanjeev -2 times this admis karen. CRP: 03/07 11.3 downtrending to 2.69 on 03/11. C/W albuterol, Mucinex, prone position as able [she cannot tolerate prone position but has been trying to lie on her sides ] Completed course of remdesivir on 03/11. Decadron has been stopped. Appreciate pulmonary medicine input. S/p Tocilizumab on 03/09. Repeat CTA did not show any pulmonary embolism but did show progressive pneumonia bilaterally The patient can safely come out of isolation from COVID-19 infection Continue to wean off the oxygen. Encourage ambulation/incentive spirometer. Remains on 11 L of oxygen mask. Chest x-ray is looking worse and received a dose of Lasix of 60 mg with potassium supplement Asymptomatic at rest, shortness of breath with desaturation and tachycardia with any exertion Still requiring a flow rate of 30 L/min with FiO2 of 70% to maintain saturation at rest Has been waiting to go to select facility in [place] if accepted Torsade on night of 03/24/2021 Has had QT prolongation in prior EKG Repeat EKG did not show any prolonged QT interval Appreciate cardiology input and recommendation Will keep magnesium and potassium level up-to-date. No more cardiac arrhythmias #. Mild hyponatremia - resolved Sodium level at presentation 131, had been normal after that. Check PRP tomorrow following Lasix Sodium level is 136 as of 04/03/2021 Sodium level remains stable at 137 on 04/06/2021 #. Hyperglycemia 03/08 A1c 6.5 Daily blood glucose level WNL Patient on steroid, continue to monitor. On SSI when needed. #. Hypertension Stable Continue with amlodipine and losartan. #. Hypothyroidism Continue home levothyroxine. #. DVT prophylaxis: Lovenox SC twice daily Disposition: Continue PCU care. PT/OT. CM to assist with DC planning. Patient can be taken off isolation but there is no bed available and has been requiring high flow oxygen to go to any medical floor Has been referred to [facility] will hear from them on March Full code Admission and Anticipated Discharge Date Admission Date: March 07, 2021 Subjective 03/08/2021 The patient was seen and examined in telemetry unit and in the Covid room She has been feeling a little better but is still requiring about 12 L of oxygen to maintain saturation Still has cough 03/09/2021 The patient was seen and examined in telemetry unit and in the Covid room She has been complaining of more shortness of breath Has been requiring 40 L of oxygen with 90% FiO2 to maintain saturation Complaints of weakness, fatigue and cough 03/10/2021 The patient was seen and examined in telemetry unit and in the Covid room She has been feeling much better today Has been requiring a little less flow rate at 35 L/min to maintain saturation Denies any chest pain or palpitation, no abdominal pain, nausea and/or vomiting or weakness 03/11/2021 The patient was seen and examined in the telemetry unit and in recovery room #208 Patient states that she feels like her breathing is better and that she feels like she might of turned the corner She still feels very weak and appears ill She is currently on FiO2 of 60% at 35 L/min flow with high flow oxygen She is tolerating the high flow well Patient states that she is unable to sleep in a prone position secondary to back pain No fever, chills, sweats, rigors. No nausea or vomiting. No new acute complaints 03/12/2021 The patient was seen and examined in telemetry unit and in the Covid room recovery Her condition remains stable and may be a little worse today Still requiring high flow oxygen to maintain saturation She cannot lie prone but trying to lie on sides to improve her saturation Denies any chest pain or palpitation, no fever and no chills, no abdominal pain nausea and or vomiting 03/20/2021 The patient was seen and examined in telemetry unit She has been feeling better compared with yesterday Still has shortness of breath with exertion but no respiratory distress at rest though requiring 10 L of oxygen to maintain saturation 03/21/2021 The patient was seen and examined in telemetry unit She has been feeling a little bit better Still getting short of breath with tachycardia and desaturation with minimal exertion 03/22/2021 The patient was seen and examined in telemetry unit She feels better and requiring about 10 L of oxygen to maintain saturation Still getting very short of breath with desaturation with ambulation 03/23/2021 The patient was seen and examined in telemetry unit and in Covid room She has had a rough night yesterday and required up to 15 L of oxygen to maintain saturation Feeling much better this morning and is still requiring 10 L of oxygen to maintain saturation Generalized weakness but denies any other symptoms 03/24/2021 The patient was seen and examined in telemetry unit She has had short runs of torsade last night She also required high flow oxygen last night Has been feeling a lot better since this morning 03/25/2021 The patient was seen and examined in telemetry unit She has been feeling better but still requiring 10 L oxygen to maintain saturation Getting shortness of breath with desaturation with minimal exertion 03/29/2021 The patient was seen in the telemetry unit and in the Covid room She has been feeling much better but is still requiring high flow oxygen to maintain saturation Denies any more cough and/or shortness of breath at rest 03/30/2021 The patient was seen and examined in telemetry unit and in the Covid room Her conditions has been deteriorating and has been requiring 15 L of oxygen to maintain saturation She is clinically much better though 03/31/2021 The patient was seen and examined in telemetry unit and in the Covid room She has been feeling the same, minimal symptoms at rest but gets shortness of breath with exertion 04/03/2021 The patient was seen and examined in telemetry unit and in the Covid room She has been requiring 11 to 13 L of oxygen to maintain saturation Has been feeling otherwise good at rest 04/04/2021 The patient was seen and examined in telemetry unit and in the Covid room Her condition has not improved rather it has been deteriorating She was referred to select facility 04/05/2021 The patient was seen and examined in telemetry unit and in the Covid room Her condition has not been improving Still requiring high flow oxygen to maintain saturation She denies any symptoms at rest 04/06/2021 The patient was seen and examined in telemetry unit and in Covid room Her condition has not been improving though there is some clinical improvement She gets very short of breath with tachycardia with minimal exertion 04/07/2021 The patient was seen and examined in telemetry unit and in Covid room She has been feeling much better at rest but gets very short of breath with desaturation and tachycardia with minimal exertion Denies any chest pain or palpitation, no nausea and or vomiting Review of Systems Review of Systems: All systems reviewed and are unremarkable except as noted below Respiratory: Moderate shortness of breath at rest Physical Exam Physical Exam: Sitting on a chair with minimal shortness of breath Constitutional: well developed, well nourished, + ill appearing and + obese Eyes: PERRL, conjunctivae normal, anicteric sclerae ENMT: external ear and nose normal, oropharynx normal Neck: trachea midline, no thyromegaly Respiratory: + cough; no respiratory distress (Mild to moderate shortness of breath at rest) Auscultation: + diminished lung sounds; no crackles (At the bases) Cardiovascular: Rate/Rhythm: regular rate and regular rhythm; not tachycardic Heart Sounds: normal S1 and normal S2; no murmur Extremities: + edema (Trac e edema bilaterally) Gastrointestinal (Abdomen): Inspection/Auscultation: normal bowel sounds; abdomen not distended Percussion/Palpation: abdomen soft; abdomen nontender Skin: no rashes, warm and dry Psychiatric: A+Ox3, euthymic affect Lymphatic: no cervical or axillary lymphadenopathy Results & Data Results & Data ([facility]) Vital Signs (Past 12 Hours) Vital Signs Temp Pulse Pulse Resp BP BP Pulse Ox 04/07/21 14:18 92 04/07/21 14:00 88 L 04/07/21 11:25 97 H 20 89 L 04/07/21 07:00 37 C 93 H 92 H 26 H 125/72 96 04/07/21 06:19 99 H 20 92 04/07/21 04:16 36.6 C 90 18 115/70 97 04/07/21 03:40 89 22 96 Laboratory Results Short CBC 04/07/21 Range/Units 06:00 WBC 8.66 (4.8-10.8) K/uL Hgb 10.6 L (12.0-16.0) g/dL Hct 31.7 L (37-47) % Plt Count 255 (130-400) K/uL BMP 04/07/21 06:00 Sodium 136 Potassium 4.2 Chloride 103 Carbon Dioxide 30 BUN 17 Creatinine 0.71 Glucose 122 H Calcium 9.0 Medications Administered Current Inpatient Medications Amlodipine Besylate (Amlodipine Besylate 5 Mg Tab) 5 mg PO 1800 [facility] Stop: 04/13/21 17:59 Last Admin: 04/06/21 18:52 Dose: 5 mg Documented by: Promethazine HCl 12.5 mg/ (Sodium Chloride) 50.5 mls @ 202 mls/hr IV Q6H PRN PRN Reason: Nausea And Vomiting Stop: 04/23/21 13:38 Losartan Potassium (Losartan Potassium 25 Mg Tab) 25 mg PO QAM [facility] Stop: 04/24/21 08:59 Last Admin: 04/07/21 08:52 Dose: 25 mg Documented by: Magnesium Oxide (Magnesium Oxide 400 Mg Tab) 400 mg PO BID [facility] Stop: 04/24/21 09:29 Last Admin: 04/07/21 08:52 Dose: 400 mg Documented by: Melatonin (Melatonin 3 Mg Tab) 3 mg PO DAILY@1900 [facility] Stop: 04/18/21 18:59 Last Admin: 04/06/21 21:44 Dose: 3 mg Documented by: Metoprolol Tartrate (Metoprolol Tartrate 25 Mg Tab) 12.5 mg PO BID [facility] Stop: 04/26/21 00:59 Last Admin: 04/07/21 08:49 Dose: 12.5 mg Documented by: Sodium Chloride (Sodium Chloride 0.65% Na Soln 45 Ml ([place])) 2 sprays NA TID PRN PRN Reason: Nasal Congestion Stop: 04/25/21 23:54 Last Admin: 03/31/21 09:01 Dose: 2 sprays Documented by:
[2021-04-07] MEDS: amLODIPine BESYLATE 5 MG TAB PO SCH (18:29)
[2021-04-07] MEDS: MELATONIN 3 MG TAB PO SCH (20:32)
[2021-04-07] MEDS ORDERED: POLYETHYLENE (MIRALAX) 17 GM PACK PO PRN (20:48)
[2021-04-07] MEDS ORDERED: ACETAMINOPHEN 325 MG TAB ONE (21:03)
[2021-04-07] MEDS: ACETAMINOPHEN 325 MG TAB PO PRN (21:05)
[2021-04-07] MEDS: ENOXAPARIN INJ 40 MG/0.4 ML SYR SQ SCH (21:36)
[2021-04-07] MEDS: guaiFENesin 600 MG TABCR PO SCH (21:36)
[2021-04-08] MEDS: LEVOTHYROXINE SODIUM 100 MCG TABLET PO SCH (06:09)
[2021-04-08 06:54] LABS: BUN Creatinine Ratio 22.7 (10-20); Calcium 9.3 mg/dl (8.5-10.1); Creatinine Clr Calc Pharmacy 67.4 ml/min; Est GFR (African American) 89.3 ml/min; Potassium 3.8 mmol/L (3.5-5.1)
[2021-04-08] MEDS: ENOXAPARIN INJ 40 MG/0.4 ML SYR SQ SCH ×2 (08:26→20:24)
[2021-04-08] MEDS: guaiFENesin 600 MG TABCR PO SCH ×2 (08:26→20:25)
[2021-04-08] MEDS: METOPROLOL TARTRATE 25 MG TAB PO SCH ×2 (08:26→20:24)
[2021-04-08] MEDS: LOSARTAN POTASSIUM 25 MG TAB PO SCH (08:26)
[2021-04-08] MEDS: MAGNESIUM OXIDE 400 MG TAB PO SCH ×2 (08:31→20:31)
[2021-04-08] MEDS: amLODIPine BESYLATE 5 MG TAB PO SCH (17:56)
--- NOTE | 2021-04-08 18:21 | Hospitalist Progress Note ---
Date of Service April 08, 2021 Assessment & Plan (1) Acute respiratory failure with hypoxia: (2) Pneumonia due to COVID-19 virus: Plan: Patient is a 70 y female with H/O hypothyroidism, HLD, morbid obesity presented to our ED 03/07 with weakness and cough x1 week [employer]. 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 She is non-smoker and socially drinks alcohol. In the ED she was hypoxic requiring 3 L of oxygen to maintain normal saturation. Chest x-ray revealed multifocal pneumonia. She was started on IV Decadron in the ED. She is not vaccinated against COVID-19. She is being managed for the following: Acute hypoxic respiratory failure Pneumonia due to COVID-19 virus Not vaccinated against Covid. Known Covid exposure with her , at presentation in the ED required 3 L of oxygen Covid test 03/07 positive. CXR: Multifocal pneumonia secondary to COVID-19 virus infection. Negative procalcitonin CRP:11.3>2.69 Completed course of remdesivir on 03/11 and dexamethasone course S/p Tocilizumab on 03/09. Appreciate pulmonology input Continues to require high flow oxygen Repeat CTA to rule out PE Likely need LTAC when stable Lasix PRN Torsade on 03/24/2021 QT prolongation in prior EKG Repeat EKG did not show any prolonged QT interval Appreciate cardiology input and recommendation Monitor electrolytes and replace as needed Mild hyponatremia resolved Monitor sodium levels Hyperglycemia 03/08 A1c 6.5 Daily blood glucose level WNL Patient on steroid, continue to monitor Hypertension Stable Continue with amlodipine and losartan. Hypothyroidism Continue levothyroxine. DVT Px: Lovenox SQ Disposition: To be determined Code Status Full code Admission and Anticipated Discharge Date Admission Date: March 07, 2021 Subjective Patient is seen and examined at bedside Reports having significant drop in oxygen with pneumonia Also reports dry cough and dyspnea on exertion Denies any chest pain, dizziness, nausea, abdominal pain Offers no other complaints Currently on high flow oxygen Review of Systems Review of Systems: All systems reviewed & are unremarkable except as noted in Subjective Physical Exam Physical Exam: Physical Exam: Vitals signs as noted above General Appearance:Obese, no apparent distress Head: normocephalic, Atraumatic Eyes: normal inspection, EOMI Neck: supple, Trachea midline Respiratory/Chest: Decreased breath sounds, CTA Cardiovascular: S1, S2, No murmur, +Tachycardia Abdomen/GI:Soft, Non tender, Bowel sounds present Extremities/Musculoskeletal:normal inspection, no edema Neurologic/Psych:AAOX3, grossly no focal neurological deficits Skin: normal color, warm Results & Data Results & Data ([facility]) Vital Signs (Past 12 Hours) Vital Signs Temp Pulse Pulse Resp BP BP Pulse Ox 04/08/21 18:14 112 H 04/08/21 17:55 36.9 C 111 H 20 145/82 H 91 04/08/21 15:48 110 H 24 88 L 04/08/21 11:23 102 H 18 94 04/08/21 11:19 37.0 C 101 H 20 102/70 94 04/08/21 07:43 102 H 04/08/21 07:24 36.6 C 96 H 29 H 130/74 95 Laboratory Results [facility] 04/08/21 06:02 Sodium 136 Potassium 3.8 Chloride 102 Carbon Dioxide 31 BUN 18 Creatinine 0.78 Glucose 127 H Calcium 9.3
[2021-04-08] MEDS: MELATONIN 3 MG TAB PO SCH (20:21)
[2021-04-08] MEDS: ACETAMINOPHEN 325 MG TAB PO PRN (20:31)
[2021-04-08] MEDS ORDERED: OPTIRAY 320 125ml IV ONE (22:31)
[2021-04-09] MEDS: LEVOTHYROXINE SODIUM 100 MCG TABLET PO SCH (05:46)
[2021-04-09 07:08] LABS: Hematocrit (blood only) 32.3 % (37-47); Hemoglobin 10.6 g/dL (12.0-16.0); Mean Corpuscular Hemoglobin 30.9 pg (25-34); Mean Corpuscular Hgb Conc 32.8 g/dL (32-36); Mean Corpuscular Volume 94.2 fL (80-100); Mean Platelet Volume 9.6 fL (7.4-10.4); Platelet Count 289 K/uL (130-400); RDW Coefficient of Variation 15.2 % (11.5-14.5); RDW Standard Deviation 51.6 fL (36.4-46.3); Red Blood Count 3.43 M/uL (4.2-5.4); White Blood Count 8.51 K/uL (4.8-10.8)
[2021-04-09 07:41] LABS: BUN Creatinine Ratio 19.6 (10-20); Calcium 9.2 mg/dl (8.5-10.1); Creatinine Clr Calc Pharmacy 71.9 ml/min; Est GFR (African American) 96.7 ml/min; Est GFR (Non-African American) 83.4 ml/min; Magnesium 2.4 mg/dl (1.8-2.4)
--- NOTE | 2021-04-09 08:11 | CT Scan Report ---
CHEST CTA for PULMONARY ARTERIES CT DOSE: 497.30 mGycm HISTORY: Covid pneumonia. Shortness of breath. TECHNIQUE: Multiaxial CT images of the chest were performed following the intravenous administration of contrast to evaluate the pulmonary arteries. Maximal intensity projection images were also obtaine d. A dose lowering technique was utilized adhering to the principles of ALARA. COMPARISON STUDY: Chest CTA 03/28/2021. FINDINGS: No evidence for an aortic dissection or pulmonary embolus. Mild mediastinal and bilateral h ilar lymphadenopathy, unchanged. This is likely reactive. The heart is normal in size. No pleural or pericardial effusions. The visualized liver and spleen are unremarkable. Normal esophagus. No pericar dial effusions. Trace left pleural effusion. Extensive multifocal bilateral airspace opacities with i nterstitial thickening and mild bronchiectasis. This favors an acute on chronic bilateral pneumonitis . This is similar to the prior study. IMPRESSION: 1. No evidence for pulmonary embolus. 2. No change in the mediastinal bilateral and hilar lymphadenopathy which is likely reactive. 3. Extensive bilateral airspace opacities persist consistent with an acute or chronic viral pneumonit is. ACT 112: Negative or not required by law. Electronically signed by: Paul Kirkland M.D. 04/09/2021 8:10 AM
[2021-04-09] MEDS: MAGNESIUM OXIDE 400 MG TAB PO SCH ×2 (08:12→20:49)
[2021-04-09] MEDS: METOPROLOL TARTRATE 25 MG TAB PO SCH ×2 (08:12→20:49)
[2021-04-09] MEDS: ENOXAPARIN INJ 40 MG/0.4 ML SYR SQ SCH ×2 (08:12→20:50)
[2021-04-09] MEDS: guaiFENesin 600 MG TABCR PO SCH ×2 (08:13→20:49)
[2021-04-09] MEDS: LOSARTAN POTASSIUM 25 MG TAB PO SCH (08:13)
[2021-04-09] MEDS ORDERED: FUROSEMIDE 20 MG in SYRINGE 0 ML IV ONE (08:15)
[2021-04-09] MEDS ORDERED: FUROSEMIDE 40 MG/4 ML VIAL IV ONE (08:30)
[2021-04-09] MEDS ORDERED: ENOXAPARIN INJ 40 MG/0.4 ML SYR SQ SCH (09:00)
[2021-04-09] MEDS ORDERED: BUDESONIDE 90 MCG INH INH SCH (09:00)
[2021-04-09] MEDS: predniSONE 20 MG TAB PO SCH (09:57)
[2021-04-09] MEDS: FLUTICASONE FUROATE 100MCG 14 PUFFS/INHALER INH SCH (09:57)
--- NOTE | 2021-04-09 16:34 | Hospitalist Progress Note ---
Date of Service April 09, 2021 Assessment & Plan (1) Acute respiratory failure with hypoxia: (2) Pneumonia due to COVID-19 virus: Plan: Patient is a 70 y female with H/O hypothyroidism, HLD, morbid obesity presented to our ED 03/07 with weakness and cough x1 week [employer]. 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 She is non-smoker and socially drinks alcohol. In the ED she was hypoxic requiring 3 L of oxygen to maintain normal saturation. Chest x-ray revealed multifocal pneumonia. She was started on IV Decadron in the ED. She is not vaccinated against COVID-19. She is being managed for the following: Acute hypoxic respiratory failure Pneumonia due to COVID-19 virus Not vaccinated against Covid. Known Covid exposure with her , at presentation in the ED required 3 L of oxygen Covid test 03/07 positive. CXR: Multifocal pneumonia secondary to COVID-19 virus infection. Negative procalcitonin CRP:11.3>2.69 Completed course of remdesivir on 03/11 and dexamethasone course S/p Tocilizumab on 03/09. Appreciate pulmonology input Continues to require high flow oxygen Repeat CTA to rule out PE Likely need LTAC when stable Lasix PRN Currently on high flow oxygen--30 L, 55% Fi02 Started on low-dose prednisone Encourage to prone Torsade on 03/24/2021 QT prolongation in prior EKG Repeat EKG did not show any prolonged QT interval Appreciate cardiology input and recommendation Monitor electrolytes and replace as needed Mild hyponatremia resolved Monitor sodium levels Hyperglycemia 03/08 A1c 6.5 Daily blood glucose level WNL Patient on steroid, continue to monitor Hypertension Stable Continue with amlodipine and losartan. Hypothyroidism Continue levothyroxine. DVT Px: Lovenox SQ Disposition: To be determined Code Status Full code Admission and Anticipated Discharge Date Admission Date: March 07, 2021 Subjective Patient is seen and examined at bedside Reports having intermittent nonexpectorant cough Otherwise no significant change from yesterday Sitting in chair during my encounter Currently on high flow oxygen--30 L, 55% Fi02 Has dyspnea on exertion Denies any chest pain, dizziness, nausea, abdominal pain Review of Systems Review of Systems: All systems reviewed & are unremarkable except as noted in Subjective Physical Exam Physical Exam: Physical Exam: Vitals signs as noted above General Appearance:Obese, no apparent distress Head: normocephalic, Atraumatic Eyes: normal inspection, EOMI Neck: supple, Trachea midline Respiratory/Chest: Decreased breath sounds, CTA Cardiovascular: S1, S2, No murmur, +Tachycardia Abdomen/GI:Soft, Non tender, Bowel sounds present Extremities/Musculoskeletal:normal inspection, no edema Neurologic/Psych:AAOX3, grossly no focal neurological deficits Skin: normal color, warm Results & Data Results & Data ([facility]) Vital Signs (Past 12 Hours) Vital Signs Temp Pulse Pulse Pulse Resp BP BP 04/09/21 15:55 37.1 C 108 H 24 137/79 04/09/21 15:07 107 H 20 04/09/21 11:20 36.8 C 105 H 22 126/71 04/09/21 10:24 105 H 18 04/09/21 08:05 97 H 18 04/09/21 07:46 36.8 C 101 H 23 114/79 04/09/21 07:17 97 H 04/09/21 05:51 19 Pulse Ox 04/09/21 15:55 94 04/09/21 15:07 92 04/09/21 11:20 92 04/09/21 10:24 92 04/09/21 08:05 94 04/09/21 07:46 92 04/09/21 07:17 04/09/21 05:51 95 Laboratory Results Short CBC 04/09/21 Range/Units 06:40 WBC 8.51 (4.8-10.8) K/uL Hgb 10.6 L (12.0-16.0) g/dL Hct 32.3 L (37-47) % Plt Count 289 (130-400) K/uL BMP 04/09/21 06:40 Sodium 136 Potassium 4.0 Chloride 102 Carbon Dioxide 29 BUN 14 Creatinine 0.73 Glucose 125 H Calcium 9.2
[2021-04-09] MEDS: amLODIPine BESYLATE 5 MG TAB PO SCH (17:40)
[2021-04-09] MEDS: MELATONIN 3 MG TAB PO SCH (20:49)
[2021-04-09] MEDS: ACETAMINOPHEN 325 MG TAB PO PRN (20:49)
[2021-04-10] MEDS: LEVOTHYROXINE SODIUM 100 MCG TABLET PO SCH (04:54)
--- NOTE | 2021-04-10 08:46 | Hospitalist Progress Note ---
Date of Service April 10, 2021 Assessment & Plan (1) Acute respiratory failure with hypoxia: (2) Pneumonia due to COVID-19 virus: Plan: Patient is a 70 y female with H/O hypothyroidism, HLD, morbid obesity presented to our ED 03/07 with weakness and cough x1 week [employer]. 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 She is non-smoker and socially drinks alcohol. In the ED she was hypoxic requiring 3 L of oxygen to maintain normal saturation. Chest x-ray revealed multifocal pneumonia. She was started on IV Decadron in the ED. She is not vaccinated against COVID-19. She is being managed for the following: Acute hypoxic respiratory failure Pneumonia due to COVID-19 virus Not vaccinated against Covid. Known Covid exposure with her , at presentation in the ED required 3 L of oxygen Covid test 03/07 positive. CXR: Multifocal pneumonia secondary to COVID-19 virus infection. Negative procalcitonin CRP:11.3>2.69 Completed course of remdesivir on 03/11 and dexamethasone course S/p Tocilizumab on 03/09. Appreciate pulmonology input Repeat CTA on 04/08:Extensive bilateral airspace opacities persist consistent with an acute or chronic viral pneumonitis. No change in mediastinal and hilar lymphadenopathy. Likely need LTAC when stable Lasix PRN Continue low-dose prednisone Encourage to prone Wean oxygen as able Currently on 13 L supplemental oxygen Mildly tachycardic on monitor Torsade on 03/24/2021 QT prolongation in prior EKG Repeat EKG did not show any prolonged QT interval Appreciate cardiology input and recommendation Monitor electrolytes and replace as needed Mild hyponatremia resolved Monitor sodium levels Hyperglycemia 03/08 A1c 6.5 Daily blood glucose level WNL Patient on steroid, continue to monitor Hypertension Stable Continue with amlodipine and losartan. Hypothyroidism Continue levothyroxine. DVT Px: Lovenox SQ Disposition: To be determined Code Status Full code Admission and Anticipated Discharge Date Admission Date: March 07, 2021 Subjective Patient is seen and examined at bedside States feeling a lot better today Only minimal dry cough [place] having indigestion overnight but currently resolved Denies any dyspnea Continue on 13 L supplemental oxygen Denies any chest pain, dizziness, nausea, abdominal pain Review of Systems Review of Systems: All systems reviewed & are unremarkable except as noted in Subjective Physical Exam Physical Exam: Physical Exam: Vitals signs as noted above General Appearance:Obese, no apparent distress Head: normocephalic, Atraumatic Eyes: normal inspection, EOMI Neck: supple, Trachea midline Respiratory/Chest: Decreased breath sounds, CTA Cardiovascular: S1, S2, No murmur, +Tachycardia Abdomen/GI:Soft, Non tender, Bowel sounds present Extremities/Musculoskeletal:normal inspection, no edema Neurologic/Psych:AAOX3, grossly no focal neurological deficits Skin: normal color, warm Results & Data Results & Data ([facility]) Vital Signs (Past 12 Hours) Vital Signs Temp Pulse Resp BP Pulse Ox 04/10/21 07:00 37 C 99 H 20 138/77 95 04/10/21 05:00 85 19 119/65 100 04/10/21 02:25 16 95 04/09/21 23:30 86 16 119/63 98 04/09/21 21:59 24 90
[2021-04-10] MEDS: ENOXAPARIN INJ 40 MG/0.4 ML SYR SQ SCH ×2 (09:17→19:23)
[2021-04-10] MEDS: LOSARTAN POTASSIUM 25 MG TAB PO SCH (09:18)
[2021-04-10] MEDS: predniSONE 20 MG TAB PO SCH (09:18)
[2021-04-10] MEDS: METOPROLOL TARTRATE 25 MG TAB PO SCH ×2 (09:18→19:24)
[2021-04-10] MEDS: guaiFENesin 600 MG TABCR PO SCH ×2 (09:18→19:23)
[2021-04-10] MEDS: FLUTICASONE FUROATE 100MCG 14 PUFFS/INHALER INH SCH (09:18)
[2021-04-10] MEDS: MAGNESIUM OXIDE 400 MG TAB PO SCH ×2 (09:19→20:53)
[2021-04-10] MEDS: amLODIPine BESYLATE 5 MG TAB PO SCH (19:09)
[2021-04-10] MEDS: MELATONIN 3 MG TAB PO SCH (19:22)
[2021-04-11] MEDS: LEVOTHYROXINE SODIUM 100 MCG TABLET PO SCH (05:43)
[2021-04-11 06:04] LABS: Hematocrit (blood only) 30.9 % (37-47); Hemoglobin 10.3 g/dL (12.0-16.0); Mean Corpuscular Hemoglobin 31.1 pg (25-34); Mean Corpuscular Hgb Conc 33.3 g/dL (32-36); Mean Corpuscular Volume 93.4 fL (80-100); Mean Platelet Volume 9.7 fL (7.4-10.4); Platelet Count 322 K/uL (130-400); RDW Coefficient of Variation 14.8 % (11.5-14.5); RDW Standard Deviation 50.7 fL (36.4-46.3); Red Blood Count 3.31 M/uL (4.2-5.4); White Blood Count 10.67 K/uL (4.8-10.8)
[2021-04-11 06:28] LABS: Calcium 8.9 mg/dl (8.5-10.1); Creatinine Clr Calc Pharmacy 76.9 ml/min; Est GFR (African American) 102.2 ml/min; Est GFR (Non-African American) 88.2 ml/min; Potassium 3.7 mmol/L (3.5-5.1)
[2021-04-11] MEDS: LOSARTAN POTASSIUM 25 MG TAB PO SCH (08:21)
[2021-04-11] MEDS: ENOXAPARIN INJ 40 MG/0.4 ML SYR SQ SCH ×2 (08:21→19:10)
[2021-04-11] MEDS: guaiFENesin 600 MG TABCR PO SCH ×2 (08:22→19:10)
[2021-04-11] MEDS: predniSONE 20 MG TAB PO SCH (08:22)
[2021-04-11] MEDS: METOPROLOL TARTRATE 25 MG TAB PO SCH ×2 (08:22→19:12)
[2021-04-11] MEDS: FLUTICASONE FUROATE 100MCG 14 PUFFS/INHALER INH SCH (08:22)
[2021-04-11] MEDS: MAGNESIUM OXIDE 400 MG TAB PO SCH ×2 (08:23→19:11)
[2021-04-11] MEDS: amLODIPine BESYLATE 5 MG TAB PO SCH (17:22)
[2021-04-11] MEDS ORDERED: Nursing to Pharmacy Communication SCH (17:30)
--- NOTE | 2021-04-11 18:43 | Hospitalist Progress Note ---
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 She is non-smoker and socially drinks alcohol. In the ED she was hypoxic requiring 3 L of oxygen to maintain normal saturation. Chest x-ray revealed multifocal pneumonia. She was started on IV Decadron in the ED. She is not vaccinated against COVID-19. She is being managed for the following: Acute hypoxic respiratory failure Pneumonia due to COVID-19 virus Not vaccinated against Covid. Known Covid exposure with her , at presentation in the ED required 3 L of oxygen Covid test 03/07 positive. CXR: Multifocal pneumonia secondary to COVID-19 virus infection. Negative procalcitonin CRP:11.3>2.69 Completed course of remdesivir on 03/11 and dexamethasone course S/p Tocilizumab on 03/09. Appreciate pulmonology input Repeat CTA on 04/08:Extensive bilateral airspace opacities persist consistent with an acute or chronic viral pneumonitis. No change in mediastinal and hilar lymphadenopathy. Likely need LTAC when stable Lasix PRN Continue low-dose prednisone Encourage to prone Currently on 10 L supplemental oxygen, saturating 93% Continue to wean oxygen [place] on 03/24/2021 QT prolongation in prior EKG Repeat EKG did not show any prolonged QT interval Appreciate cardiology input and recommendation Monitor electrolytes and replace as needed Mild hyponatremia resolved Monitor sodium levels Hyperglycemia 03/08 A1c 6.5 Daily blood glucose level WNL Patient on steroid, continue to monitor Hypertension Stable Continue with amlodipine and losartan. Hypothyroidism Continue levothyroxine. DVT Px: Lovenox SQ Disposition: To be determined Code Status Full code Admission and Anticipated Discharge Date Admission Date: March 07, 2021 Subjective Patient is seen and examined at bedside No new complaints Sitting in chair during my encounter Currently on 10 L supplemental oxygen Denies any dyspnea, cough Continue on 13 L supplemental oxygen Also denies any chest pain, dizziness, nausea, abdominal pain Review of Systems Review of Systems: All systems reviewed & are unremarkable except as noted in Subjective Physical Exam Physical Exam: Physical Exam: Vitals signs as noted above General Appearance:Obese, no apparent distress Head: normocephalic, Atraumatic Eyes: normal inspection, EOMI Neck: supple, Trachea midline Respiratory/Chest: Decreased breath sounds, CTA Cardiovascular: S1, S2, No murmur, +Tachycardia Abdomen/GI:Soft, Non tender, Bowel sounds present Extremities/Musculoskeletal:normal inspection, no edema Neurologic/Psych:AAOX3, grossly no focal neurological deficits Skin: normal color, warm Results & Data Results & Data ([facility]) Vital Signs (Past 12 Hours) Vital Signs Temp Pulse Pulse Resp BP Pulse Ox 04/11/21 16:51 36.7 C 99 H 18 148/88 H 93 04/11/21 15:24 97 04/11/21 12:03 36.6 C 82 18 99/68 L 92 04/11/21 11:49 82 04/11/21 08:02 36.6 C 92 H 19 142/78 H 97 Laboratory Results Short CBC 04/11/21 Range/Units 05:21 WBC 10.67 (4.8-10.8) K/uL Hgb 10.3 L (12.0-16.0) g/dL Hct 30.9 L (37-47) % Plt Count 322 (130-400) K/uL BMP 04/11/21 05:21 Sodium 139 Potassium 3.7 Chloride 103 Carbon Dioxide 30 BUN 16 Creatinine 0.69 Calcium 8.9
[2021-04-11] MEDS: MELATONIN 3 MG TAB PO SCH (19:10)
[2021-04-12] MEDS: LEVOTHYROXINE SODIUM 100 MCG TABLET PO SCH (06:34)
[2021-04-12] MEDS: ENOXAPARIN INJ 40 MG/0.4 ML SYR SQ SCH ×2 (08:20→20:33)
[2021-04-12] MEDS: guaiFENesin 600 MG TABCR PO SCH ×2 (08:21→20:33)
[2021-04-12] MEDS: MAGNESIUM OXIDE 400 MG TAB PO SCH ×2 (08:21→20:33)
[2021-04-12] MEDS: predniSONE 20 MG TAB PO SCH (08:22)
[2021-04-12] MEDS: LOSARTAN POTASSIUM 25 MG TAB PO SCH (08:23)
[2021-04-12] MEDS: FLUTICASONE FUROATE 100MCG 14 PUFFS/INHALER INH SCH (08:23)
[2021-04-12] MEDS: METOPROLOL TARTRATE 25 MG TAB PO SCH ×2 (08:23→20:33)
[2021-04-12] MEDS: NYSTATIN POWDER 15GM BTL EXT PRN (08:24)
--- NOTE | 2021-04-12 16:23 | Hospitalist Progress Note ---
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 She is non-smoker and socially drinks alcohol. In the ED she was hypoxic requiring 3 L of oxygen to maintain normal saturation. Chest x-ray revealed multifocal pneumonia. She was started on IV Decadron in the ED. She is not vaccinated against COVID-19. She is being managed for the following: Acute hypoxic respiratory failure Pneumonia due to COVID-19 virus Not vaccinated against Covid. Known Covid exposure with her , at presentation in the ED required 3 L of oxygen Covid test 03/07 positive. CXR: Multifocal pneumonia secondary to COVID-19 virus infection. Negative procalcitonin CRP:11.3>2.69 Completed course of remdesivir on 03/11 and dexamethasone course S/p Tocilizumab on 03/09. Appreciate pulmonology input Repeat CTA on 04/08:Extensive bilateral airspace opacities persist consistent with an acute or chronic viral pneumonitis. No change in mediastinal and hilar lymphadenopathy. Likely need LTAC when stable Lasix PRN Continue low-dose prednisone Encourage to prone Saturating well on 2 L supplemental oxygen Plan to discharge to LTAC tomorrow [place] on 03/24/2021 QT prolongation in prior EKG Repeat EKG did not show any prolonged QT interval Appreciate cardiology input and recommendation Monitor electrolytes and replace as needed Mild hyponatremia resolved Monitor sodium levels Hyperglycemia 03/08 A1c 6.5 Daily blood glucose level WNL Patient on steroid, continue to monitor Hypertension Stable Continue with amlodipine and losartan. Hypothyroidism Continue levothyroxine. DVT Px: Lovenox SQ Disposition: LTAC Code Status Full code Admission and Anticipated Discharge Date Admission Date: March 07, 2021 Subjective Patient is seen and examined at bedside Saturating well on 12 L supplemental oxygen Accepted to LTAC tomorrow Offers no new complaints Denies any chest pain, dyspnea, dizziness, nausea, abdominal pain Review of Systems Review of Systems: All systems reviewed & are unremarkable except as noted in Subjective Physical Exam Physical Exam: Physical Exam: Vitals signs as noted above General Appearance:Obese, no apparent distress Head: normocephalic, Atraumatic Eyes: normal inspection, EOMI Neck: supple, Trachea midline Respiratory/Chest: Decreased breath sounds, CTA Cardiovascular: S1, S2, No murmur, +Tachycardia Abdomen/GI:Soft, Non tender, Bowel sounds present Extremities/Musculoskeletal:normal inspection, no edema Neurologic/Psych:AAOX3, grossly no focal neurological deficits Skin: normal color, warm Results & Data Results & Data ([facility]) Vital Signs (Past 12 Hours) Vital Signs Temp Pulse Resp BP Pulse Ox 04/12/21 15:39 36.5 C 87 18 124/62 97 04/12/21 11:57 36.6 C 79 16 114/67 98 04/12/21 08:00 36.7 C 83 16 109/64 95
[2021-04-12] MEDS: amLODIPine BESYLATE 5 MG TAB PO SCH (17:51)
[2021-04-12] MEDS: ACETAMINOPHEN 325 MG TAB PO PRN (20:46)
[2021-04-12] MEDS: MELATONIN 3 MG TAB PO SCH (20:46)
[2021-04-13] MEDS: LEVOTHYROXINE SODIUM 100 MCG TABLET PO SCH (05:26)
[2021-04-13 05:52] LABS: Hematocrit (blood only) 33.5 % (37-47); Mean Corpuscular Hemoglobin 30.9 pg (25-34); Mean Corpuscular Hgb Conc 32.8 g/dL (32-36); Mean Corpuscular Volume 94.1 fL (80-100); Mean Platelet Volume 9.6 fL (7.4-10.4); Platelet Count 332 K/uL (130-400); RDW Coefficient of Variation 14.8 % (11.5-14.5); RDW Standard Deviation 50.8 fL (36.4-46.3); Red Blood Count 3.56 M/uL (4.2-5.4); White Blood Count 12.14 K/uL (4.8-10.8)
[2021-04-13 06:19] LABS: Calcium 9.3 mg/dl (8.5-10.1); Creatinine Clr Calc Pharmacy 73.7 ml/min; Est GFR (African American) 98.3 ml/min; Est GFR (Non-African American) 84.9 ml/min; Potassium 3.8 mmol/L (3.5-5.1)
[2021-04-13] MEDS: LOSARTAN POTASSIUM 25 MG TAB PO SCH (09:08)
[2021-04-13] MEDS: METOPROLOL TARTRATE 25 MG TAB PO SCH ×2 (09:08→20:04)
[2021-04-13] MEDS: predniSONE 20 MG TAB PO SCH (09:08)
[2021-04-13] MEDS: guaiFENesin 600 MG TABCR PO SCH ×2 (09:09→20:05)
[2021-04-13] MEDS: NYSTATIN POWDER 15GM BTL EXT PRN ×2 (09:10→20:13)
[2021-04-13] MEDS: ENOXAPARIN INJ 40 MG/0.4 ML SYR SQ SCH ×2 (09:10→20:07)
[2021-04-13] MEDS: FLUTICASONE FUROATE 100MCG 14 PUFFS/INHALER INH SCH (09:10)
[2021-04-13] MEDS: MAGNESIUM OXIDE 400 MG TAB PO SCH ×2 (09:11→20:05)
--- NOTE | 2021-04-13 09:46 | Hospitalist Progress Note ---
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 She is non-smoker and socially drinks alcohol. In the ED she was hypoxic requiring 3 L of oxygen to maintain normal saturation. Chest x-ray revealed multifocal pneumonia. She was started on IV Decadron in the ED. She is not vaccinated against COVID-19. She is being managed for the following: Acute hypoxic respiratory failure Pneumonia due to COVID-19 virus Not vaccinated against Covid. Known Covid exposure with her , at presentation in the ED required 3 L of oxygen Covid test 03/07 positive. CXR: Multifocal pneumonia secondary to COVID-19 virus infection. Negative procalcitonin CRP:11.3>2.69 Completed course of remdesivir on 03/11 and dexamethasone course S/p Tocilizumab on 03/09. Appreciate pulmonology input Repeat CTA on 04/08:Extensive bilateral airspace opacities persist consistent with an acute or chronic viral pneumonitis. No change in mediastinal and hilar lymphadenopathy. Likely need LTAC when stable Lasix PRN Completed prednisone course Encourage to prone Saturating well on 10 L supplemental oxygen Plan to discharge to LTAC today [place] on 03/24/2021 QT prolongation in prior EKG Repeat EKG did not show any prolonged QT interval Appreciate cardiology input and recommendation Monitor electrolytes and replace as needed Mild hyponatremia resolved Monitor sodium levels Hyperglycemia 03/08 A1c 6.5 Daily blood glucose level WNL Patient on steroid, continue to monitor Will need repeat testing Hypertension Stable Continue with amlodipine and losartan. Hypothyroidism Continue levothyroxine. DVT Px: Lovenox SQ Disposition: LTAC Code Status Full code Admission and Anticipated Discharge Date Admission Date: March 07, 2021 Subjective Patient is seen and examined at bedside Doing well this morning No new complaints Saturating well on 10 L supplemental oxygen Plan to be discharged to LTAC today Denies any chest pain, dyspnea, dizziness, nausea, abdominal pain Review of Systems Review of Systems: All systems reviewed & are unremarkable except as noted in Subjective Physical Exam Physical Exam: Physical Exam: Vitals signs as noted above General Appearance:Obese, no apparent distress Head: normocephalic, Atraumatic Eyes: normal inspection, EOMI Neck: supple, Trachea midline Respiratory/Chest: Decreased breath sounds, CTA Cardiovascular: S1, S2, No murmur, +Tachycardia Abdomen/GI:Soft, Non tender, Bowel sounds present Extremities/Musculoskeletal:normal inspection, no edema Neurologic/Psych:AAOX3, grossly no focal neurological deficits Skin: normal color, warm Results & Data Results & Data ([facility]) Vital Signs (Past 12 Hours) Vital Signs Temp Pulse Pulse Resp BP Pulse Ox 04/13/21 03:55 84 20 129/77 97 04/13/21 03:10 77 21 97 04/12/21 23:44 80 04/12/21 22:34 36.2 C L 85 20 131/81 98 Laboratory Results Short CBC 04/13/21 Range/Units 05:24 WBC 12.14 H (4.8-10.8) K/uL Hgb 11.0 L (12.0-16.0) g/dL Hct 33.5 L (37-47) % Plt Count 332 (130-400) K/uL BMP 04/13/21 05:24 Sodium 139 Potassium 3.8 Chloride 104 Carbon Dioxide 29 BUN 22 H Creatinine 0.72 Calcium 9.3
--- NOTE | 2021-04-13 11:23 | Discharge Summary ---
Date of Service April 13, 2021 Admission HPI Per Admitting Provider This is a 70 year old F who has a significant PMH of hypothyroidism, HLD who is presenting with weakness and cough x 1 week. Patient complains of generalized weakness, fatigue, myalgias, feeling feverish, wet productive cough and known COVID-19 exposure with . She denies any shortness of breath, chest pain, hemoptysis, lightheadedness, dizziness, nausea, vomiting, abdominal pain, change in bowel or urinary habits. She does have generalized decreased appetite. She denies any loss of taste or smell. She denies any change in weight. She does have chronic lower extremity swelling but feels this is a baseline. She is otherwise healthy only takes levothyroxine for medication. She is a non-smoker and socially drinks alcohol. In ED she was hypoxic requiring 3 L of O2 to maintain normal saturation. Her CBC revealed mild leukopenia at 4.3k,, ESR 63, CRP 11 point, sodium 131, right 96, BUN 16, creatinine 106, glucose 158. Chest x-ray revealed multifocal pneumonia. She received IV Decadron in ED. She is not vaccinated against covid-19. Admission Exam Per Admitting Provider Physical Exam Physical Exam: Constitutional: WD/WN, obese, F, vitals as above, NAD, sitting up in bed, pleasant, conversing easily Head: Normocephalic, Atraumatic Eyes: PERRL, conjunctivae normal, anicteric sclerae ENMT: external ear and nose normal, oropharynx normal Neck: trachea midline, no thyromegaly normal visual inspection Respiratory: on O2 via 3L of NC, normal respiratory effort, lungs clear to auscultation, no wheeze, rales, rhonchi. Normal insp/exp effort, no accessory muscle use Cardiovascular: RRR, no murmur, b/l nonpitting edema Vessels: no JVD or carotid bruit Chest: normal inspection of chest Abdomen: normal bowel sounds, soft, nontender, no hepatosplenomegaly Musculoskeletal: no cyanosis or clubbing, extremities motor strength 5/5 Skin: no rashes, warm and dry normal turgor Neurologic: PERRL, EOMI, accommodation nl, no face palsy, no dysarthria CN's II-XI intact bilaterally and moves all extremities Psychiatric: A+Ox3, euthymic affect Lymphatic: no cervical or axillary lymphadenopathy : deferred Principal Diagnosis Acute hypoxic respiratory failure Pneumonia due to COVID-19 virus Diabetes Mellitus Discharge Data Allergies Allergy/AdvReac Type Severity Reaction Status Date / Time No Known Allergies Allergy Verified 03/07/21 18:49 Consultations 03/07/21 18:51 ED Decision to Admit Stat 03/09/21 13:05 Consult Pulmonology Routine 03/24/21 14:19 Consult Cardiology Routine 04/13/21 11:15 Burn CD for patient Stat Ordered Studies 03/28/21 12:43 CT angio chest PE protocol Routine 04/08/21 14:03 CT angio chest PE protocol Urgent Hospital Course (1) Acute respiratory failure with hypoxia: (2) Pneumonia due to COVID-19 virus: Patient is a 70 y female with H/O hypothyroidism, HLD, morbid obesity 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 She is non-smoker and socially drinks alcohol. In the ED she was hypoxic requiring 3 L of oxygen to maintain normal saturation. Chest x-ray revealed multifocal pneumonia. She was started on IV Decadron in the ED. She is not vaccinated against COVID-19. She is being managed for the following: Acute hypoxic respiratory failure Pneumonia due to COVID-19 virus Not vaccinated against Covid. Known Covid exposure with her , at presentation in the ED required 3 L of oxygen Covid test 03/07 positive. CXR: Multifocal pneumonia secondary to COVID-19 virus infection. Negative procalcitonin CRP:11.3>2.69 Completed course of remdesivir on 03/11 and dexamethasone course S/p Tocilizumab on 03/09. Appreciate pulmonology input Repeat CTA on 04/08:Extensive bilateral airspace opacities persist consistent with an acute or chronic viral pneumonitis. No change in mediastinal and hilar lymphadenopathy. Likely need LTAC when stable Lasix PRN Completed prednisone course Encourage to prone Saturating well on 10 L supplemental oxygen Plan to discharge to LTAC today [place] on 03/24/2021 QT prolongation in prior EKG Repeat EKG did not show any prolonged QT interval Appreciate cardiology input and recommendation Monitor electrolytes and replace as needed Mild hyponatremia resolved Monitor sodium levels Hyperglycemia 03/08 A1c 6.5 Daily blood glucose level WNL Patient on steroid, continue to monitor Will need repeat testing Hypertension Stable Continue with amlodipine and losartan. Hypothyroidism Continue levothyroxine. DVT Px: Lovenox SQ Disposition: LTAC Code Status Full code Total Time Total Time Spent Total Time Spent (In Minutes): 55 minutes Discharge Plan Discharge Items Patient Disposition: Trans Resident Long-Term Care Reason For Visit: COVID PNA Discharge Diagnosis: Acute hypoxic respiratory failure Pneumonia due to COVID-19 virus Diabetes Mellitus Activity: Per Instructions section Exercise/Sports: Wait until after follow-up appointment Non-emergency contact: Primary Care Provider Call non-emergency contact if: you have any medication questions, your symptoms worsen, your pain is concerning for you and you have a fever Follow-up/Referrals: Elizabeth Yeung, [Primary Care Provider] - Diet: Carb Consistent or DM2 and Heart Healthy Addtl Attending Provider Instructions: Follow up with your primary care physician in 1 week upon discharge from LT Follow up with your physician at [facility] for further management Seek immediate medical attention if your symptoms reoccur or worsen Please take all medications as instructed on discharge list below. Please call if you have any questions or problems. You can reach a [facility] hospitalist on duty at [facility] 24 hours a day by calling [phone] Pending Studies at Discharge: No Stand-Alone Forms: My [facility] Skilled Items Patient informed of condition?: Yes DNR: No Discharge Level of Care: Other Communicable Disease: Yes Discharge Prognosis: Stable Lines: None Urinary Catheter: No Medications and DC Order Prescriptions: New amlodipine [Norvasc] 5 mg Tablet 5 mg PO 1800 Qty: 30 RF: 0 enoxaparin 40 mg/0.4 mL Syringe 40 mg subcut Q12H 14 Days Qty: 11.2 RF: 0 magnesium oxide 400 mg (241.3 mg magnesium) Tablet 400 mg PO BID Qty: 60 RF: 0 losartan 25 mg Tablet 25 mg PO QAM Qty: 30 RF: 0 metoprolol tartrate 25 mg Tablet 12.5 mg PO BID 30 Days Qty: 30 RF: 0 Continued levothyroxine 100 mcg tablet 100 mcg PO DAILY RF: 0 Discharge Orders: Discharge Order (Routine); Ordered 04/13/21 Ordered By: Ayush Hearn/Other Patient Handouts: 5 Steps for Eating Healthier, Exercise: Why Fitness Matters, Diabetes: Meal Planning, Type 2 Diabetes Admission Data Admit Date/Time: 03/07/21 19:02 Attending Provider: Ayush Shelley Admit Provider: Arben Hassan Primary Care Provider: Elizabeth Yeung Other Providers: Arben Hassan ; Michele Danielson ; Nahum Miguel ; Tobin Nelson ; Aliya Fuentes ; [facility]
[2021-04-13] MEDS: MELATONIN 3 MG TAB PO SCH (20:07)
[2021-04-13] MEDS: ACETAMINOPHEN 325 MG TAB PO PRN (20:15)
[2021-04-14] MEDS: LEVOTHYROXINE SODIUM 100 MCG TABLET PO SCH (06:14)
[2021-04-14] MEDS: MAGNESIUM OXIDE 400 MG TAB PO SCH ×2 (07:50→09:41)
[2021-04-14] MEDS: METOPROLOL TARTRATE 25 MG TAB PO SCH (07:50)
[2021-04-14] MEDS: guaiFENesin 600 MG TABCR PO SCH (07:50)
[2021-04-14] MEDS: LOSARTAN POTASSIUM 25 MG TAB PO SCH (07:50)
[2021-04-14] MEDS: FLUTICASONE FUROATE 100MCG 14 PUFFS/INHALER INH SCH (07:51)
[2021-04-14] MEDS: ENOXAPARIN INJ 40 MG/0.4 ML SYR SQ SCH (07:51)
[2021-04-14] MEDS ORDERED: ONDANSETRON 4 MG OD TAB PO PRN (12:53)
--- NOTE | 2021-04-14 13:01 | Hospitalist Progress Note ---
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 She is non-smoker and socially drinks alcohol. In the ED she was hypoxic requiring 3 L of oxygen to maintain normal saturation. Chest x-ray revealed multifocal pneumonia. She was started on IV Decadron in the ED. She is not vaccinated against COVID-19. She is being managed for the following: Acute hypoxic respiratory failure Pneumonia due to COVID-19 virus Not vaccinated against Covid. Known Covid exposure with her , at presentation in the ED required 3 L of oxygen Covid test 03/07 positive. CXR: Multifocal pneumonia secondary to COVID-19 virus infection. Negative procalcitonin CRP:11.3>2.69 Completed course of remdesivir on 03/11 and dexamethasone course S/p Tocilizumab on 03/09. Appreciate pulmonology input Repeat CTA on 04/08:Extensive bilateral airspace opacities persist consistent with an acute or chronic viral pneumonitis. No change in mediastinal and hilar lymphadenopathy. Likely need LTAC when stable Lasix PRN Completed prednisone course Encourage to prone Saturating well on 8 L supplemental oxygen Discharge to LTAC [place] on 03/24/2021 QT prolongation in prior EKG Repeat EKG did not show any prolonged QT interval Appreciate cardiology input and recommendation Monitor electrolytes and replace as needed Mild hyponatremia resolved Monitor sodium levels Hyperglycemia 03/08 A1c 6.5 Daily blood glucose level WNL Patient on steroid, continue to monitor Will need repeat testing Hypertension Stable Continue with amlodipine and losartan. Hypothyroidism Continue levothyroxine. DVT Px: Lovenox SQ Disposition: LTAC Code Status Full code Admission and Anticipated Discharge Date Admission Date: March 07, 2021 Subjective Patient is seen and examined at bedside Saturating well on 8 L supplemental oxygen Denies any chest pain, dyspnea, dizziness, nausea, abdominal pain No complaints Review of Systems Review of Systems: All systems reviewed & are unremarkable except as noted in Subjective Physical Exam Physical Exam: Physical Exam: Vitals signs as noted above General Appearance:Obese, no apparent distress Head: normocephalic, Atraumatic Eyes: normal inspection, EOMI Neck: supple, Trachea midline Respiratory/Chest: Decreased breath sounds, CTA Cardiovascular: S1, S2, No murmur, +Tachycardia Abdomen/GI:Soft, Non tender, Bowel sounds present Extremities/Musculoskeletal:normal inspection, no edema Neurologic/Psych:AAOX3, grossly no focal neurological deficits Skin: normal color, warm Results & Data Results & Data ([facility]) Vital Signs (Past 12 Hours) Vital Signs Temp Pulse Pulse Resp BP BP Pulse Ox 04/14/21 11:02 37 C 85 18 138/84 97 04/14/21 07:00 84 04/14/21 06:37 36.4 C L 97 H 22 175/93 H 93 04/14/21 03:25 78 19 98 04/14/21 03:03 36.5 C 78 18 128/77 98
== END 2021-04-14 14:42 | DRG 177 ==
LOC: ED 15:14 → 2E 19:02 → SUATTDRO 19:02 → 2E 21:34 → 2S 04-10 17:06 → 2W 04-13 22:12